=== PATIENT | male | born 1940 | race Caucasian/White ===

== ENCOUNTER 2024-12-06 11:39 | Inpatient (IN) | payer MEDICARE, SELFPAY ==
[2024-12-06] VITALS (16 sets, daily range): BP systolic 124–160; BP diastolic 51–98; PULSE 47–75; RESP 14–23; TEMP 36.3–36.6; O2SAT 95–100; BMI 33.7; BMI 34.2
--- NOTE | 2024-12-06 11:42 | ED.RN ---
consulted dr issa. stroke protocols placed and dr issa to see ot in room.
--- NOTE | 2024-12-06 11:43 | EKG12_ITS ---
Test Reason : Blood Pressure : */* mmHG Vent. Rate : 60 BPM Atrial Rate : 60 BPM P-R Int : 184 ms QRS Dur : 100 ms QT Int : 426 ms P-R-T Axes : 45 0 14 degrees QTcB Int : 426 ms Normal sinus rhythm Baseline artifact Probably normal Confirmed by Julio Palma ([id number]), slot editor MARGARET NAIR ([id number]) on 12/07/2024 6:48:18 AM Referred By: Confirmed By: Julio Palma
--- NOTE | 2024-12-06 12:23 | CT_ITS ---
PROCEDURE: STROKE BRAIN/HEAD WITHOUT CONT 12/06/2024 REASON FOR EXAM: NEURO DEFICIT, ACUTE, STROKE SUSPECTED TECHNIQUE: Head CT without intravenous contrast. Coronal and Sagittal reconstruction series were provided. One or more dose reduction techniques were used (e.g., Automated exposure control, adjustment of the mA and/or kV according to patient size, use of iterative reconstruction technique. RADIATION DOSE SUMMARY: CTDlvol: 44.99 mGy DLP: 829.85 mGycm COMPARISON: None FINDINGS: Brain: Low density in the periventricular white matter suggests mild chronic small vessel ischemic changes. Atherosclerotic calcification of the vertebral arteries and cavernous portions of the internal carotid arteries bilaterally. CSF Spaces: Mild generalized cerebral atrophy Sinuses/Mastoids: Clear at visualized levels Bones: Unremarkable. CT/STROKE Brain/Head without Cont IMPRESSION: CHRONIC CHANGES. NO ACUTE FINDINGS. Red Alert: Chronic changes The critical information above was relayed directly by me by telephone to Ricardo Donohue on 12/06/2024 at 1:11 pm with readback verification. Reading Location: [place] [id number]
--- NOTE | 2024-12-06 12:23 | CT_ITS ---
PROCEDURE: STROKE CTA HEAD AND NECK W/CON 12/06/2024 REASON FOR EXAM: NEURO DEFICIT, ACUTE, STROKE SUSPECTED TECHNIQUE: CTA imaging of the head and neck from the aortic arch to the skull vertex with out contrast and with intravenous contrast. Multiplanar and multisequence images were obtained. CONTRAST: Isovue-300 VOLUME: 100 mL One or more dose reduction techniques were used (e.g., Automated exposure control, adjustment of the mA and/or kV according to patient size, use of iterative reconstruction technique). RADIATION DOSE SUMMARY: CTDlvol: 24 mGy DLP: 732.75 mGycm COMPARISON: None FINDINGS: Aortic Arch: Normal size and branching pattern. Mild atherosclerotic plaque. Brachiocephalic and Subclavians: Mild atherosclerotic plaque. Significant stenosis at the origin of the left subclavian artery. An intraluminal filling defect is seen at the origin of the left subclavian artery adjacent to the origin of the left vertebral artery. RIGHT Carotid: Right CCA: Unremarkable Right ICA: Moderate calcified and soft plaque. Maximum stenosis (NASCET): 60 % Right ECA: Unremarkable LEFT Carotid: Left CCA: Moderate calcified and soft plaque. Left ICA: Moderate calcified and soft plaque. Maximum stenosis (NASCET): 60 % Left ECA: Unremarkable Vertebrals: Codominant. Arise from the subclavians. Both vertebrals form the basilar. RIGHT Vertebral: Unremarkable. LEFT Vertebral: Calcific plaques. Anatomy: [place] anatomy is normal. Aneurysm or avm: No intracranial aneurysms or large vascular malformations are identified. Anterior cerebral arteries: Unremarkable: Middle cerebral arteries: Unremarkable. Basilar artery: Unremarkable. Posterior cerebral arteries: Unremarkable. Other major branches of the posterior circulation: Unremarkable. Major venous structures: Unremarkable. Other findings: Neck: Lungs: Bones: CT/STROKE CTA Head AND Neck W/Con IMPRESSION: Calcific plaques at the origin of both right and left internal carotid artery c ausing approximately 60% stenosis. Calcific plaque at the origin of the left subclavian artery just proximal to th e origin of the left vertebral artery. Nonocclusive intraluminal filling defects seen in the subclavian artery at that site. Red Alert: 60 % stenosis bilat int carotids. Filling defect in Left subclavian. The critical information above was relayed directly by me by telephone to Ricardo Donohue on 12/06/2024 at 1:22 pm with readback verification. Reading Location: [facility]
--- NOTE | 2024-12-06 12:24 | ED.VIS.STROK ---
HPI History of Present Illness Chief Complaint: Neuro S/Sx Informant: patient Onset/Context/Timing Onset: Today and Hours Context: Sudden Onset Timing: Continuous Onset: Decreased vision left upper visual field. Current Severity: Moderate Maximum Severity: Moderate Associated Symptoms Associated Symptoms: Negative for Headache, Nausea, Vomiting or Chest Pain Narrative Narrative: 84-year-old male decreased vision left upper field of his left eye started 8 AM this morning. He saw an train reservation clerk Dr. Christie and was diagnosed with left retinal artery occlusion. Sent to ER for further evaluation. He denies any other complaints. He denies headache. He denies weakness in his arms or legs. He denies any ataxia. He has had a prior stroke 6 years ago Prior similar symptoms: No Recent Illness/Hospitalization: No PFSH PFSH Home Medications ?Medication ?Instructions ?Recorded ?Last Taken ?Type furosemide 20 mg tablet 20 mg PO DAILY 05/04/13 Unknown History atorvastatin 40 mg tablet 40 mg PO QHS ##30 05/06/13 Unknown Rx clopidogrel 75 mg tablet 75 mg PO DAILY ##30 05/06/13 Unknown Rx lisinopril 5 mg tablet 15 mg (3 x 5 mg) PO DAILY ##30 05/17/13 Unknown Rx doxazosin 4 mg tablet 4 mg PO BID 12/06/24 Unknown History levothyroxine 150 mcg tablet 150 mcg PO DAILY disorder of 12/06/24 Unknown History thyroid gland losartan 50 mg tablet 50 mg PO BID 12/06/24 Unknown History metoprolol succinate 25 mg 25 mg PO DAILY 12/06/24 Unknown History tablet,extended release 24 hr pravastatin 40 mg tablet 40 mg PO QHS cholesterol 12/06/24 Unknown History Allergy/AdvReac Type Severity Reaction Status Date / Time Sulfa (Sulfonamide Allergy Rash Verified 12/06/24 11:40 Antibiotics) Social History Smoking Status: Never smoker ROS ROS ED ROS Narrative Left visual change. No recent illness. Constitutional Constitutional ED: Denies chills Eyes Eyes: Reports change in vision left ENT ENT ED: Denies ear pain Cardiovascular Cardiovascular: Denies chest pain Respiratory/Chest Respiratory/Chest: Denies cough Gastrointestinal Gastrointestinal: Denies abdominal pain Genitourinary Genitourinary ED: Denies dysuria Musculoskeletal Musculoskeletal: Denies arthralgias Neurologic Neurologic: Denies headache(s) Psychiatric Psychiatric: Denies anxiety Endocrine Endocrinology: Denies polydipsia Hematologic/Lymphatic Hematologic/Lymphatic: Denies easy bleeding Allergic/Immunologic Allergic/Immunologic ED: Denies mouth swelling or urticaria EXAM Physical Exam Narrative Exam Narrative: Well-appearing 84-year-old male sitting upright in bed. Vital signs stable afebrile. No acute distress. H EENT exam appears Ramming Actilite. Expirations are intact. He is vision change in his left eye left upper field. No facial droop. Normal speech. Neck nontender. Lungs clear. Heart regular rhythm rate about 75 no murmur. Chest wall ribs nontender. Abdomen soft nontender. Moving all 4 extremities. 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 Dorsi plantarflexion intact. No drift. Neurologically he has decreased vision or loss of vision left upper eye field. Otherwise he has normal strength. Normal range of motion. No ataxia. Normal speech. His NIH is 1. Const Vital Signs: 12/06/24 11:40 12/06/24 12:17 12/06/24 12:26 Temperature 97.9 F Temperature Source Oral Pulse Rate 75 Respiratory Rate 18 Blood Pressure 124/98 H Blood Pressure Mean 106 Pulse Ox 98 Oxygen Delivery Method Room Air Room Air Room Air 12/06/24 12:30 12/06/24 13:00 12/06/24 13:30 Temperature Temperature Source Pulse Rate 58 L 55 L 51 L Respiratory Rate 23 H 23 H 18 Blood Pressure 147/56 H 132/57 H 139/58 H Blood Pressure Mean 83 82 83 Pulse Ox 99 98 98 Oxygen Delivery Method Room Air Room Air 12/06/24 14:00 12/06/24 14:30 12/06/24 15:00 Temperature Temperature Source Pulse Rate 50 L 50 L 49 L Respiratory Rate 19 H 22 H 20 H Blood Pressure 145/57 H 142/51 H 148/56 H Blood Pressure Mean 84 77 86 Pulse Ox 98 98 99 Oxygen Delivery Method Positive well developed; Negative for cachectic, contractures or unkempt General Appearance ED: well developed and NAD; Negative for unkempt, cachectic or contractures Nutritional Appearance: Negative for cachectic HEENT Reports moist mucous membranes atraumatic Eyes PERRL and EOMs intact bilaterally Eyes Narrative: Left eye upper field vision loss. General Eye ED: Negative for pale conjunctiva or scleral icterus Neck no lymphadenopathy, supple and no JVD Chest Wall inspection of chest normal and palpation of chest normal Resp normal respiratory effort and clear to auscultation bilaterally Cardio no murmurs Rate: regular rate Rhythm: regular rhythm GI normal to inspection, nondistended, normoactive bowel sounds, soft to palpation, non-tender, non-distended and no masses Auscultation: normoactive bowel sounds Back/Spine no CVA tenderness Extremity normal to inspection General Extremety ED: Negative for deformity, edema or tenderness General Extremity: Negative for deformity or edema Neuro oriented x3 and No CN's II-XII intact bilaterally Neuro Narrative: Left eye vision loss left upper field only. NIH is 1 only. Sensorium / Orientation: alert, oriented to person, oriented to place and oriented to time; Negative for orientation impaired or confused Speech: speech normal Motor Exam: strength 5/5 throughout Psych mental status grossly normal Appearance: Negative for unkempt Attitude: No agitated Mood & Affect: Negative for depressed, anxious or tearful Skin no wounds General Skin Exam: Negative for jaundice Lesions: no lesions Rashes: no rashes MDM MDM MDM Narrative Medical decision making narrative: 84-year-old male left upper field vision loss. Has a known retinal artery occlusion per ophthalmology. Sent here for further stroke workup. Otherwise his exam is benign. I think this is limited to his left eye only. He will go through a stroke workup. Repeat exam patient is doing well. No change in his exam. Given that he had a CTA of his head neck and there is a left subclavian clot I spoke to the hospitalist and vascular surgery. He will be admitted most likely started on anticoagulation. He was anticoagulated for prior stroke 6 years ago. History & Record Review Discussion w/independent historian: Patient Additional record(s) reviewed:: Prior inpatient record, Prior outpatient record, Prior ED visit and Prior labs Lab Data Attestation: I reviewed the patient's lab results. Lab results narrative: CBC shows a white count of 9.9. H&H 10.7 and 32. Platelets 224. Chemistry shows sodium 136. Gap 11. BUN 26 creatinine 1.7. Glucose 93. PT/INR 14 and 1. PTT 30. Troponin 12. Labs: Laboratory Results - last 24 hr 12/06/24 12/06/24 12/06/24 12:15 12:23 12:50 WBC 9.9 RBC 3.66 L Hgb 10.7 L Hct 32.4 L MCV 88.5 MCH 29.2 MCHC 33.0 RDW Std Deviation 45.6 H RDW Coeff of Jennifer 14.1 Plt Count 224 MPV 10.3 Immature Gran % (Auto) 0.300 Neut % (Auto) 79.3 H Lymph % (Auto) 11.5 L [place] % (Auto) 7.0 Eos % (Auto) 1.4 Baso % (Auto) 0.5 Absolute Neuts (auto) 7.9 H Absolute Lymphs (auto) 1.14 Nucleated RBC % 0 PT 14.2 INR 1.1 APTT 30.4 Sodium 136 Potassium 4.2 Chloride 104 Carbon Dioxide 21.2 Anion Gap 11 BUN 26 H Creatinine 1.77 H Estim Creat Clear Calc 36.88 L Est GFR (MDRD) Non-Af 37 L BUN/Creatinine Ratio 14.9 Glucose 93 Calcium 8.7 Troponin T High Sens 12 Radiography Diagnostic Testing: Clinical Impression(s) from Imaging Studies Brain CT 12/06/24 12:23 IMPRESSION: CHRONIC CHANGES. NO ACUTE FINDINGS. Red Alert: Chronic changes The critical information above was relayed directly by me by telephone to Ricardo Sinha on 12/06/2024 at 1:11 pm with readback verification. Reading Location: [facility]--1 Head/Neck CTA 12/06/24 12:23 IMPRESSION: Calcific plaques at the origin of both right and left internal carotid artery causing approximately 60% stenosis. Calcific plaque at the origin of the left subclavian artery just proximal to the origin of the left vertebral artery. Nonocclusive intraluminal filling defects seen in the subclavian artery at that site. Red Alert: 60 % stenosis bilat int carotids. Filling defect in Left subclavian. The critical information above was relayed directly by me by telephone to Ricardo Sinha on 12/06/2024 at 1:22 pm with readback verification. Reading Location: [facility]-1 Rhythm Strip Rhythm Strip: Sinus Rhythm Rate: 60 Ectopy: None EKG Initial EKG: Attestation: I personally reviewed and interpreted this EKG as follows: Interpretation: Sinus Rhythm and No Acute Injury Pattern Comments: Normal sinus rhythm rate of 60 no acute signs of OR or ischemia. Discharge Plan Triage Chief Complaint: Neuro S/Sx ED Provider: Ricardo Sinha Dx/Rx/DC Orders Prescriptions: No Action furosemide 20 MG tablet 20 mg PO DAILY Patient Comments: DIURETIC atorvastatin 40 MG tablet 40 mg PO QHS Qty: 30 0RF Patient Comments: CHOLESTEROL LOWERING clopidogrel 75 MG tablet 75 mg PO DAILY Qty: 30 0RF Patient Comments: BLOOD THINNER lisinopril 5 MG tablet 15 mg PO DAILY Qty: 30 0RF Patient Comments: LOWERS BLOOD PRESSURE losartan 50 mg tablet 50 mg PO BID pravastatin 40 mg tablet 40 mg PO QHS levothyroxine 150 mcg tablet 150 mcg PO DAILY doxazosin 4 mg tablet 4 mg PO BID metoprolol succinate 25 mg tablet extended release 24 hr 25 mg PO DAILY Primary Care Provider: Dimitri Marie Referrals: Dimitri Marie MD [Primary Care Provider] - Print Language: Malay
[2024-12-06 12:32] LABS: Absolute Lymphocyte Count 1.14 X10^3/uL (0.83-4.51); Absolute Neutrophil Count 7.9 X10^3/uL (2.0-7.7); Basophil# 0.05 X10^3/uL; Basophil% 0.5 % (0-1); Eosinophil# 0.14 X10^3/uL; Eosinophils% 1.4 % (0-5); Hematocrit 32.4 % (40-54); Hemoglobin 10.7 g/dL (13.0-16.5); Lymphocyte # 1.14 X10^3/ul (0.83-4.51); Lymphocyte % 11.5 % (19-41); Mean Corpuscular Hgb 29.2 pg (27.0-32.0); Mean Corpuscular Volume 88.5 fL (80-94); Mean Platelet Vol. 10.3 fl (6.2-12.0); Monocyte# 0.69 X10^3/uL; NRBC Flagged by Analyzer 0 % (0-5); Neutrophil # 7.86 X10^3/uL (2.7-7.7); Neutrophil % 79.3 % (47-70); Platelet Count 224 K/mm3 (150-450); RBC Distribution Width CV 14.1 % (11.6-14.6); RBC Distribution Width SD 45.6 fl (35.1-43.9); Red Blood Count 3.66 M/mm3 (4.6-6.2); White Blood Count 9.9 K/mm3 (4.4-11.0)
[2024-12-06 12:54] LABS: Anion Gap 11 (5-15); BUN 26 mg/dL (4-19); BUN/Creat Ratio 14.9 RATIO (10-20); Calcium,Total 8.7 mg/dL (7.6-11.0); Carbon Dioxide 21.2 mmol/L (21.0-32.0); Chloride 104 mmol/L (98-108); Creatinine, Serum 1.77 mg/dL (0.70-1.20); EST Glomerular Filtration Rate 37 (>60); Estimated Creatinine Clearance 36.88 ml/min (50-250); Glucose 93 mg/dL (70-99); Potassium 4.2 mmol/L (3.3-5.1); Sodium Level 136 mmol/L (133-145)
[2024-12-06 13:16] LABS: International Normalized Ratio 1.1; Prothrombin Time (Protime)PT. 14.2 SECONDS (11.7-14.9)
[2024-12-06 13:17] LABS: Partial Thromboplast Time 30.4 Seconds (24.1-36.2)
[2024-12-06 13:53] LABS: Troponin T High Sensitivity 12 ng/L (<=22)
--- NOTE | 2024-12-06 15:02 | PCM.HP.STD ---
HPI - General General Date of Admission: 12/06/24 Date of Service: 12/06/24 Chief Complaint: Vision loss HPI Narrative CARISSA GRUBER, is a 84 M who presented to [facility] ED on 12/06/24 with vision loss. Patient noticed decreased vision in his left upper eye field around 8 AM this morning. He saw evidence technician Dr. Guerrero and was diagnosed with a left retinal artery occlusion. He was then sent to the ER for further evaluation. 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 Was suspected that this was the reason for the retinal artery occlusion. ED physician discussed with vascular surgery who noted no need for surgical intervention and recommended initiating anticoagulation. Hospitalist was then contacted for admission. I saw the patient at bedside in the ED. Patient was sitting back comfortably in bed, conversing normally, in no acute distress. He continues to report the same vision issues this morning but denied any other strokelike symptoms. Lives at home alone and is typically very active at baseline, goes to the [facility] on a regular basis. He denies any other acute concerns this morning. [facility] Home Medications ?Medication ?Instructions ?Recorded ?Last Taken ?Type aspirin 81 mg chewable tablet 1 tab PO DAILY Antiplatelete 12/06/24 12/06/24 History doxazosin 4 mg tablet 4 mg PO BID Blood pressure 12/06/24 12/06/24 History levothyroxine 150 mcg tablet 150 mcg PO DAILY disorder of 12/06/24 12/06/24 History thyroid gland losartan 50 mg tablet 50 mg PO BID Blood pressure 12/06/24 12/06/24 History metoprolol succinate 25 mg 25 mg PO DAILY Hear rate/Blood 12/06/24 12/06/24 History tablet,extended release 24 hr pressure pravastatin 40 mg tablet 40 mg PO QHS cholesterol 12/06/24 12/05/24 History Allergy/AdvReac Type Severity Reaction Status Date / Time Sulfa (Sulfonamide Allergy Rash Verified 12/06/24 22:08 Antibiotics) Social History Smoking Status: Never smoker ROS Constitutional Constitutional: Denies chills, fatigue, fever(s) or weakness Eyes Eyes: Reports change in vision and loss of vision; Denies blurry vision, discharge from eye(s), double vision or eye pain ENT HEENT: Denies sinus pressure or sore throat Cardiovascular Cardiovascular: Denies chest pain Respiratory/Chest Respiratory/Chest: Denies shortness of breath at rest Gastrointestinal Gastrointestinal: Denies abdominal pain Neurologic Neurologic: Denies disequilibrium, dizziness, focal weakness or headache(s) Vital Signs Vital Signs Vital Signs: 12/06/24 11:40 12/06/24 12:17 12/06/24 12:26 Temperature 97.9 F Temperature Source Oral Pulse Rate 75 Respiratory Rate 18 Blood Pressure 124/98 H Blood Pressure Mean 106 Pulse Ox 98 Oxygen Delivery Method Room Air Room Air Room Air 12/06/24 12:30 12/06/24 13:00 12/06/24 13:30 Temperature Temperature Source Pulse Rate 58 L 55 L 51 L Respiratory Rate 23 H 23 H 18 Blood Pressure 147/56 H 132/57 H 139/58 H Blood Pressure Mean 83 82 83 Pulse Ox 99 98 98 Oxygen Delivery Method Room Air Room Air 12/06/24 14:00 12/06/24 14:30 Temperature Temperature Source Pulse Rate 50 L 50 L Respiratory Rate 19 H 22 H Blood Pressure 145/57 H 142/51 H Blood Pressure Mean 84 77 Pulse Ox 98 98 Oxygen Delivery Method Weight Weight: 108.1 kg Body Mass Index (BMI) 34.2 Physical Exam Const alert, oriented x3 and no apparent distress Constitutional Narrative: Elderly male, class I obesity, sitting back comfortably in bed, conversing normally, in no acute distress. General Appearance: cooperative and comfortable HEENT normocephalic, head/scalp atraumatic, hearing grossly normal bilaterally, nasal mucous membranes and turbinates normal and moist oral mucous membranes Eyes PERRL, EOMs intact bilaterally and conjunctivae normal Neck full ROM Chest inspection of chest normal Resp normal respiratory effort, normal air movement, no use of accessory muscles and clear to auscultation bilaterally Cardio regular rate, regular rhythm, no murmurs and peripheral pulses 2+ throughout GI normal to inspection, nondistended, normoactive bowel sounds, soft to palpation, non-tender and non-distended Back/Spine normal ROM Extremity normal to inspection, full ROM and no pedal edema Skin no rashes or lesions noted Neuro moves all extremities and no focal motor deficits Neuro Narrative: Vision loss noted in left upper eye field. Speech: speech normal Motor Exam: strength 5/5 throughout Psych mental status grossly normal Results Lab / Micro Data 12/07/24 06:59 12/06/24 12:15 Labs: Laboratory Results - last 24 hr 12/06/24 12:15: WBC 9.9, RBC 3.66 L, Hgb 10.7 L, Hct 32.4 L, MCV 88.5, MCH 29.2, MCHC 33.0, RDW Std Deviation 45.6 H, RDW Coeff of Jennifer 14.1, Plt Count 224, MPV 10.3, Immature Gran % (Auto) 0.300, Neut % (Auto) 79.3 H, Lymph % (Auto) 11.5 L, [place] % (Auto) 7.0, Eos % (Auto) 1.4, Baso % (Auto) 0.5, Absolute Neuts (auto) 7.9 H, Absolute Lymphs (auto) 1.14, Nucleated RBC % 0, Sodium 136, Potassium 4.2, Chloride 104, Carbon Dioxide 21.2, Anion Gap 11, BUN 26 H, Creatinine 1.77 H, Estim Creat Clear Calc 36.88 L, Est GFR (MDRD) Non-Af 37 L, BUN/Creatinine Ratio 14.9, Glucose 93, Calcium 8.7 12/06/24 12:23: Troponin T High Sens 12 12/06/24 12:50: PT 14.2, INR 1.1, APTT 30.4 Imaging Radiology Impression Brain CT 12/06/24 12:23 IMPRESSION: CHRONIC CHANGES. NO ACUTE FINDINGS. Red Alert: Chronic changes The critical information above was relayed directly by me by telephone to Ricardo Sinha on 12/06/2024 at 1:11 pm with readback verification. Reading Location: [facility]1 Head/Neck CTA 12/06/24 12:23 IMPRESSION: Calcific plaques at the origin of both right and left internal carotid artery causing approximately 60% stenosis. Calcific plaque at the origin of the left subclavian artery just proximal to the origin of the left vertebral artery. Nonocclusive intraluminal filling defects seen in the subclavian artery at that site. Red Alert: 60 % stenosis bilat int carotids. Filling defect in Left subclavian. The critical information above was relayed directly by me by telephone to Bharath Ricardo on 12/06/2024 at 1:22 pm with readback verification. 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 1. Left retinal artery occlusion suspected secondary to left subclavian artery stenosis with thrombosis ? Admit under inpatient status to PCU. Neurology consulted. CTA head/neck showed significant stenosis at the origin of the left subclavian artery with an intraluminal filling defect seen there.Strongly suspect left retinal artery occlusion is secondary to subclavian artery stenosis with thrombosis and plan will be for anticoagulation without surgical intervention. Appreciate neurology recommendations on any further workup needed or need for aspirin and/or Plavix in addition to Eliquis. Lipid panel, A1c and TSH ordered. Continue high intensity statin. Chronic medical conditions: ? Class I obesity: BMI 34 on admit. Encouraged weight loss. Complicates hospital course, care and prognosis. ? Hypertension: Okay to continue home Toprol, losartan and doxazosin; no need for permissive hypertension at this time. ? Hyperlipidemia: Continue high intensity statin. ? Hypothyroidism: Continue home Synthroid. DVT prophylaxis: Not indicated, on Eliquis CODE STATUS: Full code, verified Expected disposition: Home, TBD Total clinical time spent by myself addressing the patient's medical issues, reviewing all the data, and collaborating with patient's care team: 55 minutes. Charges/Coding Visit Charges Inpatient E&M: 96314 Init Hosp L2
--- NOTE | 2024-12-06 15:37 | ECHOD_ITS ---
Reason For Study Reason For Study: TIA/CVA Procedure This was a 2D Doppler, Color Flow transthoracic echocardiogram. Exam performed portable in patient room. Left Ventricle Normal LV size. Mild concentric left ventricular hypertrophy. The LV systolic function is normal. EF is 65 %. Stage 1 diastolic dysfunction. Right Ventricle Normal right ventricle. Atria The left and right atria are normal. Mitral Valve Moderate mitral valve annular calcification. Mild to moderate mitral valve regurgitation. Tricuspid Valve Trivial tricuspid valve insufficiency. RVSP estimated at 35-45 mmHg. Aortic Valve Trisinus/trileaflet aortic valve. Mild diffuse aortic valve thickening. Mild aortic valve stenosis. Mean peak gradient 14 mmHg. Mild to moderate aortic valve regurgitation. Pulmonic Valve The pulmonic valve is not well visualized. Great Vessels Normal sized aortic root. Pericardium/Pleural No pericardial effusion. MMode/2D Measurements & Calculations LVIDd: 5.7 cm IVSd: 1.2 cm LVOT diam: 2.1 cm LVIDs: 3.8 cm LVPWd: 1.1 cm LVOT area: 3.4 cm2 RVDd: 4.2 cm FS: 33.7 % Ao root diam: 3.5 cm LAV(MOD-bp): 66.5 ml LVAd ap4: 36.9 cm2 LAV(MOD-bp) Indexed: 29.6 ml/m2 LVLd ap4: 8.8 cm LAV(MOD-sp2): 68.4 ml EDV(MOD-sp4): 123.2 ml LAV(MOD-sp4): 66.0 ml EDV(sp4-el): 130.4 ml LVAs ap4: 20.6 cm2 LVLs ap4: 7.9 cm ESV(MOD-sp4): 45.0 ml ESV(sp4-el): 45.6 ml EF(MOD-sp4): 63.5 % EF(sp4-el): 65.1 % SV(MOD-sp4): 78.2 ml SV(sp4-el): 84.9 ml Aortic Valve Planimetry: 2.0 cm2 SI(MOD-sp4): 34.8 ml/m2 LA A4 area: 21.1 cm2 LA dimension(2D): 4.4 cm RA A4 area: 14.8 cm2 TAPSE: 2.3 cm Time Measurements MV dec time: 0.30 sec Doppler Measurements & Calculations MV E max mark: 92.3 cm/sec Lat Peak E' Mark: 5.4 cm/sec Med Peak E' Mark: 5.4 cm/sec MV A max mark: 117.4 cm/sec E/E' lat: 17.0 E/E' med: 17.2 MV E/A: 0.79 MV V2 max: 151.8 cm/sec MV P1/2t max mark: 109.1 cm/sec Ao V2 max: 246.4 cm/sec MV max P.2 mmHg MV P1/2t: 100.2 msec Ao max P.3 mmHg MV V2 mean: 67.5 cm/sec Ao V2 mean: 176.0 cm/sec MV mean P.3 mmHg MV dec slope: 318.9 cm/sec2 Ao mean P.0 mmHg MV V2 VTI: 42.6 cm MVA(P1/2t): 2.2 cm2 Ao V2 VTI: 54.1 cm AV (velocity ratio): 0.54 MVA(VTI): 2.3 cm2 DONNIE(I,D): 1.8 cm2 DONNIE(V,D): 1.7 cm2 AI max mark: 444.0 cm/sec LV V1 max: 123.0 cm/sec MR max mark: 485.3 cm/sec AI max P.1 mmHg LV V1 max P.1 mmHg MR max P.2 mmHg AI dec slope: 268.8 cm/sec2 LV V1 mean P.2 mmHg MR mean mark: 376.2 cm/sec AI P1/2t: 483.8 msec LV V1 mean: 81.9 cm/sec MR mean P.0 mmHg LV V1 VTI: 29.1 cm MR VTI: 153.3 cm SV(LVOT): 99.4 ml PA V2 max: 122.7 cm/sec TR max mark: 276.4 cm/sec TR max P.6 mmHg ECHO/Echo Complete Interpretation Summary Mild concentric left ventricular hypertrophy. The LV systolic function is normal. EF is 65 %. Stage 1 diastolic dysfunction. Moderate mitral valve annular calcification. Mild to moderate mitral valve regu rgitation. RVSP estimated at 35-45 mmHg. Mild aortic valve stenosis. Mean peak gradient 14 mmHg. Mild to moderate aortic valve regurgitation. Ordering Physician: Lyndon Dinh Performed By: Mann Mcleod RCS
--- NOTE | 2024-12-06 15:37 | MRI_ITS ---
PROCEDURE: BRAIN WITHOUT CONTRAST 12/06/2024 REASON FOR EXAM: EVAL FOR CVA TECHNIQUE: Noncontrast brain MRI. Multiplanar and multisequence images were obtained. FINDINGS: There is no pathologic diffusion restriction to represent an acute or recent infarction. There is nonspecific mild left-sided mastoid fluid. There is a mild degree of atrophy with compensatory ventricular prominence. There is no intracranial mass. There are no abnormal flow voids. There is no significant intracranial demyelination and there is no hemorrhage. Coronal T2 weighted images demonstrate moderate hippocampal atrophy which is symmetric. MRI/Brain without Contrast IMPRESSION: No acute abnormality Reading [facility]
[2024-12-06 17:14] LABS: Hemoglobin A1c 5.7 % (<=5.6)
--- NOTE | 2024-12-06 19:05 | CASEMGMT ---
Care Management Face to Face with patient for initial transition planning/care coordination assessment in the ED.? 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 Patient alert and oriented. Patient willing to participate in assessment and is able to answer all questions appropriately.? Care providers, pharmacy, and demographics verified. Admitting Diagnosis: Neuro s/sx Other diagnosis history: ?HTN, hypothyroid PCP: ?Frank Specialists: ?Ramesh Preferred Pharmacy:? [facility] Insurance: ?medicare Prescription Benefit: yes Living Will/HPOA: ?Does not have one done, not interested in completing LNOK: ?sister Living Arrangements: patient lives alone in a 1.5 story home.? Independent with ADLS and IADLs Transportation: ?Patient drives DME: ?None HHC: ?None SNF/Rehab: None Community Resources: ?None Behavioral Health History: None Patient goals: Patient wishes to discharge home, denies need for home health care at this time. Patient denies any further needs or concerns at this time. Disposition Plan: admission to acute; RN CM/SW to follow for discharge planning needs that may arise. Ashlee Ndiaye, PHYSICAL SCIENCE AIDE, HOURLY MANAGER
[2024-12-06] MEDS: Enoxaparin 100 MG/ML Syringe SC (22:18)
[2024-12-06] MEDS: Atorvastatin Calcium 40 MG Tablet PO (22:18)
[2024-12-06] MEDS: Doxazosin 4 MG Tablet PO (22:18)
[2024-12-07] VITALS (8 sets, daily range): BP systolic 119–154; BP diastolic 52–64; PULSE 52–74; RESP 16–18; TEMP 36.5–36.7; O2SAT 94–99; BMI 34.2
--- NOTE | 2024-12-07 00:32 | NURSING ---
said ok to D/C [facility] MRI Negative. 12/06 @ [id number]
[2024-12-07] MEDS: Levothyroxine 150 MCG Tablet PO (05:34)
[2024-12-07 07:17] LABS: Hematocrit 32.4 % (40-54); Hemoglobin 10.5 g/dL (13.0-16.5); Mean Corp Hgb Conc 32.4 g/dL (32-36); Mean Corpuscular Hgb 28.5 pg (27.0-32.0); Mean Corpuscular Volume 87.8 fL (80-94); Mean Platelet Vol. 10.3 fl (6.2-12.0); Platelet Count 226 K/mm3 (150-450); RBC Distribution Width CV 14.2 % (11.6-14.6); RBC Distribution Width SD 45.5 fl (35.1-43.9); Red Blood Count 3.69 M/mm3 (4.6-6.2); White Blood Count 7.2 K/mm3 (4.4-11.0)
[2024-12-07 07:43] LABS: Anion Gap 11 (5-15); BUN 21 mg/dL (4-19); BUN/Creat Ratio 14.3 RATIO (10-20); Calcium,Total 8.7 mg/dL (7.6-11.0); Carbon Dioxide 22.4 mmol/L (21.0-32.0); Chloride 106 mmol/L (98-108); Cholesterol 104 mg/dL (<=200); Creatinine, Serum 1.47 mg/dL (0.70-1.20); EST Glomerular Filtration Rate 46 (>60); Estimated Creatinine Clearance 44.41 ml/min (50-250); Glucose 94 mg/dL (70-99); High Density Lipoprotein 38 mg/dL; Low Density Lipoprotein Calc. 54 mg/dL; Potassium 4.1 mmol/L (3.3-5.1); Sodium Level 139 mmol/L (133-145); Triglycerides 58 mg/dL; Very Low Density Lipoprotein 12 mg/dL (5-40); cholesterol:hdl ratio screen 2.74
[2024-12-07] MEDS: Aspirin 81 MG TAB.CHEW PO (08:13)
[2024-12-07] MEDS: APIXABAN 5 MG TABLET PO (08:13)
[2024-12-07] MEDS: Doxazosin 4 MG Tablet PO (08:13)
[2024-12-07] MEDS: Ensure Plus High Protein 120 ML LIQUID PO (08:13)
[2024-12-07] MEDS: Losartan Potassium 50 MG Tablet PO (10:15)
[2024-12-07] MEDS: Metoprolol(XL)Succ 25 MG Tablet PO (10:15)
--- NOTE | 2024-12-07 11:12 | DCINST_ITS ---
Discharge Instructions Diet Discharge Diet: No restrictions DC O2, CPAP, BIPAP needs Home O2 Discharge instructions: No Dressing / Incision Discharge Activity: No Restrictions Follow Up Care Test Results: Test results from this visit will be discussed in further detail at your follow- up appointment, if applicable. Discharge Plan Admission Admit Date/Time: 12/06/24 15:31 Primary Reason for Your Visit: vision issue Attending Provider: Lyndon Dinh Primary Care Provider: Dimitri Marie Consulting Providers: Jerome Don; Lary Muniz; Constance Schmid; Mari Hernández; Tiffany Ma; Kota Hussein; Crystal Farah; Bryn Zambrano; Yash Gerardo; George Perla; Tere Barrientos; Berny Pittman; Cristine Solo; Jeff Dougherty; Sloan Pastrana; Ronn Mcclellan; Donald Hunter; Guevara Mahoney; Kitty Patel; Julia Rahman Discharge Orders/Prescriptions Prescriptions: New atorvastatin 40 mg Tablet 40 mg PO QHS 90 Days Qty: 90 0RF Eliquis 5 mg Tablet 5 mg PO BID 30 Days Qty: 60 2RF Continued losartan 50 mg tablet 50 mg PO BID levothyroxine 150 mcg tablet 150 mcg PO DAILY doxazosin 4 mg tablet 4 mg PO BID metoprolol succinate 25 mg tablet extended release 24 hr 25 mg PO DAILY Discontinued pravastatin 40 mg tablet 40 mg PO QHS aspirin 81 mg tablet,chewable 1 tab PO DAILY Other Ambulatory Orders: 30 Day Event Recorder Preventi (Urgent) Timeframe: 1 Month Facility: [facility] - Location: Cardiovascular Services Ordered By: Dr. Lyndon Dinh Referrals / Follow Up: Justin La MD [Med Staff - Active Staff] - Eric Clark MD [Med Staff - Active Staff] - (For growth on chest) Dimitri Marie MD [Primary Care Provider] - Disposition Disposition (needs filled in before D/C Order can be placed): Home, Self Care
--- NOTE | 2024-12-07 11:12 | PCM.DC.SUM ---
Providers Date of Admission: 12/06/24 Date of Discharge: 12/07/24 Primary Care Physician: Dr. Dimitri Marie MD Consultations 12/06/24 21:26 Consult: Tele-Neurology Routine Consulting Provider: [facility] Reason for Consult: Acute Ischemic Stroke/TIA EMERGENT Consult: No MD Notified: Yes Date Notified: 12/07/24 Time Notified: 00:48 Method of Notification: Answering Service Method of Consult:: Telemedicine Comments:: Dr Ma Nursing Unit Staff Notify [facility] of Tele-Neurology Consult: Yes 12/07/24 01:01 Consult: Onc/Wound/cable armorer Routine Comment: Reason for Consult:: Abnormal Growth Mid Upper Chest Reason For Visit: LEFT RETINAL A. 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: Status: Acute Code(s): H34.232 - Retinal artery branch occlusion, left eye (2) Thrombosis of subclavian artery: Status: Acute Code(s): I74.8 - Embolism and thrombosis of other arteries Medications at Discharge Home Medications doxazosin 4 mg tablet 4 mg PO BID Blood pressure 12/06/24 levothyroxine 150 mcg tablet 150 mcg PO DAILY disorder of thyroid gland 12/06/24 losartan 50 mg tablet 50 mg PO BID Blood pressure 12/06/24 metoprolol succinate 25 mg tablet,extended release 24 hr 25 mg PO DAILY Hear rate/Blood pressure 12/06/24 apixaban 5 mg tablet (Eliquis) 5 mg PO BID 30 days #60 tabs 12/07/24 atorvastatin 40 mg tablet 40 mg PO QHS 90 days #90 tabs 12/07/24 Hospital Course Operations None Procedures EKG, Transthoracic echo and - (MRI brain, CTA head/neck, CT brain) Summary of Care Provided Minutes Spent on Discharge: 35 Hospital Course: Patient is an 84-year-old male who presented to [facility] ED on 12/06/2024 with vision loss. Short hospital course as noted below. Patient discharged home in stable condition on 12/07. 1. Left retinal artery versus venous occlusion suspected secondary to left subclavian artery stenosis with concern for thrombosis ? Neurology evaluated. Diagnosed with left retinal artery occlusion by ophthalmology prior to admission. CTA head/neck on admit showed significant stenosis at the origin of the left subclavian artery with an intraluminal filling defect concerning for thrombosis. MRI brain showed no acute stroke. Per neurology, imaging appeared to point more towards retinal vein occlusion rather than retinal artery occlusion, though this will not post exchange manager. On neurology's read, unclear if there is truly thrombosis in the subclavian artery versus the subclavian artery being tortuous in nature. Echo with normal EF, stage I diastolic dysfunction, no other concerning findings. Lipid panel showed total cholesterol 104, LDL 54, HDL 38. A1c 5.7%. Okay for Eliquis for anticoagulation for 3 months and high intensity statin but patient will then need reimaging at that time to reevaluate the subclavian artery. Will need vascular surgery follow-up at that time as well. 2. Elevated creatinine, improving ? Creatinine 1.77 on admit, improved to 1.47 on day of discharge. No prior labs since 2012 so baseline is unclear. Patient with good urine output during hospitalization. Recommend repeat BMP in 5-7 days to ensure that kidney function either continues to improve or remained stable. 3. Hypothyroidism with elevated TSH and elevated free T4 ? TSH 5.08, free T4 1.60 on admit. Unclear on etiology as we would expect with an elevated TSH, the free T4 would be low and Synthroid dosing could be an adequate. Recommend close outpatient follow-up with PCP for further evaluation. Continue home Synthroid. Chronic medical conditions: ? Class I obesity: BMI 34 on admit. Encouraged weight loss. Complicates hospital course, care and prognosis. ? Hypertension: Continue home Toprol, losartan and doxazosin. ? Hyperlipidemia: Continue high intensity statin. Total clinical time spent by myself addressing the patient's medical issues, reviewing all the data, and collaborating with patient's care team: 35 minutes. Physical Exam Const alert, oriented x3 and no apparent distress Constitutional Narrative: Elderly male, class I obesity, sitting back comfortably in bed, conversing normally, in no acute distress. General Appearance: cooperative and comfortable HEENT normocephalic, head/scalp atraumatic, hearing grossly normal bilaterally, nasal mucous membranes and turbinates normal and moist oral mucous membranes Eyes PERRL, EOMs intact bilaterally and conjunctivae normal Neck full ROM Chest inspection of chest normal Resp normal respiratory effort, normal air movement, no use of accessory muscles and clear to auscultation bilaterally Cardio regular rate, regular rhythm, no murmurs and peripheral pulses 2+ throughout GI normal to inspection, nondistended, normoactive bowel sounds, soft to palpation, non-tender and non-distended Back/Spine normal ROM Extremity normal to inspection, full ROM and no pedal edema Skin no rashes or lesions noted Neuro moves all extremities and no focal motor deficits Neuro Narrative: Vision loss noted in left upper eye field. Speech: speech normal Motor Exam: strength 5/5 throughout Psych mental status grossly normal Weight / BMI Weight Weight: 108.1 kg Body Mass Index (BMI) 34.2 ABG / Lab / Microbiology Data 12/07/24 06:59 12/07/24 06:59 Laboratory: Laboratory Results - last 24 hr 12/06/24 12:15: Hemoglobin A1c 5.7, TSH 5.080 H 12/07/24 06:59: WBC 7.2, RBC 3.69 L, Hgb 10.5 L, Hct 32.4 L, MCV 87.8, MCH 28.5, MCHC 32.4, RDW Std Deviation 45.5 H, RDW Coeff of Jennifer 14.2, Plt Count 226, MPV 10.3, Sodium 139, Potassium 4.1, Chloride 106, Carbon Dioxide 22.4, Anion Gap 11, BUN 21 H, Creatinine 1.47 H, Estim Creat Clear Calc 44.41 L, Est GFR (MDRD) Non-Af 46 L, BUN/Creatinine Ratio 14.3, Glucose 94, Calcium 8.7, Triglycerides 58, Cholesterol 104, LDL Cholesterol, Calc 54, VLDL Cholesterol 12, HDL Cholesterol 38 L, Cholesterol/HDL Ratio 2.74, Free T4 1.60 H Radiography Diagnostic Testing: Radiology Impression Brain MRI 12/06/24 15:37 IMPRESSION: No acute abnormality Reading Location: [facility] Echocardiogram 12/06/24 15:37 Interpretation Summary Mild concentric left ventricular hypertrophy. The LV systolic function is normal. EF is 65 %. Stage 1 diastolic dysfunction. Moderate mitral valve annular calcification. Mild to moderate mitral valve regurgitation. RVSP estimated at 35-45 mmHg. Mild aortic valve stenosis. Mean peak gradient 14 mmHg. Mild to moderate aortic valve regurgitation. Ordering Physician: Lyndon Dinh Performed By: Mann Mcleod RCS D/C Instructions DC O2, CPAP, BIPAP Needs Home O2 Discharge instructions: No Meaningful Use Info Meaningful Use Meaningful Use Diagnoses (Choose all that apply): None applicable Ischemic Stroke Statin Dosing Therapy Reference: STATIN DOSE THERAPY REFERENCE: * Patients > 75 years receive moderate or high dose statin therapy. * Patients 75 years or YOUNGER should receive HIGH intensity statin dose unless contraindicated. You will be required to document reason for non-treatment if statin daily dose does not meet guidelines. HIGH DOSE STATIN THERAPY DAILY Atorvastatin > than or = to 40 mg Rosuvastatin > than or = to 20 mg Amlodipine + Atorvastatin > than or = to 2.5/40 mg Ezetimibe + Simvastatin 10/80 mg Simvastatin 80mg Discharge Plan Admission Admit Date/Time: 12/06/24 15:31 Primary Reason for Your Visit: vision issue Attending Provider: Lyndon Dinh Primary Care Provider: Dimitri Marie Consulting Providers: Jerome Don; Lary Muniz; Constance Schmid; Mari Hernández; Tiffany Ma; Kota Hussein; Crystal Farah; Bryn Zambrano; Yash Gerardo; George Perla; Tere Barrientos; Berny Pittman; Cristine Solo; Jeff Dougherty; Sloan Pastrana; Ronn Mcclellan; Donald Hunter; Guevara Mahoney; Kitty Patel; Julia Rahman Discharge Orders/Prescriptions Prescriptions: New atorvastatin 40 mg Tablet 40 mg PO QHS 90 Days Qty: 90 0RF Eliquis 5 mg Tablet 5 mg PO BID 30 Days Qty: 60 2RF Continued losartan 50 mg tablet 50 mg PO BID levothyroxine 150 mcg tablet 150 mcg PO DAILY doxazosin 4 mg tablet 4 mg PO BID metoprolol succinate 25 mg tablet extended release 24 hr 25 mg PO DAILY Discontinued pravastatin 40 mg tablet 40 mg PO QHS aspirin 81 mg tablet,chewable 1 tab PO DAILY Other Ambulatory Orders: 30 Day Event Recorder Preventi (Urgent) Timeframe: 1 Month Facility: [facility] - Location: Cardiovascular Services Ordered By: Dr. Lyndon Dinh Referrals / Follow Up: Justin La MD [Med Staff - Active Staff] - Eric Clark MD [Med Staff - Active Staff] - (For growth on chest) Dimitri Marie MD [Primary Care Provider] - Disposition Disposition (needs filled in before D/C Order can be placed): Home, Self Care Charges/Coding Visit Charges Inpatient E&M: 46676 Disch Hosp >30min
--- NOTE | 2024-12-07 12:18 | CASEMGMT ---
Addendum entered by Juan Alejandre 12/07/24 15:35: Nelly RODRIUGEZ, made aware pt would like [id number]. Original Note: JENNIFER DALTON NOTE: Per Dr Dinh, pt to dc home on Eliquis. JENNIFER DALTON to room. Pt resting in bed. Introduced self and role. Pt made aware he will dc'ing home on Eliquis & he would like to get it from [facility] retail pharmacy. Pt made aware 30-day free trial offer card will be applied. Pt made aware if refills are not affordable to discuss possible other options w/PCP. He voices understanding. Miguel Angel LEE RN CM
--- NOTE | 2024-12-07 12:48 | WOUNDNOTE ---
wound photo: mid upper chest
--- NOTE | 2024-12-07 13:58 | CASEMGMT ---
SW did not complete a PHQ 9 as patient did not have a Stroke or TIA per patient. Selena ALEXANDER
--- NOTE | 2024-12-07 18:55 | CON.PCM.NE_ITS ---
Assessment and Plan: Stroke Assessment/Plan #L CRAO/BRAO -CTA with possible L subclavian. This would not cause a CRAO/BRAO as this vessel does not supply the ophtalmic artery. The radiologist is reading 60% L ICA stensois but on my read there is <50% stenosis. No significant carotid stenosis seen. -eliquis is sufficient, no need for additional antiplatelet from a stroke stand point. -recommend follow up with vascular and repeat imaging of thrombus, if resolves then would consider switching back from AC to antipaltelt monotherpay -goal LDL<70, HBA1c <7 -fu TTE, 30 day cardia even -BP goal 120/80 -no smoking -follow up ?with optho , PCP, vascular -LDL<70 -HbA1c <7 -MRI brain no stroke -CTA with subclavin athormbu, does not explain vision loss -eliquis is sufficient, no need for additional antiplatelet from a stroke stand point. -recommend follow up with vascular and repeat imaging of thrombus, if resolves then would consider switching back from AC to antipaltelt monotherpay HPI Consult Data Date of Consult: 12/07/24 HPI Narrative HPI Narrative: 84 yo M w PMH HTN, HLD, hypothyroid, prior lacunar stroke ?presents with left horizontal altitudinal painless monocular vision loss of L eye at 8 AM this morning. He saw news analyst Dr. Guerrero and was diagnosed with a left retinal artery occlusion. He was then sent to the ER for further evaluation. 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 No significant carotid stenosis. MRI brain showed no ischemic stroke. Vascular surgery was consulted and recommended initiating anticoagulation. The patient was taking plavix for a prior lacunar stroke. Currently feels wel, visual deficit still present.? PFSH Home Medications ?Medication ?Instructions ?Recorded ?Last Taken ?Type doxazosin 4 mg tablet 4 mg PO BID Blood pressure 0 12/06/24 12/06/24 History levothyroxine 150 mcg tablet 150 mcg PO DAILY disorder of 12/06/24 12/06/24 History thyroid gland losartan 50 mg tablet 50 mg PO BID Blood pressure 12/06/24 12/06/24 History metoprolol succinate 25 mg 25 mg PO DAILY Hear rate/Bl ood 12/06/24 12/06/24 History tablet,extended release 24 hr pressure apixaban 5 mg tablet (Eliquis) 5 mg PO BID 30 days #60 tabs 12/07/24 Unknown Rx atorvastatin 40 mg tablet 40 mg PO QHS 90 days #90 tab s 12/07/24 Unknown Rx Allergy/AdvReac Type Severity Reaction Status Date / Time Sulfa (Sulfonamide Allergy Rash Verified 12/06/24 22:08 Antibiotics) Social History Smoking Status: Never smoker Vital Signs Vital Signs Vital Signs: 12/06/24 21:26 12/06/24 21:30 12/06/24 22:00 Temperature 97.4 F L Temperature Source Oral Pulse Rate 56 L Pulse Strength Normal (2+) Respiratory Rate 18 Respiratory Effort Normal Non-Labored Respiratory Depth Normal Respiratory Pattern Normal Blood Pressure 160/56 H Blood Pressure Mean 90 Blood Pressure Source Monitor Blood Pressure Position Supine Blood Pressure Location Right Arm Pulse Ox 100 Oxygen Delivery Method Room Air Room Air 12/06/24 23:50 12/07/24 03:13 12/07/24 03:30 Temperature 97.8 F Temperature Source Oral Pulse Rate 60 Pulse Strength Respiratory Rate 16 Respiratory Effort Normal Non-Labored Respiratory Depth Normal Respiratory Pattern Normal Blood Pressure 150/63 H Blood Pressure Mean 92 Blood Pressure Source Monitor Blood Pressure Position Supine Blood Pressure Location Right Arm Pulse Ox 95 99 Oxygen Delivery Method Room Air Room Air Room Air 12/07/24 07:11 12/07/24 08:01 12/07/24 08:02 Temperature 97.7 F L 97.7 F L Temperature Source Oral Oral Pulse Rate 52 L 52 L Pulse Strength Respiratory Rate 16 16 Respiratory Effort Respiratory Depth Respiratory Pattern Blood Pressure 154/64 H 154/64 H Blood Pressure Mean 94 94 Blood Pressure Source Monitor Blood Pressure Position Semi-Fowlers Blood Pressure Location Right Arm Pulse Ox 94 98 98 Oxygen Delivery Method Room Air Room Air Room Air 12/07/24 10:00 12/07/24 10:15 12/07/24 13:00 Temperature 97.9 F Temperature Source Oral Pulse Rate 74 56 L Pulse Strength Respiratory Rate 18 Respiratory Effort Normal Non-Labored Respiratory Depth Normal Respiratory Pattern Normal Blood Pressure 119/54 L 139/60 H Blood Pressure Mean 86 Blood Pressure Source Blood Pressure Position Blood Pressure Location Pulse Ox 98 Oxygen Delivery Method Room Air Room Air 12/07/24 14:00 12/07/24 15:51 12/07/24 16:12 Temperature 98.0 F Temperature Source Oral Pulse Rate 55 L Pulse Strength Respiratory Rate 18 Respiratory Effort Normal Non-Labored Respiratory Depth Normal Respiratory Pattern Normal Blood Pressure 132/52 H Blood Pressure Mean 78 Blood Pressure Source Blood Pressure Position Blood Pressure Location Pulse Ox 99 99 Oxygen Delivery Method Room Air Room Air Weight Weight: 108.1 kg Body Mass Index (BMI) 34.2 EEG Results Procedure Details EEG Procedure Details: CARISSA GRUBER is a 84 year old M with a past medical history of , who presents for evaluation of Electroencephalogram on DATE at TIME Physical Exam Narrative MS: awake, alert, oriented x 3, follows commands, able to name, no aphasia, no dysarthria CN: VFF, L monocular superior horizontal altudinal defect described by the patient, EOMI , no facial weakness, nml facial sensation M:? Antigravity in all extremities, no drift S: nml to LT in all extremities C: no dysmetria Lab / Micro Data 12/07/24 06:59 12/07/24 06:59 Labs: Laboratory Results - last 24 hr 12/07/24 06:59: WBC 7.2, RBC 3.69 L, Hgb 10.5 L, Hct 32.4 L, MCV 87.8, MCH 28.5, MCHC 32.4, RDW Std Deviation 45.5 H, RDW Coeff of Jennifer 14.2, Plt Count 226, MPV 10.3, Sodium 139, Potassium 4.1, Chloride 106, Carbon Dioxide 22.4, Anion Gap 11, BUN 21 H, Creatinine 1.47 H, Estim Creat Clear Calc 44.41 L, Est GFR (MDRD) Non-Af 46 L, BUN/Creatinine Ratio 14.3, Glucose 94, Calcium 8.7, Triglycerides 58, Cholesterol 104, LDL Cholesterol, Calc 54, VLDL Cholesterol 12, HDL Cholesterol 38 L, Cholesterol/HDL Ratio 2.74, Free T4 1.60 H Rhythm Strip Rhythm Strip: Sinus Rhythm Rate: 60 Ectopy: None Imaging Radiology Impression Brain MRI 12/06/24 15:37 IMPRESSION: No acute abnormality [facility] Echocardiogram 12/06/24 15:37 Interpretation Summary Mild concentric left ventricular hypertrophy. The LV systolic function is normal. EF is 65 %. Stage 1 diastolic dysfunction. Moderate mitral valve annular calcification. Mild to moderate mitral valve regurgitation. RVSP estimated at 35-45 mmHg. Mild aortic valve stenosis. Mean peak gradient 14 mmHg. Mild to moderate aortic valve regurgitation. Ordering Physician: Lyndon Dinh Performed By: Mann Mcleod RCS S NIHSS Nursing Documentation NIHSS Nursing Documentation: NIHSS: Ischemic Stroke/TIA Start: 12/06/24 21:26 Text: For PCU Patients: NIH and Neuro Check every 4 Status: Complete hours, PRN and with change in RN caregiver. Freq: [id number] Protocol: Activity Type Activity Date Activity User E-sign Co-sign Detail Recorded Client Recorded Date Recorded By Document 12/06/24 21:26 LINCOLN [id number] 12/06/24 21:37 JS 12/06/24 21:26 NIH Stroke Scale [NIHSS] A score of 0 is normal or asymptomatic . Total possible score is 42. Inpatient: RN or Physician to activate a stroke alert for onset of new stroke symptoms or with NIHSS increase >/= 3 points. Following change in neurological status, NIHSS will be performed per physician order or more frequently PRN. -1a. Level of Consciousness 0 - Alert; keenly responsive -1b. LOC Questions 0 - Answers BOTH questions correctly -1c. LOC Commands 0 - Performs BOTH tasks correctly -2. Best Gaze 0 - Normal -3. Visual 1 - Partial hemianopia -4. Facial Palsy 0 - Normal symmetrical movements -5a. Left Arm 0 - No drift; arm holds 90 ( or 45) degrees for full 10 seconds -5b. Right Arm 0 - No drift; arm holds 90 ( or 45) degrees for full 10 seconds -6a. Left Leg 0 - No drift; leg holds 30- degree position for full 5 seconds -6b. Right Leg 0 - No drift; leg holds 30- degree position for full 5 seconds -7. Limb Ataxia 0 - Absent -8. Sensory 0 - Normal; no sensory loss -9. Best Language 0 - No aphasia; normal -10. Dysarthria 0 - Normal -11. Extinction and Inattention 0 - No abnormality -Total 1 Query Text:A score of 0 is normal or asymptomatic. Total possible score is 42 . ED: Notify Physician for NIHSS increase by > / = 3 points. Inpatient: RN or Physician to activate a stroke alert for NIHSS increase of > / = 3 points. Coma Scale [Assess] -Eye Opening Spontaneous -Motor Obeys Commands -Verbal Oriented [Total] -Coma Scale Total 15
== END 2024-12-07 16:34 | disposition home or self-care (01) | DRG 300 ==
LOC: ED 15:30 → PCU 20:21
PROVIDERS: Admitting Provider Hospitalist; Emergency Provider Emergency Medicine; PCP Internal Medicine; Visit Provider Hospitalist
DX: I74.2 Embolism and thrombosis of arteries of the upper extremities (principal); H34.232 Retinal artery branch occlusion, left eye; H34.8122 Central retinal vein occlusion, left eye, stable; E03.9 Hypothyroidism, unspecified; I10 Essential (primary) hypertension; E66.811 Obesity, class 1; E78.5 Hyperlipidemia, unspecified; R79.89 Other specified abnormal findings of blood chemistry; Z68.34 Body mass index [BMI] 34.0-34.9, adult; Z79.01 Long term (current) use of anticoagulants; Z79.02 Long term (current) use of antithrombotics/antiplatelets; Z79.890 Hormone replacement therapy; Z79.899 Other long term (current) drug therapy; Z86.73 Personal history of transient ischemic attack (TIA), and cerebral infarction without residual deficits
CPT/HCPCS: 36415; 70450; 70496; 70498; 70551; 80048; 80061; 83036; 84439; 84443; 84484; 85025; 85027; 85610; 85730; 93005; 93306; 94762; 97162; 97166; 97802; 99284; Q9967; A4216

== ENCOUNTER → 2024-12-15 | Outpatient (CLI) | payer MEDICARE, SELFPAY ==
[2024-12-15 11:18] LABS: Anion Gap 11 (5-15); BUN 27 mg/dL (4-19); BUN/Creat Ratio 16.7 RATIO (10-20); Chloride 105 mmol/L (98-108); Creatinine, Serum 1.62 mg/dL (0.70-1.20); EST Glomerular Filtration Rate 41 (>60); Glucose 96 mg/dL (70-99); Potassium 4.3 mmol/L (3.3-5.1); Sodium Level 138 mmol/L (133-145)
== END | disposition home or self-care (01) ==
PROVIDERS: PCP Internal Medicine; Referring Provider Hospitalist; Visit Provider Hospitalist
DX: R79.89 Other specified abnormal findings of blood chemistry (principal)
CPT/HCPCS: 36415; 80048

== ENCOUNTER 2025-01-12 05:36 | Day surgery (SDC) | payer MEDICARE, SELFPAY ==
--- NOTE | 2025-01-11 13:23 | PAT.ANESEVAL ---
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 Any Problems With Anesthesia Yes: SLOW TO AWAKEN 01/11/25 10:33 Cholinesterase deficiency No 01/11/25 10:33 You/Your Family Experience No 01/11/25 10:33 fever (hyperthermia) with Relationship Recent Exposure to Contagious No 05/06/13 20:40 Disease Does patient have nerve No 01/11/25 10:33 stimulator Patient instructed to have device shut off --Does patient have Pacemaker or ICD? When Was Last Pacemaker Check No 05/06/13 20:40 QUESTION #4 FULL TEXT: You/Your Family Experience fever (hyperthermia) with Anesthesia Last Oral Intake Last Oral intake: Last Oral Intake NPO since Meds taken in AM with sips of water? Meds patient instructed to take am of surgery PONV PONV - munitions handler supervisor: PONV - munitions handler supervisor Female No 01/11/25 10:33 HX of Motion Sickness No 01/11/25 10:33 HX of N/V After Surgery No 01/11/25 10:33 Non-Smoker Yes 01/11/25 10:33 Duration of Surgery greater Yes 01/11/25 10:33 than 60 minutes Number of Risk Factors 2 01/11/25 10:33 PONV Score Moderate Risk 01/11/25 10:33 Height & Weight Height & Weight: Anesthesia: Height & Weight Height 5 ft 10 in 12/07/24 10:03 Respiratory Assessment Respiratory Assessment - munitions handler supervisor: Respiratory Tract Infection Hx - munitions handler supervisor Hx Respiratory Tract Infection No 01/11/25 10:33 STOP Sleep Apnea STOP Sleep Apnea - munitions handler supervisor: STOP Sleep Apnea - munitions handler supervisor Hx Hypertension Yes: FAIRLY CONTROLLED WITH 01/11/25 10:33 MED Hx Sleep Apnea No 01/11/25 10:33 CPAP BIPAP Do you snore loudly (louder No 01/11/25 10:33 than talking or can be heard Do you often feel tired/ No 01/11/25 10:33 fatigued/ sleepy during daytime? Has anyone observed you stop No 01/11/25 10:33 breathing during sleep? STOP Results Negative 01/11/25 10:33 QUESTION #5 FULL TEXT : Do you snore loudly (louder than talking or can be heard through closed doors)? 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 Specify any problems Hx of Preganancy in last 3 N/A 01/11/25 10:33 Months Nurse Filling Out Transfusion DSCHRIBER 01/11/25 10:33 & Questions: Date: 01/11/25 01/11/25 10:33 Time: 10:37 01/11/25 10:33 Patient unable to answer at this time (ie. confused, unrespo /Reproduction History /Reproductive History - munitions handler supervisor: /Reproductive Hx- munitions handler supervisor Hx Now No 01/11/25 10:33 Gestational Age (in weeks): EDC: Hx Hx Para Hx Section SAB No 01/11/25 10:33 PFSH Medical History (Updated 01/11/25 @ 11:06 by Nikky Mcdonald) History of stress test Wears partial dentures Cancer Alcohol use Wears hearing aid Wears glasses Open wound Thyroid disease Arthritis High cholesterol TIA (transient ischemic attack) Former smoker Ambulates with cane History of edema Cardiology follow-up encounter Hypertension History of Holter monitoring History of echocardiogram History of stroke Home Medications ?Medication ?Instructions ?Recorded ?Last Taken ?Type levothyroxine 150 mcg tablet 150 mcg PO DAILY disorder of 12/06/24 12/06/24 History thyroid gland losartan 50 mg tablet 50 mg PO BID Blood pressure 12/06/24 12/06/24 History metoprolol succinate 25 mg 25 mg PO DAILY Hear rate/Blood 12/06/24 12/06/24 History tablet,extended release 24 hr pressure amlodipine 5 mg tablet 5 mg PO QHS 01/11/25 Unknown History apixaban 5 mg tablet (Eliquis) 5 mg PO BID 01/11/25 01/11/25 History atorvastatin 40 mg tablet 40 mg PO QHS 01/11/25 Unknown History Allergy/AdvReac Type Severity Reaction Status Date / Time Sulfa (Sulfonamide Allergy Rash Verified 01/11/25 10:15 Antibiotics) Surgical History (Updated 01/11/25 @ 10:42 by Nikky Mcdonald) Hx of colonoscopy Hx of thyroidectomy Hx of right cataract extraction Hx of left cataract extraction Social History Smoking Status: Former smoker alcohol intake: never substance use type: does not use Audit: Pertinent Findings Pertinent Findings EKG Perinent findings: EKG 12/06/2024. Normal sinus rhythm Stress test pertinent findings: 05/25/2022. SPECT perfusion study normal no scintigraphic evidence of inducible ischemia. No evidence of scarred myocardium. Echo (EF%) pertinent findings: Echo 11/03/2021. EF 67%. Intermediate left ventricular diastolic dysfunction. Echo 12/07/2024. EF 65%. Stage I diastolic dysfunction Additional pertinent findings: Holter monitor 12/16/2024. The predominant rhythm was sinus Recommendation Anesthesia Recommendation Anesthesia recommendation: OPTIMIZED for anesthesia
[2025-01-12] VITALS (8 sets, daily range): BP systolic 133–148; BP diastolic 55–65; PULSE 60–77; RESP 14–18; TEMP 2.2–37.1; O2SAT 91–99; BMI 33.0
--- OUTSIDE RECORDS SUMMARY | 2025-01-12 05:41 | XMS RPT_ITS | CCD ---
Author Organization [facility] Care Team Providers Care Online Marketing Analyst Name Role Phone Frank ANGLIN, Dimitri Young Primary Care Provider Dimitri Marie MD Primary Care Provider Marcos DURON.SYSTEMS PROGRAM MANAGER, Isela M Unavailable Bharath ANGLIN, Dr. Silva Emergency Provider Frank ANGLIN, Dr. Mosley Primary Care Provider Dr. Lyndon Dinh DO Admit Provider [phone] Dr. Lyndon Dinh DO Attending Provider Jerome Don MD Other Provider Unavailable Dr. Lary Muniz MD Other Provider Constance Schmid MD Other Provider Unavailable Dr. Mari Hernández DO Other Provider Dr. Tiffany Ma MD Other Provider Dr. Kota Hussein MD Other Provider Dr. Crystal Farah MD Other Provider Dr. Bryn Zambrano MD Other Provider [phone] Dr. Yash Gerardo MD Other Provider Pan ANGLIN, Dr. Vazquez Other Provider Tere Barrientos MD Other Provider Zain ANGLIN, Dr. Arrieta Other Provider Edil ANGLIN, Dr. Colunga Other Provider Ladonna ANGLIN, Dr. Aguilar Other Provider Zeina ANGLIN, Dr. Sloan Norton Other Provider Eleuterio ANGLIN, Dr. Brody Other Provider Dale ANGLIN, Dr. Bennett Other Provider [phone] Denzel ANGLIN, Dr. Waterman Other Provider Jorge ANGLIN, Dr. Tang Other Provider Unavailable Josiah ANGLIN, Julia Other Provider Unavailable Dr. Lyndon Dinh DO Other Provider Denzel ANGLIN, Dr. Alamo Attending Provider MARIE, SOLANGE Primary Care Unavailable SELF Referring Unavailable MARIE, SOLANGE Attending Unavailable MARIE, SOLANGE Primary Care Unavailable GURWINDER AYALA Referring Unavailable GURWINDER AYALA Attending Unavailable MARIE, SOLANGE Primary Care Unavailable ISELA PATEL Referring Unavailable MARIE, SOLANGE Primary Care Unavailable MARIE, SOLANGE Referring Unavailable Dr. Lyndon Dinh DO Referring Provider Frank ANGLIN, Dr. Mosley Referring Provider [phone] Mari Moeller Attending Provider [phone] Cally Mahoney Attending Unavailable Marie, Dimitri Primary Care Unavailable Mari Hui Attending Unavailable Marie, Dimitri Referring Unavailable Marie, Dimitri Primary Care Unavailable Marie, Dimitri Primary Care Unavailable Lyndon Dinh Attending Unavailable Lyndon Dinh Referring Unavailable Marie, Dimitri Primary Care Unavailable Lyndon Dinh Attending Unavailable Lyndon Dinh Referring Unavailable Jerome Don Consulting Unavailable Lyndon Dinh Admitting Unavailable Marie, Dimitri Primary Care Unavailable Lyndon Dinh Attending Unavailable Adeli, Amir Consulting Unavailable Hinduja, Constance Consulting Unavailable Edgar, Mari Consulting Unavailable Francesca, Tiffany Consulting Unavailable Keenan, Kota Consulting Unavailable Crystal Farah Consulting Unavailable Bryn Zambrano Consulting Unavailable Yash Gerardo Consulting Unavailable George Perla Consulting Unavailable Tere Barrientos Consulting Unavailable Berny Pittman Consulting Unavailable Cristine Solo Consulting Unavailable Jeff Dougherty Consulting Unavailable Zaghlouleh, Mhd Errol Consulting UnavailRonn Velez Consulting Unavailable Hunter, Rami Consulting Unavailable Denzel Guevara Consulting Unavailable Kitty Patel Consulting Unavailable Julia Rahman Consulting Unavailable Eric Clark Attending Unavailable Dimitri Marie Referring Unavailable Dimitri Marie Primary Care Unavailable Jerome Don Consulting Unavailable Dimitri Marie Primary Care Unavailable Lyndon Dinh Admitting Unavailable Lyndon Dinh Attending Unavailable Lary Muniz Consulting Unavailable Hindujuanjo Constance Consulting Unavailable Edgar Mari Consulting Unavailable Francesca Tiffany Consulting Unavailable Keenan, Kota Consulting Unavailable Crystal Farah Consulting Unavailable Bryn Zambrano Consulting Unavailable Yash Gerardo Consulting Unavailable George Perla Consulting Unavailable Tere Barrientos Consulting Unavailable Berny Pittman Consulting Unavailable Cristine Solo Consulting Unavailable Jeff Dougherty Consulting Unavailable Zeina, Sloan Errol Consulting UnavailRonn Velez Consulting Unavailable Hunter, Rami Consulting Unavailable Denzel, Guevara Consulting Unavailable Kitty Patel Consulting Unavailable Julia Rahman Consulting Unavailable Lyndon Dinh Consulting Unavailable Dr. Eric Clark MD Attending Provider Allergies Allergy Classification Reported Allergen(s) Allergy Type Date of Onset Reaction(s) Facility (20 sources) Creatine; Translations: [CREATINE] Drug Allergy [address] [place] [address] Work Phone: (20 sources) Sulfonamides (Antibiotic); Translations: [SULFA (SULFONAMIDE ANTIBIOTICS)] Propensity to adverse reactions [address] [place] [address] Work Phone: (5 sources) Sulfonamides (Antibiotic) Allergy to substance [address] [place] [address] (1 source) Sulfonamides (Antibiotic) Drug allergy (disorder) [address] [place] [address] Repository Medications Current Medications Medication Drug Class(es) Dates Sig (Normalized) Sig (Original) amLODIPine 5 mg oral tablet (16 sources) Dihydropyridine Calcium Channel Loni Start: 08-20-2023 End: 09-11-2024 take 1 tablet by mouth once daily amLODIPine (NORVASC) 5 mg tablet Indications: Essential hypertension, benign Take 1 tablet by mouth once daily. 90 tablet 1 09/11/2024 Active Comment on above: Take 1 tablet by froylan th once daily. ascorbic acid 500 mg oral tablet (20 sources) Vitamin C Start: 03-06-2008 ascorbic acid(VITAMIN C 500 MG TAB) Take one(1) tablet daily. 0 03/06/2008 Active Comment on above: Take one(1) tablet d aily. aspirin 81 mg delayed release oral tablet (20 sources) Platelet Aggregation Inhibitor, Nonsteroidal Anti-inflammatory Drug Start: 01-05-2025 take 1 tablet by mouth once daily Aspirin (Adult Aspirin Regimen) 81 mg tablet,delayed release (DR/EC) Active 81 mg PO DAILY 360 0 January 05, 2025 12:00am Start: 12-06-2024 End: 12-07-2024 Aspirin 81 mg tablet,chewabl e Discontinued 1 {tbl} PO DAILY December 06, 2024 12:00am December 07, 2024 3:14pm Antiplatelete Start: 06-30-2013 take 1 tablet by froylan th once daily at mealtime aspirin, enteric coated 325 mg EC tablet Indications: CVA (cerebral infarction) Take 1 tablet by mouth once daily. with food. 30 tablet 11 06/30/2013 Active Comment on above: Take 1 tablet by froylan th once daily. with food. atorvastatin 80 mg oral tablet (10 sources) HMG-CoA Reductase Inhibitor Start: take 1 tablet by mouth once daily Atorvastatin (Lipitor) 80 mg tablet Active 80 mg PO daily 30 2 January 05, 2025 12:00am Start: 05-06-2013 End: 01-05-2025 take 1 tablet by mouth at bedtime Atorvastatin 40 mg Tablet Discontinued 40 mg PO AT BEDTIME 90 90 0 December 07, 2024 12:00am January 05, 2025 4:08pm chlorthalidone 25 mg oral tablet (12 sources) Thiazide-like Diuretic Start: 02-15-2020 End: 09-11-2022 take 1 tablet by mouth once daily chlorthalidone (HYGROTON) 25 mg tablet Indications: Essential hypertension, benign Take 1 tablet by mouth once daily. 90 tablet 3 10/20/2021 09/11/2022 Discontinued (Clinical Decision) Comment on above: Take 1 tablet by froylan th once daily. cholecalciferol 0.025 mg oral tablet (20 sources) Vitamin D Start: 05-25-2011 Cholecalciferol, Vitamin D3, 1,000 unit ORAL Tab Take by mouth once daily. 0 05/25/2011 Active Comment on above: Take by mouth once d aily. clopidogrel 75 mg oral tablet (6 sources) P2Y12 Platelet Inhibitor Start: 01-05-2025 take 1 tablet by mouth once daily Clopidogrel (Plavix) 75 mg tablet Active 75 mg PO DAILY 30 2 January 05, 2025 12:00am Start: 05-06-2013 End: 12-06-2024 take 1 tablet by mouth once daily Clopidogrel 75 MG tablet Discontinued 75 mg PO DAILY 30 0 May 06, 2013 1:00am December 06, 2024 3:38pm COMPOUNDED PRESCRIPTION (20 sources) Start: 04-02-2005 COMPOUNDED PRESCRIPTION Vit E 400IU daily 0 04/02/2005 Active Comment on above: Vit E 400IU daily doxazosin 4 mg oral tablet (20 sources) alpha-Adrenergi c Loni Start: 12-06-2024 take 1 tablet by mouth twice daily Doxazosin 4 mg tablet Active 4 mg PO TWICE A DAY December 06, 2024 12:00am Blood pressure Start: 04-05-2023 End: 05-01-2024 take 1 tablet by mouth twice daily doxazosin (CARDURA) 4 mg tablet Indications: Essential hypertension, benign , Bladder retention of urine Take 1 tablet by mouth two times a day. 180 tablet 3 05/01/2024 Active Start: 02-17-2023 take 1 tablet by froylan th once daily at bedtime doxazosin (CARDURA) 4 mg tablet Indications: Essential hypertension, benign , Bladder retention of urine Take 1 tablet by mouth daily at bedtime. 90 tablet 1 02/17/2023 Active Start: 12-16-2022 End: 02-17-2023 take 1 tablet by mouth once daily at bedtime doxazosin (CARDURA) 2 mg tablet Indications: Essential hypertension, benign Take 1 tablet by mouth daily at bedtime. 30 tablet 2 12/16/2022 02/17/2023 Discontinued (Dosage adjustment) Start: 11-02-2022 End: 12-16-2022 take 1 tablet by mouth once daily doxazosin (CARDURA) 1 mg tablet Indications: Essential hypertension, benign , Bladder retention of urine Take 1 tablet by mouth once daily. 30 tablet 2 11/02/2022 12/16/2022 Discontinued (Dosage adjustment) Comment on above: Take 1 tablet by froylan th once daily. Take 1 tablet by froylan th daily at bedtime. Take 1 tablet by froylan th two times a day. levothyroxine sodium 0.15 mg oral tablet (20 sources) l-Thyroxine Start: take 1 tablet by mouth once daily Levothyroxine 150 mcg tablet Active 150 ug PO DAILY December 06, 2024 12:00am disorder of thyroid gland Start: 10-21-2020 End: 09-11-2024 take 1 tablet by mouth once daily for thyroid dysfunction levothyroxine (SYNTHROID) 150 mcg tablet Indications: Acquired hypothyroidism Take 1 tablet by mouth once daily. Take on empty stomach. For thyroid 90 tablet 3 09/11/2024 Active Start: 05-06-2013 End: 12-06-2024 Levothyroxine (Synthroid) 20 0 MCG tablet Discontinued 100 ug PO DAILY 30 0 May 06, 2013 2:09pm December 06, 2024 12:20pm Start: 05-04-2013 End: 05-06-2013 Levothyroxine (Synthroid) 20 0 MCG tablet Discontinued 200 ug DAILY May 04, 2013 1:00am May 06, 2013 2:09pm Comment on above: Take 1 tablet by froylan once daily. Take on empty stomach. For thyroid losartan potassium 50 mg oral tablet (20 sources) Angiotensin 2 Receptor Loni Start: 12-06-2024 take 1 tablet by mouth twice daily Losartan 50 mg tablet Active 50 mg PO TWICE A DAY December 06, 2024 12:00am Blood pressure Start: 01-26-2021 End: 10-30-2024 take 1 tablet by mouth twice daily losartan (COZAAR) 50 mg tablet Indications: Essential hypertension, benign Take 1 tablet by mouth two times a day. 180 tablet 3 10/30/2024 Active Comment on above: Take 1 tablet by froylan twice daily. Take 1 tablet by froylan th two times a day. 24 hr metoprolol succinate 25 mg extended release oral tablet (20 sources) beta-Adrenergic Loni Start: 12-06-2024 take 1 tablet by mouth once daily Metoprolol Succinate 25 mg tablet extended release 24 hr Active 25 mg PO DAILY December 06, 2024 12:00am Hear rate/Blood pressure Start: 09-21-2022 End: 10-11-2024 take 1 tablet by mouth once daily metoprolol succinate ER (TOPROL XL) 25 mg 24 hr tablet Indications: VT (ventricular tachycardia) (HCC) , Paroxysmal SVT (supraventricular tachycardia) (HCC) , Essential hypertension, benign Take 1 tablet by mouth once daily. 90 tablet 3 10/11/2024 Active Start: 09-22-2021 End: 09-21-2022 take 1 tablet by mouth twice daily metoprolol tartrate, short acting, (LOPRESSOR) 25 mg tablet Take 1 tablet by mouth twice daily. 180 tablet 3 10/20/2021 09/21/2022 Discontinued Start: 09-02-2020 take 1 tablet by froylan th twice daily metoprolol tartrate, short acting, (LOPRESSOR) 25 mg tablet Take 1 tablet by mouth twice daily. 180 tablet 2 09/02/2020 Active Comment on above: Take 1 tablet by froylan th twice daily. Take 1 tablet by froylan th once daily. multivitamin (ONE DAILY MULTIVITAMIN) tablet (12 sources) Start: 10-06-2023 take 1 tablet by mouth once daily multivitamin (ONE DAILY MULTIVITAMIN) tablet Take 1 tablet by mouth once daily. 10/06/2023 Active Start: 10-06-2023 take 1 tablet by froylan th once daily multivitamin (ONE DAILY MULTIVITAMIN) tablet Take 1 tablet by mouth once daily. 0 10/06/2023 Active Comment on above: Take 1 tablet by froylan th once daily. Completed/Discontinued Medications Medication Drug Class(es) Dates Sig (Normalized) Sig (Original) apixaban 5 mg oral tablet (4 sources) Factor Xa Inhibitor Start: 12-07-2024 End: 01-05-2025 take 1 tablet by mouth twice daily Apixaban (Eliquis) 5 mg Tablet Discontinued 5 mg PO TWICE A DAY 60 30 2 December 07, 2024 12:00am January 05, 2025 4:08pm atenolol 25 mg oral tablet (5 sources) beta-Adrenergic Loni Start: 05-04-2013 End: 05-06-2013 take 1 tablet by mouth once daily Atenolol 25 MG tablet Discontinued 25 mg PO DAILY May 04, 2013 1:00am May 06, 2013 2:07pm fluticasone propionate 0.05 mg/actuat metered dose nasal spray (19 sources) Corticosteroid Start: 10-11-2015 End: 10-06-2023 take 2 spray(s) nasal route once daily fluticasone (FLONASE) 50 mcg/actuation nasal spray Indications: Chronic rhinitis , Chronic cough Use 2 Sprays in each nostril once daily. 1 Bottle 11 10/11/2015 10/06/2023 Discontinued (Discontinued by Patient) Comment on above: Use 2 Sprays in each nostril once daily. furosemide 20 mg oral tablet (5 sources) Loop Diuretic Start: 05-04-2013 End: 12-06-2024 take 1 tablet by mouth once daily Furosemide 20 MG tablet Discontinued 20 mg PO DAILY May 04, 2013 1:00am December 06, 2024 3:38pm lisinopril 5 mg oral tablet (10 sources) Angiotensin Converting Enzyme Inhibitor Start: 05-17-2013 End: 12-06-2024 take 3 tablets by mouth once daily Lisinopril 5 MG tablet Discontinued 15 mg PO DAILY 30 0 May 17, 2013 1:00am December 06, 2024 3:38pm Start: 05-04-2013 End: 05-17-2013 Lisinopril 10 MG tablet Disc ontinued 10 mg DAILY May 04, 2013 1:00am May 17, 2013 11:01am perflutren lipid microspheres 1.3 mL in NaCl (PF) 0.9% 10 mL injection (DEFINITY) (13 sources) Start: 10-20-2021 End: 01-19-2023 perflutren lipid microspheres 1.3 mL in NaCl (PF) 0.9% 10 mL injection (PongrITY) pravastatin sodium 40 mg oral tablet (20 sources) HMG-CoA Reductase Inhibitor Start: 12-06-2024 End: 12-07-2024 take 1 tablet by mouth at bedtime Pravastatin 40 mg tablet Discontinued 40 mg PO AT BEDTIME December 06, 2024 12:00am December 07, 2024 3:15pm cholesterol Start: 06-09-2021 End: 01-13-2024 take 1 tablet by mouth once daily at bedtime for hyperlipidemia pravastatin (PRAVACHOL) 40 mg tablet Indications: Mixed hyperlipidemia Take 1 tablet by mouth daily at bedtime. For cholesterol. 90 tablet 3 01/13/2024 Active Comment on above: Take 1 tablet by froylan th daily at bedtime. For cholesterol. 125 ml sodium chloride 9 mg/ml prefilled syringe (13 sources) Start: 10-20-2021 End: 01-19-2023 sodium chloride 0.9 % (flush) 10 mL (BD POSIFLUSH) Problems Active Problems Problem Classification Problem Date Documented Date Episodic/Chronic Aortic and peripheral arterial embolism or thrombosis (10 sources) Subclavian artery thrombosis; Translations: [Embolism and thrombosis of other arteries] Onset: 12-07-2024 12-06-2024 Chronic Blindness and vision defects (1 source) Unspecified visual loss; Translations: [Unspecified visual loss] Onset: 12-19-2024 Chronic Cardiac dysrhythmias (20 sources) Ventricular tachycardia; Translations: [Ventricular tachycardia] Onset: 12-12-2021 Chronic Chronic kidney disease (20 sources) Chronic kidney disease stage 3; Translations: [CKD (chronic kidney disease) stage 3, GFR 30-59 ml/min] Onset: 12-03-2017 12-03-2017 Chronic Disorders of lipid metabolism (20 sources) Mixed hyperlipidemia; Translations: [Mixed hyperlipidemia] Onset: 04-02-2005 Chronic Essential hypertension (20 sources) Benign essential hypertension; Translations: [Essential (primary) hypertension] Onset: 04-02-2005 Chronic Hypertension with complications and secondary hypertension (20 sources) 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; Translations: [Hypertensive chronic kidney disease with stage 1 through stage 4 chronic kidney disease, or unspecified chronic kidney disease] Onset: 09-09-2022 09-09-2022 Chronic Immunizations and screening for infectious disease (1 source) Needs influenza immunization; Translations: [Encounter for immunization] 04-06-2024 Episodic Nutritional deficiencies (20 sources) Vitamin D deficiency; Translations: [Vitamin D deficiency, unspecified] Onset: 08-15-2009 08-15-2009 Chronic Occlusion or stenosis of precerebral arteries (4 sources) Vertebral artery stenosis; Translations: [Occlusion and stenosis of unspecified vertebral artery] 01-05-2025 Chronic Other circulatory disease (10 sources) History of cerebrovascular accident; Translations: [Personal history of transient ischemic attack (TIA), and cerebral infarction without residual deficits] 12-06-2024 Episodic Other non-epithelial cancer of skin (1 source) History of malignant neoplasm of skin; Translations: [Personal history of other malignant neoplasm of skin] 04-06-2024 Episodic Other nutritional; endocrine; and metabolic disorders (15 sources) Obese class II; Translations: [Obesity, unspecified] Onset: 04-05-2023 08-20-2023 Chronic Other screening for suspected conditions (not mental disorders or infectious disease) (6 sources) Serum creatinine raised; Translations: [Other specified abnormal findings of blood chemistry] Onset: 12-07-2024 12-07-2024 Episodic Other skin disorders (2 sources) Skin lesion; Translations: [Disorder of the skin and subcutaneous tissue, unspecified] Episodic Retinal detachments; defects; vascular occlusion; and retinopathy (11 sources) Occlusion of left branch retinal artery; 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, left eye] Onset: 12-07-2024 12-06-2024 Chronic Screening and history of mental health and substance abuse codes (2 sources) Patient encounter status; Translations: [Encounter for screening for depression] 04-06-2024 Episodic Thyroid disorders (20 sources) Acquired hypothyroidism; Translations: [Hypothyroidism, unspecified] Onset: 04-28-2016 Chronic Comment on above: THYROIDECTOMY FOR CA Unclassified (4 sources) For growth on chest Unclassified (1 source) VT (ventricular tachycardia) (HCC); Translations: [VT (ventricular tachycardia) (HCC)] Onset: 12-12-2021 Unclassified (1 source) Paroxysmal SVT (supraventricular tachycardia) (HCC); Translations: [Paroxysmal SVT (supraventricular tachycardia) (HCC)] Onset: 12-12-2021 Past or Other Problems Problem Classification Problem Date Documented Da te Episodic/Chronic Cancer of thyroid (11 sources) Malignant tumor of thyroid gland; Translations: [Malignant neoplasm of thyroid gland] Resolved: 0 07-18-2019 Chronic Cardiac dysrhythmias (20 sources) Palpitations; Translations: [Palpitations] Onset: 3 Episodic Genitourinary symptoms and ill-defined conditions (20 sources) Retention of urine; Translations: [Retention of urine, unspecified] Onset: 3 Episodic Other and unspecified benign neoplasm (20 sources) History of polyp of colon; Translations: [Personal history of colonic polyps] Onset: 0 02-13-2010 Episodic Other bone disease and musculoskeletal deformities (11 sources) Osteolysis; Translations: [Osteolysis, unspecified site] Onset: 0 Resolved: 6 04-28-2016 Episodic Other diseases of kidney and ureters (18 sources) Acquired complex renal cyst; Translations: [Cyst of kidney, acquired] Onset: 3 Episodic Other diseases of veins and lymphatics (20 sources) Vascular insufficiency; Translations: [Venous insufficiency (chronic) (peripheral)] Onset: 3 03-16-2013 Episodic Other gastrointestinal disorders (11 sources) Constipation; Translations: [Constipation, unspecified] Onset: 0 Resolved: 6 04-28-2016 Episodic Other lower respiratory disease (20 sources) Chronic cough; Translations: [Chronic cough] Onset: 5 01-03-2015 Episodic Other lower respiratory disease (20 sources) Dyspnea on exertion; Translations: [Other forms of dyspnea] Onset: 2 Episodic Other nutritional; endocrine; and metabolic disorders (11 sources) Metabolic syndrome X; Translations: [Dysmetabolic syndrome X] Onset: 5 Resolved: 6 04-28-2016 Chronic Other skin disorders (20 sources) Multiple actinic keratoses; Translations: [Actinic keratosis] Onset: 6 04-28-2016 Episodic Residual codes; unclassified (20 sources) Family history of malignant neoplasm of gastrointestinal tract; Translations: [Family history of malignant neoplasm of digestive organs] Onset: 0 02-13-2010 Episodic Results Test Name Value Interpretation Reference Range Facility MR/Kimo 01-05-2025 MR/BMSСВЕТЛАНА [facility] [address] [place] [address] OFFICE VISIT Date of Service: 01/05/25 MR#: [id number] Acct: [id number] Name: CARISSA GRUBER Rep #: [id number] : 1940 Provider: PORSCHE Womack Age/Sex: 84/M Location: [facility] Status: Signed Intake Vital Signs 12/07/24 10:03 01/05/25 13:39 Height 5 ft 10 in Weight: 230 lb BP 129/54 H Blood Pressure Location Rt brachial Position Sitting Respiration 18 Pulse 54 L Pulse Source Monitor Temp 98.2 F Temp Source Temporal Pulse Oximetry (%) 98 Oxygen Delivery Method room air Intake Visit Reasons: Post holspitalization Chief Complaint: stroke Is patient in pain?: No Allergies Sulfa (Sulfonamide Antibiotics) Allergy (Verified 01/05/25 13:37) Rash Medications ???Medication ???Instructions ???Recorded ???Confirmed ???Type doxazosin 4 mg tablet 4 mg PO BID Blood pressure 5 01/05/25 History levothyroxine 150 mcg tablet 150 mcg PO DAILY disorder of 12/0601/05/25 History thyroid gland losartan 50 mg tablet 50 mg PO BID Blood pressure 01/05/25 History metoprolol succinate 25 mg 25 mg PO DAILY Hear rate/Blood 05/2201/05/25 History tablet,extended release 24 hr pressure aspirin 81 mg tablet,delayed 81 mg PO DAILY #360 tabs 01/05/25 01/05/25 Rx release (Adult Aspirin Regimen) atorvastatin 80 mg tablet (Lipitor) 80 mg PO QDAY #30 tabs 01/05/25 01/05/25 Rx clopidogrel 75 mg tablet (Plavix) 75 mg PO DAILY #30 tabs 01/05/25 01/05/25 Rx Have you fallen in the past year?: Yes PFSH Medical History History of stroke Social History (Updated 01/05/25 @ 13:39 by Radha Rodriguez MA) Smoking Status: Former smoker alcohol intake: never substance use type: does not use HPI HPI HPI: CARISSA GRUBER, is a 84 M who presents to the office today for evaluation of carotid artery and subclavian artery disease as referred following recent hospitalization 12/06-12/07 for stroke workup after R eye CRAO vs CRVO was identified by outpatient reservations specialist. 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 He was initiated on Eliquis due to the reported subclavian artery thrombus. Neurology fashion consultant sales reviewed CTA images and felt there was subclavian artery atherosclerosis/tort uosity but no thrombus and felt the carotid disease was actually <50% stenosis; they did not feel either were the source for his CRAO/BRAO. Patient reports >6 years ago he had a prior CVA which caused bilateral vision changes and imbalance/vertigo; in chart review I see he was admitted in 2012 with MRI showing mid-brain/alden stroke which was felt to be secondary to his vertebral artery atherosclerosis and he reports at that time he was told surgical intervention was not recommended. He was on ASA daily at the time of the CVA so he was placed on Plavix but at some point this seems to have been discontinued. He denies any other episodes of CVA. He reports since discharge from the hospital, his vision loss has not improved or worsened. He otherwise denies any unilateral weakness, numbness/paresthesia s, facial droop, dysarthria, new vision loss or changes, or vertigo. ROS General General: No weight change, appetite, fatigue, colon cancer, breast cancer or weakness HEENT HEENT: Yes eye injury and eye surgery; No difficulty swallowing, swollen glands or hoarseness Endo Endocrine: Yes thyroid disease; No diabetes mellitus, thyroid cancer, Hair loss, heat intolerance or cold intolerance Skin Skin: No rash or changing moles Musc Musculoskeletal: No back problems, arthritis, rheumatoid arthritis, gout or joint pain Cardio Cardiovascular: Yes high blood pressure; No murmur, pacemaker, heart disease, atrial fibrillation, heart attack, heart stent, palpitations, shortness of breath with exertion or chest pain Psych Psychiatric: No depression, anxiety or hearing voices Resp Respiratory: No shortness of breath, No sleep apnea, No cough, No COPD, No asthma, No emphysema and No wheezing Gastro Gastrointestinal: No abdominal pain, No nausea or vomiting, No diarrhea, No constipation, No blood in stool, No acid reflux, No hemorrhoids, No ulcers, No gallbladder problem and No black,tarry stools Randy Hematologic: Yes blood thinners, No blood disorders, No bleeding, No anemia and Yes blood clots Neuro Neurologic: No system reviewed and no additional complaints, except as documented, No as per HPI, No abnormal gait, Yes abnormal hearing, No abnormal movements, No abnormal speech, No behavioral change (more content not included)... Normal [facility] Anion gap in Serum or Plasma Ordered By: Lyndon Dinh on 12-15-2024 Anion gap [Moles/Vol] 11 mmol/L - [facility] BUN/creatinine ratioOrdered By: Lyndon Dinh on 12-15-2024 Urea nitrogen/Creatinine [Mass ratio] 16.7 mg/mg 04-16 [facility] Basic Metabolic Profile (BMP )on 12-15-2024 BUN/CRE 16.7 RATIO Normal 04-16 [facility] Comment on above: Performed By: #### L 100.0100, L500.2500 #### [facility] [address] [place], [address] Calcium [Mass/Vol] 9.0 mg/dL Normal 7.6-11.0 [facility] Comment on above: Performed By: #### L 100.0100, L500.2500 #### [facility] [address] [place], [address] Chloride [Moles/Vol] 105 mmol/L Normal 98-108 [facility] Comment on above: Performed By: #### L 100.0100, L500.2500 #### [facility] [address] [place], [address] CO2 [Moles/Vol] 23.0 mmol/L Normal 21.0-32.0 [facility] Comment on above: Performed By: #### L 100.0100, L500.2500 #### [facility] [address] [place], [address] Creatinine [Mass/Vol] 1.62 mg/dL High 0.70-1.20 [facility] Comment on above: Performed By: #### L 100.0100, L500.2500 #### [facility] [address] [place], [address] GAP 11 Normal 11-09 [facility] Comment on above: Performed By: #### L 100.0100, L500.2500 #### [facility] [address] [place], [address] GFR/1.73 sq M.predicted among non-blacks MDRD (S/P/Bld) [Vol rate/Area] 41 mL/min/{1.73_m2} Low >60 [facility] Comment on above: Result Comment: mL/m in/1.73m2 CKD-EPI Creatinine Equation (2020) Performed By: #### L 100.0100, L500.2500 #### [facility] [address] [place], [address] Glucose [Mass/Vol] 96 mg/dL Normal 70-99 [facility] Comment on above: Performed By: #### L 100.0100, L500.2500 #### [facility] [address] [place], [address] Potassium [Moles/Vol] 4.3 mmol/L Normal 3.3-5.1 [facility] Comment on above: Performed By: #### L 100.0100, L500.2500 #### [facility] [address] [place], [address] Sodium [Moles/Vol] 138 mmol/L Normal 133-145 [facility] Comment on above: Performed By: #### L 100.0100, L500.2500 #### [facility] [address] [place], [address] Urea nitrogen [Mass/Vol] 27 mg/dL High 4-19 [facility] Comment on above: Performed By: #### L 100.0100, L500.2500 #### [facility] [address] [place], [address] Carbon dioxide, total [Moles /volume] in Central venous bloodOrdered By: Lyndon Dinh on 12-15-2024 CO2 [Moles/Vol] 23.0 mmol/L 21.0-32.0 [facility] Chloride assayOrdered By: Ham Dinh on 12-15-2024 Chloride [Moles/Vol] 105 mmol/L 98-108 [facility] Glomerular filtration rate ( GFR) estimation/1.73 sq m using serum, plasma, or whole bOrdered By: Lyndon Dinh on 12-15-2024 GFR/1.73 sq M.predicted among non-blacks MDRD (S/P/Bld) [Vol rate/Area] 41 mL/min/{1.73_m2} Low >60 [facility] Comment on above: mL/min/1.73m2 CKD-EP I Creatinine Equation (2020) Potassium measurement (mass/ volume)Ordered By: Lyndon Dinh on 12-15-2024 Potassium (Unsp spec) [Mass/Vol] 4.3 mmol/L 3.3-5.1 [facility] Serum creatinine measurement (mass/volume)Ordered By: Lyndon Dinh on 12-15-2024 Creatinine [Mass/Vol] 1.62 mg/dL High 0.70-1.20 [facility] Serum glucose measurement (m ass/volume)Ordered By: Lyndon Dinh on 12-15-2024 Glucose [Mass/Vol] 96 mg/dL 70-99 [facility] Serum or plasma calcium tesfaye urement (mass/volume)Ordered By: Lyndon Dinh on 12-15-2024 Calcium [Mass/Vol] 9.0 mg/dL 7.6-11.0 [facility] Serum or plasma urea nitroge n measurement (mass/volume)Ordered By: Lyndon Dinh on 12-15-2024 Urea nitrogen [Mass/Vol] 27 mg/dL High 4-19 [facility] Sodium levelOrdered By: Jose Dinh on 12-15-2024 Sodium [Moles/Vol] 138 mmol/L 133-145 [facility] Anion gap in Serum or Plasma Ordered By: Lyndon Dinh on 12-07-2024 Anion gap [Moles/Vol] 11 mmol/L - [facility] BUN/creatinine ratioOrdered By: Lyndon Dinh on 12-07-2024 Urea nitrogen/Creatinine [Mass ratio] 14.3 mg/mg 04-16 [facility] Basic Metabolic Profile (BMP )on 12-07-2024 BUN/CRE 14.3 RATIO Normal 04-16 [facility] Comment on above: Order Comment: Comme nts: NPO at [place] prior to lipid panel Performed By: #### L 100.0500, L500.4100, L500.2500 #### [facility] [address] [place], [address] Calcium [Mass/Vol] 8.7 mg/dL Normal 7.6-11.0 [facility] Comment on above: Order Comment: Comme nts: NPO at [place] prior to lipid panel Performed By: #### L 100.0500, L500.4100, L500.2500 #### [facility] [address] [place], [address] Chloride [Moles/Vol] 106 mmol/L Normal 98-108 [facility] Comment on above: Order Comment: Comme nts: NPO at [place] prior to lipid panel Performed By: #### L 100.0500, L500.4100, L500.2500 #### [facility] [address] [place], [address] CO2 [Moles/Vol] 22.4 mmol/L Normal 21.0-32.0 [facility] Comment on above: Order Comment: Comme nts: NPO at [place] prior to lipid panel Performed By: #### L 100.0500, L500.4100, L500.2500 #### [facility] [address] [place], [address] Creatinine [Mass/Vol] 1.47 mg/dL High 0.70-1.20 [facility] Comment on above: Order Comment: Comme nts: NPO at [place] prior to lipid panel Performed By: #### L 100.0500, L500.4100, L500.2500 #### [facility] [address] [place], [address] ECRCL 44.41 ml/min Low 50-250 [facility] Comment on above: Order Comment: Comme nts: NPO at [place] prior to lipid panel Performed By: #### L 100.0500, L500.4100, L500.2500 #### [facility] [address] [place], [address] GAP 11 Normal 5-15 [facility] Comment on above: Order Comment: Comme nts: NPO at [place] prior to lipid panel Performed By: #### L 100.0500, L500.4100, L500.2500 #### [facility] [address] [place], [address] GFR/1.73 sq M.predicted among non-blacks MDRD (S/P/Bld) [Vol rate/Area] 46 mL/min/{1.73_m2} Low >60 [facility] Comment on above: Order Comment: Comme nts: NPO at [place] prior to lipid panel Result Comment: mL/m in/1.73m2 CKD-EPI Creatinine Equation (2020) Performed By: #### L 100.0500, L500.4100, L500.2500 #### [facility] [address] [place], [address] Glucose [Mass/Vol] 94 mg/dL Normal 70-99 [facility] Comment on above: Order Comment: Comme nts: NPO at [place] prior to lipid panel Performed By: #### L 100.0500, L500.4100, L500.2500 #### [facility] [address] [place], [address] Potassium [Moles/Vol] 4.1 mmol/L Normal 3.3-5.1 [facility] Comment on above: Order Comment: Comme nts: NPO at [place] prior to lipid panel Performed By: #### L 100.0500, L500.4100, L500.2500 #### [facility] [address] [place], [address] Sodium [Moles/Vol] 139 mmol/L Normal 133-145 [facility] Comment on above: Order Comment: Comme nts: NPO at [place] prior to lipid panel Performed By: #### L 100.0500, L500.4100, L500.2500 #### [facility] [address] [place], [address] Urea nitrogen [Mass/Vol] 21 mg/dL High 4-19 [facility] Comment on above: Order Comment: Comme nts: NPO at [place] prior to lipid panel Performed By: #### L 100.0500, L500.4100, L500.2500 #### [facility] [address] [place], [address] CBC-Complete Blood Cnt No Di ffon 12-07-2024 Erythrocyte distribution width (RBC) [Ratio] 14.2 % Normal 11.6-14.6 [facility] Comment on above: Performed By: #### L 100.0500, L500.4100, L500.2500 #### [facility] [address] [place], [address] Hematocrit (Bld) [Volume fraction] 32.4 % Low 40-54 [facility] Comment on above: Performed By: #### L 100.0500, L500.4100, L500.2500 #### [facility] [address] [place], [address] Hemoglobin (Bld) [Mass/Vol] 10.5 g/dL Low 13.0-16.5 [facility] Comment on above: Performed By: #### L 100.0500, L500.4100, L500.2500 #### [facility] [address] [place], [address] MCH (RBC) [Entitic mass] 28.5 pg Normal 27.0-32.0 [facility] Comment on above: Performed By: #### L 100.0500, L500.4100, L500.2500 #### [facility] [address] [place], [address] MCHC (RBC) [Mass/Vol] 32.4 g/dL Normal 32-36 [facility] Comment on above: Performed By: #### L 100.0500, L500.4100, L500.2500 #### [facility] [address] [place], [address] MCV (RBC) [Entitic vol] 87.8 fL Normal 80-94 [facility] Comment on above: Performed By: #### L 100.0500, L500.4100, L500.2500 #### [facility] [address] [place], [address] Platelet mean volume (Bld) [Entitic vol] 10.3 fL Normal 6.2-12.0 [facility] Comment on above: Performed By: #### L 100.0500, L500.4100, L500.2500 #### [facility] [address] [place], [address] Platelets (Bld) [#/Vol] 226 10*3/uL Normal 150-450 [facility] Comment on above: Performed By: #### L 100.0500, L500.4100, L500.2500 #### [facility] [address] [place], [address] RBC (Bld) [#/Vol] 3.69 10*6/uL Low 4.6-6.2 [facility] Comment on above: Performed By: #### L 100.0500, L500.4100, L500.2500 #### [facility] [address] [place], [address] RDW SD 45.5 fl High 35.1-43.9 [facility] Comment on above: Performed By: #### L 100.0500, L500.4100, L500.2500 #### [facility] [address] [place], [address] WBC (Bld) [#/Vol] 7.2 10*3/uL Normal 4.4-11.0 [facility] Comment on above: Performed By: #### L 100.0500, L500.4100, L500.2500 #### [facility] [address] [place], [address] Calculated very low density lipoprotein (VLDL) cholesterol measurementOrdered By: Lyndon Dinh on 12-07-2024 Calculated very low density lipoprotein (VLDL) cholesterol measurement 12 mg/dL 5-40 [facility] Carbon dioxide, total [Moles /volume] in Central venous bloodOrdered By: Lyndon Dinh on 12-07-2024 CO2 [Moles/Vol] 22.4 mmol/L 21.0-32.0 [facility] Chloride assayOrdered By: Ham Dinh on 12-07-2024 Chloride [Moles/Vol] 106 mmol/L 98-108 [facility] Discharge Instructionon 11-26 Discharge Instruction [facility] Medical Records Department [address] [place] [address] Instructions for Home/Discharge Instructions 12/07/24 1112 MR#: [id number] Acct: [id number] Name: CARISSA GRUBER Rep #: [id number] : 1940 84 From: Lyndon Dinh DO PCP: Dr. Dimitri Marie MD Status:ADM IN Discharge Instructions Diet Discharge Diet: No restrictions DC O2, CPAP, BIPAP needs Home O2 Discharge instructions: No Dressing / Incision Discharge Activity: No Restrictions Follow Up Care Test Results: Test results from this visit will be discussed in further detail at your follow-up appointment, if applicable. Discharge Plan Admission Admit Date/Time: 12/06/24 15:31 Primary Reason for Your Visit: vision issue Attending Provider: Lyndon Dinh Primary Care Provider: Dimitri Marie Consulting Providers: Jerome Don; Lary Muniz; Constance Schmid; Mari Hernández; Tiffany Ma; Kota Hussein; Crystal Farah; Bryn Zambrano; Yash Gerardo; George Perla; Tere Barrientos; Berny Pittman; Cristine Solo; Jeff Dougherty; Sloan Pastrana; Ronn Mcclellan; Donald Hunter; Guevara Mahoney; Kitty Patel; Julia Rahman Discharge Orders/Prescriptions Prescriptions: New atorvastatin 40 mg Tablet 40 mg PO QHS 90 Days Qty: 90 0RF Eliquis 5 mg Tablet 5 mg PO BID 30 Days Qty: 60 2RF Continued losartan 50 mg tablet 50 mg PO BID levothyroxine 150 mcg tablet 150 mcg PO DAILY doxazosin 4 mg tablet 4 mg PO BID metoprolol succinate 25 mg tablet extended release 24 hr 25 mg PO DAILY Discontinued pravastatin 40 mg tablet 40 mg PO QHS aspirin 81 mg tablet,chewable 1 tab PO DAILY Other Ambulatory Orders: 30 Day Event Recorder Preventi (Urgent) Timeframe: 1 Month Facility: [facility] - Location: Cardiovascular Services Ordered By: Dr. Lyndon Dinh Referrals / Follow Up: Justin La MD [Med Staff - Active Staff] - Eric Clark MD [Med Staff - Active Staff] - (For growth on chest) Dimitri Marie MD [Primary Care Provider] - Disposition Disposition (needs filled in before D/C Order can be placed): Home, Self Care 12/07/24 1525 Lyndon Dinh DO CC: Mari Hernández; Cristine Solo; Ronn Mcclellan; Tiffany Ma MD; Constance Schmid MD; Jerome Don MD; Dr. Lary Muniz MD; Dr. Kota Hussein MD; Dr. Crystal Farah MD; Dr. Yash Gerardo MD; Dr. Bryn Zambrano MD; Dr. George Perla MD; Dr. Berny Pittman DO; Dr. Sloan Pastrana MD; Dr. Jeff Dougherty MD; Dr. Donald Hunter MD; Dr. Guevara Mahoney MD; Dr. Dimitri Marie MD; Dr. Kitty Patel MD; Tere Barrientos DO; Julia Rahman MD Signed Normal [facility] Echocardiogram study reportO rdered By: Cally Mahoney on 12-07-2024 Study report [facility] [address] [place] [address] Echo Complete 12/07/24 1120 MR#: [id number] Acct: [id number] Name: CARISSA GRUBER Rep #:[id number] : 1940 84 From: Cally Mahoney MD Attending Dr: Dr. Lyndon Dinh, Status: ADM IN Ordering Dr: Lyndon Dinh DO Da te: 12/06/24 Location: [facility] Sex: M C Admitted: 12/06/24 Reason For Study Reason For Study: TIA/CVA Procedure This was a 2D Doppler, Color Flow transthoracic echocardiogram. Exam performed portable in patient room. Left Ventricle Normal LV size. Mild concentric left ventricular hypertrophy. The LV systolic function is normal. EF is 65 %. Stage 1 diastolic dysfunction. Right Ventricle Normal right ventricle. Atria The left and right atria are normal. Mitral Valve Moderate mitral valve annular calcification. Mild to moderate mitral valve regurgitation. Tricuspid Valve Trivial tricuspid valve insufficiency. RVSP estimated at 35-45 mmHg. Aortic Valve Trisinus/trileaflet aortic valve. Mild diffuse aortic valve thickening. Mild aortic valve stenosis. Mean peak gradient 14 mmHg. Mild to moderate aortic valve regurgitation. Pulmonic Valve The pulmonic valve is not well visualized. Great Vessels Normal sized aortic root. Pericardium/Pleural No pericardial effusion. MMode/2D Measurements & Calculations LVIDd: 5.7 cm IVSd: 1.2 cm LVOT diam: 2.1 cm LVIDs: 3.8 cm LVPWd: 1.1 cm LVOT area: 3.4 cm2 RVDd: 4.2 cm FS: 33.7 % Ao root diam: 3.5 cm LAV(MOD-bp): 66.5 ml LVAd ap4: 36.9 cm2 LAV(MOD-bp) Indexed: 29.6 ml/m2 LVLd ap4: 8.8 cm LAV(MOD-sp2): 68.4 ml EDV(MOD-sp4): 123.2 ml LAV(MOD-sp4): 66.0 ml EDV(sp4-el): 130.4 ml LVAs ap4: 20.6 cm2 LVLs ap4: 7.9 cm ESV(MOD-sp4): 45.0 ml ESV(sp4-el): 45.6 ml EF(MOD-sp4): 63.5 % EF(sp4-el): 65.1 % ___ SV(MOD-sp4): 78.2 ml SV(sp4-el): 84.9 ml Aortic Valve Planimetry: 2.0 cm2 SI(MOD-sp4): 34.8 ml/m2 LA A4 area: 21.1 cm2 LA dimension(2D): 4.4 cm RA A4area: 14.8 cm2 TAPSE: 2.3 cm Time Measurements MV dec time: 0.30 sec Doppler Measurements & Calculations MV E max ty: 92.3 cm/sec Lat Peak E' Ty: 5.4 cm/sec Med Peak E' Ty: 5.4 cm/sec MV A max ty: 117.4 cm/sec E/E' lat: 17.0 E/E' med: 17.2 MV E/A: 0.79 MV V2 max: 151.8 cm/sec MV P1/2t max ty: 109.1 cm/sec Ao V2 max: 246.4 cm/sec MV max P.2 mmHg MV P1/2t: 100.2 msec Ao max P.3 mmHg MV V2 mean: 67.5 cm/sec Ao V2 mean: 176.0 cm/sec MV mean P.3 mmHg MV dec slope: 318.9 cm/sec2 Ao mean P.0 mmHg MV V2 VTI: 42.6 cm MVA(P1/2t): 2.2 cm2 Ao V2 VTI: 54.1 cm AV (velocity ratio): 0.54 MVA(VTI): 2.3 cm2 DONNIE(I,D): 1.8 cm2 DONNIE(V,D): 1.7 cm2 AI max ty: 444.0 cm/sec LV V1 max: 123.0 cm/sec MR max ty: 485.3 cm/sec AI max P.1 mmHg LV V1 max P.1 mmHg MR max P.2 mmHg AI dec slope: 268.8 cm/sec2 LV V1 mean P.2 mmHg MR mean ty: 376.2 cm/sec AI P1/2t: 483.8 msec LV V1 mean: 81.9 cm/sec MR mean P.0 mmHg LV V1 VTI: 29.1 cm MR VTI: 153.3 cm SV(LVOT): 99.4 ml PA V2 max: 122.7 cm/sec TR max ty: 276.4 cm/sec TR max P.6 mmHg ECHO/Echo Complete Interpretation Summary Mild concentric left ventricular hypertrophy. The LV systolic function is normal. EF is 65 %. Stage 1 diastolic dysfunction. Moderate mitral valve annular calcification. Mild to moderate mitral valve regurgitation. RVSP estimated at 35-45 mmHg. Mild aortic valve stenosis. Mean peak gradient 14 mmHg. Mild to moderate aortic valve regurgitation. Ordering Physician: Lyndon Dinh Performed By: Mann Mcleod RCS 12/07/24 1505 Date _ Cally Mahoney MD CC: Dr. Lyndon Dinh DO; Dr. Dimitri Marie MD ~ Date Dictated: 12/07/24 1120 Date Transcribed: 12/07/24 1505 Adult Education Instructor: Signed [facility] Work Phone: Electrocardiogram reportOrde red By: Julio Palma on 12-07-2024 EKG study [facility] Cardiovascular Services [address] [place] [address] 12 Lead EKG 12/06/24 1211 MR#: [id number] Acct: [id number] Name: CARISSA GRUBER Rep #:[id number] : 1940 84 From: Julio ellsworth MD Attending Dr: Dr. Lyndon Dinh DO Status: ADM IN Ordering Dr: Ricardo Sinha MD Date: 05/22 Location: [facility] Sex: M C Admitted: 12/06/24 Test Reason : Blood Pressure : */* mmHG Vent. Rate : 60 BPM Atrial Rate : 60 BPM P-R Int : 184 ms QRS Dur : 100 ms QT Int : 426 ms P-R-T Axes : 45 0 14 degrees QTcB Int : 426 ms Normal sinus rhythm Baseline artifact Probably normal Confirmed by Julio Palma ([id number]), photo editor MARGARET NAIR ([id number]) on 56:48:18 AM Referred By: Confirmed By: Julio Palma 12/07/24 0648 Date _ Julio Palma MD CC: Dr. Lyndon Dinh DO; Dr. Ricardo Sinha MD; Dr. Dimitri Marie MD ~ Signed [facility] Other Erythrocyte distribution wid th ratioOrdered By: Lyndon Dinh on 12-07-2024 Erythrocyte distribution width (RBC) [Ratio] 14.2 % 11.6-14.6 [facility] Erythrocyte distribution wid th standard deviationOrdered By: Lyndon Dinh on 12-07-2024 Erythrocyte distribution width (RBC) [Ratio] 45.5 fl High 35.1-43.9 [facility] Glomerular filtration rate ( GFR) estimation/1.73 sq m using serum, plasma, or whole bOrdered By: Lyndon Dinh on 12-07-2024 GFR/1.73 sq M.predicted among non-blacks MDRD (S/P/Bld) [Vol rate/Area] 46 mL/min/{1.73_m2} Low >60 [facility] Comment on above: mL/min/1.73m2 CKD-EP I Creatinine Equation (2020) Hematocrit Auto (Bld) [Volum e fraction]Ordered By: Lyndon Dinh on 12-07-2024 Hematocrit (Bld) [Volume fraction] 32.4 % Low 40-54 [facility] Hemoglobin measurementOrdere d By: Lyndon Dinh on 12-07-2024 Hemoglobin (Bld) [Mass/Vol] 10.5 g/dL Low 13.0-16.5 [facility] LDL calc ser/plasOrdered By: Lyndon Dinh on 12-07-2024 Cholesterol in LDL [Mass/Vol] 54 mg/dL [facility] Comment on above: Pzodhqhpkh=740-100 m g/dL & Higher Knlp=966 mg/dL or greater Lipid Profileon 12-07-2024 CHOL:HDL 2.74 Normal [facility] Comment on above: Order Comment: Comme nts: NPO at [place] prior to lipid panel Performed By: #### L 100.0100, L500.2500 #### [facility] [address] [place], [place], [id number] ([phone]) Cholesterol [Mass/Vol] 104 mg/dL Normal <=200 [facility] Comment on above: Order Comment: Comme nts: NPO at [place] prior to lipid panel Result Comment: Chol esterol level, Desirable <200 mg/dL Borderline high cholesterol 200-239 mg/dL High cholesterol >=240 mg/dL Recommendations of the NCEP Adult Treatment Panel for the following risk-cutoff thresholds for the [place] population. Performed By: #### L 100.0100, L500.2500 #### [facility] [address] [place], [address] Cholesterol in HDL [Mass/Vol] 38 mg/dL Low [facility] Comment on above: Order Comment: Comme nts: NPO at [place] prior to lipid panel Result Comment: Jackelyn onal Cholesterol Education Program (NCEP) guidelines: <40 mg/dL: Low HDL-cholesterol (major risk factor for CHD) >= 60 mg/dL: High HDL-cholesterol (negative risk factor for CHD) HDL-cholesterol is affected by a number of factors, e.g. smoking, exercise, hormones, sex and age. Performed By: #### L 100.0100, L500.2500 #### [facility] [address] [place], [address] Cholesterol in LDL [Mass/Vol] 54 mg/dL Normal [facility] Comment on above: Order Comment: Comme nts: NPO at ND prior to lipid panel Result Comment: Bord oanchs=892-837 mg/dL Higher Ruzk=849 mg/dL or greater Performed By: #### L 100.0100, L500.2500 #### [facility] [address] [place], [address] Cholesterol in VLDL [Mass/Vol] 12 mg/dL Normal 5-40 [facility] Comment on above: Order Comment: Comme nts: NPO at [place] prior to lipid panel Performed By: #### L 100.0100, L500.2500 #### [facility] [address] [place] [place], [address] Triglyceride [Mass/Vol] 58 mg/dL Normal [facility] Comment on above: Order Comment: Comme nts: NPO at [place] prior to lipid panel Result Comment: The drugs N-Acetylcysteine and Metamizole may falsely depress this assay. Normal range: <150 mg/dL Borderline High: 150-199 mg/dL High: 200-499 mg/dL Very High: >500 mg/dL Performed By: #### L 100.0100, L500.2500 #### [facility] [address] [place], [address] MCV (mean corpuscular volume ) determinationOrdered By: Lyndon Dinh on 12-07-2024 MCV (RBC) [Entitic vol] 87.8 fL 80-94 [facility] MR/CON.PCM.Pilo 12-07-2024 MR/CON.PCM.NE [facility] Medical Records Department [address] [place] [address] Consultation - Neurology 12/07/24 1855 MR#: [id number] Acct: [id number] Name: CARISSA GRUBER Rep #: [id number] : 1940 84 From: Jeff Dougherty MD PCP: Dr. Dimitri Marie MD Status:DIS IN Location: [place] [address] Assessment and Plan: Stroke Assessment/Plan #L CRAO/BRAO -CTA with possible L subclavian. This would not cause a CRAO/BRAO as this vessel does not supply the ophtalmic artery. The radiologist is reading 60% L ICA stensois but on my read there is <50% stenosis. No significant carotid stenosis seen that would require CEA. -Vascular surgery is recommending is eliquis. From a stroke stand point AC is sufficient, no need for additional antiplatelet from a stroke stand point. -Recommend follow up with vascular surgery and repeat imaging of thrombus, if resolves then would consider switching back from AC to antiplatelet monotherapy -Obtain outpatient carotid US to follow up of mild carotid stenosis --goal LDL<70, HBA1c <7 -obtain TTE, 30 day cardiac event monitor -BP goal 120/80 -no smoking -follow up ???with opthalmology , PCP, vascular -MRI brain shows no stroke HPI Consult Data Date of Consult: 12/07/24 HPI Narrative HPI Narrative: 84 yo M w PMH HTN, HLD, hypothyroid, prior lacunar stroke ???presents with left horizontal altitudinal painless monocular vision loss of L eye at 8 AM this morning. He saw reservations specialist Dr. Guerrero and was diagnosed with a left retinal artery occlusion. He was then sent to the ER for further evaluation. 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 No significant carotid stenosis on my personal read of CTA neck. MRI brain showed no ischemic stroke. Vascular surgery was consulted and recommended initiating anticoagulation. The patient was taking plavix for a prior lacunar stroke. Currently feels wl, visual deficit still present.??? PFSH Home Medications ???Medication ???Instructions ???Recorded ???Last Taken ???Type doxazosin 4 mg tablet 4 mg PO BID Blood pressure 5 12/06/24 History levothyroxine 150 mcg tablet 150 mcg PO DAILY disorder of 12/0612/06/24 History thyroid gland losartan 50 mg tablet 50 mg PO BID Blood pressure 12/06/24 History metoprolol succinate 25 mg 25 mg PO DAILY Hear rate/Blood 05/2212/06/24 History tablet,extended release 24 hr pressure apixaban 5 mg tablet (Eliquis) 5 mg PO BID 30 days #60 tabs 12/07 Unknown Rx atorvastatin 40 mg tablet 40 mg PO QHS 90 days #90 tabs 11/26 08/22 Unknown Rx Allergy/AdvReac Type Severity Reaction Status Date / Time Sulfa (Sulfonamide Allergy Rash Verified 12/06/24 22:08 Antibiotics) Social History Smoking Status: Never smoker Vital Signs Vital Signs Vital Signs: 12/06/24 21:26 12/06/24 21:30 12/06/24 22:00 Temperature 97.4 F L Temperature Source Oral Pulse Rate 56 L Pulse Strength Normal (2+) Respiratory Rate 18 Respiratory Effort Normal Non-Labored Respiratory Depth Normal Respiratory Pattern Normal Blood Pressure 160/56 H Blood Pressure Mean 90 Blood Pressure Source Monitor Blood Pressure Position Supine Blood Pressure Location Right Arm Pulse Ox 100 Oxygen Delivery Method Room Air Room Air 12/06/24 23:50 12/07/24 03:13 12/07/24 03:30 Temperature 97.8 F Temperature Source Oral Pulse Rate 60 Pulse Strength Respiratory Rate 16 Respiratory Effort Normal Non-Labored Respiratory Depth Normal Respiratory Pattern Normal Blood Pressure 150/63 H Blood Pressure Mean 92 Blood Pressure Source Monitor Blood Pressure Position Supine Blood Pressure Location Right Arm Pulse Ox 95 99 Oxygen Delivery Method Room Air Room Air Room Air 12/07/24 07:11 12/07/24 08:01 12/07/24 08:02 Temperature 97.7 F L 97.7 F L Temperature Source Oral Oral Pulse Rate 52 L 52 L Pulse Strength Respiratory Rate 16 16 Respiratory Effort Respiratory Depth Respiratory Pattern Blood Pressure 154/64 H 154/64 H Blood Pressure Mean 94 94 Blood Pressure Source Monitor Blood Pressure Position Semi-Fowlers Blood Pressure Location Right Arm Pulse Ox 94 98 98 Oxygen Delivery Method Room Air Room Air Room Air 12/07/24 10:00 12/07/24 10:15 12/07/24 13:00 Temperature 97.9 F Temperature Source Oral Pulse Rate 74 56 L Pulse Strength Respiratory Rate 18 Respiratory Effort Normal Non-Labored Respiratory Depth Normal Respiratory Pattern Normal Blood Pressure 119/54 L 139/60 H Blood Pressure Mean 86 (more content not included)... Normal [facility] Mean corpuscular hemoglobin (MCH) determinationOrdered By: Lyndon Dinh on 12-07-2024 MCH (RBC) [Entitic mass] 28.5 pg 27.0-32.0 [facility] Mean corpuscular hemoglobin concentration (MCHC) determinationOrdered By: Lyndon Dinh on 12-07-2024 MCHC (RBC) [Mass/Vol] 32.4 g/dL 32-36 [facility] Mean platelet volume determi nationOrdered By: Lyndon Dinh on 12-07-2024 Platelet mean volume (Bld) [Entitic vol] 10.3 fL 6.2-12.0 [facility] Platelet countOrdered By: Ham Dinh on 12-07-2024 Platelets (Bld) [#/Vol] 226 10*3/uL 150-450 [facility] Potassium measurement (mass/ volume)Ordered By: Lyndon Dinh on 12-07-2024 Potassium (Unsp spec) [Mass/Vol] 4.1 mmol/L 3.3-5.1 [facility] RBC Auto (Bld) [#/Vol]Ordere d By: Lyndon Dinh on 12-07-2024 RBC (Bld) [#/Vol] 3.69 10*6/uL Low 4.6-6.2 [facility] Screening total cholesterol/ high density lipoprotein (HDL) cholesterol ratioOrdered By: Lyndon Dinh on 12-07-2024 Cholesterol.total/Choles terol in HDL [Mass ratio] 2.74 {ratio} [facility] Serum creatinine measurement (mass/volume)Ordered By: Lyndon Dinh on 12-07-2024 Creatinine [Mass/Vol] 1.47 mg/dL High 0.70-1.20 [facility] Serum glucose measurement (m ass/volume)Ordered By: Lyndon Dinh on 12-07-2024 Glucose [Mass/Vol] 94 mg/dL 70-99 [facility] Serum or plasma calcium tesfaye urement (mass/volume)Ordered By: Lyndon Dinh on 12-07-2024 Calcium [Mass/Vol] 8.7 mg/dL 7.6-11.0 [facility] Serum or plasma cholesterol in HDL measurement (mass/volume)Ordered By: Lyndon Dinh on 12-07-2024 Cholesterol in HDL [Mass/Vol] 38 mg/dL Low >40 [facility] Comment on above: National Cholesterol Education Program (NCEP) guidelines:<40 mg/dL: Low HDL-cholesterol (major risk factor for CHD)>= 60 mg/dL: High HDL-cholesterol (negative risk factor for CHD)HDL-cholesterol is affected by a number of factors, e.g. smoking, exercise, hormones, sex and age. Serum or plasma cholesterol measurement (mass/volume)Ordered By: Lyndon Dinh on 12-07-2024 Cholesterol [Mass/Vol] 104 mg/dL <201 [facility] Comment on above: Cholesterol level, D esirable <200 mg/dLBorderline high cholesterol 200-239 mg/dLHigh cholesterol >=240 mg/dLRecommendations of the NCEP Adult Treatment Panel for the following risk-cutoff thresholds for the [place] population. Serum or plasma urea nitroge n measurement (mass/volume)Ordered By: Lyndon Dinh on 12-07-2024 Urea nitrogen [Mass/Vol] 21 mg/dL High 4-19 [facility] Sodium levelOrdered By: Jose Dinh on 12-07-2024 Sodium [Moles/Vol] 139 mmol/L 133-145 [facility] T4 Free Directon 12-07-2024 T4 FREE DIRECT 1.60 ng/dL High 0.76-1.46 [facility] Comment on above: Performed By: #### L 100.0100, L500.2500 #### [facility] [place], [address] T4 freeOrdered By: Lyndon Dinh on 12-07-2024 Free T4 [Mass/Vol] 1.60 ng/dL High 0.76-1.46 [facility] Triglycerides measurementOrd ered By: Lyndon Dinh on 06-12-2025 Triglyceride [Mass/Vol] 58 mg/dL <199 [facility] Comment on above: The drugs N-Acetylcy steine and Metamizole may falsely depress this assay. Normal range: <150 mg/dLBorderline High: 150-199 mg/dLHigh: 200-499 mg/dLVery High: >500 mg/dL White blood cell (WBC) count Ordered By: Lyndon Dinh on 12-07-2024 WBC (Bld) [#/Vol] 7.2 10*3/uL 4.4-11.0 [facility] 12 Lead EKGon 12-06-2024 12 Lead EKG [facility] Cardi[facility] Services [address] [place] [address] 12 Lead EKG 12/06/24 1211 MR#: [id number] Acct: [id number] Name: CARISSA GRUBER Rep #: [id number] : 1940 84 From: Julio Palma MD Attending Dr: Dr. Lyndon Dinh DO Status : ADM IN Ordering Dr: Ricardo Sinha MD Date: 12/06/24 Location: [facility] Sex: M C Admitted: 12/06/24 Test Reason : Blood Pressure : */* mmHG Vent. Rate : 60 BPM Atrial Rate : 60 BPM P-R Int : 184 ms QRS Dur : 100 ms QT Int : 426 ms P-R-T Axes : 45 0 14 degrees QTcB Int : 426 ms Normal sinus rhythm Baseline artifact Probably normal Confirmed by Julio Palma ([id number]), photo editor MARGARET NAIR ([id number]) on 12/07/2024 6:48:18 AM Referred By: Confirmed By: Julio Palma 12/07/24 0648 Date Julio Palma MD CC: Dr. Lyndon Dinh DO; Dr. Ricardo Sinha MD; Dr. Dimitri Marie MD Signed Normal [facility] Absolute lymphocyte countOrd ered By: Ricardo Sinha on 12-06-2024 Lymphocytes Auto (Unsp spec) [#/Vol] 1.14 10*3/uL 0.83-4.51 [facility] Absolute neutrophil countOrd ered By: Ricardo Sinha on 12-06-2024 Neutrophils (Bld) [#/Vol] 7.9 10*3/uL High 2.0-7.7 [facility] Activated partial thrombopla stin time (aPTT) in platelet poor plasma by coagulation aOrdered By: Ricardo Sinha on 12-06-2024 aPTT Coag (PPP) [Time] 30.4 s 24.1-36.2 [facility] Anion gap in Serum or Plasma Ordered By: Ricardo Sinha on 12-06-2024 Anion gap [Moles/Vol] 11 mmol/L - [facility] Automated lymphocyte count a s percentage of total leukocytesOrdered By: Ricardo Sinha on 12-06-2024 Lymphocytes/100 WBC Auto (Unsp spec) 11.5 % Low - [facility] BUN/creatinine ratioOrdered By: Ricardo Sinha on 12-06-2024 Urea nitrogen/Creatinine [Mass ratio] 14.9 mg/mg 04-16 [facility] Basic Metabolic Profile (BMP )on 12-06-2024 BUN/CRE 14.9 RATIO Normal 04-16 [facility] Comment on above: Performed By: #### L 100.0100, L500.2500 #### [facility] [address] [place], [address] Calcium [Mass/Vol] 8.7 mg/dL Normal 7.6-11.0 [facility] Comment on above: Performed By: #### L 100.0100, L500.2500 #### [facility] [address] [place], [address] Chloride [Moles/Vol] 104 mmol/L Normal 98-108 [facility] Comment on above: Performed By: #### L 100.0100, L500.2500 #### [facility] [address] [place], [address] CO2 [Moles/Vol] 21.2 mmol/L Normal 21.0-32.0 [facility] Comment on above: Performed By: #### L 100.0100, L500.2500 #### [facility] [address] [place], [address] Creatinine [Mass/Vol] 1.77 mg/dL High 0.70-1.20 [facility] Comment on above: Performed By: #### L 100.0100, L500.2500 #### [facility] [address] [place], [address] ECRCL 36.88 ml/min Low 50-250 [facility] Comment on above: Performed By: #### L 100.0100, L500.2500 #### [facility] [address] [place], [address] GAP 11 Normal 5-15 [facility] Comment on above: Performed By: #### L 100.0100, L500.2500 #### [facility] [address] [place], [address] GFR/1.73 sq M.predicted among non-blacks MDRD (S/P/Bld) [Vol rate/Area] 37 mL/min/{1.73_m2} Low >60 [facility] Comment on above: Result Comment: mL/m in/1.73m2 CKD-EPI Creatinine Equation (2020) Performed By: #### L 100.0100, L500.2500 #### [facility] [address] [place], [address] Glucose [Mass/Vol] 93 mg/dL Normal 70-99 [facility] Comment on above: Performed By: #### L 100.0100, L500.2500 #### [facility] [address] [place], [address] Potassium [Moles/Vol] 4.2 mmol/L Normal 3.3-5.1 [facility] Comment on above: Performed By: #### L 100.0100, L500.2500 #### [facility] [address] [place], [address] Sodium [Moles/Vol] 136 mmol/L Normal 133-145 [facility] Comment on above: Performed By: #### L 100.0100, L500.2500 #### [facility] [address] [place], [address] Urea nitrogen [Mass/Vol] 26 mg/dL High 4-19 [facility] Comment on above: Performed By: #### L 100.0100, L500.2500 #### [facility] [address] [place], [address] Basophil percentageOrdered B y: Ricardo Sinha on 12-06-2024 Basophils/100 WBC (Bld) 0.5 % 0-1 [facility] Brain without Contraston Brain without Contrast [facility] Imaging Services [address] [facility] [place] [address] Brain without Contrast MR#: [id number] Acct: [id number] Name: CARISSA GRUBER Rep #: [id number] : 1940 M 84 From: Elvis Person MD PCP: Dr. Dimitri Marie MD Status: ADM IN Study: Brain without Contrast Date of Exam: 12/06/24 Exam# [id number] Ordering Dr: Lyndon Dinh DO PROCEDURE: BRAIN WITHOUT CONTRAST 12/06/2024 REASON FOR EXAM: EVAL FOR CVA TECHNIQUE: Noncontrast brain MRI. Multiplanar and multisequence images were obtained. FINDINGS: There is no pathologic diffusion restriction to represent an acute or recent infarction. There is nonspecific mild left-sided mastoid fluid. There is a mild degree of atrophy with compensatory ventricular prominence. There is no intracranial mass. There are no abnormal flow voids. There is no significant intracranial demyelination and there is no hemorrhage. Coronal T2 weighted images demonstrate moderate hippocampal atrophy which is symmetric. MRI/Brain without Contrast IMPRESSION: No acute abnormality Reading [facility] CC: Dr. Lyndon Dinh DO; Dr. Dimitri Marie MD Adult Education Instructor: Signed Normal [facility] CBC W/Diff, Automatedon 06-06 28-2024 Absolute Lymph 1.14 X10 3/uL Normal 0.83-4.51 [facility] Comment on above: Performed By: #### L 100.0100, L500.2500 #### [facility] [address] [place], [address] Absolute Neut 7.9 X10 3/uL High 2.0-7.7 [facility] Comment on above: Performed By: #### L 100.0100, L500.2500 #### [facility] [address] [place], [address] Basophils/100 WBC (Bld) 0.5 % Normal 0-1 [facility] Comment on above: Performed By: #### L 100.0100, L500.2500 #### [facility] [address] [place], [address] Eosinophils/100 WBC (Bld) 1.4 % Normal 0-5 [facility] Comment on above: Performed By: #### L 100.0100, L500.2500 #### [facility] [address] [place], [address] Erythrocyte distribution width (RBC) [Ratio] 14.1 % Normal 11.6-14.6 [facility] Comment on above: Performed By: #### L 100.0100, L500.2500 #### [facility] [address] [place], [address] Hematocrit (Bld) [Volume fraction] 32.4 % Low 40-54 [facility] Comment on above: Performed By: #### L 100.0100, L500.2500 #### [facility] [address] [place], [address] Hemoglobin (Bld) [Mass/Vol] 10.7 g/dL Low 13.0-16.5 [facility] Comment on above: Performed By: #### L 100.0100, L500.2500 #### [facility] [address] [place], [address] IG% 0.300 Normal 0.0-0.9 [facility] Comment on above: Result Comment: IG% - Immature Granulocytes (promyelocytes, myelocytes and metamyelocytes) > 1% indicates that a LEFT SHIFT is Present. Performed By: #### L 100.0100, L500.2500 #### [facility] [address] [place], [address] Lymphocytes/100 WBC (Bld) 11.5 % Low 19-41 [facility] Comment on above: Performed By: #### L 100.0100, L500.2500 #### [facility] [address] [place], [address] MCH (RBC) [Entitic mass] 29.2 pg Normal 27.0-32.0 [facility] Comment on above: Performed By: #### L 100.0100, L500.2500 #### [facility] [address] [place], [address] MCHC (RBC) [Mass/Vol] 33.0 g/dL Normal 32-36 [facility] Comment on above: Performed By: #### L 100.0100, L500.2500 #### [facility] [address] [place], [address] MCV (RBC) [Entitic vol] 88.5 fL Normal 80-94 [facility] Comment on above: Performed By: #### L 100.0100, L500.2500 #### [facility] [address] [place], [address] Monocytes/100 WBC (Bld) 7.0 % Normal 0-10 [facility] Comment on above: Performed By: #### L 100.0100, L500.2500 #### [facility] [address] [place], [address] Neutrophils/100 WBC (Bld) 79.3 % High 47-70 [facility] Comment on above: Performed By: #### L 100.0100, L500.2500 #### [facility] [address] [place], [address] Nucleated RBC (Bld) [#/Vol] 0 10*3/uL Normal 0-5 [facility] Comment on above: Performed By: #### L 100.0100, L500.2500 #### [facility] [address] [place], [address] Platelet mean volume (Bld) [Entitic vol] 10.3 fL Normal 6.2-12.0 [facility] Comment on above: Performed By: #### L 100.0100, L500.2500 #### [facility] [address] [place], [address] Platelets (Bld) [#/Vol] 224 10*3/uL Normal 150-450 [facility] Comment on above: Performed By: #### L 100.0100, L500.2500 #### [facility] [address] [place], [address] RBC (Bld) [#/Vol] 3.66 10*6/uL Low 4.6-6.2 [facility] Comment on above: Performed By: #### L 100.0100, L500.2500 #### [facility] [address] [place], [address] RDW SD 45.6 fl High 35.1-43.9 [facility] Comment on above: Performed By: #### L 100.0100, L500.2500 #### [facility] [address] [place], [address] WBC (Bld) [#/Vol] 9.9 10*3/uL Normal 4.4-11.0 [facility] Comment on above: Performed By: #### L 100.0100, L500.2500 #### [facility] [address] [place], [address] Absolute Neut Normal 2.0-7.7 [facility] Comment on above: Result Comment: DUPL ICATE CANCEL PER GEORGETTE. Performed By: #### L 501.4021, L300.3900, L300.4310, L100.0100 #### [facility] [address] [place], [address] HCT Normal 40-54 [facility] Comment on above: Result Comment: DUPL ICATE CANCEL PER GEORGETTE. Performed By: #### L 501.4021, L300.3900, L300.4310, L100.0100 #### [facility] [address] [place], [address] HGB Normal 13.0-16.5 [facility] Comment on above: Result Comment: DUPL ICATE CANCEL PER GEORGETTE. Performed By: #### L 501.4021, L300.3900, L300.4310, L100.0100 #### [facility] [address] [place], [address] MCH Normal 27.0-32.0 [facility] Comment on above: Result Comment: DUPL ICATE CANCEL PER GEORGETTE. Performed By: #### L 501.4021, L300.3900, L300.4310, L100.0100 #### [facility] [address] [place], [address] MCHC Normal 32-36 [facility] Comment on above: Result Comment: DUPL ICATE CANCEL PER GEORGETTE. Performed By: #### L 501.4021, L300.3900, L300.4310, L100.0100 #### [facility] [address] [place], [address] MCV Normal 80-94 [facility] Comment on above: Result Comment: DUPL ICATE CANCEL PER GEORGETTE. Performed By: #### L 501.4021, L300.3900, L300.4310, L100.0100 #### [facility] [address] [place], [address] NEUT% Normal 47-70 [facility] Comment on above: Result Comment: DUPL ICATE CANCEL PER GEORGETTE. Performed By: #### L 501.4021, L300.3900, L300.4310, L100.0100 #### [facility] [address] [place], [address] PLT Normal 150-450 [facility] Comment on above: Result Comment: DUPL ICATE CANCEL PER GEORGETTE. Performed By: #### L 501.4021, L300.3900, L300.4310, L100.0100 #### [facility] [address] [place], [address] RBC Normal 4.6-6.2 [facility] Comment on above: Result Comment: DUPL ICATE CANCEL PER GEORGETTE. Performed By: #### L 501.4021, L300.3900, L300.4310, L100.0100 #### [facility] [address] [place], [address] RDW CV Normal 11.6-14.6 [facility] Comment on above: Result Comment: DUPL ICATE CANCEL PER GEORGETTE. Performed By: #### L 501.4021, L300.3900, L300.4310, L100.0100 #### [facility] [address] [place], [address] RDW SD Normal 35.1-43.9 [facility] Comment on above: Result Comment: DUPL ICATE CANCEL PER GEORGETTE. Performed By: #### L 501.4021, L300.3900, L300.4310, L100.0100 #### [facility] [address] [place], [address] WBC Normal 4.4-11.0 [facility] Comment on above: Result Comment: DUPL ICATE CANCEL PER GEORGETTE. Performed By: #### L 501.4021, L300.3900, L300.4310, L100.0100 #### [facility] [address] [place], [address] CNCOon 12-06-[address] [facility] CNPNon 12-06-2024 CNPN Telephone (INTMWS) CARISSA GRUBER ([id number]) 1940 M Date Time Provider Department 12/06/24 DIMITRI MARIE INTLorieWS During your visit today, we recorded the following information about you: Sherri Myers LPN 12/06/2024 9:00 AM Signed Patient came into the office, losing vision in left eye. Dimitri Herbert LPN, MD 12/06/2024 10:06 AM Signed Patient walked in with acute vision change this morning, asking about a CT scan to check his optic nerve. I recommended he go to the ER or see his eye doctor stat. He will go to [facility]. Allergies As of Date: 12/06/2024 Noted Allergy Reaction CREATINE 03/03/2007 Comments: Rash, hives, proven on rechallenge on 2 occasions, occurred after 49, then 21, then 10 days of supplementation SULFA (SULFONAMIDE ANTIBIOTICS) 04/02/2005 Date Reviewed: 04/06/2024 Reviewed by: Sherri Myers LPN - Fully Assessed Reason for Visit: Vision changes [Other] Prescriptions as of 12/06/2024 - losartan (COZAAR) 50 mg tablet Take 1 tablet by mouth two times a day. - metoprolol succinate ER (TOPROL XL) 25 mg 24 hr tablet Take 1 tablet by mouth once daily. - levothyroxine (SYNTHROID) 150 mcg tablet Take 1 tablet by mouth once daily. Take on empty stomach. For thyroid - amLODIPine (NORVASC) 5 mg tablet Take 1 tablet by mouth once daily. - doxazosin (CARDURA) 4 mg tablet Take 1 tablet by mouth two times a day. - pravastatin (PRAVACHOL) 40 mg tablet Take 1 tablet by mouth daily at bedtime. For cholesterol. - multivitamin (ONE DAILY MULTIVITAMIN) tablet Take 1 tablet by mouth once daily. - aspirin, enteric coated 325 mg EC tablet Take 1 tablet by mouth once daily. with food. - Cholecalciferol, Vitamin D3, 1,000 unit ORAL Tab Take by mouth once daily. - ascorbic acid(VITAMIN C 500 MG TAB) Take one(1) tablet daily. 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] 09/13/2009 04/28/2016 Family History of Malignant Neoplasm of Gastroi*02/13/2010 Personal History of Colonic Polyps [Z86.0100] 02/13/2010 Unspecified constipation [K59.00] 02/13/2010 04/28/2016 Venous insufficiency [I87.2] 03/16/2013 Chronic cough [R05.3] 01/03/2015 Acquired hypothyroidism [E03.9] 04/28/2016 Actinic keratoses [L57.0] 04/28/2016 Chronic kidney disease, stage III (moderate) (H*12/03/2017 Paroxysmal SVT (supraventricular tachycardia) (*12/12/2021 VT (ventricular tachycardia) (HCC) [I47.20] 12/12/2021 PAREDES (dyspnea on exertion) [R06.09] 05/18/2022 Hypertensive kidney disease with stage 3 chroni*09/09/2022 Sinus bradycardia [R00.1] 09/21/2022 Acquired complex cyst of kidney, left [N28.1] 09/27/2022 Bladder retention of urine [R33.9] 11/02/2022 Obesity, Class II, BMI 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 Carbon dioxide, total [Moles /volume] in Central venous bloodOrdered By: Ricardo Sinha on 12-06-2024 CO2 [Moles/Vol] 21.2 mmol/L 21.0-32.0 [facility] Chloride assayOrdered By: Deepak Sinha on 12-06-2024 Chloride [Moles/Vol] 104 mmol/L 98-108 [facility] Echo Completeon 12-06-2024 Echo Complete [facility] [address] [place] [address] Echo Complete 12/07/24 1120 MR#: [id number] Acct: [id number] Name: CARISSA GRUBER Rep #: [id number] : 1940 84 From: Cally Mahoney MD Attending Dr: Dr. Lyndon Dinh DO Status : ADM IN Ordering Dr: Lyndon Dinh DO Date: 12/06/24 Location: [facility] Sex: M C Admitted: 12/06/24 Reason For Study Reason For Study: TIA/CVA Procedure This was a 2D Doppler, Color Flow transthoracic echocardiogram. Exam performed portable in patient room. Left Ventricle Normal LV size. Mild concentric left ventricular hypertrophy. The LV systolic function is normal. EF is 65 %. Stage 1 diastolic dysfunction. Right Ventricle Normal right ventricle. Atria The left and right atria are normal. Mitral Valve Moderate mitral valve annular calcification. Mild to moderate mitral valve regurgitation. Tricuspid Valve Trivial tricuspid valve insufficiency. RVSP estimated at 35-45 mmHg. Aortic Valve Trisinus/trileaflet aortic valve. Mild diffuse aortic valve thickening. Mild aortic valve stenosis. Mean peak gradient 14 mmHg. Mild to moderate aortic valve regurgitation. Pulmonic Valve The pulmonic valve is not well visualized. Great Vessels Normal sized aortic root. Pericardium/Pleural No pericardial effusion. MMode/2D Measurements Calculations LVIDd: 5.7 cm IVSd: 1.2 cm LVOT diam: 2.1 cm LVIDs: 3.8 cm LVPWd: 1.1 cm LVOT area: 3.4 cm2 RVDd: 4.2 cm FS: 33.7 % Ao root diam: 3.5 cm LAV(MOD-bp): 66.5 ml LVAd ap4: 36.9 cm2 LAV(MOD-bp) Indexed: 29.6 ml/m2 LVLd ap4: 8.8 cm LAV(MOD-sp2): 68.4 ml EDV(MOD-sp4): 123.2 ml LAV(MOD-sp4): 66.0 ml EDV(sp4-el): 130.4 ml LVAs ap4: 20.6 cm2 LVLs ap4: 7.9 cm ESV(MOD-sp4): 45.0 ml ESV(sp4-el): 45.6 ml EF(MOD-sp4): 63.5 % EF(sp4-el): 65.1 % SV(MOD-sp4): 78.2 ml SV(sp4-el): 84.9 ml Aortic Valve Planimetry: 2.0 cm2 SI(MOD-sp4): 34.8 ml/m2 LA A4 area: 21.1 cm2 LA dimension(2D): 4.4 cm RA A4 area: 14.8 cm2 TAPSE: 2.3 cm Time Measurements MV dec time: 0.30 sec Doppler Measurements Calculations MV E max ty: 92.3 cm/sec Lat Peak E' Ty: 5.4 cm/sec Med Peak E' Ty: 5.4 cm/sec MV A max ty: 117.4 cm/sec E/E' lat: 17.0 E/E' med: 17.2 MV E/A: 0.79 MV V2 max: 151.8 cm/sec MV P1/2t max ty: 109.1 cm/sec Ao V2 max: 246.4 cm/sec MV max P.2 mmHg MV P1/2t: 100.2 msec Ao max P.3 mmHg MV V2 mean: 67.5 cm/sec Ao V2 mean: 176.0 cm/sec MV mean P.3 mmHg MV dec slope: 318.9 cm/sec2 Ao mean P.0 mmHg MV V2 VTI: 42.6 cm MVA(P1/2t): 2.2 cm2 Ao V2 VTI: 54.1 cm AV (velocity ratio): 0.54 MVA(VTI): 2.3 cm2 DONNIE(I,D): 1.8 cm2 DONNIE(V,D): 1.7 cm2 AI max ty: 444.0 cm/sec LV V1 max: 123.0 cm/sec MR max ty: 485.3 cm/sec AI max P.1 mmHg LV V1 max P.1 mmHg MR max P.2 mmHg AI dec slope: 268.8 cm/sec2 LV V1 mean P.2 mmHg MR mean ty: 376.2 cm/sec AI P1/2t: 483.8 msec LV V1 mean: 81.9 cm/sec MR mean P.0 mmHg LV V1 VTI: 29.1 cm MR VTI: 153.3 cm SV(LVOT): 99.4 ml PA V2 max: 122.7 cm/sec TR max ty: 276.4 cm/sec TR max P.6 mmHg ECHO/Echo Complete Interpretation Summary Mild concentric left ventricular hypertrophy. The LV systolic function is normal. EF is 65 %. Stage 1 diastolic dysfunction. Moderate mitral valve annular calcification. Mild to moderate mitral valve regurgitation. RVSP estimated at 35-45 mmHg. Mild aortic valve stenosis. Mean peak gradient 14 mmHg. Mild to moderate aortic valve regurgitation. Ordering Physician: Lyndon Dinh Performed By: Mann Mcleod RCS 12/07/24 1505 Date Cally Mahoney MD CC: Dr. Lyndon Dinh, DO; Dr. Dimitri Marie MD Date Dictated: 12/07/24 1120 Date Transcribed: 12/07/24 1505 Adult Education Instructor: Signed Normal [facility] Emergency Department Summary on 12-06-2024 Emergency Department Summary [facility] Medical Records Department [address] [place] [id number] Emergency Department Summary 12/06/24 MR#: [id number] Acct: [id number] Name: CARISSA GRUBER Rep #: [id number] : 1940 84 From: Ricardo Sinha MD PCP: Dr. Dimitri Marie MD Status:REG ER Location: ED HPI History of Present Illness Chief Complaint: Neuro S/Sx Informant: patient Onset/Context/Timing Onset: Today and Hours Context: Sudden Onset Timing: Continuous Onset: Decreased vision left upper visual field. Current Severity: Moderate Maximum Severity: Moderate Associated Symptoms Associated Symptoms: Negative for Headache, Nausea, Vomiting or Chest Pain Narrative Narrative: 84-year-old male decreased vision left upper field of his left eye started 8 AM this morning. He saw an reservations specialist Dr. Christie and was diagnosed with left retinal artery occlusion. Sent to ER for further evaluation. He denies any other complaints. He denies headache. He denies weakness in his arms or legs. He denies any ataxia. He has had a prior stroke 6 years ago Prior similar symptoms: No Recent Illness/Hospitalizat ion: No PFSH [facility] Home Medications ???Medication ???Instructions ???Recorded ???Last Taken ???Type furosemide 20 mg tablet 20 mg PO DAILY 05/04/13 Unknown Hi story atorvastatin 40 mg tablet 40 mg PO QHS ##30 05/06/13 Unknown Rx clopidogrel 75 mg tablet 75 mg PO DAILY ##30 05/06/13 Unkno wn Rx lisinopril 5 mg tablet 15 mg (3 x 5 mg) PO DAILY ##30 Unknown Rx doxazosin 4 mg tablet 4 mg PO BID 12/06/24 Unknown Histo ry levothyroxine 150 mcg tablet 150 mcg PO DAILY disorder of 12/06 Unknown History thyroid gland losartan 50 mg tablet 50 mg PO BID 12/06/24 Unknown Hist ory metoprolol succinate 25 mg 25 mg PO DAILY 12/06/24 Unknown Hi story tablet,extended release 24 hr pravastatin 40 mg tablet 40 mg PO QHS cholesterol 12/06/24 Unknown History Allergy/AdvReac Type Severity Reaction Status Date / Time Sulfa (Sulfonamide Allergy Rash Verified 12/06/24 11:40 Antibiotics) Social History Smoking Status: Never smoker ROS ROS ED ROS Narrative Left visual change. No recent illness. Constitutional Constitutional ED: Denies chills Eyes Eyes: Reports change in vision left ENT ENT ED: Denies ear pain Cardiovascular Cardiovascular: Denies chest pain Respiratory/Chest Respiratory/Chest: Denies cough Gastrointestinal Gastrointestinal: Denies abdominal pain Genitourinary Genitourinary ED: Denies dysuria Musculoskeletal Musculoskeletal: Denies arthralgias Neurologic Neurologic: Denies headache(s) Psychiatric Psychiatric: Denies anxiety Endocrine Endocrinology: Denies polydipsia Hematologic/Lymphati c Hematologic/Lymphati c: Denies easy bleeding Allergic/Immunologic Allergic/Immunologic ED: Denies mouth swelling or urticaria EXAM Physical Exam Narrative Exam Narrative: Well-appearing 84-year-old male sitting upright in bed. Vital signs stable afebrile. No acute distress. H EENT exam appears Ramming Actilite. Expirations are intact. He is vision change in his left eye left upper field. No facial droop. Normal speech. Neck nontender. Lungs clear. Heart regular rhythm rate about 75 no murmur. Chest wall ribs nontender. Abdomen soft nontender. Moving all 4 extremities. 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 Dorsi plantarflexion intact. No drift. Neurologically he has decreased vision or loss of vision left upper eye field. Otherwise he has normal strength. Normal range of motion. No ataxia. Normal speech. His NIH is 1. Const Vital Signs: 12/06/24 11:40 12/06/24 12:17 12/06/24 12:26 Temperature 97.9 F Temperature Source Oral Pulse Rate 75 Respiratory Rate 18 Blood Pressure 124/98 H Blood Pressure Mean 106 Pulse Ox 98 Oxygen Delivery Method Room Air Room Air Room Air 12/06/24 12:30 12/06/24 13:00 12/06/24 13:30 Temperature Temperature Source Pulse Rate 58 L 55 L 51 L Respiratory Rate 23 H 23 H 18 Blood Pressure 147/56 H 132/57 H 139/58 H Blood Pressure Mean 83 82 83 Pulse Ox 99 98 98 Oxygen Delivery Method Room Air Room Air 12/06/24 14:00 12/06/24 14:30 12/06/24 15:00 Temperature Temperature Source Pulse Rate 50 L 50 L 49 L Respiratory Rate 19 H 22 H 20 H Blood Pressure 145/57 H 142/51 H 148/56 H Blood Pressure Mean 84 77 86 Pulse Ox 98 98 99 Oxygen Delivery Method Positive well developed; Negative for cachectic, contractures or unkempt General Appearance ED: well developed and NAD; Negative for unkempt, cachectic or contractures Nutritional Appearance: Negative for cachectic HEENT Reports moist mucous membranes atraumatic Eyes PERRL and EOMs intact (more content not included)... Normal [facility] Eosinophil percentageOrdered By: Ricardo Sinha on 12-06-2024 Eosinophils/100 WBC (Bld) 1.4 % 0-5 [facility] Erythrocyte distribution wid th ratioOrdered By: Ricardo Sinha on 12-06-2024 Erythrocyte distribution width (RBC) [Ratio] 14.1 % 11.6-14.6 [facility] Erythrocyte distribution wid standard deviationOrdered By: Ricardo Sinha on 12-06-2024 Erythrocyte distribution width (RBC) [Ratio] 45.6 fl High 35.1-43.9 [facility] Glomerular filtration rate ( GFR) estimation/1.73 sq m using serum, plasma, or whole bOrdered By: Ricardo Sinha on 12-06-2024 GFR/1.73 sq M.predicted among non-blacks MDRD (S/P/Bld) [Vol rate/Area] 37 mL/min/{1.73_m2} Low >60 [facility] Comment on above: mL/min/1.73m2 CKD-EP I Creatinine Equation (2020) H AND P Exam - [facility] 12-06-2024 H&P Exam - Hospitalist [facility] Medical Records Department [address] [place] [address] H P Exam - Hospitalist 12/06/24 1502 MR#: [id number] Acct: [id number] Name: CARISSA GRUBER Rep #: [id number] : 1940 84 From: Lyndon Dinh DO PCP: Dr. Dimitri Marie MD Status:ADM IN Location: [facility] [id number] HPI - General General Date of Admission: 12/06/24 Date of Service: 12/06/24 Chief Complaint: Vision loss HPI Narrative CARISSA GRUBER, is a 84 M who presented to [facility] ED on 12/06/24 with vision loss. Patient noticed decreased vision in his left upper eye field around 8 AM this morning. He saw reservations specialist Dr. Guerrero and was diagnosed with a left retinal artery occlusion. He was then sent to the ER for further evaluation. 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 Was suspected that this was the reason for the retinal artery occlusion. ED physician discussed with vascular surgery who noted no need for surgical intervention and recommended initiating anticoagulation. Hospitalist was then contacted for admission. I saw the patient at bedside in the ED. Patient was sitting back comfortably in bed, conversing normally, in no acute distress. He continues to report the same vision issues this morning but denied any other strokelike symptoms. Lives at home alone and is typically very active at baseline, goes to the [facility] on a regular basis. He denies any other acute concerns this morning. [facility] Home Medications ???Medication ???Instructions ???Recorded ???Last Taken ???Type aspirin 81 mg chewable tablet 1 tab PO DAILY Antiplatelete 12/0612/06/24 History doxazosin 4 mg tablet 4 mg PO BID Blood pressure 5 12/06/24 History levothyroxine 150 mcg tablet 150 mcg PO DAILY disorder of 12/0612/06/24 History thyroid gland losartan 50 mg tablet 50 mg PO BID Blood pressure 12/06/24 History metoprolol succinate 25 mg 25 mg PO DAILY Hear rate/Blood 05/2212/06/24 History tablet,extended release 24 hr pressure pravastatin 40 mg tablet 40 mg PO QHS cholesterol 12/06/24 12/05/24 History Allergy/AdvReac Type Severity Reaction Status Date / Time Sulfa (Sulfonamide Allergy Rash Verified 12/06/24 22:08 Antibiotics) Social History Smoking Status: Never smoker ROS Constitutional Constitutional: Denies chills, fatigue, fever(s) or weakness Eyes Eyes: Reports change in vision and loss of vision; Denies blurry vision, discharge from eye(s), double vision or eye pain ENT HEENT: Denies sinus pressure or sore throat Cardiovascular Cardiovascular: Denies chest pain Respiratory/Chest Respiratory/Chest: Denies shortness of breath at rest Gastrointestinal Gastrointestinal: Denies abdominal pain Neurologic Neurologic: Denies disequilibrium, dizziness, focal weakness or headache(s) Vital Signs Vital Signs Vital Signs: 12/06/24 11:40 12/06/24 12:17 12/06/24 12:26 Temperature 97.9 F Temperature Source Oral Pulse Rate 75 Respiratory Rate 18 Blood Pressure 124/98 H Blood Pressure Mean 106 Pulse Ox 98 Oxygen Delivery Method Room Air Room Air Room Air 12/06/24 12:30 12/06/24 13:00 12/06/24 13:30 Temperature Temperature Source Pulse Rate 58 L 55 L 51 L Respiratory Rate 23 H 23 H 18 Blood Pressure 147/56 H 132/57 H 139/58 H Blood Pressure Mean 83 82 83 Pulse Ox 99 98 98 Oxygen Delivery Method Room Air Room Air 12/06/24 14:00 12/06/24 14:30 Temperature Temperature Source Pulse Rate 50 L 50 L Respiratory Rate 19 H 22 H Blood Pressure 145/57 H 142/51 H Blood Pressure Mean 84 77 Pulse Ox 98 98 Oxygen Delivery Method Weight Weight: 108.1 kg Body Mass Index (BMI) 34.2 Physical Exam Const alert, oriented x3 and no apparent distress Constitutional Narrative: Elderly male, class I obesity, sitting back comfortably in bed, conversing normally, in no acute distress. General Appearance: cooperative and comfortable HEENT normocephalic, head/scalp atraumatic, hearing grossly normal bilaterally, nasal mucous membranes and turbinates normal and moist oral mucous membranes Eyes PERRL, EOMs intact bilaterally and conjunctivae normal Neck full ROM Chest inspection of chest normal Resp normal respiratory effort, normal air movement, no use of accessory muscles and clear to auscultation bilaterally Cardio regular rate, regular rhythm, no murmurs and peripheral pulses 2+ throughout GI normal to inspection, nondistended, normoactive bowel sounds, soft to palpation, non-tender and non- distended Back/Spine normal ROM Extre (more content not included)... Normal [facility] Hematocrit Auto (Bld) [Volum e fraction]Ordered By: Ricardo Sinha on 12-06-2024 Hematocrit (Bld) [Volume fraction] 32.4 % Low 40-54 [facility] Hemoglobin A1con 12-06-2024 HbA1c (Bld) [Mass fraction] 5.7 % Normal <=5.6 [facility] Comment on above: Result Comment: Norm al < 5.7 % Prediabetic 5.7 - 6.4 % Diabetic >or= 6.5 % Please note range changes. Performed By: #### L 501.9520, L501.9985 #### [facility] [address] [place], [place], [id number] Hemoglobin A1c percentageOrd ered By: Lyndon Dinh on 12-06-2024 HbA1c (Bld) [Mass fraction] 5.7 % <5.7 [facility] Comment on above: Normal < 5.7 % Predi abetic 5.7 - 6.4 % Diabetic >or= 6.5 % Please note range changes. Hemoglobin measurementOrdere d By: Ricardo Sinha on 12-06-2024 Hemoglobin (Bld) [Mass/Vol] 10.7 g/dL Low 13.0-16.5 [facility] Immature granulocytes/100 WB C Auto (Bld)Ordered By: Ricardo Sinha on 12-06-2024 Immature granulocytes/100 WBC (Bld) 0.300 % 0.0-0.9 [facility] Comment on above: IG% - Immature Granu locytes (promyelocytes, myelocytes and metamyelocytes) > 1% indicates that a LEFT SHIFT is Present. International normalized rat io (INR) calculationOrdered By: Ricardo Sinha on 12-06-2024 INR Coag (Bld) [Relative time] 1.1 {INR} [facility] L501.4021on 12-06-2024 Trop T High Sen 12 ng/L Normal <=22 [facility] Comment on above: Performed By: #### L 501.4021, L300.3900, L300.4310, L100.0100 #### [facility] [address] [facility] [place], [place], [address] MCV (mean corpuscular volume ) determinationOrdered By: Ricardo Sinha on 12-06-2024 MCV (RBC) [Entitic vol] 88.5 fL 80-94 [facility] Magnetic resonance imaging r eportOrdered By: Elvis Person on 12-06-2024 Study report [facility] Imaging Services [address] [place] [address] Brain without Contrast MR#: [id number] Acct: [id number] Name: CARISSA GRUBER Rep #: [id number] : 1940 M 84 From: Ines Person MD PCP: Dr. Dimitri Marie MD Status: A DM IN Study:Brain without Contrast Date of Exam: 12/06/24 Exam# [id number] Ordering Dr: Lyndon Mcnulty DO PROCEDURE: BRAIN WITHOUT CONTRAST 12/06/2024 REASON FOR EXAM: EVAL FOR CVA TECHNIQUE: Noncontrast brain MRI. Multiplanar and multisequence images were obtained. FINDINGS: There is no pathologic diffusion restriction to represent an acute or recent infarction. There is nonspecific mild left-sided mastoid fluid. There is a mild degree of atrophy with compensatory ventricular prominence. There is no intracranial mass. There are no abnormal flow voids. There is no significant intracranial demyelination and there is no hemorrhage. Coronal T2 weighted images demonstrate moderate hippocampal atrophy which is symmetric. MRI/Brain without Contrast IMPRESSION: No acute abnormality Reading [facility] CC: Dr. Lyndon Dinh DO; Dr. Dimitri Marie MD ~ Adult Education Instructor: Signed [facility] Mean corpuscular hemoglobin (MCH) determinationOrdered By: Ricardo Sinha on 12-06-2024 MCH (RBC) [Entitic mass] 29.2 pg 27.0-32.0 [facility] Mean corpuscular hemoglobin concentration (MCHC) determinationOrdered By: Ricardo Sinha on 12-06-2024 MCHC (RBC) [Mass/Vol] 33.0 g/dL 32-36 [facility] Mean platelet volume determi nationOrdered By: Ricardo Sinha on 12-06-2024 Platelet mean volume (Bld) [Entitic vol] 10.3 fL 6.2-12.0 [facility] Monocyte percentageOrdered B y: Ricardo Sinha on 12-06-2024 Monocytes/100 WBC (Bld) 7.0 % 0-10 [facility] Neutrophil percentageOrdered By: Ricardo Sinha on 12-06-2024 Neutrophils/100 WBC (Bld) 79.3 % High 47-70 [facility] Nucleated red blood cell per centageOrdered By: Ricardo Sinha on 12-06-2024 Nucleated RBC/100 WBC (Bld) [Ratio] 0 % 0-5 [facility] Partial Thromboplast Timeon 12-06-2024 aPTT Coag (Bld) [Time] 30.4 s Normal 24.1-36.2 [facility] Comment on above: Performed By: #### L 501.4021, L300.3900, L300.4310, L100.0100 #### [facility] [address] [place], [address] Platelet countOrdered By: Deepak Sinha on 12-06-2024 Platelets (Bld) [#/Vol] 224 10*3/uL 150-450 [facility] Potassium measurement (mass/ volume)Ordered By: Ricardo Sinha on 12-06-2024 Potassium (Unsp spec) [Mass/Vol] 4.2 mmol/L 3.3-5.1 [facility] Prothrombin Time w/INRon INR Coag (PPP) [Relative time] 1.1 {INR} Normal [facility] Comment on above: Performed By: #### L 501.4021, L300.3900, L300.4310, L100.0100 #### [facility] [address] [place], [address] PT Coag (PPP) [Time] 14.2 s Normal 11.7-14.9 [facility] Comment on above: Performed By: #### L 501.4021, L300.3900, L300.4310, L100.0100 #### [facility] [address] [place], [address] Prothrombin timeOrdered By: Ricardo Sinha on 12-06-2024 PT Coag (PPP) [Time] 14.2 s 11.7-14.9 [facility] RBC Auto (Bld) [#/Vol]Ordere d By: Ricardo Sinha on 12-06-2024 RBC (Bld) [#/Vol] 3.66 10*6/uL Low 4.6-6.2 [facility] STROKE Brain/Head without Co nton 12-06-2024 STROKE Brain/Head without Cont [facility] Services [address] [place] [address] STROKE Brain/Head without Cont MR#: [id number] Acct: [id number] Name: CARISSA GRUBER Rep #: [id number] : 1940 M 84 From: Carl mistry MD PCP: Dr. Dimitri Marie MD Status: REG ER Study: STROKE Brain/Head without Cont Date of Exam: 0 12/06/24 Exam# [id number] Ordering Dr: Ricardo Sinha MD PROCEDURE: STROKE BRAIN/HEAD WITHOUT CONT 12/06/2024 REASON FOR EXAM: NEURO DEFICIT, ACUTE, STROKE SUSPECTED TECHNIQUE: Head CT without intravenous contrast. Coronal and Sagittal reconstruction series were provided. One or more dose reduction techniques were used (e.g., Automated exposure control, adjustment of the mA and/or kV according to patient size, use of iterative reconstruction technique. RADIATION DOSE SUMMARY: CTDlvol: 44.99 mGy DLP: 829.85 mGycm COMPARISON: None FINDINGS: Brain: Low density in the periventricular white matter suggests mild chronic small vessel ischemic changes. Atherosclerotic calcification of the vertebral arteries and cavernous portions of the internal carotid arteries bilaterally. CSF Spaces: Mild generalized cerebral atrophy Sinuses/Mastoids: Clear at visualized levels Bones: Unremarkable. CT/STROKE Brain/Head without Cont IMPRESSION: CHRONIC CHANGES. NO ACUTE FINDINGS. Red Alert: Chronic changes The critical information above was relayed directly by me by telephone to Ricardo Sinha on 12/06/2024 at 1:11 pm with readback verification. Reading Location: [place] [address] CC: Dr. Ricardo Sinha MD; Dr. Dimitri Marie MD Adult Education Instructor: Signed Normal [facility] STROKE CTA Head AND Neck W/C onon 12-06-2024 STROKE CTA Head AND Neck W/Con [facility] Imaging Services [address] [place] [id number] STROKE CTA Head AND Neck W/Con MR#: [id number] Acct: [id number] Name: CARISSA GRUBER Rep #: [id number] : 1940 M 84 From: Carl mistry MD PCP: Dr. Dimitri Marie MD Status: REG ER Study: STROKE CTA Head AND Neck W/Con Date of Exam: 0 12/06/24 Exam# [id number] Ordering Dr: Ricardo Sinha MD PROCEDURE: STROKE CTA HEAD AND NECK W/CON 12/06/2024 REASON FOR EXAM: NEURO DEFICIT, ACUTE, STROKE SUSPECTED TECHNIQUE: CTA imaging of the head and neck from the aortic arch to the skull vertex with out contrast and with intravenous contrast. Multiplanar and multisequence images were obtained. CONTRAST: Isovue-300 VOLUME: 100 mL One or more dose reduction techniques were used (e.g., Automated exposure control, adjustment of the mA and/or kV according to patient size, use of iterative reconstruction technique). RADIATION DOSE SUMMARY: CTDlvol: 24 mGy DLP: 732.75 mGycm COMPARISON: None FINDINGS: Aortic Arch: Normal size and branching pattern. Mild atherosclerotic plaque. Brachiocephalic and Subclavians: Mild atherosclerotic plaque. Significant stenosis at the origin of the left subclavian artery. An intraluminal filling defect is seen at the origin of the left subclavian artery adjacent to the origin of the left vertebral artery. RIGHT Carotid: Right CCA: Unremarkable Right ICA: Moderate calcified and soft plaque. Maximum stenosis (NASCET): 60 % Right ECA: Unremarkable LEFT Carotid: Left CCA: Moderate calcified and soft plaque. Left ICA: Moderate calcified and soft plaque. Maximum stenosis (NASCET): 60 % Left ECA: Unremarkable Vertebrals: Codominant. Arise from the subclavians. Both vertebrals form the basilar. RIGHT Vertebral: Unremarkable. LEFT Vertebral: Calcific plaques. Anatomy: [place] of Marie anatomy is normal. Aneurysm or avm: No intracranial aneurysms or large vascular malformations are identified. Anterior cerebral arteries: Unremarkable: Middle cerebral arteries: Unremarkable. Basilar artery: Unremarkable. Posterior cerebral arteries: Unremarkable. Other major branches of the posterior circulation: Unremarkable. Major venous structures: Unremarkable. Other findings: Neck: Lungs: Bones: CT/STROKE CTA Head AND Neck W/Con IMPRESSION: Calcific plaques at the origin of both right and left internal carotid artery causing approximately 60% stenosis. Calcific plaque at the origin of the left subclavian artery just proximal to the origin of the left vertebral artery. Nonocclusive intraluminal filling defects seen in the subclavian artery at that site. Red Alert: 60 % stenosis bilat int carotids. Filling defect in Left subclavian. The critical information above was relayed directly by me by telephone to Ricardo Sinha on 12/06/2024 at 1:22 pm with readback verification. Reading Location: [facility] CC: Dr. Ricardo Sinha MD; Dr. Dimitri Marie MD Adult Education Instructor: Signed Normal [facility] Serum creatinine measurement (mass/volume)Ordered By: Ricardo Sinha on 12-06-2024 Creatinine [Mass/Vol] 1.77 mg/dL High 0.70-1.20 [facility] Serum glucose measurement (m ass/volume)Ordered By: Ricardo Sinha on 12-06-2024 Glucose [Mass/Vol] 93 mg/dL 70-99 [facility] Serum or plasma calcium tesfaye urement (mass/volume)Ordered By: Ricardo Sinha on 12-06-2024 Calcium [Mass/Vol] 8.7 mg/dL 7.6-11.0 [facility] Serum or plasma urea nitroge n measurement (mass/volume)Ordered By: Ricardo Sinha on 12-06-2024 Urea nitrogen [Mass/Vol] 26 mg/dL High 4-19 [facility] Sodium levelOrdered By: Ricardo Sinha on 12-06-2024 Sodium [Moles/Vol] 136 mmol/L 133-145 [facility] TSH DL <= 0.005 mIU/L QnOrde red By: Lyndon Dinh on 12-06-2024 TSH Qn 5.080 uIU/mL High 0.300-4.200 [facility] Thyroid Stim Hormone (TSH)on 12-06-2024 TSH 5.080 uIU/mL High 0.300-4.200 [facility] Comment on above: Performed By: #### L 501.9520, L501.9985 #### [facility] [address] [place] [address], [address] Troponin T.cardiac [Mass/vol ume] in Serum or Plasma by High sensitivity methodOrdered By: Ricardo Sinha on 12-06-2024 Troponin T.cardiac High sensitivity method [Mass/Vol] 12 ng/L <22 [facility] White blood cell (WBC) count Ordered By: Ricardo Sinha on 12-06-2024 WBC (Bld) [#/Vol] 9.9 10*3/uL 4.4-11.0 [facility] CBC panel Auto (Bld)on 10-02 Erythrocyte distribution width (RBC) [Ratio] 14.2 % Normal 11.5-15.0 [facility] Comment on above: Order Comment: Speci men Type: BLOOD SPECIMEN Ordering Facility: [facility] Address: [address] [place] [address] Performed By: #### 5 8410-2 #### [facility] CLIA [id number] [address] [place] [address] [place] Hematocrit (Bld) [Volume fraction] 36.3 % Low 39.0-51.0 [facility] Comment on above: Order Comment: Speci men Type: BLOOD SPECIMEN Ordering Facility: [facility] Address: [address] [place] [address] Performed By: #### 5 8410-2 #### [facility] CLIA [id number] [address] [place] [address] [place] Hemoglobin (Bld) [Mass/Vol] 11.6 g/dL Low 13.0-17.0 [facility] Comment on above: Order Comment: Speci men Type: BLOOD SPECIMEN Ordering Facility: [facility] Address: [address] [place] [address] Performed By: #### 5 8410-2 #### [facility] CLIA [id number] [address] [place] [address] [place] MCH (RBC) [Entitic mass] 28.7 pg Normal 26.0-34.0 [facility] Comment on above: Order Comment: Speci men Type: BLOOD SPECIMEN Ordering Facility: [facility] Address: [address] [place] [address] Performed By: #### 5 8410-2 #### [facility] CLIA [id number] [address] [place] [address] [place] MCHC (RBC) [Mass/Vol] 32.0 g/dL Normal 30.5-36.0 [facility] Comment on above: Order Comment: Speci men Type: BLOOD SPECIMEN Ordering Facility: [facility] Address: [address] [place] [address] Performed By: #### 5 8410-2 #### [facility] CLIA [id number] [address] [place] [address] [place] MCV (RBC) [Entitic vol] 89.9 fL Normal 80.0-100.0 [facility] Comment on above: Order Comment: Speci men Type: BLOOD SPECIMEN Ordering Facility: [facility] Address: [address] [place] [address] Performed By: #### 5 8410-2 #### [facility] CLIA [id number] [address] [place] [address] [place] Nucleated RBC (Bld) [#/Vol] 10*3/uL Normal <0.01 [facility] Comment on above: Order Comment: Speci men Type: BLOOD SPECIMEN Ordering Facility: [facility] Address: [address] [place] [address] Performed By: #### 5 8410-2 #### [facility] CLIA [id number] [address] [place] [address] [place] Platelet mean volume (Bld) [Entitic vol] 10.9 fL Normal 9.0-12.7 [facility] Comment on above: Order Comment: Speci men Type: BLOOD SPECIMEN Ordering Facility: [facility] Address: [address] [place] [address] Performed By: #### 5 8410-2 #### [facility] CLIA [id number] [address] [place] [address] [place] Platelets (Bld) [#/Vol] 235 10*3/uL Normal 150-400 [facility] Comment on above: Order Comment: Speci men Type: BLOOD SPECIMEN Ordering Facility: [facility] Address: [address] [place] [address] Performed By: #### 5 8410-2 #### [facility] CLIA [id number] [address] [place] [address] [place] RBC (Bld) [#/Vol] 4.04 10*6/uL Low 4.20-6.00 [facility] Comment on above: Order Comment: Speci men Type: BLOOD SPECIMEN Ordering Facility: [facility] Address: [address] [place] [address] Performed By: #### 5 8410-2 #### [facility] CLIA [id number] [address] [place] [address] [place] WBC (Bld) [#/Vol] 9.46 10*3/uL Normal 3.70-11.00 [facility] Comment on above: Order Comment: Speci men Type: BLOOD SPECIMEN Ordering Facility: [facility] Address: [address] [place] [address] Performed By: #### 5 8410-2 #### [facility] CLIA [id number] [address] [place] [address] [place] Comprehensive metabolic 2000 panelon 10-02-2024 Albumin [Mass/Vol] 4.2 g/dL Normal 3.9-4.9 [facility] Comment on above: Order Comment: Speci men Type: BLOOD SPECIMEN Ordering Facility: [facility] Address: [address] [place] [address] Performed By: #### 2 4331-1, 3016-3, 87213-7 #### [facility] CLIA [id number] [address] [place] [address] [place] ALP [Catalytic activity/Vol] 85 U/L Normal 38-113 [facility] Comment on above: Order Comment: Speci men Type: BLOOD SPECIMEN Ordering Facility: [facility] Address: [address] [place] [address] Performed By: #### 2 4331-1, 3016-3, 88558-7 #### [facility] CLIA [id number] [address] [id number] [address] [place] ALT [Catalytic activity/Vol] 12 U/L Normal 10-54 [facility] Comment on above: Order Comment: Speci men Type: BLOOD SPECIMEN Ordering Facility: [facility] Address: [address] [place] [address] Performed By: #### 2 4331-1, 3015-3, #### [facility] CLIA [id number] [address] [place] [address] [place] Anion gap [Moles/Vol] 12 mmol/L Normal 8-15 [facility] Comment on above: Order Comment: Speci men Type: BLOOD SPECIMEN Ordering Facility: [facility] Address: [address] [place] [address] Performed By: #### 2 4331-1, 3, #### [facility] CLIA [id number] [address] [place] [address] [place] AST [Catalytic activity/Vol] 18 U/L Normal 14-40 [facility] Comment on above: Order Comment: Speci men Type: BLOOD SPECIMEN Ordering Facility: [facility] Address: [address] [place] [address] Performed By: #### 2 4331-1, 3, #### [facility] CLIA [id number] [address] [place] [address] [place] Bilirubin [Mass/Vol] 0.5 mg/dL Normal 0.2-1.3 [facility] Comment on above: Order Comment: Speci men Type: BLOOD SPECIMEN Ordering Facility: [facility] Address: [address] [place] [address] Performed By: #### 2 4331-1, 3, #### [facility] CLIA [id number] [address] [place], [place] [address] [place] Calcium [Mass/Vol] 9.3 mg/dL Normal 8.5-10.2 [facility] Comment on above: Order Comment: Speci men Type: BLOOD SPECIMEN Ordering Facility: [facility] Address: [address] [place], [place] [address] Performed By: #### 2 4331-1, 3015-3, #### [facility] CLIA [id number] [address] [place], [place] [address] [place] Chloride [Moles/Vol] 102 mmol/L Normal 98-107 [facility] Comment on above: Order Comment: Speci men Type: BLOOD SPECIMEN Ordering Facility: [facility] Address: [address] [place], [place] [address] Performed By: #### 2 4331-1, 3, #### [facility] CLIA [id number] [address] [place] [address] [place] CO2 [Moles/Vol] 24 mmol/L Normal 22-30 [facility] Comment on above: Order Comment: Speci men Type: BLOOD SPECIMEN Ordering Facility: [facility] Address: [address] [place], [place] [address] Performed By: #### 2 4331-1, 3, #### [facility] CLIA [id number] [address] [place], [place] [address] [place] Creatinine [Mass/Vol] 1.56 mg/dL High 0.73-1.22 [facility] Comment on above: Order Comment: Speci men Type: BLOOD SPECIMEN Ordering Facility: [facility] Address: [address] [place], [place] [address] Performed By: #### 2 4331-1, 3, #### [facility] CLIA [id number] [address] [place], [place] [address] [place] Creatinine and Glomerular filtration rate.predicted panel (S/P/Bld) 43 mL/min/1.73m??? Low >=60 [facility] Comment on above: Order Comment: Speci men Type: BLOOD SPECIMEN Ordering Facility: [facility] Address: [address] [place], [place] [address] Result Comment: Lorene mated Glomerular Filtration Rate (eGFR) is calculated using the 2020 CKD-EPI creatinine equation. This equation utilizes serum creatinine, sex, and age as parameters. The creatinine assay has traceable calibration to isotope dilution-mass spectrometry. Refer to KDIGO guidelines for clinical interpretation. In patients with unstable renal function, e.g. those with acute kidney injury, the eGFR may not accurately reflect actual GFR. Performed By: #### 2 4331-1, 6-3, #### [facility] CLIA [id number] [address] [place] [address] [place] Glucose [Mass/Vol] 114 mg/dL High 74-99 [facility] Comment on above: Order Comment: [place] Type: BLOOD SPECIMEN Ordering Facility: [facility] Address: [address] [place] [address] Result Comment: The [place] Diabetes Association (ADA) provides guidance for cutoff values for fasting glucose and random glucose. The ADA defines fasting as no caloric intake for at least 8 hours. Fasting plasma glucose results between 100 to 125 mg/dL indicate increased risk for diabetes (prediabetes). Fasting plasma glucose results greater than or equal to 126 mg/dL meet the criteria for diagnosis of diabetes. In the absence of unequivocal hyperglycemia, results should be confirmed by repeat testing. In a patient with classic symptoms of hyperglycemia or hyperglycemic crisis, random plasma glucose results greater than or equal to 200 mg/dL meet the criteria for diagnosis of diabetes. Reference: Standards of Medical Care in Diabetes 2016, [place] Diabetes Association. Diabetes Care. 2016.39(Suppl 1). Performed By: #### 2 4331-1, 6-3, #### [facility] CLIA [id number] [address] [place] [address] [place] Potassium [Moles/Vol] 4.5 mmol/L Normal 3.7-5.1 [facility] Comment on above: Order Comment: [place] Type: BLOOD SPECIMEN Ordering Facility: [facility] Address: [address] [place] [address] Performed By: #### 2 4331-1, 3015-3, 78365-0 #### [facility] CLIA [id number] [address] [place] [address] [place] Protein [Mass/Vol] 7.1 g/dL Normal 6.3-8.0 [facility] Comment on above: Order Comment: Speci men Type: BLOOD SPECIMEN Ordering Facility: [facility] Address: [address] [place] [address] Performed By: #### 2 4331-1, 3015-3, #### [facility] CLIA [id number] [address] [place] [address] [place] Sodium [Moles/Vol] 138 mmol/L Normal 136-144 [facility] Comment on above: Order Comment: Speci men Type: BLOOD SPECIMEN Ordering Facility: [facility] Address: [address] [place] [address] Performed By: #### 2 4331-1, 3, #### [facility] CLIA [id number] [address] [place] [address] [place] Urea nitrogen [Mass/Vol] 24 mg/dL Normal 9-24 [facility] Comment on above: Order Comment: Speci men Type: BLOOD SPECIMEN Ordering Facility: [facility] Address: [address] [place] [address] Performed By: #### 2 4331-1, 3015-3, 79602-9 #### [facility] CLIA [id number] [address] [place], [place] [address] [place] Lipid 1996 panelon 5 Cholesterol [Mass/Vol] 113 mg/dL Normal <200 [facility] Comment on above: Order Comment: Speci men Type: BLOOD SPECIMEN Ordering Facility: [facility] Address: [address], [place] [address] Result Comment: <200 mg/dL, Desirable 200-239 mg/dL, Borderline high >239 mg/dL, High Performed By: #### 2 4331-1, 3015-3, 37007-7 #### [facility] CLIA [id number] [address] [facility] [address] [address] [place] Cholesterol in HDL [Mass/Vol] 41 mg/dL Normal >39 [facility] Comment on above: Order Comment: Speci men Type: BLOOD SPECIMEN Ordering Facility: [facility] Address: [address] [place] [address] Result Comment: 40-5 9 mg/dL, Acceptable >59 mg/dL, High: Negative risk factor for coronary heart disease <40 mg/dL, Low: Positive risk factor for coronary heart disease Performed By: #### 2 4331-1, 3015-3, 48473-5 #### [facility] CLIA [id number] [address] [place] [id number] [place] Cholesterol in LDL [Mass/Vol] 59 mg/dL Normal <100 [facility] Comment on above: Order Comment: Speci men Type: BLOOD SPECIMEN Ordering Facility: [facility] Address: [address] [place] [address] Result Comment: <100 mg/dL, Optimal 100-129 mg/dL, Near optimal/above optimal 130-159 mg/dL, Borderline high 160-189 mg/dL, High >189 mg/dL, Very high Secondary prevention optimal LDL Cholesterol levels are recommended to be < 70 mg/dL Performed By: #### 2 4331-1, 3015-3, 86291-8 #### [facility] CLIA [id number] [address] [address] [place] Cholesterol in LDL/Cholesterol in HDL [Mass ratio] 1.44 {ratio} Normal <2.54 [facility] Comment on above: Order Comment: Speci men Type: BLOOD SPECIMEN Ordering Facility: [facility] Address: [address] [place], [place] [address] Result Comment: Refe tigistce: 1. National Cholesterol Education Program ATP III Guideline At-A-Glance Quick Desk Reference: National Heart, Lung, and Blood Bock. National Institutes of Health. 2001: NIH Publication No. 01-3305. 2. An International Atherosclerosis Society position paper: global recommendations for the management of dyslipidemia: executive summary, Atherosclerosis. 2014: 232(2):410-413. Performed By: #### 2 4331-1, 3016-3, 76436-8 #### [facility] CLIA [id number] [address] [place] [address] [place] Cholesterol in VLDL [Mass/Vol] 13 mg/dL Normal <30 [facility] Comment on above: Order Comment: [place] Type: BLOOD SPECIMEN Ordering Facility: [facility] Address: [address] [place] [address] Performed By: #### 2 4331-1, 3015-3, 88581-9 #### [facility] CLIA [id number] [address] [place] [address] [place] Cholesterol non HDL [Mass/Vol] 72 mg/dL Normal <130 [facility] Comment on above: Order Comment: [place] Type: BLOOD SPECIMEN Ordering Facility: [facility] Address: [address] [place] [address] Result Comment: <130 mg/dL, Optimal 130-159 mg/dL, Near optimal/above optimal 160-189 mg/dL, Borderline high 190-219 mg/dL, High >219 mg/dL, Very high Secondary prevention optimal non HDL Cholesterol levels are recommended to be <100 mg/dL Performed By: #### 2 4331-1, 3015-3, 35057-6 #### [facility] CLIA [id number] [address] [place] [address] [place] Cholesterol.total/Choles terol in HDL [Mass ratio] 2.76 {ratio} Normal <5.10 [facility] Comment on above: Order Comment: [place] Type: BLOOD SPECIMEN Ordering Facility: [facility] Address: [address] [place] [address] Performed By: #### 2 4331-1, 3016-3, 00293-8 #### [facility] CLIA [id number] [address] [place] [address] [place] FASTING TIME [address] [facility] Comment on above: Order Comment: Speci men Type: BLOOD SPECIMEN Ordering Facility: [facility] Address: [address] [place] [address] Performed By: #### 2 4331-1, 3016-3, 00861-3 #### [facility] CLIA [id number] [address] [place] [address] [place] Triglyceride [Mass/Vol] 64 mg/dL Normal <150 [facility] Comment on above: Order Comment: Speci men Type: BLOOD SPECIMEN Ordering Facility: [facility] Address: [address] [place] [address] Result Comment: <150 mg/dL, Normal 150-199 mg/dL, Borderline high 200-499 mg/dL, High >499 mg/dL, Very high Performed By: #### 2 4331-1, 6-3, 02634-3 #### [facility] CLIA [id number] [address] [place] [address] [place] TSH SerPl-aCncon 10-02-2024 TSH Qn 8.010 m[IU]/L High 0.270-4.200 [facility] Comment on above: Order Comment: Speci men Type: BLOOD SPECIMEN Ordering Facility: [facility] Address: [address] [place] [address] Performed By: #### 2 4331-1, 6-3, 52322-0 #### [facility] CLIA [id number] [address] [place] [address] [place] CNCOon 08-01-[address] [facility] CNOVon 04-06-2024 CNOV Office Visit (INTMWS) CARISSA GRUBER ([id number]) 1940 M Date Time Provider Department 04/06/24 11:20 AM DIMITRI MARIE INTMWS During your visit today, we recorded the following information about you: Temperature Pulse Respiration Blood pressure 97.6 degrees 48/minute 18/minute 122/50 Weight 107.5 kg Dimitri Marie MD 04/06/2024 12:18 PM Signed This note was created using HALKAR. Subjective Carissa Gruber is a 83 year old male. He felt well. He just saw cardiology and no changes were made. He had a bandage on his chest. Sara Nair biopsied skin cancer and recommended more surgery in [place], but he was planning call a local surgeon. He was not aware of the specifics of the cancer or recommended procedure. Review of Systems Constitutional: Negative for fatigue and fever. Respiratory: Negative for cough and shortness of breath. Cardiovascular: Negative for chest pain, palpitations and leg swelling. Skin: Positive for wound. Neurological: Negative for dizziness and headaches. Psychiatric/Behavior al: Negative for dysphoric mood. The patient is not nervous/anxious. ACTIVE PROBLEM LIST Essential Hypertension, Benign Mixed Hyperlipidemia Vitamin D Deficiency Family History of Malignant Neoplasm of Gastrointestinal Tract Personal History of Colonic Polyps Venous Insufficiency Chronic Cough Acquired Hypothyroidism Actinic Keratoses Chronic Kidney Disease, Stage Iii (Moderate) (Hcc) Paroxysmal Svt (Supraventricular Tachycardia) (Hcc) Vt (Ventricular Tachycardia) (Hcc) Paredes (Dyspnea On Exertion) Hypertensive Kidney Disease With Stage 3 Chronic Kidney Disease (Hcc) Sinus Bradycardia Acquired complex cyst of kidney, left Bladder Retention of Urine Obesity, Class II, Bmi 35-39.9 Social History Tobacco Use Smoking status: Former Types: Pipe Smokeless tobacco: Never Substance Use Topics Alcohol use: Yes Comment: rare beer Drug use: No Current Outpatient Medications Medication Sig doxazosin (CARDURA) 4 mg tablet Take 1 tablet by mouth two times a day. amLODIPine (NORVASC) 5 mg tablet Take 1 tablet by mouth once daily. pravastatin (PRAVACHOL) 40 mg tablet Take 1 tablet by mouth daily at bedtime. For cholesterol. levothyroxine (SYNTHROID) 150 mcg tablet Take 1 tablet by mouth once daily. Take on empty stomach. For thyroid losartan (COZAAR) 50 mg tablet Take 1 tablet by mouth two times a day. metoprolol succinate ER (TOPROL XL) 25 mg 24 hr tablet Take 1 tablet by mouth once daily. aspirin, enteric coated 325 mg EC tablet Take 1 tablet by mouth once daily. with food. Cholecalciferol, Vitamin D3, 1,000 unit ORAL Tab Take by mouth once daily. ascorbic acid(VITAMIN C 500 MG TAB) Take one(1) tablet daily. COMPOUNDED PRESCRIPTION Vit E 400IU daily multivitamin (ONE DAILY MULTIVITAMIN) tablet Take 1 tablet by mouth once daily. (Patient not taking: Reported on 04/06/2024) No current facility-administere d medications for this visit. Objective BP 122/50 (BP Site: Left Arm, BP Position: Sitting, BP Cuff Size: Large Adult) Pulse (!) 48 Temp 36.4 ?C (97.6 ?F) Resp 18 Wt 107.5 kg (236 lb 15.9 oz) BMI 34.01 kg/m? Physical Exam Constitutional: General: He is not in acute distress. HENT: Head: Normocephalic. Eyes: Conjunctiva/sclera: Conjunctivae normal. Cardiovascular: Rate and Rhythm: Regular rhythm. Bradycardia present. Heart sounds: No murmur heard. No gallop. Pulmonary: Breath sounds: Normal breath sounds. Chest: Comments: Bandage of the upper sternum. Musculoskeletal: Right lower leg: No edema. Left lower leg: No edema. Neurological: Mental Status: He is alert. Test results pertinent to today's visit were reviewed and discussed with the patient. Assessment and Plan 1. Personal history of skin cancer - ICD9: V10.83, ICD10: Z85.828 (primary diagnosis) - Details TBD. Request records. He was encouraged to work with [facility] [facility] on referrals. If he sees a local surgeon, he will call for referral if needed. 2. Need for influenza vaccination - ICD9: V04.81, ICD10: Z23 - INFLUENZA VACCINE, PRSV FREE, AGE 65+ YR, HIGH DOSE, TRIVALENT (FLUZONE HIGH-DOSE) 3. Essential hypertension, benign - ICD9: 401.1, ICD10: I10 - Controlled - Continue current medications - COMPLETE BLOOD COUNT 4. Mixed hyperlipidemia - ICD9: 272.2, ICD10: E78.2 - Controlled - Continue current medications - COMPREHENSIVE METABOLIC PANEL - LIPID PANEL BASIC 5. Acquired hypothyroidism - ICD9: 244.9, ICD10: E03.9 - continue current dose of Synthroid. - THYROID STIMULATING HORMONE 6. Sinus bradycardia - ICD9: 427.89, ICD10: R00.1 - Stable. 7. Screening for depression - ICD9: V79.0, ICD10: Z13.31 - DEPRESSION SCREENING 8. Encounter for screening examination for other mental health and behavioral disorders - ICD9: V79.8, ICD (more content not included)... Normal [facility] CNOVon 04-03-2024 CNOV Office Visit (CAWSTR) BRANDONCARISSA BOTELLO ([id number]) 1940 M Date Time Provider Department 04/03/24 9:40 AM GURWINDER AYALA During your visit today, we recorded the following information about you: Pulse Blood pressure Weight 57/minute 115/56 108 kg Gurwinder Ayala MD 04/03/2024 9:19 AM [facility] SECTION OF REGIONAL CARDIOLOGY Cardiology ([place] ) [address] [facility] [id number] OUTPATIENT VISIT DATE 04/03/2024 PRIMARY CARE PHYSICIAN: Dimitri Marie [address] [place] [address] [place] [address] REFERRING PHYSICIAN: Dimitri Marie [address] [facility] [address] HISTORY OF PRESENT ILLNESS: Mr. Gruber is a 83 year old gentleman with a history of hypertension, dyslipidemia, chronic kidney disease, prior smoker who presents for follow-up. Patient is complaining of dizziness that seems to only occur when he is lying in bed and turns from kynl-[id number]-vsmz. He denies a feeling of room spinning. He seems to do well from a functional standpoint. He has been going to the gym to exercise. He has had no decline in his functional capacity. He denies symptoms concerning for congestive heart failure including PND, orthopnea, or lower extremity edema. PAST MEDICAL HISTORY Diagnosis Date Acquired hypothyroidism 04/28/2016 CKD (chronic kidney disease) stage 3, GFR 30-59 ml/min ([facility]) 12/03/2017 Complication of anesthesia Diverticulosis of colon Diverticulosis of colon (without mention of hemorrhage) Essential hypertension, benign 04/02/2005 Family history of malignant neoplasm of gastrointestinal tract Hyperlipidemia Malignant neoplasm of thyroid gland (HCC) Osteolytic lesion 09/13/2009 Personal history of colonic polyps Snoring Stroke (HCC) Venous insufficiency 03/16/2013 Vitamin D deficiency PAST SURGICAL HISTORY Procedure Laterality Date COLONOSCOPY FLX DX W/COLLJ SPEC WHEN PFRMD 04/07/10 COLONOSCOPY FLX DX W/COLLJ SPEC WHEN PFRMD 03/25/15 Colonoscopy PAST SURGICAL HISTORY OF L finger THYROIDECTOMY TOTAL/COMPLETE 08/04/04 total TONSILLECTOMY PRIMARY/SECONDARY Tonsillectomy SOCIAL HISTORY Social History Tobacco Use Smoking status: Former Types: Pipe Smokeless tobacco: Never Substance Use Topics Alcohol use: Yes Comment: rare beer Drug use: No FAMILY HISTORY Problem Relation Age of Onset Heart Mother Thyroid Mother Colon Cancer Father ALLERGIES: ALLERGIES Allergen Reactions Creatine Rash, hives, proven on rechallenge on 2 occasions, occurred after 49, then 19, then 10 days of supplementation Sulfa (Sulfonamide * MEDICATIONS: amLODIPine (NORVASC) 5 mg tablet Take 1 tablet by mouth once daily. pravastatin (PRAVACHOL) 40 mg tablet Take 1 tablet by mouth daily at bedtime. For cholesterol. levothyroxine (SYNTHROID) 150 mcg tablet Take 1 tablet by mouth once daily. Take on empty stomach. For thyroid losartan (COZAAR) 50 mg tablet Take 1 tablet by mouth two times a day. multivitamin (ONE DAILY MULTIVITAMIN) tablet Take 1 tablet by mouth once daily. metoprolol succinate ER (TOPROL XL) 25 mg 24 hr tablet Take 1 tablet by mouth once daily. aspirin, enteric coated 325 mg EC tablet Take 1 tablet by mouth once daily. with food. Cholecalciferol, Vitamin D3, 1,000 unit ORAL Tab Take by mouth once daily. ascorbic acid(VITAMIN C 500 MG TAB) Take one(1) tablet daily. COMPOUNDED PRESCRIPTION Vit E 400IU daily doxazosin (CARDURA) 4 mg tablet Take 1 tablet by mouth two times a day. REVIEW OF SYSTEMS: Review of Systems Constitutional: Negative for chills, fever, malaise/fatigue and weight loss. HENT: Negative for hearing loss and sore throat. Eyes: Negative for blurred vision and double vision. Respiratory: Negative for shortness of breath. Cardiovascular: Positive for palpitations. Negative for chest pain, orthopnea, claudication, leg swelling and PND. Gastrointestinal: Negative. Genitourinary: Negative for dysuria, frequency, hematuria and urgency. Musculoskeletal: Negative. Skin: Negative. Neurological: Negative for dizziness, seizures, loss of consciousness, weakness and headaches. Endo/Heme/Allergies: Negative for environmental allergies. Does not bruise/bleed easily. Psychiatric/Behavior al: Negative for depression. PHYSICAL EXAMINATION: BP 115/56 Pulse 57 Wt 238 lb (108.0kg) SpO2 95% General: Very pleasant gentleman sitting appears comfortable no apparent distress. He is alert and oriented x3 HEENT: Carotid upstrokes are brisk bilateral without bruits no JVD appreciated. There is no periorbital xanthelasma or corneal arcus senilis noted. Pulmonary: Lungs are clear no rales, wheezes, rhonchi Cardiovascular: Normal S1, S2 with regular rate and rhythm. Positive S4 without murmurs, or rubs. Extremities: War (more content not included)... Normal [facility] TSH SerPl-aCncon 03-30-2024 TSH Qn 1.760 m[IU]/L Normal 0.270-4.200 [facility] Comment on above: Order Comment: Speci men Type: BLOOD SPECIMEN Ordering Facility: [facility] Address: [address] [place] [address] Performed By: #### 3 [id number] #### [facility] CLIA [id number] [address] [place] [address] [place] [address] [place] KIDNEY/BLADDERon 03-28-20 23 Radiology Result ACTIONABLE Abnormal [facility] CARDIAC PERF STRESS/EXERC ISEon 05-25-2022 [facility] Vital Signs Date Time Vital Sign Value Performing Clinician Blessing cooper 01-05-2025 13:39-0400 Body temperature 98.2 [degF] Dr. Ricardo Sinha MD Work Phone: 4(078)924-099954 [place] [address] 01-05-2025 13:39-0400 Body weight 104.[address] Ricardo Sinha MD Work Phone: 0(500)857-469097 [place] [address] 01-05-2025 13:39-0400 Diastolic blood pressure 54 mm[Hg] Dr. Ricardo Sinha MD Work Phone: 5(541)740-434997 [place] [address] 01-05-2025 13:39-0400 Heart rate 54 /min Dr. Ricardo Sinha MD Work Phone: 9(913)354-194997 [place] [address] 01-05-2025 13:39-0400 Respiratory rate 18 /min Dr. Ricardo Sinha MD Work Phone: 9(165)704-948154 [place] [address] 01-05-2025 13:39-0400 SaO2% (BldA) [Mass fraction] 98 % Dr. Ricardo Sinha MD Work Phone: 0(074)764-794020 [address] 01-05-2025 13:39-0400 Systolic blood pressure 129 mm[Hg] Dr. Ricardo Sinha MD Work Phone: 4(890)729-356754 [place] [address] 12-07-2024 16:12-0400 SaO2% (BldA) [Mass fraction] 99 % Dr. Ricardo Sinha MD Work Phone: 9(831)671-699754 [place] [address] 12-07-2024 15:52-0400 Body mass index (BMI) [Ratio] 34.2 kg/m2 Dr. Ricardo Sinha MD Work Phone: 5(243)559-768854 [place] [address] 12-07-2024 15:51-0400 Body temperature 98 [degF] Dr. Ricardo Sinha MD Work Phone: 7(181)625-126554 [place] [address] 12-07-2024 15:51-0400 Diastolic blood pressure 52 mm[Hg] Dr. Ricardo Sinha MD Work Phone: 1(129)548-410954 [place] [address] 06-12-2025 15:51-0400 Heart rate 55 /min Dr. Ricardo Sinha MD Work Phone: 8(263)347-528097 [place] [address] 12-07-2024 15:51-0400 Respiratory rate 18 /min Dr. Ricardo iSnha MD Work Phone: 0(556)756-574497 [place] [address] 12-07-2024 15:51-0400 Systolic blood pressure 132 mm[Hg] Dr. Ricardo Sinha MD Work Phone: 7(355)566-206797 [place] [address] 12-07-2024 10:03-0400 Body height 177.[address] Ricardo Sinha MD Work Phone: 5(626)657-315697 [place] [address] 12-07-2024 10:03-0400 Body weight 108.[address] Ricardo Sinha MD Work Phone: 1(804)668-191997 [place] [address] 12-06-2024 18:30-0400 Diastolic blood pressure 65 mm[Hg] Dr. Ricardo Sinha MD Work Phone: 8(211)502-722697 [place] [address] 12-06-2024 18:30-0400 Heart rate 58 /min Dr. Ricardo Sinha MD Work Phone: 0(709)349-497597 [place] [address] 12-06-2024 18:30-0400 Respiratory rate 21 /min Dr. Ricardo Sinha MD Work Phone: 6(435)683-986197 [place] [address] 12-06-2024 18:30-0400 SaO2% (BldA) [Mass fraction] 99 % Dr. Ricardo Sinha MD Work Phone: 9(564)579-862697 [place] [address] 12-06-2024 18:30-0400 Systolic blood pressure 158 mm[Hg] Dr. Ricardo Sinha MD Work Phone: 6(038)642-933097 [place] [address] 12-06-2024 12:23-0400 Body height 177.[address] Ricardo Sinha MD Work Phone: 6(574)163-567497 [place] [address] 12-06-2024 12:23-0400 Body mass index (BMI) [Ratio] 34.2 kg/m2 Dr. Ricardo Sinha MD Work Phone: 8(795)360-359797 [place] [address] 12-06-2024 12:23-0400 Body weight 108.[address] Ricardo Sinha MD Work Phone: 8(497)137-311397 [place] [address] 12-06-2024 11:40-0400 Body temperature 97.9 [degF] Dr. Ricardo Sinha MD Work Phone: [facility] 04-06-2024 11:18-0400 Body mass index (BMI) [Ratio] 34.01 kg/m2 Dimitri Marie MD Work Phone: [facility] 04-06-2024 11:18-0400 Body temperature 97.59 [degF] Dimitri Marie MD Work Phone: [facility] 04-06-2024 11:18-0400 Body weight 107.5 kg Dimitri Marie MD Work Phone: [facility] 04-06-2024 11:18-0400 Diastolic blood pressure 50 mm[Hg] Dimitri Mraie MD Work Phone: [facility] 04-06-2024 11:18-0400 Heart rate 48 /min Dimitri Marie MD Work Phone: [facility] 04-06-2024 11:18-0400 Respiratory rate 18 /min Dimitri Marie MD Work Phone: [facility] 04-06-2024 11:18-0400 Systolic blood pressure 122 mm[Hg] Dimitri Marie MD Work Phone: [facility] 04-03-2024 09:05-0400 Body mass index (BMI) [Ratio] 34.15 kg/m2 Gurwinder Ayala MD Work Phone: [facility] 04-03-2024 09:05-0400 Body weight 107.96 kg Gurwinder Ayala MD Work Phone: [facility] 04-03-2024 09:05-0400 Diastolic blood pressure 56 mm[Hg] Gurwinder Ayala MD Work Phone: [facility] 04-03-2024 09:05-0400 Heart rate 57 /min Gurwinder Ayala MD Work Phone: [facility] 04-03-2024 09:05-0400 SaO2% (BldA) [Mass fraction] 95 % Gurwinder Ayala MD Work Phone: [facility] 04-03-2024 09:05-0400 Systolic blood pressure 115 mm[Hg] Gurwinder Ayala MD Work Phone: [facility] 10-06-2023 09:24-0400 Body height 177.8 cm Isela Marcos [employer]ELER.SYSTEMS PROGRAM MANAGER Work Phone: [facility] 10-06-2023 09:24-0400 Body weight 112.49 kg Isela Marcos [employer]ELER[employer]SYSTEMS PROGRAM MANAGER Work Phone: [facility] 10-06-2023 09:24-0400 Diastolic blood pressure 76 mm[Hg] Isela Marcos [employer]ELER.SYSTEMS PROGRAM MANAGER Work Phone: [facility] 10-06-2023 09:24-0400 Heart rate 46 /min Isela Marcos [employer]ELER.SYSTEMS PROGRAM MANAGER Work Phone: [facility] 10-06-2023 09:24-0400 Respiratory rate 18 /min sIela FarrellMarcos [employer]ELER.SYSTEMS PROGRAM MANAGER Work Phone: [facility] 10-06-2023 09:24-0400 SaO2% (BldA) [Mass fraction] 98 % Isela Marcos [employer]ELER.SYSTEMS PROGRAM MANAGER Work Phone: [facility] 10-06-2023 09:24-0400 Systolic blood pressure 124 mm[Hg] Isela Marcos [employer]ELER.SYSTEMS PROGRAM MANAGER Work Phone: [facility] 08-20-2023 08:57-0500 Diastolic blood pressure 71 mm[Hg] Dimitri Marie MD Work Phone: [facility] 08-20-2023 08:57-0500 Systolic blood pressure 156 mm[Hg] Dimitri Marie MD Work Phone: [facility] 08-20-2023 08:46-0500 Body temperature 97.59 [degF] Dimitri Marie MD Work Phone: [facility] 08-20-2023 08:46-0500 Body weight 116.12 kg Dimitri Marie MD Work Phone: [facility] 08-20-2023 08:46-0500 Heart rate 56 /min Dimitri Marie MD Work Phone: [facility] 08-20-2023 08:46-0500 Respiratory rate 18 /min Dimitri Marie MD Work Phone: [facility] 08-20-2023 08:46-0500 SaO2% (BldA) [Mass fraction] 96 % Dimitri Marie MD Work Phone: [facility] 02-17-2023 08:12-0400 Diastolic blood pressure 71 mm[Hg] Dimitri Marie MD Work Phone: [facility] 02-17-2023 08:12-0400 Heart rate 51 /min Dimitri Marie MD Work Phone: [facility] 02-17-2023 08:12-0400 Systolic blood pressure 151 mm[Hg] Dimitri Marie MD Work Phone: [facility] 02-17-2023 08:02-0400 Body weight 112.49 kg Dimitri Marie MD Work Phone: [facility] 02-17-2023 08:02-0400 Respiratory rate 18 /min Dimitri Marie MD Work Phone: [facility] 12-16-2022 08:18-0400 Diastolic blood pressure 68 mm[Hg] Dimitri Marie MD Work Phone: [facility] 12-16-2022 08:18-0400 Heart rate 48 /min Dimitri Marie MD Work Phone: [facility] 12-16-2022 08:18-0400 Systolic blood pressure 152 mm[Hg] Dimitri Marie MD Work Phone: [facility] 12-16-2022 08:10-0400 Body weight 110.68 kg Dimitri Marie MD Work Phone: [facility] 12-16-2022 08:10-0400 Respiratory rate 20 /min Dimitri Marie MD Work Phone: [facility] 11-02-2022 14:22-0400 Diastolic blood pressure 70 mm[Hg] Dimitri Marie MD Work Phone: [facility] 11-02-2022 14:22-0400 Heart rate 51 /min Dimitri Marie MD Work Phone: [facility] 11-02-2022 14:22-0400 Systolic blood pressure 179 mm[Hg] Dimitri Marie MD Work Phone: [facility] 11-02-2022 14:14-0400 Body weight 108.86 kg Dimitri Marie MD Work Phone: [facility] 11-02-2022 14:14-0400 Respiratory rate 20 /min Dimitri Marie MD Work Phone: [facility] 09-21-2022 08:16-0400 Body weight 105.23 kg Gurwinder Ayala MD Work Phone: [facility] 09-21-2022 08:16-0400 Diastolic blood pressure 60 mm[Hg] Gurwinder Ayala MD Work Phone: [facility] 09-21-2022 08:16-0400 Heart rate 44 /min Gurwinder Ayala MD Work Phone: [facility] 09-21-2022 08:16-0400 SaO2% (BldA) [Mass fraction] 99 % Gurwinder Ayala MD Work Phone: [facility] 09-21-2022 08:16-0400 Systolic blood pressure 110 mm[Hg] Gurwinder Ayala MD Work Phone: [facility] 05-18-2022 08:18-0500 Body height 177.8 cm Gurwinder Ayala MD Work Phone: [facility] 05-18-2022 08:18-0500 Body weight 106.59 kg Gurwinder Ayala MD Work Phone: [facility] 05-18-2022 08:18-0500 Diastolic blood pressure 58 mm[Hg] Gurwinder Ayala MD Work Phone: [facility] 05-18-2022 08:18-0500 Heart rate 64 /min Gurwinder Ayala MD Work Phone: [facility] 05-18-2022 08:18-0500 SaO2% (BldA) [Mass fraction] 98 % Gurwinder Ayala MD Work Phone: [facility] 05-18-2022 08:18-0500 Systolic blood pressure 128 mm[Hg] Gurwinder Ayala MD Work Phone: [facility] 04-21-2022 08:21-0400 Body height 175.3 cm Isela Older [employer]ELER.SYSTEMS PROGRAM MANAGER Work Phone: [facility] 04-21-2022 08:21-0400 Body weight 107.05 kg Isela Older [employer]ELER.SYSTEMS PROGRAM MANAGER Work Phone: [facility] 04-21-2022 08:21-0400 Diastolic blood pressure 67 mm[Hg] Isela Older [employer]ELER.SYSTEMS PROGRAM MANAGER Work Phone: [facility] 04-21-2022 08:21-0400 Heart rate 60 /min Isela Older CREELER.SYSTEMS PROGRAM MANAGER Work Phone: [facility] 04-21-2022 08:21-0400 Respiratory rate 18 /min Isela Older CREELER.SYSTEMS PROGRAM MANAGER Work Phone: [facility] 04-21-2022 08:21-0400 Systolic blood pressure 118 mm[Hg] Isela Older CREELER.SYSTEMS PROGRAM MANAGER Work Phone: [facility] 12-12-2021 10:20-0400 Diastolic blood pressure 54 mm[Hg] Dimitri Marie MD Work Phone: [facility] 12-12-2021 10:20-0400 Systolic blood pressure 128 mm[Hg] Dimitri Marie MD Work Phone: [facility] 12-12-2021 10:15-0400 Body height 175.3 cm Dimitri Marie MD Work Phone: [facility] 12-12-2021 10:15-0400 Body temperature 97.9 [degF] Dimitri Marie MD Work Phone: [facility] 12-12-2021 10:15-0400 Body weight 106.59 kg Dimitri Marie MD Work Phone: [facility] 12-12-2021 10:15-0400 Heart rate 57 /min Dimitri Marie MD Work Phone: [facility] 12-12-2021 10:15-0400 Respiratory rate 14 /min Dimitri Marie MD Work Phone: [facility] 12-12-2021 10:15-0400 SaO2% (BldA) [Mass fraction] 99 % Dimitri Marie MD Work Phone: [facility] 10-20-2021 08:50-0400 Diastolic blood pressure 64 mm[Hg] Isela Older CREELER.SYSTEMS PROGRAM MANAGER Work Phone: [facility] 10-20-2021 08:50-0400 Systolic blood pressure 132 mm[Hg] Isela Older CREELER.SYSTEMS PROGRAM MANAGER Work Phone: [facility] 10-20-2021 08:16-0400 Body weight 106.59 kg Isela Older CREELER.SYSTEMS PROGRAM MANAGER Work Phone: [facility] 10-20-2021 08:16-0400 Heart rate 51 /min Isela Older [employer]ELER.SYSTEMS PROGRAM MANAGER Work Phone: [facility] 10-20-2021 08:16-0400 Respiratory rate 18 /min Isela Older CREELER.SYSTEMS PROGRAM MANAGER Work Phone: [facility] 10-20-2021 08:16-0400 SaO2% (BldA) [Mass fraction] 96 % Isela Older CREELER.SYSTEMS PROGRAM MANAGER Work Phone: [facility] Encounters Encounter Date Encounter Type Care Provider Facility Start: 01-11-2025 End: 01-11-2025 anabell Clark Facility:[facility] Start: 01-11-2025 End: 01-11-[address] Eric Clark MD -[facility] Work Phone: Start: 01-05-2025 End: 01-05-2025 Patient encounter procedure Mari MORRELL -[facility] Work Phone: Start: 01-05-2025 End: 01-05-[address] Ricardo Sinha MD Work Phone: -[facility] Start: 12-16-2024 ambulatory Dimitri Marie Facili ty:[facility] Start: 12-16-[address] Handy Reid DO -Cardiovascular Services Work Phone: Start: 12-15-2024 End: 12-15-[address] Ricardo Sinha MD Work Phone: [facility] Work Phone: Start: 12-15-2024 End: 12-15-[address] Lyndon Dinh DO -Laboratory Work Phone: Start: 12-15-2024 End: 12-15-2024 ambulatory Dimitri Marie Facility:[facility] Start: 12-07-2024 ambulatory Cally Ewingan Facility:[facility] Start: 12-07-2024 Non-patient / Non-visit Dr. Cally alarcon MD -[facility] Start: 12-06-2024 ambulatory Jerome Don Facility:[facility] Start: 12-06-2024 End: 12-07-2024 Evaluation and management of inpatient Dr. Lyndon Dinh DO -Progressive Care Unit Work Phone: Start: 12-06-2024 End: 12-06-2024 Telephone encounter Dimitri Marie MD Work Phone: [facility] Comment on above: Vision changes Start: 10-30-2024 End: 10-30-2024 Refill Deepali Cortez [address] Comment on above: Refill Request Start: 10-11-2024 End: 10-11-2024 Refill Gurwinder Ayala MD Work Phone: Cardiology Comment on above: Refill Request Start: 10-03-2024 End: 10-03-2024 Follow-up encounter Dimitri Marie MD Work Phone: [facility] Start: 10-02-2024 End: 10-02-2024 ambulatory DIMITRI MARIE Facility:[facility] Start: 09-11-2024 End: 09-11-2024 Refill Deepali Dana [facility] [place] Comment on above: Refill Request Start: 05-01-2024 End: 05-01-2024 Refill Gurwinder Ayala MD Work Phone: [facility] [place] Comment on above: Refill Request Start: 04-06-2024 End: 04-06-2024 ambulatory DIMITRI MARIE Facility:[facility] Start: 04-06-2024 End: 04-06-2024 Office outpatient visit 25 minutes Dimitri Marie MD Work Phone: [facility] [place] Comment on above: Personal history of skin cancer (Primary Dx); Need for influenza vaccination; Essential hypertension, benign; Mixed hyperlipidemia; Acquired hypothyroidism; Sinus bradycardia; Screening for depression; Encounter for screening examination for other mental health and behavioral disorders Start: 04-03-2024 End: 04-03-2024 Patient encounter procedure Gurwinder Ayala MD Work Phone: Cardiology Comment on above: VT (ventricular tach ycardia) (HCC) (Primary Dx); Paroxysmal SVT (supraventricular tachycardia) (HCC); Essential hypertension, benign; Mixed hyperlipidemia; Sinus bradycardia; Bladder retention of urine Start: 04-03-2024 End: 04-03-2024 ambulatory DIMITRI MARIE Facility:[facility] Start: 03-30-2024 End: 03-30-2024 ambulatory DIMITRI MARIE Facility:[facility] Start: 03-16-2024 End: 03-16-2024 Refill Dimitri Marie MD Work Phone: [address] [place] [address] Comment on above: Refill Request Start: 01-13-2024 Refill Dimitri andino MD Work Phone: [facility] [place] Comment on above: Refill Request Start: 11-30-2023 Telephone encounter Isela montalvo APRN.CNP Work Phone: [facility] [place] Comment on above: Results Start: 10-06-2023 End: 10-06-2023 Patient encounter procedure Isela Patel APRN.CNP Work Phone: [facility] Comment on above: Medicare annual well ness visit, subsequent (Primary Dx); Acquired hypothyroidism; Skin lesion of chest wall; Essential hypertension, benign; Mixed hyperlipidemia Start: 09-29-2023 Refill Gurwinder roberts MD Work Phone: Cardiology Comment on above: Refill Request Start: 08-20-2023 End: 08-20-2023 Patient encounter procedure Dimitri Marie MD Work Phone: [facility] Comment on above: Obesity, Class II, 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); Acquired hypothyroidism; Venous insufficiency; Essential hypertension, benign; Vitamin D deficiency; Mixed hyperlipidemia Start: 02-17-2023 End: 02-17-2023 Patient encounter procedure Dimitri Marie MD Work Phone: [facility] Comment on above: Essential hypertensi on, benign (Primary Dx); Bladder retention of urine; Stage 3b chronic kidney disease (HCC) Start: 12-16-2022 End: 12-16-2022 Patient encounter procedure Dimitri Marie MD Work Phone: [facility] Comment on above: Essential hypertensi on, benign (Primary Dx); Venous insufficiency; Hypertensive kidney disease with stage 3b chronic kidney disease (HCC) Start: 11-02-2022 End: 11-02-2022 Patient encounter procedure Dimitri Marie MD Work Phone: [facility] [place] Comment on above: Stage 3b chronic kid bradley disease (HCC) (Primary Dx); Mixed hyperlipidemia; Essential hypertension, benign; Bladder retention of urine; Acquired complex cyst of kidney, left Start: 09-21-2022 End: 09-21-2022 Patient encounter procedure Gurwinder Ayala MD Work Phone: Cardiology Comment on above: VT (ventricular tach ycardia) (HCC) (Primary Dx); Paroxysmal SVT (supraventricular tachycardia) (HCC); Essential hypertension, benign; Mixed hyperlipidemia; Sinus bradycardia Start: 09-17-2022 End: 09-17-2022 Subsequent hospital visit by physician [facility] Work Phone: Radiology Comment on above: Stage 3b chronic kid bradley disease (HCC) [N18.32] Start: 09-11-2022 End: 09-11-2022 Patient encounter procedure Dimitri Marie MD Work Phone: [facility] Comment on above: Stage 3b chronic kid bradley disease (HCC) (Primary Dx); Acquired hypothyroidism; Essential hypertension, benign; Venous insufficiency; Paroxysmal SVT (supraventricular tachycardia) (HCC) Start: 05-25-2022 End: 05-25-2022 Subsequent hospital visit by physician [facility] Work Phone: Nuclear Medicine Comment on above: VT (ventricular tach ycardia) (HCC) [I47.20] Start: 05-22-2022 Telephone encounter Nurse Card Admin [facility] Work Phone: Cardiology Comment on above: Appointment (Stress test instructions) Start: 05-18-2022 End: 05-18-2022 Patient encounter procedure Gurwinder Ayala MD Work Phone: Cardiology Comment on above: VT (ventricular tach ycardia) (Primary Dx); Paroxysmal SVT (supraventricular tachycardia) (HCC); Essential hypertension, benign; Mixed hyperlipidemia; PAREDES (dyspnea on exertion) Start: 04-21-2022 End: 04-21-2022 Patient encounter procedure Isela West APRN.CNP Work Phone: [facility] [place] Comment on above: Medicare annual [facility], subsequent (Primary Dx); Mixed hyperlipidemia; Essential hypertension, benign; Acquired hypothyroidism Start: 03-20-2022 Refill Dimitri andino MD Work Phone: [facility] [place] Comment on above: Refill Request Start: 02-03-2022 Refill Dimitri andino MD Work Phone: [facility] [place] Comment on above: Refill Request Start: 12-12-2021 End: 12-12-2021 Office outpatient visit 25 minutes Dimitri Marie MD Work Phone: [facility] Comment on above: VT (ventricular tach ycardia) (HCC) (Primary Dx); Paroxysmal SVT (supraventricular tachycardia) (HCC); Stage 3b chronic kidney disease (HCC); Essential hypertension, benign; Mixed hyperlipidemia; Acquired hypothyroidism Start: 12-08-2021 Telephone encounter Dimitri marte MD Work Phone: [facility] Comment on above: Results Start: 10-20-2021 End: 10-20-2021 Patient encounter procedure Isela Older [employer]ELER.SYSTEMS PROGRAM MANAGER Work Phone: [facility] Comment on above: Palpitations (Primar y Dx); Skin lesion of chest wall; Stage 3b chronic kidney disease (HCC); Acquired hypothyroidism; Essential hypertension, benign; Mixed hyperlipidemia; Chronic cough; Venous insufficiency Start: 09-01-2021 Refill Dimitri andino MD Work Phone: [facility] Comment on above: Refill Request Procedures Date Procedure Procedure Detail Performing Clinician Start: 12-07-[address] Ricardo Sinha MD Work Phone: Start: 12-06-2024 MRI of brain without contrast Dr. Ricardo Sinha MD Work Phone: Start: 12-06-2024 CT angiography of he ad and neck Dr. Ricardo Sinha MD Work Phone: Start: 12-06-2024 CT of head without contrast Dr. Ricardo Sinha MD Work Phone: Start: 12-06-[address] Ricardo Sinha MD Work Phone: Start: 04-06-2024 Adult depression scr eening assessment Dimitri Marie MD Work Phone: Start: 09-17-2022 Us retroperitoneal r eal time w/image complete Dimitri Marie MD Work Phone: Start: 05-25-2022 Myocardial spect mul tiple studies Gurwinder Ayala MD Work Phone: Plan of Treatment Date Care Activity Detail Author Start: 10-03-2027 Diabetes Screening Diabetes Screenin g [facility] Start: 09-29-2026 Diabetes Screening Diabetes Screenin g [facility] Start: 12-10-2025 DIABETES SCREEN DIABETES SCREEN [facility] Start: 12-10-2025 Diabetes Screening Diabetes Screenin g [facility] Start: 10-27-2025 DIABETES SCREEN DIABETES SCREEN [facility] Start: 09-07-2025 DIABETES SCREEN DIABETES SCREEN [facility] Start: 04-06-2025 Anxiety Screening Anxiety Screening [facility] Start: 04-06-2025 Covid-19 Vaccine ( season) Covid-19 Vaccine () [facility] Comment on above: Postponed from 02/26 (Declined at this time) Start: 04-06-2025 Depression Screening Depression Scre ening [facility] Start: 04-06-2025 End: 04-06-2025 Patient encounter procedure [facility] Comment on above: 6 month follow-up *1st attempt to resc hed - phone disconnected, letter mailed - 12/06 Start: 01-08-2025 End: 01-08-2025 Patient encounter procedure 01/08/2025 9:00 AM EDT Office Visit Cardiology [address] [place] [id number] Gurwinder Ayala MD [address] [address] 9 month check Cardiology Comment on above: 9 month check Start: 12-07-2024 Patient discharge [facility] Start: 12-07-2024 Wound care [facility] Start: 12-07-2024 Consultation for treatment [facility] Start: 12-06-2024 Following clinical pathway protocol [facility] Start: 12-06-2024 Aspiration precautions [facility] Start: 12-06-2024 Assessment of risk o f venous thromboembolism [facility] Start: 12-06-2024 Cardiac monitoring [facility] Start: 12-06-2024 Catheterization of vein [facility] Start: 12-06-2024 Consultation [facility] Start: 12-06-2024 Continuous pulse oximetry [facility] Start: 12-06-2024 Elevation of head of bed [facility] Start: 12-06-2024 Exercises [facility] Start: 12-06-2024 Insertion of cathete r into peripheral vein [facility] Start: 12-06-2024 Notification of physician [facility] Start: 12-06-2024 Oxygen therapy [facility] Start: 12-06-2024 Patient referral to dietitian [facility] Start: 12-06-2024 Providing care accor ding to standard [facility] Start: 12-06-2024 Referral to occupati onal therapist [facility] Start: 12-06-2024 Referral to service [facility] Start: 12-06-2024 Speech therapy assessment [facility] Start: 12-06-2024 Telemedicine consult ation with patient [facility] Start: 12-06-2024 Tobacco use cessatio n education [facility] Start: 12-06-2024 End: 12-06-2024 [facility] Start: 12-06-2024 Vital signs measurements [facility] Start: 12-06-2024 Verification routine [facility] Start: 12-06-2024 Admission procedure [facility] Start: 12-06-2024 Hospital admission, emergency, from emergency room, medical nature [facility] Start: 12-06-2024 Oxygen therapy [facility] Start: 12-06-2024 [facility] Start: 12-06-2024 Patient referral to dietitian [facility] Start: 10-13-2024 DIABETES SCREEN DIABETES SCREEN [facility] Start: 10-06-2024 End: 10-06-2024 Patient encounter procedure 10/06/2024 1:00 PM EDT Office Visit [facility] [address] [place] [address] Isela Patel, CREELER.SYSTEMS PROGRAM MANAGER [address] [place] [address] Annual Wellness w/6 month follow-up [facility] Comment on above: Annual Wellness w/6 month follow-up Start: 10-05-2024 End: 01-04-2025 CBC panel - Blood by Automated count COMPLETE BLOOD COUNT Lab Routine Essential hypertension, benign Expected: 10/05/2024, Expires: 01/04/2025 [facility] Work Phone: Comment on above: Expected: 10/05/2024 , Expires: 01/04/2025 Start: 10-05-2024 End: 01-04-2025 Comprehensive metabolic 2000 panel - Serum or Plasma COMPREHENSIVE METABOLIC PANEL Lab Routine Mixed hyperlipidemia Expected: 10/05/2024, Expires: 01/04/2025 [facility] Comment on above: Expected: 10/05/2024 , Expires: 01/04/2025 Start: 10-05-2024 Covid-19 Vaccine () Covid-19 Vaccine () [facility] Comment on above: Postponed from 02/26 (Declined at this time) Start: 10-05-2024 End: 01-04-2025 Lipid 1996 panel - Serum or Plasma LIPID PANEL BASIC Lab Routine Mixed hyperlipidemia Expected: 10/05/2024, Expires: 01/04/2025 [facility] Comment on above: Expected: 10/05/2024 , Expires: 01/04/2025 Start: 10-05-2024 Medicare Annual Well ness Visit Medicare Annual Wellness Visit [facility] Start: 10-05-2024 Pneumococcal Vaccine : 50+ (2 of 2 - PCV) Pneumococcal Vaccine: 50+ (2 of 2 - PCV) [facility] Comment on above: Postponed from 06/28 (Declined at this time) Start: 10-05-2024 Pneumococcal Vaccine : 65+ (2 of 2 - PCV) Pneumococcal Vaccine: 65+ (2 of 2 - PCV) [facility] Comment on above: Postponed from 06/28 (Declined at this time) Start: 10-05-2024 RSV Vaccine (1 - 1-d ose 60+ series) RSV Vaccine (1 - 1-dose 60+ series) [facility] Comment on above: Postponed from 09/06 (Declined at this time) Start: 10-05-2024 RSV Vaccine (1 - 1-d ose 75+ series) RSV Vaccine (1 - 1-dose 75+ series) [facility] Comment on above: Postponed from 09/06 (Declined at this time) Start: 10-05-2024 Shingrix Vaccine (1 of 2) Tanner grix Vaccine (1 of 2) [facility] Comment on above: Postponed from 09/06 (Declined at this time) Start: 10-05-2024 End: 01-04-2025 Thyrotropin [Units/volume] in Serum or Plasma THYROID STIMULATING HORMONE Lab Routine Acquired hypothyroidism Expected: 10/05/2024, Expires: 01/04/2025 [facility] Comment on above: Expected: 10/05/2024 , Expires: 01/04/2025 Start: 10-05-2024 Urine microalbumin profile DTaP,Tdap,Td Vaccine (1 - Tdap) [facility] Comment on above: Postponed from 09/06 (Declined at this time) Start: 06-28-2024 Advance Directive Discussion Advance Directive Discussion [facility] Start: 04-06-2024 End: 04-06-2024 Patient encounter procedure 04/06/2024 11:20 AM EDT Office Visit [facility] [address] [place] [address] Dimitri Marie MD [address] [place] [address] 6 Month follow up [facility] Comment on above: 6 Month follow up Start: 04-03-2024 End: 04-03-2024 Patient encounter procedure 04/03/2024 9:40 AM EDT Office Visit Cardiology [address] [id number] Gurwinder Ayala MD [address] [facility] [address] [place] [address] 6 month follow up R\S from cancelled appt (doctor) in November [facility]iology Comment on above: 6 month follow up R\ S from cancelled appt (doctor) in November Start: 02-27-2024 Covid-19 Vaccine ( season) Covid-19 Vaccine () [facility] Start: 02-27-2024 Covid-19 Vaccine ( season) Covid-19 Vaccine ( season) [facility] Start: 02-27-2024 Influenza vaccination [facility] Start: 11-17-2023 End: 02-16-2024 Thyrotropin [Units/volume] in Serum or Plasma THYROID STIMULATING HORMONE Lab Routine Acquired hypothyroidism Expected: 11/17/2023 (Approximate), Expires: 02/16/2024 [facility] Work Phone: Comment on above: Expected: 11/17/2023 (Approximate), Expires: 02/16/2024 Start: 11-17-2023 End: 02-16-2024 Thyroxine (T4) free [Mass/volume] in Serum or Plasma T4 FREE/FREE THYROXINE Lab Routine Acquired hypothyroidism Expected: 11/17/2023 (Approximate), Expires: 02/16/2024 [facility] Work Phone: Comment on above: Expected: 11/17/2023 (Approximate), Expires: 02/16/2024 Start: 11-03-2023 COVID-19 VACCINE (#1) COVID-19 VACCI NE (#1) [facility] Comment on above: Postponed from 03/09 (Declined at this time) Start: 10-01-2023 End: 12-31-2023 25-hydroxyvitamin D3 [Mass/volume] in Serum or Plasma VITAMIN D 25 HYDROXY Lab Routine Vitamin D deficiency Expected: 10/01/2023, Expires: 12/31/2023 [facility] Work Phone: Comment on above: Expected: 10/01/2023 , Expires: 12/31/2023 Start: 10-01-2023 End: 12-31-2023 CBC panel - Blood by Automated count CBC Lab Routine Essential hypertension, benign Expected: 10/01/2023, Expires: 12/31/2023 [facility] Work Phone: Comment on above: Expected: 10/01/2023 , Expires: 12/31/2023 Start: 10-01-2023 End: 12-31-2023 Comprehensive metabolic 2000 panel - Serum or Plasma COMP METABOLIC PANEL Lab Routine Mixed hyperlipidemia Expected: 10/01/2023, Expires: 12/31/2023 [facility] Work Phone: Comment on above: Expected: 10/01/2023 , Expires: 12/31/2023 Start: 10-01-2023 End: 12-31-2023 Lipid 1996 panel - Serum or Plasma LIPID PANEL BASIC Lab Routine Mixed hyperlipidemia Expected: 10/01/2023, Expires: 12/31/2023 [facility] Work Phone: Comment on above: Expected: 10/01/2023 , Expires: 12/31/2023 Start: 10-01-2023 End: 12-31-2023 Thyrotropin [Units/volume] in Serum or Plasma TSH BLD Lab Routine Acquired hypothyroidism Expected: 10/01/2023, Expires: 12/31/2023 [facility] Work Phone: Comment on above: Expected: 10/01/2023 , Expires: 12/31/2023 Start: 09-04-2023 DIABETES SCREEN DIABETES SCREEN [facility] Start: 06-28-2023 Advance Directive Discussion Advance Directive Discussion [facility] Start: 06-28-2023 Behavioral Health Screening Behavioral Health Screening [facility] Start: 06-28-2023 Depression Assessment Depression Ass essment [facility] Start: 05-20-2023 End: 07-20-2023 Basic metabolic 2000 panel - Serum or Plasma BASIC METABOLIC PNL Lab Routine Stage 3b chronic kidney disease (HCC) Expected: 05/20/2023, Expires: 07/20/2023 [facility] Work Phone: Comment on above: Expected: 05/20/2023 , Expires: 07/20/2023 Start: 05-20-2023 End: 07-20-2023 CBC panel - Blood by Automated count CBC Lab Routine Stage 3b chronic kidney disease (HCC) Expected: 05/20/2023, Expires: 07/20/2023 [facility] Work Phone: Comment on above: Expected: 05/20/2023 , Expires: 07/20/2023 Start: 04-21-2023 Pneumococcal Vaccine : 65+ (2 - PCV) Pneumococcal Vaccine: 65+ (2 - PCV) [facility] Comment on above: Postponed from 06/28 (Declined at this time) Start: 04-21-2023 PNEUMOCOCCAL: 65+ (2 - PCV) PNEUMOCOCCAL: 65+ (2 - PCV) [facility] Comment on above: Postponed from 06/28 (Declined at this time) Start: 02-26-2023 Covid-19 Vaccine ( season) Covid-19 Vaccine ( season) [facility] Start: 02-26-2023 Influenza vaccination [facility] Start: 12-25-2022 Influenza vaccination INFLUENZA (#1) [facility] Comment on above: Postponed from 02/26 (Declined at this time) Start: 12-14-2022 End: 02-13-2023 Basic metabolic 2000 panel - Serum or Plasma BASIC METABOLIC PNL Lab Routine Stage 3b chronic kidney disease (HCC) Expected: 12/14/2022, Expires: 02/13/2023 [facility] Work Phone: Comment on above: Expected: 12/14/2022 , Expires: 02/13/2023 Start: 10-23-2022 End: 12-23-2022 Basic metabolic 2000 panel - Serum or Plasma BASIC METABOLIC PNL Lab Routine Stage 3b chronic kidney disease (HCC) Expected: 10/23/2022, Expires: 12/23/2022 [facility] Work Phone: Comment on above: Expected: 10/23/2022 , Expires: 12/23/2022 Start: 10-23-2022 End: 12-23-2022 CBC panel - Blood by Automated count CBC Lab Routine Stage 3b chronic kidney disease (HCC) Expected: 10/23/2022, Expires: 12/23/2022 [facility] Work Phone: Comment on above: Expected: 10/23/2022 , Expires: 12/23/2022 Start: 10-23-2022 End: 12-23-2022 PROTEIN ELECTROPHORESIS SERUM W/INTERP PROTEIN ELECTROPHORESIS SERUM W/INTERP Lab Routine Stage 3b chronic kidney disease (HCC) Expected: 10/23/2022, Expires: 12/23/2022 [facility] Work Phone: Comment on above: Expected: 10/23/2022 , Expires: 12/23/2022 Start: 10-23-2022 End: 12-23-2022 Thyrotropin [Units/volume] in Serum or Plasma TSH BLD Lab Routine Acquired hypothyroidism Expected: 10/23/2022, Expires: 12/23/2022 [facility] Work Phone: Comment on above: Expected: 10/23/2022 , Expires: 12/23/2022 Start: 10-20-2022 COVID-19 VACCINE (#1) COVID-19 VACCI NE (#1) [facility] Comment on above: Postponed from 09/06 (Declined at this time) Postponed from 03/09 (Declined at this time) Start: 10-20-2022 COVID-19 VACCINE (1) COVID-19 VACCIN E (1) [facility] Comment on above: Postponed from 09/06 (Declined at this time) Start: 10-20-2022 SHINGRIX VACCINE (1 of 2) TANNER GRIX VACCINE (1 of 2) [facility] Comment on above: Postponed from 09/06 (Declined at this time) Start: 10-20-2022 Urine microalbumin profile DTAP,TDAP,TD (1 - Tdap) [facility] Comment on above: Postponed from 09/06 (Declined at this time) Start: 09-11-2022 End: 11-11-2022 Urinalysis complete panel - Urine [facility] Work Phone: Comment on above: Expected: 09/11/2022 , Expires: 11/11/2022 Start: 08-26-2022 End: 10-26-2022 CBC panel - Blood by Automated count CBC Lab Routine Essential hypertension, benign Expected: 08/26/2022 (Approximate), Expires: 10/26/2022 [facility] Work Phone: Comment on above: Expected: 08/26/2022 (Approximate), Expires: 10/26/2022 Start: 08-26-2022 End: 10-26-2022 Comprehensive metabolic 2000 panel - Serum or Plasma COMP METABOLIC PANEL Lab Routine Mixed hyperlipidemia Essential hypertension, benign Expected: 08/26/2022 (Approximate), Expires: 10/26/2022 [facility] Work Phone: Comment on above: Expected: 08/26/2022 (Approximate), Expires: 10/26/2022 Start: 08-26-2022 End: 10-26-2022 Lipid 1996 panel - Serum or Plasma LIPID PANEL BASIC Lab Routine Mixed hyperlipidemia Expected: 08/26/2022 (Approximate), Expires: 10/26/2022 [facility] Work Phone: Comment on above: Expected: 08/26/2022 (Approximate), Expires: 10/26/2022 Start: 08-26-2022 End: 10-26-2022 Thyrotropin [Units/volume] in Serum or Plasma TSH BLD Lab Routine Acquired hypothyroidism Expected: 08/26/2022 (Approximate), Expires: 10/26/2022 [facility] Work Phone: Comment on above: Expected: 08/26/2022 (Approximate), Expires: 10/26/2022 Start: 06-28-2022 ADVANCE DIRECTIVE DISCUSSION ADVANCE DIRECTIVE DISCUSSION [facility] Start: 06-28-2022 DEPRESSION ASSESSMENT DEPRESSION ASS ESSMENT [facility] Start: 02-26-2022 Influenza vaccination [facility] Start: 11-03-2021 End: 01-03-2022 Basic metabolic 2000 panel - Serum or Plasma BASIC METABOLIC PNL Lab Routine Stage 3b chronic kidney disease (HCC) Expected: 11/03/2021 (Approximate), Expires: 01/03/2022 [facility] Work Phone: Comment on above: Expected: 11/03/2021 (Approximate), Expires: 01/03/2022 Start: 09-02-2021 SHINGRIX VACCINE (1 of 2) TANNER GRIX VACCINE (1 of 2) [facility] Comment on above: Postponed from 09/06 (Declined at this time) Start: 09-02-2021 Urine microalbumin profile DTAP,TDAP,TD (1 - Tdap) [facility] Comment on above: Postponed from 09/06 (Declined at this time) Start: 09-01-2021 End: 11-01-2021 CBC panel - Blood by Automated count CBC Lab Routine Essential hypertension, benign Expected: 09/01/2021, Expires: 11/01/2021 [facility] Work Phone: Comment on above: Expected: 09/01/2021 , Expires: 11/01/2021 Start: 09-01-2021 End: 11-01-2021 Comprehensive metabolic 2000 panel - Serum or Plasma COMP METABOLIC PANEL Lab Routine Mixed hyperlipidemia Expected: 09/01/2021, Expires: 11/01/2021 [facility] Work Phone: Comment on above: Expected: 09/01/2021 , Expires: 11/01/2021 Start: 09-01-2021 End: 11-01-2021 LIPID PANEL BASIC LIPID PANEL BASIC Lab Routine Mixed hyperlipidemia Expected: 09/01/2021, Expires: 11/01/2021 [facility] Work Phone: Comment on above: Expected: 09/01/2021 , Expires: 11/01/2021 Start: 09-01-2021 End: 11-01-2021 Thyrotropin [Units/volume] in Serum or Plasma TSH BLD Lab Routine Acquired hypothyroidism Expected: 09/01/2021, Expires: 11/01/2021 [facility] Work Phone: Comment on above: Expected: 09/01/2021 , Expires: 11/01/2021 Start: 06-28-2021 ADVANCE DIRECTIVE DISCUSSION ADVANCE DIRECTIVE DISCUSSION [facility] Start: 02-26-2021 Influenza vaccination INFLUENZA (#1) [facility] Start: 2013 RSV Vaccine (1 - 1-d ose 75+ series) RSV Vaccine (1 - 1-dose 75+ series) [facility] Start: 06-28-2005 Pneumococcal Vaccine : 50+ (2 of 2 - PCV) Pneumococcal Vaccine: 50+ (2 of 2 - PCV) [facility] Start: 06-28-2005 Pneumococcal Vaccine : 65+ (2 of 2 - PCV) Pneumococcal Vaccine: 65+ (2 of 2 - PCV) [facility] Start: 06-28-2005 PNEUMOCOCCAL: 65+ (2 - PCV) PNEUMOCOCCAL: 65+ (2 - PCV) [facility] Start: 1998 RSV Vaccine (1 - 1-d ose 60+ series) RSV Vaccine (1 - 1-dose 60+ series) [facility] Start: 1988 SHINGRIX VACCINE (1 of 2) TANNER GRIX VACCINE (1 of 2) [facility] Start: 1957 Urine microalbumin profile [facility] Start: 1956 Anxiety Screening Anxiety Screening [facility] Start: 1956 Depression Screening Depression Scre ening [facility] Start: 09-07-1943 COVID-19 VACCINE (1) COVID-19 VACCIN E (1) [facility] Basic metabolic 2008 panel with ionized calcium - Serum or Plasma [facility] Cardiac event recording [facility] End: 10-20-2022 ECG COMPLETE ECG COMPLETE ECG Routine Palpitations 1 Occurrences starting 10/20/2021 until 10/20/2022 [facility] Work Phone: Comment on above: 1 Occurrences starti ng 10/20/2021 until 10/20/2022 End: 10-20-2022 Echocardiography ECHO Cardiology Routine Palpitations 1 Occurrences starting 10/20/2021 until 10/20/2022 [facility] Work Phone: Comment on above: 1 Occurrences starti ng 10/20/2021 until 10/20/2022 End: 06-17-2023 NM CARDIAC PERF STRESS/EXERCISE NM CARDIAC PERF STRESS/EXERCISE Radiology Routine VT (ventricular tachycardia) Essential hypertension, benign Mixed hyperlipidemia PAREDES (dyspnea on exertion) 1 Occurrences starting 05/18/2022 until 06/17/2023 [facility] Work Phone: Comment on above: 1 Occurrences starti ng 05/18/2022 until 06/17/2023 OUTSIDE VENDOR CARDI AC OUTPATIENT EXTENDED RHYTHM RECORDING (WITHOUT TELEMETRY) OUTSIDE VENDOR CARDIAC OUTPATIENT EXTENDED RHYTHM RECORDING (WITHOUT TELEMETRY) Holter Routine Palpitations Ordered: 10/20/2021 [facility] Work Phone: Comment on above: Ordered: 10/20/2021 Patient referral [facility] Work Phone: US Carotid arteries [facility] End: 10-11-2023 US KIDNEY/BLADDER US KIDNEY/BLADDER Radiology Routine Stage 3b chronic kidney disease (HCC) 1 Occurrences starting 09/11/2022 until 10/11/2023 [facility] Work Phone: Comment on above: 1 Occurrences starti ng 09/11/2022 until 10/11/2023 [place] Immunizations Immunization Date Immunization Notes Care Provider [facility] 04-06-2024 influenza, high dose seasonal, preservative-free Dimitri Marie MD Work Phone: [facility] 06-03-2018 influenza virus vacc ine, unspecified formulation Us 2 Work Phone: [facility] 04-27-2008 influenza virus vacc ine, whole virus Dimitri Marie MD Work Phone: [facility] Work Phone: 04-27-2008 influenza, injectabl e, quadrivalent, preservative free Dr. Ricardo Sinha MD Work Phone: [facility] 04-26-2007 influenza virus vacc ine, whole virus Dimitri Marie MD Work Phone: [facility] Work Phone: 04-26-2007 influenza, injectabl e, quadrivalent, preservative free Dr. Ricardo Sinha MD Work Phone: [facility] 06-28-2004 pneumococcal polysaccharide vaccine, 23 valent Dimitri Marie MD Work Phone: [facility] Payers Date Payer Category Payer Self-pay 2003 Medicare MEDICARE MEDICAR E A AND B [id number] 2003-Present [phone] [place] [address] Medicare [id number] 2003 Medicare [id number] 2003 Medicare [id number] Unknown [id number] Unknown [id number] Unknown [id number] Unknown [id number] Unknown [id number] Unknown [id number] Unknown [id number] Social History Date Type Detail Facility Start: 04-28-2016 End: 01-05-2025 Tobacco smoking status NHIS Ex-smoker [facility] End: 06-28-2010 History of tobacco use Current smoker [facility] End: 06-28-2010 History of tobacco use Pipe Smoker [facility] Start: 09-02-2020 End: 04-06-2024 Alcohol intake Current drinker of alcohol (finding) [facility] Start: 04-28-2016 History SDOH Alcohol Comment rare beer [facility] Start: 1940 Sex Assigned At Not on file [facility] Start: 10-10-2021 End: 05-18-2022 Exposure to SARS-CoV-2 (event) Not sure [facility] Work Phone: Start: 04-28-2016 End: 02-17-2023 Tobacco use and exposure Smokeless tobacco non-user [facility] Work Phone: Start: 11-02-2022 End: 02-17-2023 History of Social function [facility] Work Phone: Start: 11-02-2022 End: 02-17-2023 Tobacco use panel [facility] Work Phone: Adult Depression Screening Assessment 0 [facility] Work Phone: How often to you hav e a drink containing alcohol? Never [facility] Start: 12-06-2024 End: 12-07-2024 Tobacco smoking status NHIS Never smoked tobacco (finding) [facility] Start: 08-07-2013 Alcohol Alcohol [facility] Start: 08-07-2013 Lives Lives [facility] Start: 08-07-2013 Tobacco Use Tobacco Use [facility] Start: 1940 Sex Assigned At Male W [facility] Goals Date Patient Goal Desired Activity /State Functional Status Date Assessment Result Facility 12-07-2024 Functional status Ambulates [facility] Work Phone: 02-01-2015 Are you deaf, or do you have serious difficulty hearing Yes 02/01/2015 2:40 PM EDT Iqra Tabares LPN Yes [facility] 02-01-2015 Are you blind, or do you have serious difficulty seeing, even when wearing glasses No 02/01/2015 2:40 PM EDT Iqra Tabares LPN No [facility] 02-01-2015 Do you have serious difficulty walking or climbing stairs No 02/01/2015 2:40 PM EDT Iqra Tabares LPN No [facility] 02-01-2015 Do you have difficul ty dressing or bathing No 02/01/2015 2:40 PM EDT Iqra Tabares LPN No [facility] 02-01-2015 Because of a physica l, mental, or emotional condition, do you have difficulty doing errands alone such as visiting a physician's office or shopping No 02/01/2015 2:40 PM EDT Iqra Tabares LPN No [facility] Mental Status Date Assessment Result Facility 12-07-2024 Cognitive function Voice/Name [facility] Work Phone: 12-06-2024 Cognitive function Voice/Name [facility] Work Phone: 02-01-2015 Because of a physica l, mental, or emotional condition, do you have serious difficulty concentrating, remembering, or making decisions No 02/01/2015 2:40 PM EDT Iqra Tabares LPN No [facility] Clinical Notes 02-13-2010 to 12-07-2024 Note Date & Type Note Facility 12-07-2024 Discharge summary [facility] 12-07-2024 Discharge summary [facility] 12-07-2024 Discharge summary Note Date/Time December 07, 2024 3:25pm [facility] Medical Records Department [address] [place] [address] Instructions for Home/Discharge Instructions 12/07/24 1112 MR#: [id number] Acct: [id number] Name: CARISSA GRUBER Rep #:[id number] : 1940 84 From: Lyndon green DO PCP: Dr. Dimitri Marie MD Status:A DM IN Discharge Instructions Diet Discharge Diet: No restrictions DC O2, CPAP, BIPAP needs Home O2 Discharge instructions: No Dressing / Incision Discharge Activity: No Restrictions Follow Up Care Test Results: Test results from this visit will be discussed in further detail at your follow-up appointment, if applicable. Discharge Plan Admission Admit Date/Time: 12/06/24 15:31 Primary Reason for Your Visit: vision issue Attending Provider: Lyndon Dinh Primary Care Provider: Dimitri Marie Consulting Providers: Jerome Don; Lray Muniz; Constance Schmid; Mari Hernández; Tiffany Ma; Kota Hussein; Crystal Farah; Bryn Zambrano; Yash Gerardo; George Perla; Tere Barrientos; Berny Pittman; Cristine Solo; Jeff Dougherty; Sloan Pastrana; Ronn Mcclellan; Donald Hunter; Guevara Mahoney; Kitty Patel; Julia Rahman Discharge Orders/Prescriptions Prescriptions: New atorvastatin 40 mg Tablet 40 mg PO QHS 90 Days Qty: 90 0RF Eliquis 5 mg Tablet 5 mg PO BID 30 Days Qty: 60 2RF Continued losartan 50 mg tablet 50 mg PO BID levothyroxine 150 mcg tablet 150 mcg PO DAILY doxazosin 4 mg tablet 4 mg PO BID metoprolol succinate 25 mg tablet extended release 24 hr 25 mg PO DAILY Discontinued pravastatin 40 mg tablet 40 mg PO QHS aspirin 81 mg tablet,chewable 1 tab PO DAILY Other Ambulatory Orders: 30 Day Event Recorder Preventi (Urgent) Timeframe: 1 Month Facility: [facility] - Location: Cardiovascular Services Ordered By: Dr. Lyndon Dinh Referrals / Follow Up: Justin La MD [Med Staff - Active Staff] - Eric Clark MD [Med Staff - Active Staff] - (For growth on chest) Dimitri Marie MD [Primary Care Provider] - Disposition Disposition (needs filled in before D/C Order can be placed): Home, Self Care 12/07/24 1525<Electronically signed by Lyndon Dinh DO>Lyndon Dinh DO CC: Mari Hernández; Cristine Solo; Ronn Mcclellan; Tiffany Ma MD; Constance Schmid MD; Jerome Don MD; Dr. Lary Muniz MD; Dr. Kota Hussein MD; Dr. Frida MD; Dr. Yash Gerardo MD; Dr. Bryn Zambrano MD; Dr. George Perla MD; Dr. Berny Pittman DO; Dr. Sloan Pastrana MD; Dr. Jeff Dougherty MD; Dr. Donald Hunter MD; Dr. Guevara Mahoney MD; Dr. Dimitri Marie MD; Dr. Kitty Patel MD; Tere Barrientos DO; Julia Rahman MD ~ Signed [facility] Work Phone: 1(207) 470-300706-12-2025 Discharge summary Author Lyndon Dinh [facility] Note Date/Time December 07, 2024 3:32 pm [facility] Medical Records Department [facility] [address] [address] Discharge Summary 12/07/24 1112 MR#: [id number] Acct: [id number] Name: CARISSA GRUBER Rep #:[id number] : 1940 84 From: Lyndon green DO PCP: Dr. Dimitri Marie MD Status:A DM IN Location: [place] [address] Providers Date of Admission: 12/06/24 Date of Discharge: 12/07/24 Primary Care Physician: Dr. Dimitri Marie MD Consultations 12/06/24 21:26 Consult: Tele-Neurology Routine Consulting Provider: [facility] Reason for Consult: Acute Ischemic Stroke/TIA EMERGENT Consult: No MD Notified: Yes Date Notified: 12/07/24 Time Notified: 00:48 Method of Notification: Answering Service Method of Consult:: Telemedicine Comments:: Dr Ma Nursing Unit Staff Notify [facility] of Tele-Neurology Consult: Yes 12/07/24 01:01 Consult: Onc/Wound/dock operations supervisor Routine Comment: Reason for Consult:: Abnormal Growth Mid Upper Chest Reason For Visit: LEFT RETINAL A. 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: Status: Acute Code(s): H34.232 - Retinal artery branch occlusion, left eye (2) Thrombosis of subclavian artery: Status: Acute Code(s): I74.8 - Embolism and thrombosis of other arteries Medications at Discharge Home Medications doxazosin 4 mg tablet 4 mg PO BID Blood pressure 12/06/24 levothyroxine 150 mcg tablet 150 mcg PO DAILY disorder of thyroid gland 12/06/24 losartan 50 mg tablet 50 mg PO BID Blood pressure 12/06/24 metoprolol succinate 25 mg tablet,extended release 24 hr 25 mg PO DAILY Hear rate/Blood pressure 12/06/24 apixaban 5 mg tablet (Eliquis) 5 mg PO BID 30 days #60 tabs 12/07/24 atorvastatin 40 mg tablet 40 mg PO QHS 90 days #90 tabs 12/07/24 Hospital Course Operations None Procedures EKG, Transthoracic echo and - (MRI brain, CTA head/neck, CT brain) Summary of Care Provided Minutes Spent on Discharge: 35 Hospital Course: Patient is an 84-year-old male who presented to [facility] ED on12/06/2024 with vision loss. Short hospital course as noted below. Patient discharged home in stable condition on 12/07. 1. Left retinal artery versus venous occlusion suspected secondary to left subclavian artery stenosis with concern for thrombosis ? Neurology evaluated. Diagnosed with left retinal artery occlusion by ophthalmology prior to admission. CTA head/neck on admit showed significant stenosis at the origin of the left subclavian artery with an intraluminal filling defect concerning for thrombosis. MRI brain showed no acute stroke. Per neurology, imaging appeared to point more towards retinal vein occlusion rather than retinal artery occlusion, though this will not waste/materials exchange specialist. On neurology's read, unclear if there is truly thrombosis in the subclavian artery versus the subclavian artery being tortuous in nature. Echo with normal EF, stage I diastolic dysfunction, no other concerning findings. Lipid panel showed total cholesterol 104, LDL 54, HDL 38. A1c 5.7%. Okay for Eliquis for anticoagulation for 3 months and high intensity statin but patient will then need reimaging at that time to reevaluate the subclavian artery. Will need vascular surgery follow-up at that time as well. 2. Elevated creatinine, improving ? Creatinine 1.77 on admit, improved to 1.47 on day of discharge. No prior labssince 2012 so baseline is unclear. Patient with good urine output during hospitalization. Recommend repeat BMP in 5-7 days to ensure that kidney function either continues to improve or remained stable. 3. Hypothyroidism with elevated TSH and elevated free T4 ? TSH 5.08, free T4 1.60 on admit. Unclear on etiology as we would expect with an elevated TSH, the free T4 would be low and Synthroid dosing could be an adequate. Recommend close outpatient follow-up with PCP for further evaluation. Continue home Synthroid. Chronic medical conditions: ? Class I obesity: BMI 34 on admit. Encouraged weight loss. Complicates hospital course, care and prognosis. ? Hypertension: Continue home Toprol, losartan and doxazosin. ? Hyperlipidemia: Continue high intensity statin. Total clinical time spent by myself addressing the patient's medical issues, reviewing all the data, and collaborating with patient's care team: 35 minutes. Physical Exam Const alert, oriented x3 and no apparent distress Constitutional Narrative: Elderly male, class I obesity, sitting back comfortably in bed, conversing normally, in no acute distress. General Appearance: cooperative and comfortable HEENT normocephalic, head/scalp atraumatic, hearing grossly normal bilaterally, nasal mucous membranes and turbinates normal and moist oral mucous membranes Eyes PERRL, EOMs intact bilaterally and conjunctivae normal Neck full ROM Chest inspection of chest normal Resp normal respiratory effort, normal air movement, no use of accessory muscles and clear to auscultation bilaterally Cardio regular rate, regular rhythm, no murmurs and peripheral pulses 2+ throughout GI normal to inspection, nondistended, normoactive bowel sounds, soft to palpation,non-tender and non-distended Back/Spine normal ROM Extremity normal to inspection, full ROM and no pedal edema Skin no rashes or lesions noted Neuro moves all extremities and no focal motor deficits Neuro Narrative: Vision loss noted in left upper eye field. Speech: speech normal Motor Exam: strength 5/5 throughout Psych mental status grossly normal Weight / BMI Weight Weight: 108.1 kg Body Mass Index (BMI) 34.2 ABG / Lab / Microbiology Data 12/07/24 06:59 12/07/24 06:59 Laboratory: Laboratory Results - last 24 hr 12/06/24 12:15: Hemoglobin A1c 5.7, TSH 5.080 H 12/07/24 06:59: WBC 7.2, RBC 3.69 L, Hgb 10.5 L, Hct 32.4 L, MCV 87.8, MCH 28.5,MCHC 32.4, RDW Std Deviation 45.5 H, RDW Coeff of Jennifer 14.2, Plt Count 226, MPV 10.3, Sodium 139, Potassium 4.1, Chloride 106, Carbon Dioxide 22.4, Anion Gap 11, BUN 21 H, Creatinine 1.47 H, Estim Creat Clear Calc 44.41 L, Est GFR (MDRD) Non-Af 46 L, BUN/Creatinine Ratio 14.3, Glucose 94, Calcium 8.7, Triglycerides 58, Cholesterol 104, LDL Cholesterol, Calc 54, VLDL Cholesterol 12, HDL Cholesterol 38 L, Cholesterol/HDL Ratio 2.74, Free T4 1.60 H Radiography Diagnostic Testing: Radiology Impression Brain MRI 12/06/24 15:37 IMPRESSION: No acute abnormality Reading Location: [facility] Echocardiogram 12/06/24 15:37 Interpretation Summary Mild concentric left ventricular hypertrophy. The LV systolic function is normal. EF is 65 %. Stage 1 diastolic dysfunction. Moderate mitral valve annular calcification. Mild to moderate mitral valve regurgitation. RVSP estimated at 35-45 mmHg. Mild aortic valve stenosis. Mean peak gradient 14 mmHg. Mild to moderate aortic valve regurgitation. Ordering Physician: Lyndon Dinh Performed By: [facility] D/C Instructions DC O2, CPAP, BIPAP Needs Home O2 Discharge instructions: No Meaningful Use Info Meaningful Use Meaningful Use Diagnoses (Choose all that apply): None applicable Ischemic Stroke Statin Dosing Therapy Reference: STATIN DOSE THERAPY REFERENCE: * Patients > 75 years receive moderate or high dose statin therapy. * Patients 75 years or YOUNGER should receive HIGH intensity statin dose unless contraindicated. You will be required to document reason for non-treatment if statin daily dose does not meet guidelines. HIGH DOSE STATIN THERAPY DAILY Atorvastatin > than or = to 40 mg Rosuvastatin > than or = to 20 mg Amlodipine + Atorvastatin > than or = to 2.5/40 mg Ezetimibe + Simvastatin 10/80 mg Simvastatin 80mg Discharge Plan Admission Admit Date/Time: 12/06/24 15:31 Primary Reason for Your Visit: vision issue Attending Provider: Lyndon Dinh Primary Care Provider: Dimitri Marie Consulting Providers: Jerome Don; Lary Muniz; Constance Schmid; Mari Hernández; Tiffany Ma; Kota Hussein; Crystal Farah; Bryn Zambrano; Yash Gerardo; George Perla; Tere Barrientos; Berny Pittman; Cristine Solo; Jeff Dougherty; Sloan Pastrana Errol; Ronn Mcclellan; Donald Hunter; Guevara Mahoney; Kitty Patel; Julia Rahman Discharge Orders/Prescriptions Prescriptions: New atorvastatin 40 mg Tablet 40 mg PO QHS 90 Days Qty: 90 0RF Eliquis 5 mg Tablet 5 mg PO BID 30 Days Qty: 60 2RF Continued losartan 50 mg tablet 50 mg PO BID levothyroxine 150 mcg tablet 150 mcg PO DAILY doxazosin 4 mg tablet 4 mg PO BID metoprolol succinate 25 mg tablet extended release 24 hr 25 mg PO DAILY Discontinued pravastatin 40 mg tablet 40 mg PO QHS aspirin 81 mg tablet,chewable 1 tab PO DAILY Other Ambulatory Orders: 30 Day Event Recorder Preventi (Urgent) Timeframe: 1 Month Facility: [facility] - Location: Cardiovascular Services Ordered By: Dr. Lyndon Dinh Referrals / Follow Up: Justin La MD [Med Staff - Active Staff] - Eric Clark MD [Med Staff - Active Staff] - (For growth on chest) Dimitri Marie MD [Primary Care Provider] - Disposition Disposition (needs filled in before D/C Order can be placed): Home, Self Care Charges/Coding Visit Charges Inpatient E&M: 93337 Disch Hosp >30min 12/07/24 1532 <Electronically signed by Lyndon Dinh DO> Cosigner Signature (if applicable): CC: Dr. Lyndon Dinh DO; Dr. Dimitri Marie MD~ Signed [facility] Work Phone: 1(227) 460-396006-12-2025 [facility] Medical Records Department [address] [place] [id number] Discharge Summary 12/07/24 1112 MR#: [id number] Acct: [id number] Name: CARISSA GRUBER Rep #: [id number] : 1940 84 From: Lyndon Dinh DO PCP: Dr. Dimitri Marie MD Status:ADM IN Location: [place] [address] Providers Date of Admission: 12/06/24 Date of Discharge: 12/07/24 Primary Care Physician: Dr. Dimitri Marie MD Consultations 12/06/24 21:26 Consult: Tele-Neurology Routine Consulting Provider: [facility] Reason for Consult: Acute Ischemic Stroke/TIA EMERGENT Consult: No MD Notified: Yes Date Notified: 12/07/24 Time Notified: 00:48 Method of Notification: Answering Service Method of Consult:: Telemedicine Comments:: Dr Ma Nursing Unit Staff Notify [facility] of Tele-Neurology Consult: Yes 12/07/24 01:01 Consult: Onc/Wound/dock operations supervisor Routine Comment: Reason for Consult:: Abnormal Growth Mid Upper Chest Reason For Visit: LEFT RETINAL A. 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: Status: Acute Code(s): H34.232 - Retinal artery branch occlusion, left eye (2) Thrombosis of subclavian artery: Status: Acute Code(s): I74.8 - Embolism and thrombosis of other arteries Medications at Discharge Home Medications doxazosin 4 mg tablet 4 mg PO BID Blood pressure 12/06/24 levothyroxine 150 mcg tablet 150 mcg PO DAILY disorder of thyroid gland 12/06/24 losartan 50 mg tablet 50 mg PO BID Blood pressure 12/06/24 metoprolol succinate 25 mg tablet,extended release 24 hr 25 mg PO DAILY Hear rate/Blood pressure 12/06/24 apixaban 5 mg tablet (Eliquis) 5 mg PO BID 30 days #60 tabs 12/07/24 atorvastatin 40 mg tablet 40 mg PO QHS 90 days #90 tabs 12/07/24 Hospital Course Operations None Procedures EKG, Transthoracic echo and - (MRI brain, CTA head/neck, CT brain) Summary of Care Provided Minutes Spent on Discharge: 35 Hospital Course: Patient is an 84-year-old male who presented to [facility] ED on 12/06/2024 with vision loss. Short hospital course as noted below. Patient discharged home in stable condition on 12/07. 1. Left retinal artery versus venous occlusion suspected secondary to left subclavian artery stenosis with concern for thrombosis ??? Neurology evaluated. Diagnosed with left retinal artery occlusion by ophthalmology prior to admission. CTA head/neck on admit showed significant stenosis at the origin of the left subclavian artery with an intraluminal filling defect concerning for thrombosis. MRI brain showed no acute stroke. Per neurology, imaging appeared to point more towards retinal vein occlusion rather than retinal artery occlusion, though this will not waste/materials exchange specialist. On neurology's read, unclear if there is truly thrombosis in the subclavian artery versus the subclavian artery being tortuous in nature. Echo with normal EF, stage I diastolic dysfunction, no other concerning findings. Lipid panel showed total cholesterol 104, LDL 54, HDL 38. A1c 5.7%. Okay for Eliquis for anticoagulation for 3 months and high intensity statin but patient will then need reimaging at that time to reevaluate the subclavian artery. Will need vascular surgery follow-up at that time as well. 2. Elevated creatinine, improving ??? Creatinine 1.77 on admit, improved to 1.47 on day of discharge. No prior labs since 2012 so baseline is unclear. Patient with good urine output during hospitalization. Recommend repeat BMP in 5-7 days to ensure that kidney function either continues to improve or remained stable. 3. Hypothyroidism with elevated TSH and elevated free T4 ??? TSH 5.08, free T4 1.60 on admit. Unclear on etiology as we would expect with an elevated TSH, the free T4 would be low and Synthroid dosing could be an adequate. Recommend close outpatient follow- up with PCP for further evaluation. Continue home Synthroid. Chronic medical conditions: ??? Class I obesity: BMI 34 on admit. Encouraged weight loss. Complicates hospital course, care and prognosis. ??? Hypertension: Continue home Toprol, losartan and doxazosin. ??? Hyperlipidemia: Continue high intensity statin. Total clinical time spent by myself addressing the patient's medical issues, reviewing all the data, and collaborating with patient's care team: 35 minutes. Physical Exam Const alert, oriented x3 and no apparent distress Constitutional Narrative: Elderly male, class I obesity, sitting back comfortably in bed, conversing normally, in no acute distress. General Appearance: cooperative and comfortable HEENT normocephalic, head/scalp atraumatic, hearing grossly normal bilaterally, nasal mucous membranes and turbinates normal and moist oral mucous membranes Eyes PERRL, EOMs intact bilaterally and conjunctivae normal Neck full ROM (more content not included)...[facility]06-12-2025 History and physical note Author Lyndon Dinh [facility] Note Date/Time December 07, 2024 7:29 am [facility] Medical Records Department [address] [place] [address] H&P Exam - Hospitalist 12/06/24 1502 MR#: [id number] Acct: [id number] Name: CARISSA GRUBER Rep #:[id number] : 1940 84 From: Lyndon green DO PCP: Dr. Dimitri Marie MD Status:A DM IN Location: [facility] [id number] HPI - General General Date of Admission: 12/06/24 Date of Service: 12/06/24 Chief Complaint: Vision loss HPI Narrative CARISSA GRUBER, is a 84 M who presented to [facility] ED on 12/06/24 with vision loss. Patient noticed decreased vision in his left upper eye field around 8 AM this morning. He saw reservations specialist Dr. Guerrero and was diagnosed with a left retinal artery occlusion. He was then sent to the ER for further evaluation. 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 Was suspected that this was the reason for the retinal artery occlusion. ED physician discussed with vascular surgery who noted no need for surgical intervention and recommended initiating anticoagulation. Hospitalist was then contacted for admission. I saw the patient at bedside in the ED. Patient was sitting back comfortably in bed, conversing normally, in no acute distress. He continues to report the same vision issues this morning but deniedany other strokelike symptoms. Lives at home alone and is typically very activeat baseline, goes to the [facility] on a regular basis. He denies any other acute concerns this morning. [facility] Home Medications ?Medication ?Instructions ?Recorded ?Last Taken ?Type aspirin 81 mg chewable tablet 1 tab PO DAILY Antiplate lete 12/06/24 12/06/24 History doxazosin 4 mg tablet 4 mg PO BID Blood pressure 0 12/06/24 12/06/24 History levothyroxine 150 mcg tablet 150 mcg PO DAILY disorder of 12/06/24 12/06/24 History thyroid gland losartan 50 mg tablet 50 mg PO BID Blood pressure 12/06/24 12/06/24 History metoprolol succinate 25 mg 25 mg PO DAILY Hear rate/Bl ood 12/06/24 12/06/24 History tablet,extended release 24 hr pressure pravastatin 40 mg tablet 40 mg PO QHS cholesterol 05/2212/05/24 History Allergy/AdvReac Type Severity Reaction Status Date / Time Sulfa (Sulfonamide Allergy Rash Verified 12/06/24 22:08 Antibiotics) Social History Smoking Status: Never smoker ROS Constitutional Constitutional: Denies chills, fatigue, fever(s) or weakness Eyes Eyes: Reports change in vision and loss of vision; Denies blurry vision, discharge from eye(s), double vision or eye pain ENT HEENT: Denies sinus pressure or sore throat Cardiovascular Cardiovascular: Denies chest pain Respiratory/Chest Respiratory/Chest: Denies shortness of breath at rest Gastrointestinal Gastrointestinal: Denies abdominal pain Neurologic Neurologic: Denies disequilibrium, dizziness, focal weakness or headache(s) Vital Signs Vital Signs Vital Signs: 12/06/24 11:40 12/06/24 12:17 12/06/24 12:26 Temperature 97.9 F Temperature Source Oral Pulse Rate 75 Respiratory Rate 18 Blood Pressure 124/98 H Blood Pressure Mean 106 Pulse Ox 98 Oxygen Delivery Method Room Air Room Air Room Air 12/06/24 12:30 12/06/24 13:00 12/06/24 13:30 Temperature Temperature Source Pulse Rate 58 L 55 L 51 L Respiratory Rate 23 H 23 H 18 Blood Pressure 147/56 H 132/57 H 139/58 H Blood Pressure Mean 83 82 83 Pulse Ox 99 98 98 Oxygen Delivery Method Room Air Room Air 12/06/24 14:00 12/06/24 14:30 Temperature Temperature Source Pulse Rate 50 L 50 L Respiratory Rate 19 H 22 H Blood Pressure 145/57 H 142/51 H Blood Pressure Mean 84 77 Pulse Ox 98 98 Oxygen Delivery Method Weight Weight: 108.1 kg Body Mass Index (BMI) 34.2 Physical Exam Const alert, oriented x3 and no apparent distress Constitutional Narrative: Elderly male, class I obesity, sitting back comfortably in bed, conversing normally, in no acute distress. General Appearance: cooperative and comfortable HEENT normocephalic, head/scalp atraumatic, hearing grossly normal bilaterally, nasal mucous membranes and turbinates normal and moist oral mucous membranes Eyes PERRL, EOMs intact bilaterally and conjunctivae normal Neck full ROM Chest inspection of chest normal Resp normal respiratory effort, normal air movement, no use of accessory muscles and clear to auscultation bilaterally Cardio regular rate, regular rhythm, no murmurs and peripheral pulses 2+ throughout GI normal to inspection, nondistended, normoactive bowel sounds, soft to palpation,non-tender and non-distended Back/Spine normal ROM Extremity normal to inspection, full ROM and no pedal edema Skin no rashes or lesions noted Neuro moves all extremities and no focal motor deficits Neuro Narrative: Vision loss noted in left upper eye field. Speech: speech normal Motor Exam: strength 5/5 throughout Psych mental status grossly normal Results Lab / Micro Data 12/07/24 06:59 12/06/24 12:15 Labs: Laboratory Results - last 24 hr 12/06/24 12:15: WBC 9.9, RBC 3.66 L, Hgb 10.7 L, Hct 32.4 L, MCV 88.5, MCH 29.2,MCHC 33.0, RDW Std Deviation 45.6 H, RDW Coeff of Jennifer 14.1, Plt Count 224, MPV 10.3, Immature Gran % (Auto) 0.300, Neut % (Auto) 79.3 H, Lymph % (Auto) 11.5 L,Hendricks % (Auto) 7.0, Eos % (Auto) 1.4, Baso % (Auto) 0.5, Absolute Neuts (auto) 7.9 H, Absolute Lymphs (auto) 1.14, Nucleated RBC % 0, Sodium 136, Potassium 4.2, Chloride 104, Carbon Dioxide 21.2, Anion Gap 11, BUN 26 H, Creatinine 1.77 H, Estim Creat Clear Calc 36.88 L, Est GFR (MDRD) Non-Af 37 L, BUN/Creatinine Ratio 14.9, Glucose 93, Calcium 8.7 12/06/24 12:23: Troponin T High Sens 12 12/06/24 12:50: PT 14.2, INR 1.1, APTT 30.4 Imaging Radiology Impression Brain CT 12/06/24 12:23 IMPRESSION: CHRONIC CHANGES. NO ACUTE FINDINGS. Red Alert: Chronic changes The critical information above was relayed directly by me by telephone to Ricardo Sinha on 12/06/2024 at 1:11 pm with readback verification. Reading Location: [facility]-1 Head/Neck CTA 12/06/24 12:23 IMPRESSION: Calcific plaques at the origin of both right and left internal carotid artery causing approximately 60% stenosis. Calcific plaque at the origin of the left subclavian artery just proximal to theorigin of the left vertebral artery. Nonocclusive intraluminal filling defects seen in the subclavian artery at that site. Red Alert: 60 % stenosis bilat int carotids. Filling defect in Left subclavian. The critical information above was relayed directly by me by telephone to Ricardo Sinha on 12/06/2024 at 1:22 pm with readback verification. 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 1. Left retinal artery occlusion suspected secondary to left subclavian artery stenosis with thrombosis ? Admit under inpatient status to PCU. Neurology consulted. CTA head/neck showed significant stenosis at the origin of the left subclavian artery with an intraluminal filling defect seen there.Strongly suspect left retinal artery occlusion is secondary to subclavian artery stenosis with thrombosis and plan will be for anticoagulation without surgical intervention. Appreciate neurologyrecommendations on any further workup needed or need for aspirin and/or Plavix in addition to Eliquis. Lipid panel, A1c and TSH ordered. Continue high intensity statin. Chronic medical conditions: ? Class I obesity: BMI 34 on admit. Encouraged weight loss. Complicates hospital course, care and prognosis. ? Hypertension: Okay to continue home Toprol, losartan and doxazosin; no need for permissive hypertension at this time. ? Hyperlipidemia: Continue high intensity statin. ? Hypothyroidism: Continue home Synthroid. DVT prophylaxis: Not indicated, on Eliquis CODE STATUS: Full code, verified Expected disposition: Home, TBD Total clinical time spent by myself addressing the patient's medical issues, reviewing all the data, and collaborating with patient's care team: 55 minutes. Charges/Coding Visit Charges Inpatient E&M: 89709 Init Hosp L2 12/07/24 0729 <Electronically signed by Lyndon Dinh DO> Cosigner Signature (if applicable): CC: Dr. Lyndon Dinh DO; Dr. Dimitri Marie MD~ Signed [facility] Work Phone: 1(480) 914-135306-12-2025 History and physical note [facility] Medical Records Department [address] [place] [address] H&P Exam - Hospitalist 12/06/24 1502 MR#: [id number] Acct: [id number] Name: CARISSA GRUBER Rep #:[id number] : 1940 84 From: Lyndon green DO PCP: Dr. Dimitri Marie MD Status:A DM IN Location: [place] [id number] 1 HPI - General General Date of Admission: 12/06/24 Date of Service: 12/06/24 Chief Complaint: Vision loss HPI Narrative CARISSA GRUBER, is a 84 M who presented to [facility] ED on 12/06/24 with vision loss. Patient noticed decreased vision in his left upper eye field around 8 AM this morning. He saw reservations specialist Dr. Guerrero and was diagnosed with a left retinal artery occlusion. He was then sent to the ER for further evaluation. 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 Was suspected thatthis was the reason for the retinal artery occlusion. ED physician discussed with vascular surgery who noted no need for surgical intervention and recommended initiating anticoagulation. Hospitalist bart as then contacted for admission. I saw the patient at bedside in the ED. Patient was sitting back comfortably in bed, conversing normally, in no acute distress. He continues to report the same visionissues this morning but deniedany other strokelike symptoms. Lives at home alone and is typically very activeat baseline, goes to the [facility] on a [facility] basis. He denies any other acute concerns thismorning. [facility] Home Medications ?Medication ?Instructions ?Recorded ?Last Taken ?Type aspirin 81 mg chewable tablet 1 tab PO DAILY Antiplate lete 12/06/24 12/06/24 History doxazosin 4 mg tablet 4 mg PO BID Blood pressure 0 12/06/24 12/06/24 History levothyroxine 150 mcg tablet 150 mcg PO DAILY disorder of 12/06/24 12/06/24 History thyroid gland losartan 50 mg tablet 50 mg PO BID Blood pressure 12/06/24 12/06/24 History metoprolol succinate 25 mg 25 mg PO DAILY Hear rate/Bl ood 12/06/24 12/06/24 History tablet,extended release 24 hr pressure pravastatin 40 mg tablet 40 mg PO QHS cholesterol 05/2212/05/24 History Allergy/AdvReac Type Severity Reaction Status Date / Time Sulfa (Sulfonamide Allergy Rash Verified 12/06/24 22:08 Antibiotics) Social History Smoking Status: Never smoker ROS Constitutional Constitutional: Denies chills, fatigue, fever(s) or weakness Eyes Eyes: Reports change in vision and loss of vision; Denies blurry vision, discharge from eye(s), double vision or eye pain ENT HEENT: Denies sinus pressure or sore throat Cardiovascular Cardiovascular: Denies chest pain Respiratory/Chest Respiratory/Chest: Denies shortness of breath at rest Gastrointestinal Gastrointestinal: Denies abdominal pain Neurologic Neurologic: Denies disequilibrium, dizziness, focal weakness or headache(s) Vital Signs Vital Signs Vital Signs: 12/06/24 11:40 12/06/24 12:17 12/06/24 12:26 Temperature 97.9 F Temperature Source Oral Pulse Rate 75 Respiratory Rate 18 Blood Pressure 124/98 H Blood Pressure Mean 106 Pulse Ox 98 Oxygen Delivery Method Room Air Room Air Room Air 12/06/24 12:30 12/06/24 13:00 12/06/24 13:30 Temperature Temperature Source Pulse Rate 58 L 55 L 51 L Respiratory Rate 23 H 23 H 18 Blood Pressure 147/56 H 132/57 H 139/58 H Blood Pressure Mean 83 82 83 Pulse Ox 99 98 98 Oxygen Delivery Method Room Air Room Air 12/06/24 14:00 12/06/24 14:30 Temperature Temperature Source Pulse Rate 50 L 50 L Respiratory Rate 19 H 22 H Blood Pressure 145/57 H 142/51 H Blood Pressure Mean 84 77 Pulse Ox 98 98 Oxygen Delivery Method Weight Weight: 108.1 kg Body Mass Index (BMI) 34.2 Physical Exam Const alert, oriented x3 and no apparent distress Constitutional Narrative: Elderly male, class I obesity, sitting back comfortably in bed, conversing normally, in no acute distress. General Appearance: cooperative and comfortable HEENT normocephalic, head/scalp atraumatic, hearing grossly normal bilaterally, nasal mucous membranes and turbinates normal and moist oral mucous membranes Eyes PERRL, EOMs intact bilaterally and conjunctivae normal Neck full ROM Chest inspection of chest normal Resp normal respiratory effort, normal air movement, no use of accessory muscles and clear to auscultation bilaterally Cardio regular rate, regular rhythm, no murmurs and peripheral pulses 2+ throughout GI normal to inspection, nondistended, normoactive bowel sounds, soft to palpation,non-tender and non-distended Back/Spine normal ROM Extremity normal to inspection, full ROM and no pedal edema Skin no rashes or lesions noted Neuro moves all extremities and no focal motor deficits Neuro Narrative: Vision loss noted in left upper eye field. Speech: speech normal Motor Exam: strength 5/5 throughout Psych mental status grossly normal Results Lab / Micro Data 12/07/24 06:59 12/06/24 12:15 Labs: Laboratory Results - last 24 hr 12/06/24 12:15: WBC 9.9, RBC 3.66 L, Hgb 10.7 L, Hct 32.4 L, MCV 88.5, MCH 29.2,MCHC 33.0, RDW Std Deviation 45.6 H, RDW Coeff of Jennifer 14.1, Plt Count 224, MPV 10.3, Immature Gran % (Auto) 0.300, Neut% (Auto) 79.3 H, Lymph % (Auto) 11.5 L,Hendricks % (Auto) 7.0, Eos % (Auto) 1.4, Baso % (Auto) 0.5, Absolute Neuts (auto) 7.9 H, Absolute Lymphs (auto) 1.14, Nucleated RBC % 0, Sodium 136, Potassium 4.2, Chloride 104, Carbon Dioxide 21.2, Anion Gap 11, BUN 26 H, Creatinine 1.77 H, Estim Creat Clear Calc36.88 L, Est GFR (MDRD) Non-Af 37 L, BUN/Creatinine Ratio 14.9, Glucose 93, Calcium 8.7 12/06/24 12:23: Troponin T High Sens 12 12/06/24 12:50: PT 14.2, INR 1.1, APTT 30.4 Imaging Radiology Impression Brain CT 12/06/24 12:23 IMPRESSION: CHRONIC CHANGES. NO ACUTE FINDINGS. Red Alert: Chronic changes The critical information above was relayed directly by me by telephone to Ricardo Sinha on 12/06/2024t 1:11 pm with readback verification. Reading Location: [facility] Head/Neck CTA 12/06/24 12:23 IMPRESSION: Calcific plaques at the origin of both right and left internal carotid artery causing [id number]% stenosis. Calcific plaque at the origin of the left subclavian artery just proximal to theorigin of the left vertebral artery. Nonocclusive intraluminal filling defects seen in the subclavian artery at that site. Red Alert: 60 % stenosis bilat int carotids. Filling defect in Left subclavian. The critical information above was relayed directly by me by telephone to Ricardo Sinha on 12/06/2024t 1:22 pm with readback verification. Reading Location: 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 1. Left retinal artery occlusion suspected secondary to left subclavian artery stenosis with thrombosis ? Admit under inpatient status to PCU. Neurology consulted. CTA head/neck showed significant stenosis at the origin of the left subclavian artery with an intraluminal filling defect seen there.Strongly suspect left retinal artery occlusion is secondary to subclavian artery stenosis with thrombosis and plan will be for anticoagulation without surgical intervention. Appreciate neurologyrecommendations on any further workup needed or need for aspirin and/or Plavix in addition to Eliquis. Lipid panel, A1c and TSH ordered. Continue high intensity statin. Chronic medical conditions: ? Class I obesity: BMI 34 on admit. Encouraged weight loss. Complicates hospital course, care and prognosis. ? Hypertension: Okay to continue home Toprol, losartan and doxazosin; no need for permissive hypertension at this time. ? Hyperlipidemia: Continue high intensity statin. ? Hypothyroidism: Continue home Synthroid. DVT prophylaxis: Not indicated, on Eliquis CODE STATUS: Full code, verified Expected disposition: Home, TBD Total clinical time spent by myself addressing the patient's medical issues, reviewing all the data, and collaborating with patient's care team: 55 minutes. Charges/Coding Visit Charges Inpatient E&M: 47944 Init Hosp L2 12/07/24 0729 Cosigner Signature (if applicable): CC: Dr. Lyndon Dinh DO; Dr. Dimitri Marie MD~ Signed [facility]06-11-2025 Discharge summary Author Ricardo Sinha [facility] Note Date/Time December 06, 2024 4:21 pm [facility] Medical Records Department [address] [place] [address] Emergency Department Summary 12/06/24 MR#: [id number] Acct: [id number] Name: CARISSA GRUBER Rep #:[id number] : 1940 84 From: Ricardo Sinha MD PCP: Dr. Dimitri Marie MD Status:R EG ER Location: ED HPI History of Present Illness Chief Complaint: Neuro S/Sx Informant: patient Onset/Context/Timing Onset: Today and Hours Context: Sudden Onset Timing: Continuous Onset: Decreased vision left upper visual field. Current Severity: Moderate Maximum Severity: Moderate Associated Symptoms Associated Symptoms: Negative for Headache, Nausea, Vomiting or Chest Pain Narrative Narrative: 84-year-old male decreased vision left upper field of his left eye started 8 AM this morning. He saw an reservations specialist Dr. Christie and was diagnosed with left retinal artery occlusion. Sent to ER for further evaluation. He denies any other complaints. He denies headache. He denies weakness in his arms or legs. He denies any ataxia. He has had a prior stroke 6 years ago Prior similar symptoms: No Recent Illness/Hospitalization: No PFSH PFSH Home Medications ?Medication ?Instructions ?Recorded ?Last Taken ?Type furosemide 20 mg tablet 20 mg PO DAILY 05/04/13 Unkn own History atorvastatin 40 mg tablet 40 mg PO QHS ##30 05/06/13 U nknown Rx clopidogrel 75 mg tablet 75 mg PO DAILY ##30 05/06/13 Unknown Rx lisinopril 5 mg tablet 15 mg (3 x 5 mg) PO DAILY ## 30 05/17/13 Unknown Rx doxazosin 4 mg tablet 4 mg PO BID 12/06/24 Unknown History levothyroxine 150 mcg tablet 150 mcg PO DAILY disorder of 12/06/24 Unknown History thyroid gland losartan 50 mg tablet 50 mg PO BID 12/06/24 Unknow n History metoprolol succinate 25 mg 25 mg PO DAILY 12/06/24 Unk nown History tablet,extended release 24 hr pravastatin 40 mg tablet 40 mg PO QHS cholesterol 05/22 Unknown History Allergy/AdvReac Type Severity Reaction Status Date / Time Sulfa (Sulfonamide Allergy Rash Verified 12/06/24 11:40 Antibiotics) Social History Smoking Status: Never smoker ROS ROS ED ROS Narrative Left visual change. No recent illness. Constitutional Constitutional ED: Denies chills Eyes Eyes: Reports change in vision left ENT ENT ED: Denies ear pain Cardiovascular Cardiovascular: Denies chest pain Respiratory/Chest Respiratory/Chest: Denies cough Gastrointestinal Gastrointestinal: Denies abdominal pain Genitourinary Genitourinary ED: Denies dysuria Musculoskeletal Musculoskeletal: Denies arthralgias Neurologic Neurologic: Denies headache(s) Psychiatric Psychiatric: Denies anxiety Endocrine Endocrinology: Denies polydipsia Hematologic/Lymphatic Hematologic/Lymphatic: Denies easy bleeding Allergic/Immunologic Allergic/Immunologic ED: Denies mouth swelling or urticaria EXAM Physical Exam Narrative Exam Narrative: Well-appearing 84-year-old male sitting upright in bed. Vital signs stable afebrile. No acute distress. H EENT exam appears Ramming Actilite. Expirations are intact. He is vision change in his left eye left upper field. No facial droop. Normal speech. Neck nontender. Lungs clear. Heart regular rhythm rate about 75 no murmur. Chest wall ribs nontender. Abdomen soft nontender. Moving all 4 extremities. 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 Dorsi plantarflexion intact. No drift. Neurologically he has decreased vision or loss of vision left upper eye field. Otherwise he has normal strength. Normal range of motion. No ataxia. Normal speech. His NIH is 1. Const Vital Signs: 12/06/24 11:40 12/06/24 12:17 12/06/24 12:26 Temperature 97.9 F Temperature Source Oral Pulse Rate 75 Respiratory Rate 18 Blood Pressure 124/98 H Blood Pressure Mean 106 Pulse Ox 98 Oxygen Delivery Method Room Air Room Air Room Air 12/06/24 12:30 12/06/24 13:00 12/06/24 13:30 Temperature Temperature Source Pulse Rate 58 L 55 L 51 L Respiratory Rate 23 H 23 H 18 Blood Pressure 147/56 H 132/57 H 139/58 H Blood Pressure Mean 83 82 83 Pulse Ox 99 98 98 Oxygen Delivery Method Room Air Room Air 12/06/24 14:00 12/06/24 14:30 12/06/24 15:00 Temperature Temperature Source Pulse Rate 50 L 50 L 49 L Respiratory Rate 19 H 22 H 20 H Blood Pressure 145/57 H 142/51 H 148/56 H Blood Pressure Mean 84 77 86 Pulse Ox 98 98 99 Oxygen Delivery Method Positive well developed; Negative for cachectic, contractures or unkempt General Appearance ED: well developed and NAD; Negative for unkempt, cachectic or contractures Nutritional Appearance: Negative for cachectic HEENT Reports moist mucous membranes atraumatic Eyes PERRL and EOMs intact bilaterally Eyes Narrative: Left eye upper field vision loss. General Eye ED: Negative for pale conjunctiva or scleral icterus Neck no lymphadenopathy, supple and no JVD Chest Wall inspection of chest normal and palpation of chest normal Resp normal respiratory effort and clear to auscultation bilaterally Cardio no murmurs Rate: regular rate Rhythm: regular rhythm GI normal to inspection, nondistended, normoactive bowel sounds, soft to palpation,non-tender, non-distended and no masses Auscultation: normoactive bowel sounds Back/Spine no CVA tenderness Extremity normal to inspection General Extremety ED: Negative for deformity, edema or tenderness General Extremity: Negative for deformity or edema Neuro oriented x3 and No CN's II-XII intact bilaterally Neuro Narrative: Left eye vision loss left upper field only. NIH is 1 only. Sensorium / Orientation: alert, oriented to person, oriented to place and oriented to time; Negative for orientation impaired or confused Speech: speech normal Motor Exam: strength 5/5 throughout Psych mental status grossly normal Appearance: Negative for unkempt Attitude: No agitated Mood & Affect: Negative for depressed, anxious or tearful Skin no wounds General Skin Exam: Negative for jaundice Lesions: no lesions Rashes: no rashes MDM MDM MDM Narrative Medical decision making narrative: 84-year-old male left upper field vision loss. Has a known retinal artery occlusion per ophthalmology. Sent here for further stroke workup. Otherwise his exam is benign. I think this is limited to his left eye only. He will go through a stroke workup. Repeat exam patient is doing well. No change in his exam. Given that he had a CTA of his head neck and there is a left subclavian clot I spoke to the hospitalist and vascular surgery. He will be admitted most likely started on anticoagulation. He was anticoagulated for prior stroke 6 years ago. History & Record Review Discussion w/independent historian: Patient Additional record(s) reviewed:: Prior inpatient record, Prior outpatient record,Prior ED visit and Prior labs Lab Data Attestation: I reviewed the patient's lab results. Lab results narrative: CBC shows a white count of 9.9. H&H 10.7 and 32. Platelets 224. Chemistry shows sodium 136. Gap 11. BUN 26 creatinine 1.7. Glucose 93. PT/INR 14 and 1. PTT 30. Troponin 12. Labs: Laboratory Results - last 24 hr 12/06/24 12/06/24 12/06/24 12:15 12:23 12:50 WBC 9.9 RBC 3.66 L Hgb 10.7 L Hct 32.4 L MCV 88.5 MCH 29.2 MCHC 33.0 RDW Std Deviation 45.6 H RDW Coeff of Jennifer 14.1 Plt Count 224 MPV 10.3 Immature Gran % (Auto) 0.300 Neut % (Auto) 79.3 H Lymph % (Auto) 11.5 L Hendricks % (Auto) 7.0 Eos % (Auto) 1.4 Baso % (Auto) 0.5 Absolute Neuts (auto) 7.9 H Absolute Lymphs (auto) 1.14 Nucleated RBC % 0 PT 14.2 INR 1.1 APTT 30.4 Sodium 136 Potassium 4.2 Chloride 104 Carbon Dioxide 21.2 Anion Gap 11 BUN 26 H Creatinine 1.77 H Estim Creat Clear Calc 36.88 L Est GFR (MDRD) Non-Af 37 L BUN/Creatinine Ratio 14.9 Glucose 93 Calcium 8.7 Troponin T High Sens 12 Radiography Diagnostic Testing: Clinical Impression(s) from Imaging Studies Brain CT 12/06/24 12:23 IMPRESSION: CHRONIC CHANGES. NO ACUTE FINDINGS. Red Alert: Chronic changes The critical information above was relayed directly by me by telephone to Ricardo Sihna on 12/06/2024 at 1:11 pm with readback verification. Reading Location: [facility] Head/Neck CTA 12/06/24 12:23 IMPRESSION: Calcific plaques at the origin of both right and left internal carotid artery causing approximately 60% stenosis. Calcific plaque at the origin of the left subclavian artery just proximal to theorigin of the left vertebral artery. Nonocclusive intraluminal filling defects seen in the subclavian artery at that site. Red Alert: 60 % stenosis bilat int carotids. Filling defect in Left subclavian. The critical information above was relayed directly by me by telephone to Ricardo Sinha on 12/06/2024 at 1:22 pm with readback verification. Reading Location: [place] [address] Rhythm Strip Rhythm Strip: Sinus Rhythm Rate: 60 Ectopy: None EKG Initial EKG: Attestation: I personally reviewed and interpreted this EKG as follows: Interpretation: Sinus Rhythm and No Acute Injury Pattern Comments: Normal sinus rhythm rate of 60 no acute signs of [place] or ischemia. Discharge Plan Triage Chief Complaint: Neuro S/Sx ED Provider: Ricardo Sinha Dx/Rx/DC Orders Prescriptions: No Action furosemide 20 MG tablet 20 mg PO DAILY Patient Comments: DIURETIC atorvastatin 40 MG tablet 40 mg PO QHS Qty: 30 0RF Patient Comments: CHOLESTEROL LOWERING clopidogrel 75 MG tablet 75 mg PO DAILY Qty: 30 0RF Patient Comments: BLOOD THINNER lisinopril 5 MG tablet 15 mg PO DAILY Qty: 30 0RF Patient Comments: LOWERS BLOOD PRESSURE losartan 50 mg tablet 50 mg PO BID pravastatin 40 mg tablet 40 mg PO QHS levothyroxine 150 mcg tablet 150 mcg PO DAILY doxazosin 4 mg tablet 4 mg PO BID metoprolol succinate 25 mg tablet extended release 24 hr 25 mg PO DAILY Primary Care Provider: Dimitri Marie Referrals: Dimitri Marie MD [Primary Care Provider] - Print Language: Qatari What to do if you have Problems For any increased pain, shortness of breath, bleeding, nausea or vomiting, chestpain, or any unexpected problems, contact your Primary Care Provider. Call [facility] ([phone]) or report to the closest Emergency Room. Call 911 if necessary. 12/06/24 1621 <Electronically signed by Ricardo Sinha MD> Cosigner Signature (if applicable): CC: Dr. 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 acute December 06, 2024 3:31pm Thrombosis of subclavian artery acut e December 06, 2024 3:31pm History of stroke inactive December 062024 3:31pm [facility] Work Phone: 1(320) 522-253906-11-2025 Evaluation note* Diagnosis Onset Date Resolution Status Admit Date Retinal artery branch occlusion of left eye acute December 06, 2024 3:31pm Thrombosis of subclavian artery ruled-out December 06, 2024 3:31pm History of stroke inactive December 062024 3:31pm Carotid stenosis, non-symptomatic acute January 05, 2025 1:06pm Vertebral artery stenosis acute January 05, 2025 1:06pm [facility] Work Phone: [phone]) 718-979306-11-2025 Discharge summary [facility] Medical Records Department [address] [place] [id number] Emergency Department Summary 12/06/24 MR#: [id number] Acct: [id number] Name: CARISSA GRUBER Rep #:[id number] : 1940 84 From: Ricardo Sinha MD PCP: Dr. Dimitri Marie MD Status:R ER Location: ED HPI History of Present Illness Chief Complaint: Neuro S/Sx Informant: patient Onset/Context/Timing Onset: Today and Hours Context: Sudden Onset Timing: Continuous Onset: Decreased vision left upper visual field. Current Severity: Moderate Maximum Severity: Moderate Associated Symptoms Associated Symptoms: Negative for Headache, Nausea, Vomiting or Chest Pain Narrative Narrative: 84-year-old male decreased vision left upper field of his left eye started 8 AM this morning. He saw an reservations specialist Dr. Christie and was diagnosed with left retinal artery occlusion. Sent to ER forfurther evaluation. He denies any other complaints. He denies headache. He denies weakness in his arms or legs. He denies any ataxia. He has had a prior stroke 6 years ago Prior similar symptoms: No Recent Illness/Hospitalization: No PFSH [facility] Home Medications ?Medication ?Instructions ?Recorded ?Last Taken ?Type furosemide 20 mg tablet 20 mg PO DAILY 05/04/13 Unkn own History atorvastatin 40 mg tablet 40 mg PO QHS ##30 05/06/13 U nknown Rx clopidogrel 75 mg tablet 75 mg PO DAILY ##30 05/06/13 Unknown Rx lisinopril 5 mg tablet 15 mg (3 x 5 mg) PO DAILY ## 30 05/17/13 Unknown Rx doxazosin 4 mg tablet 4 mg PO BID 12/06/24 Unknown History levothyroxine 150 mcg tablet 150 mcg PO DAILY disorder of 12/06/24 Unknown History thyroid gland losartan 50 mg tablet 50 mg PO BID 12/06/24 Unknow n History metoprolol succinate 25 mg 25 mg PO DAILY 12/06/24 Unk nown History tablet,extended release 24 hr pravastatin 40 mg tablet 40 mg PO QHS cholesterol 05/22 Unknown History Allergy/AdvReac Type Severity Reaction Status Date / Time Sulfa (Sulfonamide Allergy Rash Verified 12/06/24 11:40 Antibiotics) Social History Smoking Status: Never smoker ROS ROS ED ROS Narrative Left visual change. No recent illness. Constitutional Constitutional ED: Denies chills Eyes Eyes: Reports change in vision left ENT ENT ED: Denies ear pain Cardiovascular Cardiovascular: Denies chest pain Respiratory/Chest Respiratory/Chest: Denies cough Gastrointestinal Gastrointestinal: Denies abdominal pain Genitourinary Genitourinary ED: Denies dysuria Musculoskeletal Musculoskeletal: Denies arthralgias Neurologic Neurologic: Denies headache(s) Psychiatric Psychiatric: Denies anxiety Endocrine Endocrinology: Denies polydipsia Hematologic/Lymphatic Hematologic/Lymphatic: Denies easy bleeding Allergic/Immunologic Allergic/Immunologic ED: Denies mouth swelling or urticaria EXAM Physical Exam Narrative Exam Narrative: Well-appearing 84-year-old male sitting upright in bed. Vital signs stable afebrile. No acute distress. H EENT exam appears Ramming Actilite. Expirations are intact. He is vision change in his left eye left upper field. No facial droop. Normal speech. Neck nontender. Lungs clear. Heart regular rhythm rate about 75 no murmur. Chest wall ribs nontender. Abdomen soft nontender. Moving all 4 extremities. 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 Dorsi plantarflexion intact. No drift. Neurologically he has decreased vision or loss of vision left upper eye field. Otherwise he has normal strength. Normal range of motion. No ataxia. Normal speech. His NIH is 1. Const Vital Signs: 12/06/24 11:40 12/06/24 12:17 12/06/24 12:26 Temperature 97.9 F Temperature Source Oral Pulse Rate 75 Respiratory Rate 18 Blood Pressure 124/98 H Blood Pressure Mean 106 Pulse Ox 98 Oxygen Delivery Method Room Air Room Air Room Air 12/06/24 12:30 12/06/24 13:00 12/06/24 13:30 Temperature Temperature Source Pulse Rate 58 L 55 L 51 L Respiratory Rate 23 H 23 H 18 Blood Pressure 147/56 H 132/57 H 139/58 H Blood Pressure Mean 83 82 83 Pulse Ox 99 98 98 Oxygen Delivery Method Room Air Room Air 12/06/24 14:00 12/06/24 14:30 12/06/24 15:00 Temperature Temperature Source Pulse Rate 50 L 50 L 49 L Respiratory Rate 19 H 22 H 20 H Blood Pressure 145/57 H 142/51 H 148/56 H Blood Pressure Mean 84 77 86 Pulse Ox 98 98 99 Oxygen Delivery Method Positive well developed; Negative for cachectic, contractures or unkempt General Appearance ED: well developed and NAD; Negative for unkempt, cachectic or contractures Nutritional Appearance: Negative for cachectic HEENT Reports moist mucous membranes atraumatic Eyes PERRL and EOMs intact bilaterally Eyes Narrative: Left eye upper field vision loss. General Eye ED: Negative for pale conjunctiva or scleral icterus Neck no lymphadenopathy, supple and no JVD Chest Wall inspection of chest normal and palpation of chest normal Resp normal respiratory effort and clear to auscultation bilaterally Cardio no murmurs Rate: regular rate Rhythm: regular rhythm GI normal to inspection, nondistended, normoactive bowel sounds, soft to palpation,non-tender, non-distended and no masses Auscultation: normoactive bowel sounds Back/Spine no CVA tenderness Extremity normal to inspection General Extremety ED: Negative for deformity, edema or tenderness General Extremity: Negative for deformity or edema Neuro oriented x3 and No CN's II-XII intact bilaterally Neuro Narrative: Left eye vision loss left upper field only. NIH is 1 only. Sensorium / Orientation: alert, oriented to person, oriented to place and oriented to time; Negative for orientation impaired or confused Speech: speech normal Motor Exam: strength 5/5 throughout Psych mental status grossly normal Appearance: Negative for unkempt Attitude: No agitated Mood & Affect: Negative for depressed, anxious or tearful Skin no wounds General Skin Exam: Negative for jaundice Lesions: no lesions Rashes: no rashes MDM MDM MDM Narrative Medical decision making narrative: 84-year-old male left upper field vision loss. Has a known retinal artery occlusion per ophthalmology. Sent here for further stroke workup. Otherwise his exam is benign. I think this is limited to his left eye only. He will go through a stroke workup. Repeat exam patient is doing well. No change in his exam. Given that he had a CTA of his head neck and there is a left subclavian clot I spoke to the hospitalist and vascular surgery. He will be admitted most likely started on anticoagulation. He was anticoagulated for prior stroke 6 years ago. History & Record Review Discussion w/independent historian: Patient Additional record(s) reviewed:: Prior inpatient record, Prior outpatient record,Prior ED visit and Prior labs Lab Data Attestation: I reviewed the patient's lab results. Lab results narrative: CBC shows a white count of 9.9. H&H 10.7 and 32. Platelets 224. Chemistry shows sodium 136. Gap 11. BUN 26 creatinine 1.7. Glucose 93. PT/INR 14 and 1. PTT 30. Troponin 12. Labs: Laboratory Results - last 24 hr 12/06/24 12/06/24 12/06/24 12:15 12:23 12:50 WBC 9.9 RBC 3.66 L Hgb 10.7 L Hct 32.4 L MCV 88.5 MCH 29.2 MCHC 33.0 RDW Std Deviation 45.6 H RDW Coeff of Jennifer 14.1 Plt Count 224 MPV 10.3 Immature Gran % (Auto) 0.300 Neut % (Auto) 79.3 H Lymph % (Auto) 11.5 L Hendricks % (Auto) 7.0 Eos % (Auto) 1.4 Baso % (Auto) 0.5 Absolute Neuts (auto) 7.9 H Absolute Lymphs (auto) 1.14 Nucleated RBC % 0 PT 14.2 INR 1.1 APTT 30.4 Sodium 136 Potassium 4.2 Chloride 104 Carbon Dioxide 21.2 Anion Gap 11 BUN 26 H Creatinine 1.77 H Estim Creat Clear Calc 36.88 L Est GFR (MDRD) Non-Af 37 L BUN/Creatinine Ratio 14.9 Glucose 93 Calcium 8.7 Troponin T High Sens 12 Radiography Diagnostic Testing: Clinical Impression(s) from Imaging Studies Brain CT 12/06/24 12:23 IMPRESSION: CHRONIC CHANGES. NO ACUTE FINDINGS. Red Alert: Chronic changes The critical information above was relayed directly by me by telephone to Ricardo Sinha on 12/06/2024 1:11 pm with readback verification. Reading Location: [facility]--1 Head/Neck CTA 12/06/24 12:23 IMPRESSION: Calcific plaques at the origin of both right and left internal carotid artery causing vwcbgbfryifzu49% stenosis. Calcific plaque at the origin of the left subclavian artery just proximal to theorigin of the left vertebral artery. Nonocclusive intraluminal filling defects seen in the subclavian artery at that site. Red Alert: 60 % stenosis bilat int carotids. Filling defect in Left subclavian. The critical information above was relayed directly by me by telephone to Ricardo Sinha on 12/06/2024 1:22 pm with readback verification. Reading Location: [facility]-1 Rhythm Strip Rhythm Strip: Sinus Rhythm Rate: 60 Ectopy: None EKG Initial EKG: Attestation: I personally reviewed and interpreted this EKG as follows: Interpretation: Sinus Rhythm and No Acute Injury Pattern Comments: Normal sinus rhythm rate of 60 no acute signs of [place] or ischemia. Discharge Plan Triage Chief Complaint: Neuro S/Sx ED Provider: Ricardo Sinha Dx/Rx/DC Orders Prescriptions: No Action furosemide 20 MG tablet 20 mg PO DAILY Patient Comments: DIURETIC atorvastatin 40 MG tablet 40 mg PO QHS Qty: 30 0RF Patient Comments: CHOLESTEROL LOWERING clopidogrel 75 MG tablet 75 mg PO DAILY Qty: 30 0RF Patient Comments: BLOOD THINNER lisinopril 5 MG tablet 15 mg PO DAILY Qty: 30 0RF Patient Comments: LOWERS BLOOD PRESSURE losartan 50 mg tablet 50 mg PO BID pravastatin 40 mg tablet 40 mg PO QHS levothyroxine 150 mcg tablet 150 mcg PO DAILY doxazosin 4 mg tablet 4 mg PO BID metoprolol succinate 25 mg tablet extended release 24 hr 25 mg PO DAILY Primary Care Provider: Dimitri Marie Referrals: Dimitri Marie MD [Primary Care Provider] - Print Language: Qatari What to do if you have Problems For any increased pain, shortness of breath, bleeding, nausea or vomiting, chestpain, or any unexpected problems, contact your Primary Care Provider. Call [facility] ([phone]) or report tothe closest Emergency Room. Call 911 if necessary. 12/06/24 1621 Cosigner Signature (if applicable): CC: Dr. Dimitri Marie MD ~ Signed [facility]06-11-2025 Radiology Diagnostic study note [facility] Imaging Services [address] [place] [address] STROKE CTA Head AND Neck W/Con MR#: [id number] Acct: [id number] Name: CARISSA GRUBER Rep #: [id number] : 1940 M 84 From: Shalom Fnug MD PCP: Dr. Dimitri Marie MD Status: R ER Study:STROKE CTA Head AND Neck W/Con Date of Exam: 12/06/24 Exam# [id number] Ordering Dr: Yolanda Sinha MD PROCEDURE: STROKE CTA HEAD AND NECK W/CON 12/06/2024 REASON FOR EXAM: NEURO DEFICIT, ACUTE, STROKE SUSPECTED TECHNIQUE: CTA imaging of the head and neck from the aortic arch to the skull vertex with out contrast and with intravenous contrast. Multiplanar and multisequence images were obtained. CONTRAST: Isovue-300 VOLUME: 100 mL One or more dose reduction techniques were used (e.g., Automated exposure control, adjustment of the mA and/or kV according to patient size, use of iterative reconstruction technique). RADIATION DOSE SUMMARY: CTDlvol: 24 mGy DLP: 732.75 mGycm COMPARISON: None FINDINGS: Aortic Arch: Normal size and branching pattern. Mild atherosclerotic plaque. Brachiocephalic and Subclavians: Mild atherosclerotic plaque. Significant stenosis at the origin ofthe left subclavian artery. An intraluminal filling defect is seen at the origin of the left subclavian artery adjacent to the origin of the left vertebral artery. RIGHT Carotid: Right CCA: Unremarkable Right ICA: Moderate calcified and soft plaque. Maximum stenosis (NASCET): 60 % Right ECA: Unremarkable LEFT Carotid: Left CCA: Moderate calcified and soft plaque. Left ICA: Moderate calcified and soft plaque. Maximum stenosis (NASCET): 60 % Left ECA: Unremarkable Vertebrals: Codominant. Arise from the subclavians. Both vertebrals form the basilar. RIGHT Vertebral: Unremarkable. LEFT Vertebral: Calcific plaques. Anatomy: [place] of Marie anatomy is normal. Aneurysm or avm: No intracranial aneurysms or large vascular malformations are identified. Anterior cerebral arteries: Unremarkable: Middle cerebral arteries: Unremarkable. Basilar artery: Unremarkable. Posterior cerebral arteries: Unremarkable. Other major branches of the posterior circulation: Unremarkable. Major venous structures: Unremarkable. Other findings: Neck: Lungs: Bones: CT/STROKE CTA Head AND Neck W/Con IMPRESSION: Calcific plaques at the origin of both right and left internal carotid artery causing aoukwzjpvgwbo38% stenosis. Calcific plaque at the origin of the left subclavian artery just proximal to theorigin of the left vertebral artery. Nonocclusive intraluminal filling defects seen in the subclavian artery at that site. Red Alert: 60 % stenosis bilat int carotids. Filling defect in Left subclavian. The critical information above was relayed directly by me by telephone to Ricardo Sinha on 12/06/2024t 1:22 pm with readback verification. Reading Location: [facility]-IR-1 CC: Dr. Ricardo Sinha MD; Dr. Dimitri Marie MD ~ Adult Education Instructor: Signed [facility]06-11-2025 Radiology Diagnostic study note [facility] Imaging Services [address] [place], [place] [id number] STROKE Brain/Head without Cont MR#: [id number] Acct: [id number] Name: CARISSA GRUBER Rep #: [id number] : 1940 M 84 From: Shalom Fung MD PCP: Dr. Dimitri Marie MD Status: R EG ER Study:STROKE Brain/Head without Cont Date of Exam: 12/06/24 Exam# [id number] Ordering Dr: Yolanda Sinha MD PROCEDURE: STROKE BRAIN/HEAD WITHOUT CONT 12/06/2024 REASON FOR EXAM: NEURO DEFICIT, ACUTE, STROKE SUSPECTED TECHNIQUE: Head CT without intravenous contrast. Coronal and Sagittal reconstruction serieswere provided. One or more dose reduction techniques were used (e.g., Automated exposure control, adjustment of the mA and/or kV according to patient size, use of iterative reconstruction technique. RADIATION DOSE SUMMARY: CTDlvol: 44.99 mGy DLP: 829.85 mGycm COMPARISON: None FINDINGS: Brain: Low density in the periventricular white matter suggests mild chronic small vessel ischemic changes. Atherosclerotic calcification of the vertebral arteries and cavernous portions of the internal carotid arteries bilaterally. CSF Spaces: Mild generalized cerebral atrophy Sinuses/Mastoids: Clear at visualized levels Bones: Unremarkable. CT/STROKE Brain/Head without Cont IMPRESSION: CHRONIC CHANGES. NO ACUTE FINDINGS. Red Alert: Chronic changes The critical information above was relayed directly by me by telephone to Ricardo Sihna on 12/06/2024t 1:11 pm with readback verification. Reading Location: [place] [address] CC: Dr. Ricardo Sinha MD; Dr. Dimitri Marie MD ~ Adult Education Instructor: Signed [facility]06-11-2025 Telephone encounter Note* Telephone Encounter - Dimitri Marie MD - 12/06/2024 10:04 AM EDT Patient walked in with acute vision change this morning, asking about a CT scan to check his optic nerve. I recommended he go to the ER or see his eye doctor stat. He will go to [facility]. [facility]06-11-2025 Miscellaneous Notes* Telephone Encounter - Dimitri Marie MD - 12/06/2024 10:04 AM EDT Patient walked in with acute vision change this morning, asking about a CT scan to check his optic nerve. I recommended he go to the ER or see his eye doctor stat. He will go to [facility]. * Telephone Encounter - Sherri Myers LPN - 12/06/2024 8:59 AM EDT Patient came into the office, losing vision in left eye. Sherri Myers LPN [facility] Telephone encounter Note * Telephone Encounter - Sherri Myers LPN - 12/06/2024 8:59 AM EDT Patient came into the office, losing vision in left eye. Sherri Myers LPN [facility]05-05-2025 Telephone encounter Note* Telephone Encounter - Deepali Cortez PSS - 10/30/2024 8:20 AM EDT Prescription Refill Information The patient has been identified by name and date of : Yes Caregiver verified no other encounters exist for this prescription request: Yes Caregiver confirmed with patient/requestor that no other refills are due, in the near future, with this provider at this time: Yes The last office visit in the department: 04/06/2024 Does the patient have a future office visit with this provider/department: Yes Requested Prescriptions Pending Prescriptions Disp Refills losartan (COZAAR) 50 mg tablet 180 tablet 3 Sig: Take 1 tablet by mouth two times a day. SUKUMAR Martinez October 30, 2024 8:20 AM [facility]05-05-2025 Miscellaneous Notes* Telephone Encounter - Deepali Cortez PSS - 10/30/2024 8:20 AM EDT Prescription Refill Information The patient has been identified by name and date of : Yes Caregiver verified no other encounters exist for this prescription request: Yes Caregiver confirmed with patient/requestor that no other refills are due, in the near future, with this provider at this time: Yes The last office visit in the department: 04/06/2024 Does the patient have a future office visit with this provider/department: Yes Requested Prescriptions Pending Prescriptions Disp Refills losartan (COZAAR) 50 mg tablet 180 tablet 3 Sig: Take 1 tablet by mouth two times a day. SUKUMAR Martinez October 30, 2024 8:20 AM documented [facility] Telephone encounter Note * Telephone Encounter - Berenice Muller RN - 10/11/2024 9:22 AM EDT Patient requesting refills as follows: Requested Prescriptions Pending Prescriptions Disp Refills metoprolol succinate ER (TOPROL XL) 25 mg 24 hr tablet 90 tablet 3 Sig: Take 1 tablet by mouth once daily. Please review and advise. Berenice Muller RN [facility]04-16-2025 Miscellaneous Notes* Telephone Encounter - Berenice Muller RN - 10/11/2024 9:22 AM EDT Patient requesting refills as follows: Requested Prescriptions Pending Prescriptions Disp Refills metoprolol succinate ER (TOPROL XL) 25 mg 24 hr tablet 90 tablet 3 Sig: Take 1 tablet by mouth once daily. Please review and advise. Berenice Muller RN documented in [facility] Telephone encounter Note * Telephone Encounter - Deepali Cortez PSS - 09/11/2024 9:51 AM EDT Prescription Refill Information The patient has been identified by name and date of : Yes Caregiver verified no other encounters exist for this prescription request: Yes Caregiver confirmed with patient/requestor that no other refills are due, in the near future, with this provider at this time: Yes The last office visit in the department: 04/06/2024 Does the patient have a future office visit with this provider/department: Yes Requested Prescriptions Pending Prescriptions Disp Refills levothyroxine (SYNTHROID) 150 mcg tablet 90 tablet 3 Sig: Take 1 tablet by mouth once daily. Take on empty stomach. For thyroid amLODIPine (NORVASC) 5 mg tablet 90 tablet 1 Sig: Take 1 tablet by mouth once daily. SUKUMAR Martinez September 11, 2024 9:51 AM [facility]03-17-2025 Miscellaneous Notes* Telephone Encounter - Deepali Cortez PSS - 09/11/2024 9:51 AM EDT Prescription Refill Information The patient has been identified by name and date of : Yes Caregiver verified no other encounters exist for this prescription request: Yes Caregiver confirmed with patient/requestor that no other refills are due, in the near future, with this provider at this time: Yes The last office visit in the department: 04/06/2024 Does the patient have a future office visit with this provider/department: Yes Requested Prescriptions Pending Prescriptions Disp Refills levothyroxine (SYNTHROID) 150 mcg tablet 90 tablet 3 Sig: Take 1 tablet by mouth once daily. Take on empty stomach. For thyroid amLODIPine (NORVASC) 5 mg tablet 90 tablet 1 Sig: Take 1 tablet by mouth once daily. SUKUMAR Martinez September 11, 2024 9:51 AM documented in [facility] Telephone encounter Note * Telephone Encounter - Evita Aldridge - 05/01/2024 9:02 AM EST Prescription Refill Information The patient has been identified by name and date of : Yes Caregiver verified no other encounters exist for this prescription request: Yes Caregiver confirmed with patient/requestor that no other refills are due, in the near future, with this provider at this time: Yes The last office visit in the department: 04/06/2024 Does the patient have a future office visit with this provider/department: No Requested Prescriptions Pending Prescriptions Disp Refills doxazosin (CARDURA) 4 mg tablet 180 tablet 3 Sig: Take 1 tablet by mouth two times a day. Evita Aldridge May 01, 2024 9:03 AM [facility]11-04-2024 Miscellaneous Notes* Telephone Encounter - Evita Aldridge - 05/01/2024 9:02 AM EST Prescription Refill Information The patient has been identified by name and date of : Yes Caregiver verified no other encounters exist for this prescription request: Yes Caregiver confirmed with patient/requestor that no other refills are due, in the near future, with this provider at this time: Yes The last office visit in the department: 04/06/2024 Does the patient have a future office visit with this provider/department: No Requested Prescriptions Pending Prescriptions Disp Refills doxazosin (CARDURA) 4 mg tablet 180 tablet 3 Sig: Take 1 tablet by mouth two times a day. Evita Aldridge May 01, 2024 9:03 AM documented in this encounter[facility]10-[facility]-2024 NoteHNO ID: [id number] Author: DIMITRI MARIE MD Service: ? Author Type: Physician Type: Progress Notes Filed: 04/06/2024 12:18 Note Text: This note was created using HALKAR. Subjective Carissa Gruber is a 83 year old male. He felt well. He just saw cardiology and no changes were made. He had a bandage on his chest. Sara Nair biopsied skin cancer and recommended more surgery in [place], but he was planning call a local surgeon. He was not aware of the specifics of the cancer or recommended procedure. Review of Systems Constitutional: Negative for fatigue and fever. Respiratory: Negative for cough and shortness of breath. Cardiovascular: Negative for chest pain, palpitations and leg swelling. Skin: Positive for wound. Neurological: Negative for dizziness and headaches. Psychiatric/Behavioral: Negative for dysphoric mood. The patient is not nervous/anxious. ACTIVE PROBLEM LIST Essential Hypertension, Benign Mixed Hyperlipidemia Vitamin D Deficiency Family History of Malignant Neoplasm of Gastrointestinal Tract Personal History of Colonic Polyps Venous Insufficiency Chronic Cough Acquired Hypothyroidism Actinic Keratoses Chronic Kidney Disease, Stage Iii (Moderate) (Hcc) Paroxysmal Svt (Supraventricular Tachycardia) (Hcc) Vt (Ventricular Tachycardia) (Hcc) Paredes (Dyspnea On Exertion) Hypertensive Kidney Disease With Stage 3 Chronic Kidney Disease (Hcc) Sinus Bradycardia Acquired complex cyst of kidney, left Bladder Retention of Urine Obesity, Class II, Bmi 35-39.9 Social History Tobacco Use Smoking status: Former Types: Pipe Smokeless tobacco: Never Substance Use Topics Alcohol use: Yes Comment: rare beer Drug use: No Current Outpatient Medications Medication Sig doxazosin (CARDURA) 4 mg tablet Take 1 tablet by mouth two times a day. amLODIPine (NORVASC) 5 mg tablet Take 1 tablet by mouth once daily. pravastatin (PRAVACHOL) 40 mg tablet Take 1 tablet by mouth daily at bedtime. For cholesterol. levothyroxine (SYNTHROID) 150 mcg tablet Take 1 tablet by mouth once daily. Take on empty stomach. For thyroid losartan (COZAAR) 50 mg tablet Take 1 tablet by mouth two times a day. metoprolol succinate ER (TOPROL XL) 25 mg 24 hr tablet Take 1 tablet by mouth once daily. aspirin, enteric coated 325 mg EC tablet Take 1 tablet by mouth once daily. with food. Cholecalciferol, Vitamin D3, 1,000 unit ORAL Tab Take by mouth once daily. ascorbic acid(VITAMIN C 500 MG TAB) Take one(1) tablet daily. COMPOUNDED PRESCRIPTION Vit E 400IU daily multivitamin (ONE DAILY MULTIVITAMIN) tablet Take 1 tablet by mouth once daily. (Patient not taking: Reported on 04/06/2024) No current facility-administered medications for this visit. Objective BP 122/50 (BP Site: Left Arm, BP Position: Sitting, BP Cuff Size: Large Adult) Pulse (!) 48 Temp 36.4 ?C (97.6 ?F) Resp 18 Wt 107.5 kg (236 lb 15.9 oz) BMI 34.01 kg/m? Physical Exam Constitutional: General: He is not in acute distress. HENT: Head: Normocephalic. Eyes: Conjunctiva/sclera: Conjunctivae normal. Cardiovascular: Rate and Rhythm: Regular rhythm. Bradycardia present. Heart sounds: No murmur heard. No gallop. Pulmonary: Breath sounds: Normal breath sounds. Chest: Comments: Bandage of the upper sternum. Musculoskeletal: Right lower leg: No edema. Left lower leg: No edema. Neurological: Mental Status: He is alert. Test results pertinent to today's visit were reviewed and discussed with the patient. Assessment and Plan 1. Personal history of skin cancer - ICD9: V10.83, ICD10: Z85.828 (primary diagnosis) - Details TBD. Request records. He was encouraged to work with Sara Nair on referrals. If he sees a local surgeon, he will call for referral if needed. 2. Need for influenza vaccination - ICD9: V04.81, ICD10: Z23 - INFLUENZA VACCINE, PRSV FREE, AGE 65+ YR, HIGH DOSE, TRIVALENT (FLUZONE HIGH-DOSE) 3. Essential hypertension, benign - ICD9: 401.1, ICD10: I10 - Controlled - Continue current medications - COMPLETE BLOOD COUNT 4. Mixed hyperlipidemia - ICD9: 272.2, ICD10: E78.2 - Controlled - Continue current medications - COMPREHENSIVE METABOLIC PANEL - LIPID PANEL BASIC 5. Acquired hypothyroidism - ICD9: 244.9, ICD10: E03.9 - continue current dose of Synthroid. - THYROID STIMULATING HORMONE 6. Sinus bradycardia - ICD9: 427.89, ICD10: R00.1 - Stable. 7. Screening for depression - ICD9: V79.0, ICD10: Z13.31 - DEPRESSION SCREENING 8. Encounter for screening examination for other mental health and behavioral disorders - ICD9: V79.8, ICD10: Z13.39 - ANXIETY SCREENING Dimitri Marie [facility]10-10-2024 History of Present illness Narrative* Dimitri Marie MD - 04/06/2024 11:42 AM EDT This note was created using NoteWriter. Subjective Carissa Gruber is a 83 year old male. He felt well. He just saw cardiology and no changes were made. He had a bandage on his chest. Sara Nair biopsied skin cancer and recommended more surgery in [place], but he was planning call a local surgeon. He was not aware of the specifics of the cancer orrecommended procedure. Review of Systems Constitutional: Negative for fatigue and fever. Respiratory: Negative for cough and shortness of breath. Cardiovascular: Negative for chest pain, palpitations and leg swelling. Skin: Positive for wound. Neurological: Negative for dizziness and headaches. Psychiatric/Behavioral: Negative for dysphoric mood. The patient is not nervous/anxious. ACTIVE PROBLEM LIST Essential Hypertension, Benign Mixed Hyperlipidemia Vitamin D Deficiency Family History of Malignant Neoplasm of Gastrointestinal Tract Personal History of Colonic Polyps Venous Insufficiency Chronic Cough Acquired Hypothyroidism Actinic Keratoses Chronic Kidney Disease, Stage Iii (Moderate) (Hcc) Paroxysmal Svt (Supraventricular Tachycardia) (Hcc) Vt (Ventricular Tachycardia) (Hcc) Paredes (Dyspnea On Exertion) Hypertensive Kidney Disease With Stage 3 Chronic Kidney Disease (Hcc) Sinus Bradycardia Acquired complex cyst of kidney, left Bladder Retention of Urine Obesity, Class II, Bmi 35-39.9 Social History Tobacco Use Smoking status: Former Types: Pipe Smokeless tobacco: Never Substance Use Topics Alcohol use: Yes Comment: rare beer Drug use: No Current Outpatient Medications Medication Sig doxazosin (CARDURA) 4 mg tablet Take 1 tablet by mouth two times a day. amLODIPine (NORVASC) 5 mg tablet Take 1 tablet by mouth once daily. pravastatin (PRAVACHOL) 40 mg tablet Take 1 tablet by mouth daily at bedtime. For cholesterol. levothyroxine (SYNTHROID) 150 mcg tablet Take 1 tablet by mouth once daily. Take on empty stomach. For thyroid losartan (COZAAR) 50 mg tablet Take 1 tablet by mouth two times a day. metoprolol succinate ER (TOPROL XL) 25 mg 24 hr tablet Take 1 tablet by mouth once daily. aspirin, enteric coated 325 mg EC tablet Take 1 tablet by mouth once daily. with food. Cholecalciferol, Vitamin D3, 1,000 unit ORAL Tab Take by mouth once daily. ascorbic acid(VITAMIN C 500 MG TAB) Take one(1) tablet daily. COMPOUNDED PRESCRIPTION Vit E 400IU daily multivitamin (ONE DAILY MULTIVITAMIN) tablet Take 1 tablet by mouth once daily. (Patient not taking: Reported on 04/06/2024) No current facility-administered medications for this visit. Objective BP 122/50 (BP Site: Left Arm, BP Position: Sitting, BP Cuff Size: Large Adult) Pulse (!) 48 Temp 36.4 C (97.6 F) Resp 18 Wt 107.5 kg (236 lb 15.9 oz) BMI 34.01 kg/m Physical Exam Constitutional: General: He is not in acute distress. HENT: Head: Normocephalic. Eyes: Conjunctiva/sclera: Conjunctivae normal. Cardiovascular: Rate and Rhythm: Regular rhythm. Bradycardia present. Heart sounds: No murmur heard. No gallop. Pulmonary: Breath sounds: Normal breath sounds. Chest: Comments: Bandage of the upper sternum. Musculoskeletal: Right lower leg: No edema. Left lower leg: No edema. Neurological: Mental Status: He is alert. Test results pertinent to today's visit were reviewed and discussed with the patient. Assessment and Plan 1. Personal history of skin cancer - ICD9: V10.83, ICD10: Z85.828 (primary diagnosis) - Details TBD. Request records. He was encouraged to work with [employer] [facility] on referrals. If he sees a local surgeon, he will call for referral if needed. 2. Need for influenza vaccination - ICD9: V04.81, ICD10: Z23 - INFLUENZA VACCINE, PRSV FREE, AGE 65+ YR, HIGH DOSE, TRIVALENT (FLUZONE HIGH-DOSE) 3. Essential hypertension, benign - ICD9: 401.1, ICD10: I10 - Controlled - Continue current medications - COMPLETE BLOOD COUNT 4. Mixed hyperlipidemia - ICD9: 272.2, ICD10: E78.2 - Controlled - Continue current medications - COMPREHENSIVE METABOLIC PANEL - LIPID PANEL BASIC 5. Acquired hypothyroidism - ICD9: 244.9, ICD10: E03.9 - continue current dose of Synthroid. - THYROID STIMULATING HORMONE 6. Sinus bradycardia - ICD9: 427.89, ICD10: R00.1 - Stable. 7. Screening for depression - ICD9: V79.0, ICD10: Z13.31 - DEPRESSION SCREENING 8. Encounter for screening examination for other mental health and behavioral disorders - ICD9: V79.8, ICD10: Z13.39 - ANXIETY SCREENING Dimitri Marie MD [facility] History of Present illness Narrative* Gurwinder Ayala MD - 04/03/2024 9:40 AM EDT Images from the original note were not included. [facility] SE[facility]IONAL CARDIOLOGY Cardiology ([facility]) [address] [facility] [id number] OUTPATIENT VISIT DATE 04/03/2024 PRIMARY CARE PHYSICIAN: Dimitri Marie [address] [place] [address] REFERRING PHYSICIAN: Dimitri Marie [address] [facility] [id number] HISTORY OF PRESENT ILLNESS: Mr. Gruber is a 83 year old gentleman with a history of hypertension, dyslipidemia, chronic kidneydisease, prior smoker who presents for follow-up. Patient is complaining of dizziness that seems toonly occur when he is lying in bed and turns from [id number]. He denies a feeling of room spinning. He seems to do well from a functional standpoint. He has been going to the gym to exercise. He has had no decline in his functional capacity. He denies symptoms concerning for congestive heart failure including PND, orthopnea, or lower extremity edema. PAST MEDICAL HISTORY Diagnosis Date Acquired hypothyroidism 04/28/2016 CKD (chronic kidney disease) stage 3, GFR 30-59 ml/min ([facility]) 12/03/2017 Complication of anesthesia Diverticulosis of colon Diverticulosis of colon (without mention of hemorrhage) Essential hypertension, benign 04/02/2005 Family history of malignant neoplasm of gastrointestinal tract Hyperlipidemia Malignant neoplasm of thyroid gland (HCC) Osteolytic lesion 09/13/2009 Personal history of colonic polyps Snoring Stroke (HCC) Venous insufficiency 03/16/2013 Vitamin D deficiency PAST SURGICAL HISTORY Procedure Laterality Date COLONOSCOPY FLX DX W/COLLJ SPEC WHEN PFRMD 04/07/10 COLONOSCOPY FLX DX W/COLLJ SPEC WHEN PFRMD 03/25/15 Colonoscopy PAST SURGICAL HISTORY OF L finger THYROIDECTOMY TOTAL/COMPLETE 08/04/04 total TONSILLECTOMY PRIMARY/SECONDARY <AGE 10 Tonsillectomy SOCIAL HISTORY Social History Tobacco Use Smoking status: Former Types: Pipe Smokeless tobacco: Never Substance Use Topics Alcohol use: Yes Comment: rare beer Drug use: No FAMILY HISTORY Problem Relation Age of Onset Heart Mother Thyroid Mother Colon Cancer Father ALLERGIES: ALLERGIES Allergen Reactions Creatine Rash, hives, proven on rechallenge on 2 occasions, occurred after 49, then 19, then 10 days of supplementation Sulfa (Sulfonamide * MEDICATIONS: amLODIPine (NORVASC) 5 mg tablet Take 1 tablet by mouth once daily. pravastatin (PRAVACHOL) 40 mg tablet Take 1 tablet by mouth daily at bedtime. For cholesterol. levothyroxine (SYNTHROID) 150 mcg tablet Take 1 tablet by mouth once daily. Take on empty stomach. For thyroid losartan (COZAAR) 50 mg tablet Take 1 tablet by mouth two times a day. multivitamin (ONE DAILY MULTIVITAMIN) tablet Take 1 tablet by mouth once daily. metoprolol succinate ER (TOPROL XL) 25 mg 24 hr tablet Take 1 tablet by mouth once daily. aspirin, enteric coated 325 mg EC tablet Take 1 tablet by mouth once daily. with food. Cholecalciferol, Vitamin D3, 1,000 unit ORAL Tab Take by mouth once daily. ascorbic acid(VITAMIN C 500 MG TAB) Take one(1) tablet daily. COMPOUNDED PRESCRIPTION Vit E 400IU daily doxazosin (CARDURA) 4 mg tablet Take 1 tablet by mouth two times a day. REVIEW OF SYSTEMS: Review of Systems Constitutional: Negative for chills, fever, malaise/fatigue and weight loss. HENT: Negative for hearing loss and sore throat. Eyes: Negative for blurred vision and double vision. Respiratory: Negative for shortness of breath. Cardiovascular: Positive for palpitations. Negative for chest pain, orthopnea, claudication, leg swelling and PND. Gastrointestinal: Negative. Genitourinary: Negative for dysuria, frequency, hematuria and urgency. Musculoskeletal: Negative. Skin: Negative. Neurological: Negative for dizziness, seizures, loss of consciousness, weakness and headaches. Endo/Heme/Allergies: Negative for environmental allergies. Does not bruise/bleed easily. Psychiatric/Behavioral: Negative for depression. PHYSICAL EXAMINATION: BP 115/56 Pulse 57 Wt 238 lb (108.0kg) SpO2 95% General: Very pleasant gentleman sitting appears comfortable no apparent distress. He is alert and oriented x3 HEENT: Carotid upstrokes are brisk bilateral without bruits no JVD appreciated. There is no periorbital xanthelasma or corneal arcus senilis noted. Pulmonary: Lungs are clear no rales, wheezes, rhonchi Cardiovascular: Normal S1, S2 with regular rate and rhythm. Positive S4 without murmurs, or rubs. Extremities: Warm, well-perfused, radial pulses are 2+ and symmetric. Significant skin changes of the lower extremity right greater than left consistent with chronic venous stasis. Dorsalis pedis andposterior tibial pulses are 1-2+ and symmetric bilaterally. CARDIOVASCULAR MEDICINE TESTING: Treadmill Myoview Stress 05/25/2022: 1. SPECT Perfusion Study: Normal. 2. There is no scintigraphic evidence for inducible ischemia. 3. No evidence of scarred myocardium. 4. Left ventricle is normal in size. The left ventricle systolic function is hyperdynamic. 5. Right ventricle is normal in size. The right ventricle systolic function is normal. 6. This is a low risk scan. Gated Stress FBP Gated Rest FBP LVEF % 77 73 Echocardiogram 11/03/2021: - The left ventricle is normal in size. Left ventricular systolic function is normal. EF = 67 5% (2D biplane) Indeterminate left ventricular diastolic dysfunction. - The right ventricle is normal in size. Right ventricular systolic function is normal. - AV sclerosis. - Exam was compared with the prior CC echocardiographic exam performed on 09/03/2009, no significant change. Zio Monitor 10/20/2021: Patient had a min HR of 36 bpm, max HR of 167 bpm, and avg HR of 50 bpm. Predominant underlying rhythm was Sinus Rhythm. First Degree AV Block was present. 2 Ventricular Tachycardia runs occurred, the run with the fastest interval lasting 13 beats with a max rate of 167 bpm (avg 144 bpm); the run with the fastest interval was also the longest. 12 Supraventricular Tachycardia runs occurred, the run with the fastest interval lasting 8 beats with a max rate of 150 bpm, the longest lasting 11 beats with an avg rate of 101 bpm. Some episodes of Supraventricular Tachycardia may be possible Atrial Tachycardia with variable block. Isolated SVEs were rare (<1.0%), SVE Couplets were rare (<1.0%), and SVE Triplets were rare (<1.0%). Isolated VEs were rare (<1.0%), VE Couplets were rare (<1.0%), and no VE Triplets were present. Ventricular Bigeminy and Trigeminy were present. I have personally reviewed the Electrocardiogram, Laboratory Testing, and Echocardiogram. IMPRESSION: Mr. Gruber is a 83 year old gentleman with risk factors for coronary disease which include age, hypertension, dyslipidemia, prior significant smoking history, and family history of coronary artery disease (although not premature age of onset) who presents for follow-up for SVT/VT noted on Holter monitor. PLAN AND RECOMMENDATIONS: 1. VT (ventricular tachycardia) (HCC) - ICD9: 427.1, ICD10: I47.20 (primary diagnosis) Patient doing well without symptoms concerning for angina. Continue current medical therapy and risk factor modification 2. Paroxysmal SVT (supraventricular tachycardia) (HCC) - ICD9: 427.0, ICD10: I47.10 3. Essential hypertension, benign - ICD9: 401.1, ICD10: I10 Adequate controlled on current regimen - DOXAZOSIN 4 MG TABLET 4. Mixed hyperlipidemia - ICD9: 272.2, ICD10: E78.2 Maintained on pravastatin 40 mg daily. Fasting blood work from September 2023 was reviewed LDL cholesterol 65 mg/dL 5. Sinus bradycardia - ICD9: 427.89, ICD10: R00.1 6. Bladder retention of urine - ICD9: 788.20, ICD10: R33.9 - DOXAZOSIN 4 MG TABLET Gurwinder Ayala MD documented in this encounter[facility] NoteHNO ID: [id number] Author: GURWINDER AYALA MD Service: ? Author Type: Physician Type: Progress Notes Filed: 04/03/2024 09:19 Note Text: [facility] SE[facility]IONAL CARDIOLOGY Cardiology ([facility]) [address] [id number] OUTPATIENT VISIT DATE 04/03/2024 PRIMARY CARE PHYSICIAN: Dimitri Marie [address] [place] [id number] REFERRING PHYSICIAN: Dimitri Marie [address] [place] [id number] HISTORY OF PRESENT ILLNESS: Mr. Gruber is a 83 year old gentleman with a history of hypertension, dyslipidemia, chronic kidney disease, prior smoker who presents for follow-up. Patient is complaining of dizziness that seems to only occur when he is lying in bed and turns from [id number]. He denies a feeling of room spinning. He seems to do well from a functional standpoint. He has been going to the gym to exercise. He has had no decline in his functional capacity. He denies symptoms concerning for congestive heart failure including PND, orthopnea, or lower extremity edema. PAST MEDICAL HISTORY Diagnosis Date Acquired hypothyroidism 04/28/2016 CKD (chronic kidney disease) stage 3, GFR 30-59 ml/min ([facility]) 12/03/2017 Complication of anesthesia Diverticulosis of colon Diverticulosis of colon (without mention of hemorrhage) Essential hypertension, benign 04/02/2005 Family history of malignant neoplasm of gastrointestinal tract Hyperlipidemia Malignant neoplasm of thyroid gland (HCC) Osteolytic lesion 09/13/2009 Personal history of colonic polyps Snoring Stroke (HCC) Venous insufficiency 03/16/2013 Vitamin D deficiency PAST SURGICAL HISTORY Procedure Laterality Date COLONOSCOPY FLX DX W/COLLJ SPEC WHEN PFRMD 04/07/10 COLONOSCOPY FLX DX W/COLLJ SPEC WHEN PFRMD 03/25/15 Colonoscopy PAST SURGICAL HISTORY OF L finger THYROIDECTOMY TOTAL/COMPLETE 08/04/04 total TONSILLECTOMY PRIMARY/SECONDARY Tonsillectomy SOCIAL HISTORY Social History Tobacco Use Smoking status: Former Types: Pipe Smokeless tobacco: Never Substance Use Topics Alcohol use: Yes Comment: rare beer Drug use: No FAMILY HISTORY Problem Relation Age of Onset Heart Mother Thyroid Mother Colon Cancer Father ALLERGIES: ALLERGIES Allergen Reactions Creatine Rash, hives, proven on rechallenge on 2 occasions, occurred after 47, then 19, then 10 days of supplementation Sulfa (Sulfonamide * MEDICATIONS: amLODIPine (NORVASC) 5 mg tablet Take 1 tablet by mouth once daily. pravastatin (PRAVACHOL) 40 mg tablet Take 1 tablet by mouth daily at bedtime. For cholesterol. levothyroxine (SYNTHROID) 150 mcg tablet Take 1 tablet by mouth once daily. Take on empty stomach. For thyroid losartan (COZAAR) 50 mg tablet Take 1 tablet by mouth two times a day. multivitamin (ONE DAILY MULTIVITAMIN) tablet Take 1 tablet by mouth once daily. metoprolol succinate ER (TOPROL XL) 25 mg 24 hr tablet Take 1 tablet by mouth once daily. aspirin, enteric coated 325 mg EC tablet Take 1 tablet by mouth once daily. with food. Cholecalciferol, Vitamin D3, 1,000 unit ORAL Tab Take by mouth once daily. ascorbic acid(VITAMIN C 500 MG TAB) Take one(1) tablet daily. COMPOUNDED PRESCRIPTION Vit E 400IU daily doxazosin (CARDURA) 4 mg tablet Take 1 tablet by mouth two times a day. REVIEW OF SYSTEMS: Review of Systems Constitutional: Negative for chills, fever, malaise/fatigue and weight loss. HENT: Negative for hearing loss and sore throat. Eyes: Negative for blurred vision and double vision. Respiratory: Negative for shortness of breath. Cardiovascular: Positive for palpitations. Negative for chest pain, orthopnea, claudication, leg swelling and PND. Gastrointestinal: Negative. Genitourinary: Negative for dysuria, frequency, hematuria and urgency. Musculoskeletal: Negative. Skin: Negative. Neurological: Negative for dizziness, seizures, loss of consciousness, weakness and headaches. Endo/Heme/Allergies: Negative for environmental allergies. Does not bruise/bleed easily. Psychiatric/Behavioral: Negative for depression. PHYSICAL EXAMINATION: BP 115/56 Pulse 57 Wt 238 lb (108.0kg) SpO2 95% General: Very pleasant gentleman sitting appears comfortable no apparent distress. He is alert and oriented x3 HEENT: Carotid upstrokes are brisk bilateral without bruits no JVD appreciated. There is no periorbital xanthelasma or corneal arcus senilis noted. Pulmonary: Lungs are clear no rales, wheezes, rhonchi Cardiovascular: Normal S1, S2 with regular rate and rhythm. Positive S4 without murmurs, or rubs. Extremities: Warm, well-perfused, radial pulses are 2+ and symmetric. Significant skin changes of the lower extremity right greater than left consistent with chronic venous stasis. Dorsalis pedis and posterior tibial pulses are 1-2+ and symmetric bilaterally. CARDIOVAS (more content not included)...[facility]07-18-2024 Telephone encounter Note* Telephone Encounter - Evita Aldridge - 01/13/2024 10:27 AM EDT Prescription Refill Information The patient has been identified by name and date of : Yes Caregiver verified no other encounters exist for this prescription request: Yes Caregiver confirmed with patient/requestor that no other refills are due, in the near future, with this provider at this time: Yes The last office visit in the department: [id number] Does the patient have a future office visit with this provider/department: Yes Requested Prescriptions Pending Prescriptions Disp Refills pravastatin (PRAVACHOL) 40 mg tablet 90 tablet 3 Sig: Take 1 tablet by mouth daily at bedtime. For cholesterol. Evita Aldridge January 13, 2024 10:28 AM [facility]07-[facility] Miscellaneous Notes* Telephone Encounter - Evita Aldridge - 01/13/2024 10:27 AM EDT Prescription Refill Information The patient has been identified by name and date of : Yes Caregiver verified no other encounters exist for this prescription request: Yes Caregiver confirmed with patient/requestor that no other refills are due, in the near future, with this provider at this time: Yes The last office visit in the department: [id number] Does the patient have a future office visit with this provider/department: Yes Requested Prescriptions Pending Prescriptions Disp Refills pravastatin (PRAVACHOL) 40 mg tablet 90 tablet 3 Sig: Take 1 tablet by mouth daily at bedtime. For cholesterol. Evita Aldridge January 13, 2024 10:28 AM documented in this encounter[facility]06-[facility] Telephone encounter Note * Telephone Encounter - Frank Holley MA - 11/30/2023 1:12 PM EDT Only contact number listed is no longer in service. Unable to reach letter mailed to pt. Please update contact information if pt returns call. [facility] Miscellaneous Notes* Telephone Encounter - Frank Holley MA - 11/30/2023 1:12 PM EDT Only contact number listed is no longer in service. Unable to reach letter mailed to pt. Please update contact information if pt returns call. * Telephone Encounter - Frank Holley MA - 11/30/2023 12:26 PM EDT ----- Message from Isela Patel APRN.CNP sent at 11/29/2023 3:15 PM EDT ----- Please let the patient know TSH is closer to normal however still indicating he is not getting enough thyroid medication, recommend increasing the dose. He should take an extra 1/2 tablet one day a week. Repeat thyroid labs in 3 months Isela Patel APRN.SYSTEMS PROGRAM MANAGER documented in this encounterSelect [facility]06-[facility]-2024 Telephone encounter Note * Telephone Encounter - Frank Holley MA - 11/30/2023 12:26 PM EDT ----- Message from Isela Patel APRN.CNP sent at 11/29/2023 3:15 PM EDT ----- Please let the patient know TSH is closer to normal however still indicating he is not getting enough thyroid medication, recommend increasing the dose. He should take an extra 1/2 tablet one day a week. Repeat thyroid labs in 3 months Isela Patel APRN.SYSTEMS PROGRAM MANAGER [facility]04-10-[facility] Instructions* Patient Instructions* Isela Patel APRN.CNP - 10/06/2023 10:12 AM EDT [facility] [phone] Screening schedule The following prevention plan is recommended: DTaP,Tdap,Td Vaccine(1 - Tdap) Never done Shingrix Vaccine(1 of 2) Never done RSV Vaccine(1 - 1-dose 60+ series) Never done Pneumococcal Vaccine: 65+(2 of 2 - PCV) due on 06/28/2005 WHAT YOU CAN DO TO PREVENT FALLS Many falls can be prevented. By making some changes, you can lower your chances of falling. Four things YOU can do to prevent falls for you* and your caregiver 1. Begin a regular exercise program Exercise is one of the most important ways to lower your chances of falling. It makes you stronger and helps you feel better. Exercises that improve balance and coordination (like Kevon Chi) are the most helpful. Lack of exercise leads to weakness and increases your chances of falling. Ask your doctor or health care provider about the best type of exercise program for you. 2. Have your health care provider review your medicines Have your doctor or pharmacist review all the medicines you take, even [id number] medicines. As you get older, the way medicines work in your body can change. Some medicines, or combinations of medicines, can make you sleepy or dizzy andcan cause you to fall. 3. Have your vision checked Have your eyes checked by an eye doctor at least once a year. You may be wearing the wrong glasses or have a condition like glaucoma or cataracts that limits your vision. Poor vision can increase your chances of falling. 4. Make your home safer About half of all falls happen at home. To make your home safer: Remove things you can trip over (like papers, books, clothes, and shoes) from stairs and places where you walk. Remove small throw rugs or use double-sided tape to keep the rugs from slipping. Keep items you use often in cabinets you can reach easily without using a step stool. Have grab bars put in next to your toilet and in the tub or shower. Use non-slip mats in the bathtub and on shower floors. Improve the lighting in your home. As you get older, you need brighter lights to see well. Hang light-weight curtains or shades to reduce glare. Have handrails and lights put in on all staircases. Wear shoes both inside and outside the house. Avoid going barefoot or wearing slippers. For more information, contact: Centers for Disease Control and Prevention www.cdc.gov/injury * This information may not apply if you have certain medical conditions. documented in this encounterSelect [facility] History of Present illness Narrative* Isela Patel, CREELER.SYSTEMS PROGRAM MANAGER - 10/06/2023 10:10 AM EDT Images from the original note were not included. Carissa Gruber is a 83 year old male here for a Medicare wellness visit. Medicare Health Risk Assessment General Health Excellent Exercise: Minutes/Day 60 min Exercise: Days/Week 6 days Alcohol: Daily Use Never Alcohol: Drinks/Day Patient does not drink Alcohol: 6 or more drinks Never Feel off balance No Concerns: Teeth/Dentures No Concerns: Sexual function No Troubled by feelings None of the above Frequency: Eating healthy diet Several days ADLs requiring help None of the above Safety precautions in home/vehicle Yes Smoke, vape, chews tobacco No Difficulty hearing Yes, I wear a hearing aid Difficulty seeing No Current Providers Specialists: I have reviewed specialist-related care of the patient in the medical record. Current care team: Patient Care Team: Dimitri Marie MD as PCP - General (Internal Medicine) Outside specialists seen: Corn Grower- Ophthalmology- at the [facility] Dentist- [facility] Medical/Family history review Reviewed and updated problem list, medical/surgical/family/social history, medications, and allergies. Opioid use review Opioid Medications (last 90 days) No data to display Depression screening Depression Screening PHQ-2 Score 10/06/2023 0 Depression screening tool completed and reviewed. Based on score and interview, patient is not at risk for depression. Screening tool discussed with patient, and I recommended no further interventionat this time. Cognitive screening Mini Cog Score: 5 Cognitive screening reviewed and no further action needed (score 3-5) Functional Observation Was the patient's Timed Up & Go test unsteady or ? 12 seconds? No Advance Care Planning Patient did not wish or was not able to name a surrogate decision maker or provide an advance care plan Measurements BP 124/76 Pulse 46 Resp 18 Ht 5' 10 (1.78m) Wt 248 lb (112.5kg) SpO2 98% BMI 35.58 kg/(m^2). Vision Screening: Follows with optometry/ophthalmology Assessment/Plan Medicare annual wellness visit, subsequent (Z00.00) - Counseled on healthy diet and regular exercise - Fall avoidance information provided - Personalized prevention plan provided Additional Concerns The following concerns were also discussed with the patient: presents for a 6 week follow up on his labs, TSH and is requesting refills on medications. He is concerned about a rash, itching skin and growth on his chest. - He had labwork done 09/30/23. His TSH increased to 44.4 from 21.6 from 11 months ago. He has been taking his medications daily, although not on an empty stomach. He takes the levothyroxine and eats within 15 minutes. He did not realize food should be avoided for 30 to 60 minutes after. He denies fatigue, palpations, chest pain, exercise intolerance, weight gain, constipation, change with his hairor irritability. He does have bradycardia and dry skin. - He has had a growth on his chest for over 15 years. Two years ago when it was dime sized he was advised to see dermatology. He did not follow up. Currently he is using band aids to cover it and applying anti itch cream. The growth has more than tripled in size and the patient states I think its cancer. - He has had itchy skin with intermittent raised red blotches. Currently this has resolved, but he has pruritis at his arms that appear dry and flaky. He has not used any creams or lotions for his dry skin. REVIEW OF SYSTEMS GENERAL: No weight loss, malaise or fevers NECK: Negative for lumps, goiter, pain and significant neck swelling RESPIRATORY: Negative for cough, hemoptysis, wheezing, COPD, dyspnea or shortness of breath CARDIOVASCULAR: Negative for chest pain, leg swelling, CHF or palpitations SKIN: Positive for lesions: at chest, rash: generalized and blotchy, and itching: HEMATOLOGY/LYMPHOLOGY: Negative for prolonged bleeding, bruising easily or swollen nodes ENDOCRINE: Negative for cold or heat intolerance, polyuria, polydipsia and goiter BP 124/76 Pulse (!) 46 Resp 18 Ht 177.8 cm (5' 10) Wt 112.5 kg (248 lb) SpO2 98% BMI 35.58 kg/m Physical Exam Constitutional: Appearance: Normal appearance. Cardiovascular: Rate and Rhythm: Regular rhythm. Bradycardia present. Pulses: Normal pulses. Heart sounds: Normal heart sounds. Pulmonary: Effort: Pulmonary effort is normal. Breath sounds: Normal breath sounds. Abdominal: General: Abdomen is flat. Palpations: Abdomen is soft. Musculoskeletal: General: Normal range of motion. Right lower le+ Edema present. Left lower le+ Edema present. Comments: Bilateral lower leg edema that is chronic and not changed. Chronic venous stasis with no change in appearance. Skin is shiny, red colored, free of open sores or drainage. He uses compression socks and is baseline. Lymphadenopathy: Cervical: No cervical adenopathy. Skin: General: Skin is dry. Capillary Refill: Capillary refill takes less than 2 seconds. Coloration: Skin is not jaundiced or pale. Findings: Lesion present. Comments: Asymmetrical pruritic raised growth measuring 3cm x 4cm at chest. Open sores present on the lesion with scant bleeding noted. Surrounding skin intact with minimal erythema at parameter. No odor or drainage. Neurological: Mental Status: He is alert. Psychiatric: Mood and Affect: Mood normal. Behavior: Behavior normal. Behavior is cooperative. ASSESSMENT/PLAN: 1. Medicare annual wellness visit, subsequent - ICD9: V70.0, ICD10: Z00.00 (primary diagnosis) - Counseled on continuing his healthy diet and regular exercise - Discussed continued benefit of weight loss. BMI 35.58 kg/(m^2). He is down 10lbs. - Patient was counseled [id number] by myself (the billing provider) for immunizations and vaccinecomponents. Patient does not consent for immunization and understands risks and benefits. 2. Acquired hypothyroidism - ICD9: 244.9, ICD10: E03.9 TSH has increased to 44.4 from 21.6 over the past 11 months. He is not symptomatic. He has been taking the medication and eating within 15 minutes. - Instructed patient on importance of taking on an empty stomach either first thing in the morning or at bedtime one hour prior to eating or drinking anything except water. - check TSH and free T4 in 6 weeks - continue current dose of Synthroid 0.150 mg for now - LEVOTHYROXINE 150 MCG TABLET - THYROID STIMULATING HORMONE - T4 FREE/FREE THYROXINE 3. Skin lesion of chest wall - ICD9: 709.9, ICD10: L98.9 Has had a dime sized growth at his chest for over 15 years. Was advised to see dermatology 2 years ago and did not follow up. It has become significantly larger with itching, irregular boarders and open sores. No signs of infection. - CONSULT TO DERMATOLOGY 4. Essential hypertension, benign - ICD9: 401.1, ICD10: I10 - Controlled - Continue current medications - Encouraged sodium restriction, DASH or Mediterranean diet - Recommend regular aerobic exercise - Discussed need for and benefit of weight loss. BMI 35.58 kg/(m^2) - LOSARTAN 50 MG TABLET 5. Mixed hyperlipidemia - ICD9: 272.2, ICD10: E78.2 - Controlled - Continue current medications - Counseled on healthy diet and regular exercise - PRAVASTATIN 40 MG TABLET Isela Patel APRN.SYSTEMS PROGRAM MANAGER documented in this encounterSelect [facility]04-03-2024 Miscellaneous Notes* Telephone Encounter - Radha Dillon MA - 09/29/2023 11:55 AM EDT Patient has been identified by name and date of : Yes Requested Prescriptions Pending Prescriptions Disp Refills metoprolol succinate ER (TOPROL XL) 25 mg 24 hr tablet 90 tablet 3 Sig: Take 1 tablet by mouth once daily. RX INSTRUCTIONS: Patient aware RX will be sent to pharmacy. No need to notify patient. Confirmed [facility] in [place]. Radha Dillon MA documented in this encounterSelect [facility]02-23-2024 Instructions* Patient Instructions* Dimitri Marie MD - 08/20/2023 9:32 AM EST FASTING BLOOD WORK IN 6 WEEKS BEFORE APPOINTMENT. documented in this encounterSelect [facility]02-23-2024 History of Present illness Narrative* Dimitri Marie MD - 08/20/2023 9:15 AM EST This note was created using Web[employer] Solutionsriter. Subjective Carissa Gruber is a 82 year old male. He was doing reasonably well. His hypertension was not controlled. Dr. Ayala increased doxazosin to 4 mg BID and he was taking all his medications as listed.He felt his legs were getting weaker, so 6 weeks ago, he rejoined the [employer] and started with treadmill and cycling exercises. He had ramped up to 30 minutes each 4 days per week. He was not losing weight. Review of Systems Constitutional: Negative for fatigue and unexpected weight change. Respiratory: Negative for cough and shortness of breath. Cardiovascular: Positive for leg swelling. Negative for chest pain and palpitations. Gastrointestinal: Negative for abdominal pain, constipation and diarrhea. Genitourinary: Negative for difficulty urinating. Neurological: Negative for light-headedness and headaches. ACTIVE PROBLEM LIST Essential Hypertension, Benign Mixed Hyperlipidemia Vitamin D Deficiency Family History of Malignant Neoplasm of Gastrointestinal Tract Personal History of Colonic Polyps Venous Insufficiency Chronic Cough Acquired Hypothyroidism Actinic Keratoses Chronic Kidney Disease, Stage Iii (Moderate) (Hcc) Paroxysmal Svt (Supraventricular Tachycardia) (Hcc) Vt (Ventricular Tachycardia) (Hcc) Paredes (Dyspnea On Exertion) Hypertensive Kidney Disease With Stage 3 Chronic Kidney Disease (Hcc) Sinus Bradycardia Acquired complex cyst of kidney, left Bladder Retention of Urine Obesity, Class II, Bmi 35-39.9 Social History Tobacco Use Smoking status: Former Types: Pipe Smokeless tobacco: Never Substance Use Topics Alcohol use: Yes Comment: rare beer Drug use: No Current Outpatient Medications Medication Sig doxazosin (CARDURA) 4 mg tablet Take 1 tablet by mouth two times a day. pravastatin (PRAVACHOL) 40 mg tablet Take 1 tablet by mouth daily at bedtime. For cholesterol. losartan (COZAAR) 50 mg tablet Take 1 tablet by mouth twice daily. metoprolol succinate ER (TOPROL XL) 25 mg 24 hr tablet Take 1 tablet by mouth once daily. levothyroxine (SYNTHROID) 150 mcg tablet Take 1 tablet by mouth once daily. Take on empty stomach. For thyroid fluticasone (FLONASE) 50 mcg/actuation nasal spray Use 2 Sprays in each nostril once daily. aspirin, enteric coated 325 mg EC tablet Take 1 tablet by mouth once daily. with food. Cholecalciferol, Vitamin D3, 1,000 unit ORAL Tab Take by mouth once daily. ascorbic acid(VITAMIN C 500 MG TAB) Take one(1) tablet daily. COMPOUNDED PRESCRIPTION Vit E 400IU daily No current facility-administered medications for this visit. Objective BP 156/71 (BP Site: Left Arm, BP Position: Sitting, BP Cuff Size: Regular Adult) Pulse (!) 56 Temp 36.4 C (97.6 F) (Temporal) Resp 18 Wt 116.1 kg (256 lb) SpO2 96% BMI 36.73 kg/m Physical Exam Constitutional: Appearance: He is obese. He is not ill-appearing. HENT: Head: Normocephalic. Cardiovascular: Rate and Rhythm: Regular rhythm. Bradycardia present. Heart sounds: No murmur heard. No gallop. Pulmonary: Effort: No respiratory distress. Breath sounds: No wheezing or rales. Musculoskeletal: Right lower le+ Pitting Edema present. Left lower le+ Pitting Edema present. Neurological: Mental Status: He is alert. Gait: Gait normal. Assessment and Plan 1. Obesity, Class II, BMI 35-39.9 - ICD9: 278.00, ICD10: E66.9 (primary diagnosis) Diet. 2. Acquired hypothyroidism - ICD9: 244.9, ICD10: E03.9 - Instructed patient on importance of taking on an empty stomach either first thing in the morning or at bedtime. - continue current dose of Synthroid - TSH BLD 3. Venous insufficiency - ICD9: 459.81, ICD10: I87.2 Stable. 4. Essential hypertension, benign - ICD9: 401.1, ICD10: I10 - Worsening control - Continue current medications - Start amlodipine - Encouraged sodium restriction, DASH or Mediterranean diet - Recommend regular aerobic exercise - Discussed need for and benefit of weight loss. BMI 36.73 kg/(m^2) - CBC - AMLODIPINE 5 MG TABLET 5. Vitamin D deficiency - ICD9: 268.9, ICD10: E55.9 Recheck - VITAMIN D 25 HYDROXY 6. Mixed hyperlipidemia - ICD9: 272.2, ICD10: E78.2 - Control undetermined, due for labs - Continue current medications - COMP METABOLIC PANEL - LIPID PANEL BASIC Dimitri Marie MD documented in this encounterSelect [facility]08-23-2023 History of Present illness Narrative* Dimitri Marie MD - 02/17/2023 8:17 AM EDT This note was created using [employer]. Subjective Carissa Gruber is a 82 year old male. He was doing well. He was wondering if the medications caused him to start getting sleepy and taking a nap in the afternoon. Nocturnal sleep was well. A factorwas that he was no longer working and was reading more. Review of Systems Constitutional: Negative for fatigue and unexpected weight change. Respiratory: Negative for chest tightness and shortness of breath. Cardiovascular: Negative for chest pain, palpitations and leg swelling. Genitourinary: Negative for difficulty urinating. Neurological: Negative for dizziness, light-headedness and headaches. ACTIVE PROBLEM LIST Essential Hypertension, Benign Mixed Hyperlipidemia Vitamin D Deficiency Family History of Malignant Neoplasm of Gastrointestinal Tract Personal History of Colonic Polyps Venous Insufficiency Chronic Cough Acquired Hypothyroidism Actinic Keratoses Chronic Kidney Disease, Stage Iii (Moderate) (Hcc) Paroxysmal Svt (Supraventricular Tachycardia) (Hcc) Vt (Ventricular Tachycardia) (Hcc) Paredes (Dyspnea On Exertion) Hypertensive Kidney Disease With Stage 3 Chronic Kidney Disease (Hcc) Sinus Bradycardia Acquired complex cyst of kidney, left Bladder Retention of Urine Current Outpatient Medications Medication Sig doxazosin (CARDURA) 2 mg tablet Take 1 tablet by mouth daily at bedtime. pravastatin (PRAVACHOL) 40 mg tablet Take 1 tablet by mouth daily at bedtime. For cholesterol. losartan (COZAAR) 50 mg tablet Take 1 tablet by mouth twice daily. metoprolol succinate ER (TOPROL XL) 25 mg 24 hr tablet Take 1 tablet by mouth once daily. levothyroxine (SYNTHROID) 150 mcg tablet Take 1 tablet by mouth once daily. Take on empty stomach. For thyroid fluticasone (FLONASE) 50 mcg/actuation nasal spray Use 2 Sprays in each nostril once daily. aspirin, enteric coated 325 mg EC tablet Take 1 tablet by mouth once daily. with food. Cholecalciferol, Vitamin D3, 1,000 unit ORAL Tab Take by mouth once daily. ascorbic acid(VITAMIN C 500 MG TAB) Take one(1) tablet daily. COMPOUNDED PRESCRIPTION Vit E 400IU daily No current facility-administered medications for this visit. Objective BP 151/71 (BP Site: Left Arm, BP Position: Sitting, BP Cuff Size: Large Adult) Pulse (!) 51 Resp 18 Wt 112.5 kg (248 lb) BMI 35.58 kg/m Physical Exam Constitutional: General: He is not in acute distress. Appearance: He is not ill-appearing. Cardiovascular: Rate and Rhythm: Regular rhythm. Bradycardia present. Heart sounds: No murmur heard. No gallop. Pulmonary: Breath sounds: Normal breath sounds. Musculoskeletal: Right lower leg: No edema. Left lower leg: No edema. Neurological: Mental Status: He is alert. Assessment and Plan 1. Essential hypertension, benign - ICD9: 401.1, ICD10: I10 (primary diagnosis) - Improving control - Continue current medications - Increase doxazosin. - Recommend home blood pressure monitoring, to bring results to next visit - Encouraged sodium restriction, DASH or Mediterranean diet - Recommend regular aerobic exercise - DOXAZOSIN 4 MG TABLET 2. 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 Discussed medication dosage, usage, goals of therapy, and side effects. - DOXAZOSIN 4 MG TABLET 3. Stage 3b chronic kidney disease (HCC) - ICD9: 585.3, ICD10: N18.32 - eGFR: Stable - Counseled on avoiding NSAIDs, adequate hydration - CBC - BASIC METABOLIC PNL Dimitri Marie MD documented in this encounterSelect [facility]-21-[facility] History of Present illness Narrative* Dimitri Marie MD - 12/16/2022 8:25 AM EDT This note was created using [employer]. Subjective Carissa Gruber is a 82 year old male. He was taking doxazosin in the morning and this made him sleepy. He started taking his blood pressure medications in 2 batches and this was better tolerated. Review of Systems Constitutional: Negative for fatigue. Respiratory: Negative for shortness of breath. Cardiovascular: Negative for chest pain, palpitations and leg swelling. Neurological: Negative for dizziness, syncope and light-headedness. ACTIVE PROBLEM LIST Essential Hypertension, Benign Mixed Hyperlipidemia Vitamin D Deficiency Family History of Malignant Neoplasm of Gastrointestinal Tract Personal History of Colonic Polyps Venous Insufficiency Chronic Cough Acquired Hypothyroidism Actinic Keratoses Chronic Kidney Disease, Stage Iii (Moderate) (Hcc) Paroxysmal Svt (Supraventricular Tachycardia) (Hcc) Vt (Ventricular Tachycardia) (Hcc) Paredes (Dyspnea On Exertion) Hypertensive Kidney Disease With Stage 3 Chronic Kidney Disease (Hcc) Sinus Bradycardia Acquired complex cyst of kidney, left Bladder Retention of Urine Current Outpatient Medications Medication Sig pravastatin (PRAVACHOL) 40 mg tablet Take 1 tablet by mouth daily at bedtime. For cholesterol. losartan (COZAAR) 50 mg tablet Take 1 tablet by mouth twice daily. doxazosin (CARDURA) 1 mg tablet Take 1 tablet by mouth once daily. metoprolol succinate ER (TOPROL XL) 25 mg 24 hr tablet Take 1 tablet by mouth once daily. levothyroxine (SYNTHROID) 150 mcg tablet Take 1 tablet by mouth once daily. Take on empty stomach. For thyroid fluticasone (FLONASE) 50 mcg/actuation nasal spray Use 2 Sprays in each nostril once daily. aspirin, enteric coated 325 mg EC tablet Take 1 tablet by mouth once daily. with food. Cholecalciferol, Vitamin D3, 1,000 unit ORAL Tab Take by mouth once daily. ascorbic acid(VITAMIN C 500 MG TAB) Take one(1) tablet daily. COMPOUNDED PRESCRIPTION Vit E 400IU daily Current Facility-Administered Medications Medication Dose Route Frequency perflutren lipid microspheres 1.3 mL in NaCl (PF) 0.9% 10 mL injection (DEFINITY) INTRAVENOUS DIRECTED PRN sodium chloride 0.9 % (flush) 10 mL (BD POSIFLUSH) 10 mL INTRAVENOUS DIRECTED PRN Objective BP 152/68 (BP Site: Left Arm, BP Position: Sitting, BP Cuff Size: Large Adult) Pulse (!) 48 Resp 20 Wt 110.7 kg (244 lb) BMI 35.01 kg/m Physical Exam Constitutional: General: He is not in acute distress. Cardiovascular: Rate and Rhythm: Regular rhythm. Bradycardia present. Heart sounds: No murmur heard. No gallop. Pulmonary: Breath sounds: Normal breath sounds. Musculoskeletal: Right lower leg: No edema. Left lower leg: No edema. Neurological: Mental Status: He is alert. Component Latest Ref Rng & Units 12/10/2022 Glucose 74 - 99 mg/dL 76 BUN 9 - 24 mg/dL 24 Creatinine 0.73 - 1.22 mg/dL 1.63 (H) Sodium 136 - 144 mmol/L 139 Potassium 3.7 - 5.1 mmol/L 4.2 Chloride 97 - 105 mmol/L 103 CO2 22 - 30 mmol/L 22 Anion Gap 9 - 18 mmol/L 14 Calcium 8.5 - 10.2 mg/dL 9.3 eGFR >=60 mL/min/1.73m 41 (L) Assessment and Plan 1. Essential hypertension, benign - ICD9: 401.1, ICD10: I10 (primary diagnosis) - Improving control - Continue current medications - Encouraged sodium restriction, DASH or Mediterranean diet - DOXAZOSIN 2 MG TABLET. Dose increased. Start taking at bedtime. 2. Venous insufficiency - ICD9: 459.81, ICD10: I87.2 Controlled. 3. Hypertensive kidney disease with stage 3b chronic kidney disease (HCC) - ICD9: 403.90, 585.3, ICD10: I12.9, N18.32 - eGFR: Stable - Counseled on avoiding NSAIDs, adequate hydration Dimitri Marie MD documented in this encounterSelect [facility]23 History of Present illness Narrative* Dimitri Marie MD - 11/02/2022 2:28 PM EDT This note was created using [employer]opharmac[employer]. Subjective Carissa Gruber is a 82 year old male. His hypertension was elevated for unclear reasons. He felt this was from weight gain due to increased sedentary lifestyle. He moved out of his building and wasless active. He was taking his medications. I had stopped his chlorthalidone due to worsening CKD. Review of Systems Constitutional: Negative for appetite change, fatigue and unexpected weight change. Respiratory: Negative for cough, chest tightness and shortness of breath. Cardiovascular: Positive for leg swelling. Negative for chest pain and palpitations. Genitourinary: Positive for decreased urine volume. Negative for difficulty urinating, dysuria, hematuria and urgency. ACTIVE PROBLEM LIST Essential Hypertension, Benign Mixed Hyperlipidemia Vitamin D Deficiency Family History of Malignant Neoplasm of Gastrointestinal Tract Personal History of Colonic Polyps Venous Insufficiency Chronic Cough Acquired Hypothyroidism Actinic Keratoses Chronic Kidney Disease, Stage Iii (Moderate) (Hcc) Paroxysmal Svt (Supraventricular Tachycardia) (Hcc) Vt (Ventricular Tachycardia) (Hcc) Paredes (Dyspnea On Exertion) Hypertensive Kidney Disease With Stage 3 Chronic Kidney Disease (Hcc) Sinus Bradycardia Acquired complex cyst of kidney, left Social History Tobacco Use Smoking status: Former Types: Pipe Quit date: 06/28/2010 Years since quittin.3 Smokeless tobacco: Never Substance Use Topics Alcohol use: Yes Comment: rare beer Drug use: No Current Outpatient Medications Medication Sig metoprolol succinate ER (TOPROL XL) 25 mg 24 hr tablet Take 1 tablet by mouth once daily. levothyroxine (SYNTHROID) 150 mcg tablet Take 1 tablet by mouth once daily. Take on empty stomach. For thyroid pravastatin (PRAVACHOL) 40 mg tablet Take 1 tablet by mouth daily at bedtime. For cholesterol. losartan (COZAAR) 50 mg tablet Take 1 tablet by mouth twice daily. fluticasone (FLONASE) 50 mcg/actuation nasal spray Use 2 Sprays in each nostril once daily. aspirin, enteric coated 325 mg EC tablet Take 1 tablet by mouth once daily. with food. Cholecalciferol, Vitamin D3, 1,000 unit ORAL Tab Take by mouth once daily. ascorbic acid(VITAMIN C 500 MG TAB) Take one(1) tablet daily. COMPOUNDED PRESCRIPTION Vit E 400IU daily Current Facility-Administered Medications Medication Dose Route Frequency perflutren lipid microspheres 1.3 mL in NaCl (PF) 0.9% 10 mL injection (DEFINITY) INTRAVENOUS DIRECTED PRN sodium chloride 0.9 % (flush) 10 mL (BD POSIFLUSH) 10 mL INTRAVENOUS DIRECTED PRN Objective BP 179/70 (BP Site: Left Arm, BP Position: Sitting, BP Cuff Size: Large Adult) Pulse (!) 51 Resp 20 Wt 108.9 kg (240 lb) BMI 34.44 kg/m Physical Exam Constitutional: General: He is not in acute distress. Appearance: He is not ill-appearing. Cardiovascular: Rate and Rhythm: Bradycardia present. Heart sounds: No murmur heard. No gallop. Pulmonary: Breath sounds: Normal breath sounds. Musculoskeletal: Right lower le+ Pitting Edema present. Left lower le+ Pitting Edema present. Neurological: Mental Status: He is alert. Depression Screening 06/03/2017 07/15/2018 04/21/2022 11/02/2022 PHQ-2 Score 0 0 0 0 Depression screening tool completed and reviewed. Based on score and interview, patient is not at risk for depression. Screening tool discussed with patient, and I recommended no further interventionat this time. Component Latest Ref Rng & Units 10/27/2022 WBC 3.70 - 11.00 k/uL 7.51 RBC 4.20 - 6.00 m/uL 4.27 Hemoglobin 13.0 - 17.0 g/dL 12.7 (L) Hematocrit 39.0 - 51.0 % 39.4 MCV 80.0 - 100.0 fL 92.3 MCH 26.0 - 34.0 pg 29.7 MCHC 30.5 - 36.0 g/dL 32.2 RDW-CV 11.5 - 15.0 % 14.4 Platelet Count 150 - 400 k/uL 243 MPV 9.0 - 12.7 fL 11.2 Absolute nRBC <0.01 k/uL <0.01 Glucose 74 - 99 mg/dL 77 BUN 9 - 24 mg/dL 20 Creatinine 0.73 - 1.22 mg/dL 1.71 (H) Sodium 136 - 144 mmol/L 141 Potassium 3.7 - 5.1 mmol/L 4.1 Chloride 97 - 105 mmol/L 103 CO2 22 - 30 mmol/L 26 Anion Gap 9 - 18 mmol/L 12 Calcium 8.5 - 10.2 mg/dL 9.1 eGFR >=60 mL/min/1.73m 39 (L) Albumin 3.43 - 5.41 g/dL 4.21 Alpha 1 Globulin 0.18 - 0.43 g/dL 0.29 Alpha 2 Globulin 0.42 - 0.98 g/dL 0.61 Beta Globulin 0.61 - 1.17 g/dL 0.84 Gamma Globulin 0.53 - 1.51 g/dL 0.95 Interpretation (Prot Electro) No definitive M protein is identified on protein electrophoresis. No definitive M protein is identified on protein electrophoresis. M-Protein Location M-Protein Concentration <=0.00 g/dL 0.00 SPE Staff Review Reviewed by Lyndon Barber M.D. TSH 0.270 - 4.200 mIU/L 21.600 (H) Protein, Total 6.3 - 8.0 g/dL 6.9 Test results pertinent to today's visit were reviewed and discussed with the patient. Assessment and Plan 1. Stage 3b chronic kidney disease (HCC) - ICD9: 585.3, ICD10: N18.32 (primary diagnosis) - eGFR: Stable - Counseled on avoiding regular use of NSAIDs, adequate hydration, potential risk of IV dye - BASIC METABOLIC PNL 2. Mixed hyperlipidemia - ICD9: 272.2, ICD10: E78.2 - good control - Continue current medication. - PRAVASTATIN 40 MG TABLET 3. Essential hypertension, benign - ICD9: 401.1, ICD10: I10 - poor control - Continue current medication(s) - Goal of BP <130/80 - LOSARTAN 50 MG TABLET - DOXAZOSIN 1 MG TABLET 4. Bladder retention of urine - ICD9: 788.20, ICD10: R33.9 Discussed medication dosage, usage, goals of therapy, and side effects. - DOXAZOSIN 1 MG TABLET 5. 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 Repeat US in 6 months. Dimitri Marie MD documented in this encounterSelect [facility]27-[facility] Instructions* Patient Instructions* Gurwinder Ayala MD - 09/21/2022 8:27 AM EDT We are changing your Metoprolol Tartrate to a long acting Metoprolol Succinate 25 mg once per day documented in this encounterSelect Medical [facility]03-27-2023 History of Present illness Narrative* Gurwinder Ayala MD - 09/21/2022 8:20 AM EDT Images from the original note were not included. [facility] SECTION OF REGIONAL CARDIOLOGY Cardiology ([facility]) [address] [facility] [id number] OUTPATIENT VISIT DATE 09/21/2022 PRIMARY CARE PHYSICIAN: Dimitri Marie [address] [place] [address] REFERRING PHYSICIAN: Dimitri Marie [address] [facility] [id number] HISTORY OF PRESENT ILLNESS: Mr. Gruber is a 82 year old gentleman with a history of hypertension, dyslipidemia, chronic kidneydisease, prior smoker who presents for follow-up after testing. He reports that he has been feelingwell. He denies symptoms of chest pain or pressure. He has not had palpitations, shortness of breath, or heart racing. He has chronic swelling in his legs but denies symptoms consistent with PND orthopnea. He denies lightheadedness, dizziness, syncope, or near syncope. PAST MEDICAL HISTORY Diagnosis Date Acquired hypothyroidism 04/28/2016 CKD (chronic kidney disease) stage 3, GFR 30-59 ml/min (HCC) 12/03/2017 Complication of anesthesia Diverticulosis of colon Diverticulosis of colon (without mention of hemorrhage) Essential hypertension, benign 04/02/2005 Family history of malignant neoplasm of gastrointestinal tract Hyperlipidemia Malignant neoplasm of thyroid gland (HCC) Osteolytic lesion 09/13/2009 Personal history of colonic polyps Snoring Stroke (HCC) Venous insufficiency 03/16/2013 Vitamin D deficiency PAST SURGICAL HISTORY Procedure Laterality Date COLONOSCOPY FLX DX W/COLLJ SPEC WHEN PFRMD 04/07/10 COLONOSCOPY FLX DX W/COLLJ SPEC WHEN PFRMD 03/25/15 Colonoscopy PAST SURGICAL HISTORY OF L finger THYROIDECTOMY TOTAL/COMPLETE 08/04/04 total TONSILLECTOMY PRIMARY/SECONDARY <AGE 10 Tonsillectomy SOCIAL HISTORY Social History Tobacco Use Smoking status: Former Types: Pipe Quit date: 06/28/2010 Years since quittin.2 Smokeless tobacco: Never Substance Use Topics Alcohol use: Yes Comment: rare beer Drug use: No FAMILY HISTORY Problem Relation Age of Onset Heart Mother Thyroid Mother Colon Cancer Father ALLERGIES: ALLERGIES Allergen Reactions Creatine Rash, hives, proven on rechallenge on 2 occasions, occurred after 47, then 19, then 10 days of supplementation Sulfa (Sulfonamide * MEDICATIONS: levothyroxine (SYNTHROID) 150 mcg tablet^Take 1 tablet by mouth once daily. Take on empty stomach. For thyroid^Disp: 90 tablet^Rfl: 3 pravastatin (PRAVACHOL) 40 mg tablet^Take 1 tablet by mouth daily at bedtime. For cholesterol.^Disp: 90 tablet^Rfl: 2 losartan (COZAAR) 50 mg tablet^Take 1 tablet by mouth twice daily.^Disp: 180 tablet^Rfl: 3 metoprolol tartrate, short acting, (LOPRESSOR) 25 mg tablet^Take 1 tablet by mouth twice daily.^Disp: 180 tablet^Rfl: 3 fluticasone (FLONASE) 50 mcg/actuation nasal spray^Use 2 Sprays in each nostril once daily.^Disp: 1Bottle^Rfl: 11 aspirin, enteric coated 325 mg EC tablet^Take 1 tablet by mouth once daily. with food.^Disp: 30 tablet^Rfl: 11 Cholecalciferol, Vitamin D3, 1,000 unit ORAL Tab^Take by mouth once daily.^Disp: ^Rfl: 0 ascorbic acid(VITAMIN C 500 MG TAB)^Take one(1) tablet daily.^Disp: ^Rfl: 0 COMPOUNDED PRESCRIPTION^Vit E 400IU daily^Disp: ^Rfl: 0 REVIEW OF SYSTEMS: Review of Systems Constitutional: Negative for chills, fever, malaise/fatigue and weight loss. HENT: Negative for hearing loss and sore throat. Eyes: Negative for blurred vision and double vision. Respiratory: Positive for shortness of breath. Cardiovascular: Positive for palpitations and leg swelling. Negative for chest pain, orthopnea, claudication and PND. Gastrointestinal: Negative. Genitourinary: Negative for dysuria, frequency, hematuria and urgency. Musculoskeletal: Negative. Skin: Negative. Neurological: Negative for dizziness, seizures, loss of consciousness, weakness and headaches. Endo/Heme/Allergies: Negative for environmental allergies. Does not bruise/bleed easily. Psychiatric/Behavioral: Negative for depression. PHYSICAL EXAMINATION: BP 110/60 Pulse 44 Wt 232 lb (105.2kg) SpO2 99% General: Very pleasant gentleman sitting appears comfortable no apparent distress. He is alert and oriented x3 HEENT: Carotid upstrokes are brisk bilateral without bruits no JVD appreciated. There is no periorbital xanthelasma or corneal arcus senilis noted. Pulmonary: Lungs are clear no rales, wheezes, rhonchi Cardiovascular: Normal S1, S2 with regular rate and rhythm. Positive S4 without murmurs, or rubs. Extremities: Warm, well-perfused, radial pulses are 2+ and symmetric. Significant skin changes of the lower extremity right greater than left consistent with chronic venous stasis. Dorsalis pedis andposterior tibial pulses are 1-2+ and symmetric bilaterally. CARDIOVASCULAR MEDICINE TESTING: Treadmill Myoview Stress 05/25/2022: 1. SPECT Perfusion Study: Normal. 2. There is no scintigraphic evidence for inducible ischemia. 3. No evidence of scarred myocardium. 4. Left ventricle is normal in size. The left ventricle systolic function is hyperdynamic. 5. Right ventricle is normal in size. The right ventricle systolic function is normal. 6. This is a low risk scan. Gated Stress FBP Gated Rest FBP LVEF % 77 73 Echocardiogram 11/03/2021: - The left ventricle is normal in size. Left ventricular systolic function is normal. EF = 67 5% (2D biplane) Indeterminate left ventricular diastolic dysfunction. - The right ventricle is normal in size. Right ventricular systolic function is normal. - AV sclerosis. - Exam was compared with the prior CC echocardiographic exam performed on 09/03/2009, no significant change. Zio Monitor 10/20/2021: Patient had a min HR of 36 bpm, max HR of 167 bpm, and avg HR of 50 bpm. Predominant underlying rhythm was Sinus Rhythm. First Degree AV Block was present. 2 Ventricular Tachycardia runs occurred, the run with the fastest interval lasting 13 beats with a max rate of 167 bpm (avg 144 bpm); the run with the fastest interval was also the longest. 12 Supraventricular Tachycardia runs occurred, the run with the fastest interval lasting 8 beats with a max rate of 150 bpm, the longest lasting 11 beats with an avg rate of 101 bpm. Some episodes of Supraventricular Tachycardia may be possible Atrial Tachycardia with variable block. Isolated SVEs were rare (<1.0%), SVE Couplets were rare (<1.0%), and SVE Triplets were rare (<1.0%). Isolated VEs were rare (<1.0%), VE Couplets were rare (<1.0%), and no VE Triplets were present. Ventricular Bigeminy and Trigeminy were present. I have personally reviewed the Electrocardiogram, Laboratory Testing, and Echocardiogram. IMPRESSION: Mr. Gruber is a 82 year old gentleman with risk factors for coronary disease which include age, hypertension, dyslipidemia, prior significant smoking history, and family history of coronary artery disease (although not premature age of onset) who presents for follow-up for SVT/VT noted on Holter monitor. PLAN AND RECOMMENDATIONS: 1. VT (ventricular tachycardia) (HCC) - ICD9: 427.1, ICD10: I47.20 (primary diagnosis) Patient with asymptomatic sinus bradycardia. I have stopped metoprolol tartrate in favor of Toprol 25 mg once daily. Patient has symptoms of lightheadedness or dizziness have asked him to contact theoffice for further evaluation - METOPROLOL SUCCINATE ER 25 MG TABLET,EXTENDED RELEASE 24 HR 2. Paroxysmal SVT (supraventricular tachycardia) (HCC) - ICD9: 427.0, ICD10: I47.1 - METOPROLOL SUCCINATE ER 25 MG TABLET,EXTENDED RELEASE 24 HR 3. Essential hypertension, benign - ICD9: 401.1, ICD10: I10 Well-controlled on current regimen. - METOPROLOL SUCCINATE ER 25 MG TABLET,EXTENDED RELEASE 24 HR 4. Mixed hyperlipidemia - ICD9: 272.2, ICD10: E78.2 Maintained on pravastatin 40 mg daily. Blood work from August 2022 was reviewed. LDL cholesterol 67 mg/dL 5. Sinus bradycardia - ICD9: 427.89, ICD10: R00.1 Gurwinder Ayala MD documented in this encounterSelect [facility]03-23-2023 History of Present illness Narrative* Linda Brice RDMS - 09/17/2022 7:45 AM EDT Radiology Service Progress Note PATIENT NAME: Carissa Gruber DATE OF SERVICE: September 17, 2022 TIME: 8:18 AM PATIENT IDENTITY VERIFICATION COMPLETED USING TWO (2) IDENTIFIERS: Name and Date of confirmedby patient verbally. FALL SCREENING: Has the patient had 2 falls in the last year or 1 fall with injury or currently using an Ambulatory Assistive Device (Walker, Cane, Wheelchair, Crutches, etc.)? No PATIENT GENDER DATA: Male PATIENT RELEVANT IMPLANT DATA REVIEWED: Not Applicable RADIOLOGY DEPARTMENT: Ultrasound PERIPHERAL IV DATA: Not applicable SIGNED BY: Linda Brice RDMS September 17, 2022 8:18 AM documented in this encounterSelect [facility]03-23-2023 Miscellaneous Notes* Result Encounter Note - Dimitri Marie MD - 09/17/2022 7:45 AM EDT Review abnormal findings and need for follow up at 11/02/2022 appointment. documented in this encounterSelect Medical [facility]03-17-2023 Instructions* Patient Instructions* Dimitri Marie MD - 09/11/2022 9:05 AM EDT STOP CHLORTHALIDONE. SEE CARDIOLOGY SEPTEMBER 21. REPEAT NON FASTING LABS IN 6 WEEKS. documented in this encounterSelect Medical [facility]03-17-2023 History of Present illness Narrative* Dimitri Marie MD - 09/11/2022 8:50 AM EDT This note was created using HALKAR. Subjective Carissa Gruber is a 82 year old male. He felt well. We reviewed his labs and briefly discussed negative stress test. He is scheduled to see cardiology. Review of Systems Constitutional: Negative. Respiratory: Negative for cough and shortness of breath. Cardiovascular: Positive for leg swelling. Negative for chest pain and palpitations. Genitourinary: Negative for difficulty urinating and dysuria. Neurological: Negative for dizziness and headaches. ACTIVE PROBLEM LIST Essential Hypertension, Benign Mixed Hyperlipidemia Vitamin D Deficiency Family History of Malignant Neoplasm of Gastrointestinal Tract Personal History of Colonic Polyps Venous Insufficiency Chronic Cough Acquired Hypothyroidism Actinic Keratoses Chronic Kidney Disease, Stage Iii (Moderate) (Hcc) Paroxysmal Svt (Supraventricular Tachycardia) (Hcc) Vt (Ventricular Tachycardia) (Hcc) Paredes (Dyspnea On Exertion) Hypertensive Kidney Disease With Stage 3 Chronic Kidney Disease (Hcc) Social History Tobacco Use Smoking status: Former Types: Pipe Quit date: 06/28/2010 Years since quittin.2 Smokeless tobacco: Never Substance Use Topics Alcohol use: Yes Comment: rare beer Drug use: No Current Outpatient Medications Medication Sig pravastatin (PRAVACHOL) 40 mg tablet Take 1 tablet by mouth daily at bedtime. For cholesterol. losartan (COZAAR) 50 mg tablet Take 1 tablet by mouth twice daily. levothyroxine (SYNTHROID) 150 mcg tablet Take 1 tablet by mouth once daily. Take on empty stomach. For thyroid metoprolol tartrate, short acting, (LOPRESSOR) 25 mg tablet Take 1 tablet by mouth twice daily. chlorthalidone (HYGROTON) 25 mg tablet Take 1 tablet by mouth once daily. fluticasone (FLONASE) 50 mcg/actuation nasal spray Use 2 Sprays in each nostril once daily. aspirin, enteric coated 325 mg EC tablet Take 1 tablet by mouth once daily. with food. Cholecalciferol, Vitamin D3, 1,000 unit ORAL Tab Take by mouth once daily. ascorbic acid(VITAMIN C 500 MG TAB) Take one(1) tablet daily. COMPOUNDED PRESCRIPTION Vit E 400IU daily Current Facility-Administered Medications Medication Dose Route Frequency perflutren lipid microspheres 1.3 mL in NaCl (PF) 0.9% 10 mL injection (DEFINITY) INTRAVENOUS DIRECTED PRN sodium chloride 0.9 % (flush) 10 mL (BD POSIFLUSH) 10 mL INTRAVENOUS DIRECTED PRN Objective BP (P) 118/62 (BP Site: Left Arm, BP Position: Sitting, BP Cuff Size: Large Adult) Pulse (P) 78 Wt (P) 104.3 kg (230 lb) BMI (P) 33.00 kg/m Physical Exam Constitutional: General: He is not in acute distress. Cardiovascular: Rate and Rhythm: Normal rate and regular rhythm. Heart sounds: No murmur heard. No gallop. Pulmonary: Breath sounds: Normal breath sounds. No wheezing or rales. Musculoskeletal: Right lower le+ Pitting Edema present. Left lower le+ Pitting Edema present. Skin: Findings: Erythema present. Comments: Stasis erythema, flaking of both legs. Neurological: Mental Status: He is alert. Gait: Gait normal. Component Latest Ref Rng & Units 09/07/2022 Protein, Total 6.3 - 8.0 g/dL 7.2 Albumin 3.9 - 4.9 g/dL 4.2 Calcium 8.5 - 10.2 mg/dL 9.3 Bilirubin, Total 0.2 - 1.3 mg/dL 0.5 Alkaline Phosphatase 38 - 113 U/L 77 AST 14 - 40 U/L 23 ALT 10 - 54 U/L 15 Glucose 74 - 99 mg/dL 89 BUN 9 - 24 mg/dL 22 Creatinine 0.73 - 1.22 mg/dL 1.83 (H) Sodium 136 - 144 mmol/L 140 Potassium 3.7 - 5.1 mmol/L 4.2 Chloride 97 - 105 mmol/L 103 CO2 22 - 30 mmol/L 27 Anion Gap 9 - 18 mmol/L 10 eGFR >=60 mL/min/1.73m 36 (L) WBC 3.70 - 11.00 k/uL 7.34 RBC 4.20 - 6.00 m/uL 4.33 Hemoglobin 13.0 - 17.0 g/dL 12.7 (L) Hematocrit 39.0 - 51.0 % 40.0 MCV 80.0 - 100.0 fL 92.4 MCH 26.0 - 34.0 pg 29.3 MCHC 30.5 - 36.0 g/dL 31.8 RDW-CV 11.5 - 15.0 % 14.2 Platelet Count 150 - 400 k/uL 249 MPV 9.0 - 12.7 fL 11.2 Absolute nRBC <0.01 k/uL <0.01 Cholesterol, Total <200 mg/dL 123 Triglyceride <150 mg/dL 85 HDL Cholesterol >39 mg/dL 39 (L) Non HDL Cholesterol <130 mg/dL 84 Fasting Time hrs 13 VLDL Cholesterol <30 mg/dL 17 TC:HDL Ratio <5.10 3.15 LDL Cholesterol <100 mg/dL 67 LDL:HDL Ratio <2.54 1.72 TSH 0.270 - 4.200 mIU/L 6.560 (H) Assessment and Plan 1. Stage 3b chronic kidney disease (HCC) - ICD9: 585.3, ICD10: N18.32 (primary diagnosis) - eGFR: Worsening. Discontinue CHLORTHALIDONE and recheck in 6 weeks. - BASIC METABOLIC PNL - URINALYSIS, WITH MICROSCOPIC - CBC - PROTEIN ELECTROPHORESIS SERUM W/INTERP - US KIDNEY/BLADDER 2. Acquired hypothyroidism - ICD9: 244.9, ICD10: E03.9 - continue current dose of Synthroid for now - LEVOTHYROXINE 150 MCG TABLET - TSH BLD 3. Essential hypertension, benign - ICD9: 401.1, ICD10: I10 - good control - See above. 4. Venous insufficiency - ICD9: 459.81, ICD10: I87.2 Stable. 5. Paroxysmal SVT (supraventricular tachycardia) (HCC) - ICD9: 427.0, ICD10: I47.1 Stable. Dimitri Marie MD documented in this encounterSelect Medical [facility]11-25-2022 Miscellaneous Notes* Telephone Encounter - Jennifer Hanson RN - 05/22/2022 10:09 AM EST Call to pt and reviewed stress test instructions. Pt verbalized understanding. documented in this encounterSelect Medical [facility]11-21-2022 Instructions* Patient Instructions* Gurwinder Ayala MD - 05/18/2022 8:35 AM EST We are scheduling you for a stress test Do Not take the metoprolol tartrate the day before or the morning of the procedure No caffeine the day before or the morning of the stress test documented in this encounterSelect Medical [facility]11-21-2022 History of Present illness Narrative* Gurwinder Ayala MD - 05/18/2022 8:20 AM EST Images from the original note were not included. [facility]ASC[facility]STITUTE SECTION OF REGIONAL CARDIOLOGY [facility] [address] [id number] OUTPATIENT VISIT DATE 05/18/2022 PRIMARY CARE PHYSICIAN: Dimitri Marie [address] [place] [address] REFERRING PHYSICIAN: Dimitri Marie [address] [place] [id number] CHIEF COMPLAINT: Palpitations, dyspnea on exertion HISTORY OF PRESENT ILLNESS: Mr. Gruber is a 81 year old gentleman with a history of hypertension, dyslipidemia, chronic kidneydisease, prior smoker who presents for evaluation of abnormal Holter monitor results. Results of myevaluation will be communicated to Dr. Marie via shared medical record. He reports a longstanding history of high blood pressure which has been difficult to manage. He has shortness of breath after climbing more than a flight of stairs. No symptoms have been persistent for the last few years. He does not have overt chest pain or pressure. He denies symptoms consistent with PND orthopnea. He started having palpitations a few months ago. It typically occurs in the early breastfeeding care specialist hours when he wakes to get up to go to the bathroom. He will notice his heart racing and skipped heartbeats. He does not report similar symptoms throughout the day. 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 He typically works between 40 and 50 hours a week. He has not noticed any significantdecline in his functional capacity. He has not had symptoms of lightheadedness, dizziness, syncope,or near syncope. PAST MEDICAL HISTORY Diagnosis Date Acquired hypothyroidism 04/28/2016 CKD (chronic kidney disease) stage 3, GFR 30-59 ml/min ([facility]) 12/03/2017 Complication of anesthesia Diverticulosis of colon Diverticulosis of colon (without mention of hemorrhage) Essential hypertension, benign 04/02/2005 Family history of malignant neoplasm of gastrointestinal tract Hyperlipidemia Malignant neoplasm of thyroid gland (HCC) Osteolytic lesion 09/13/2009 Personal history of colonic polyps Snoring Stroke (HCC) Venous insufficiency 03/16/2013 Vitamin D deficiency PAST SURGICAL HISTORY Procedure Laterality Date COLONOSCOPY FLX DX W/COLLJ SPEC WHEN PFRMD 04/07/10 COLONOSCOPY FLX DX W/COLLJ SPEC WHEN PFRMD 03/25/15 Colonoscopy PAST SURGICAL HISTORY OF L finger THYROIDECTOMY TOTAL/COMPLETE 08/04/04 total TONSILLECTOMY PRIMARY/SECONDARY <AGE 10 Tonsillectomy SOCIAL HISTORY Social History Tobacco Use Smoking status: Former Types: Pipe Quit date: 06/28/2010 Years since quittin.8 Smokeless tobacco: Never Substance Use Topics Alcohol use: Yes Comment: rare beer Drug use: No FAMILY HISTORY Problem Relation Age of Onset Heart Mother Thyroid Mother Colon Cancer Father ALLERGIES: ALLERGIES Allergen Reactions Creatine Rash, hives, proven on rechallenge on 2 occasions, occurred after 47, then 19, then 10 days of supplementation Sulfa (Sulfonamide * MEDICATIONS: pravastatin (PRAVACHOL) 40 mg tablet^Take 1 tablet by mouth daily at bedtime. For cholesterol.^Disp: 90 tablet^Rfl: 2 losartan (COZAAR) 50 mg tablet^Take 1 tablet by mouth twice daily.^Disp: 180 tablet^Rfl: 3 levothyroxine (SYNTHROID) 150 mcg tablet^Take 1 tablet by mouth once daily. Take on empty stomach. For thyroid^Disp: 90 tablet^Rfl: 3 metoprolol tartrate, short acting, (LOPRESSOR) 25 mg tablet^Take 1 tablet by mouth twice daily.^Disp: 180 tablet^Rfl: 3 chlorthalidone (HYGROTON) 25 mg tablet^Take 1 tablet by mouth once daily.^Disp: 90 tablet^Rfl: 3 fluticasone (FLONASE) 50 mcg/actuation nasal spray^Use 2 Sprays in each nostril once daily.^Disp: 1Bottle^Rfl: 11 aspirin, enteric coated 325 mg EC tablet^Take 1 tablet by mouth once daily. with food.^Disp: 30 tablet^Rfl: 11 Cholecalciferol, Vitamin D3, 1,000 unit ORAL Tab^Take by mouth once daily.^Disp: ^Rfl: 0 ascorbic acid(VITAMIN C 500 MG TAB)^Take one(1) tablet daily.^Disp: ^Rfl: 0 COMPOUNDED PRESCRIPTION^Vit E 400IU daily^Disp: ^Rfl: 0 REVIEW OF SYSTEMS: Review of Systems Constitutional: Negative for chills, fever, malaise/fatigue and weight loss. HENT: Negative for hearing loss and sore throat. Eyes: Negative for blurred vision and double vision. Respiratory: Positive for shortness of breath. Cardiovascular: Positive for palpitations and leg swelling. Negative for chest pain, orthopnea, claudication and PND. Gastrointestinal: Negative. Genitourinary: Negative for dysuria, frequency, hematuria and urgency. Musculoskeletal: Negative. Skin: Negative. Neurological: Negative for dizziness, seizures, loss of consciousness, weakness and headaches. Endo/Heme/Allergies: Negative for environmental allergies. Does not bruise/bleed easily. Psychiatric/Behavioral: Negative for depression. PHYSICAL EXAMINATION: BP 128/58 Pulse 64 Ht 5' 10 (1.78m) Wt 235 lb (106.6kg) SpO2 98% BMI 33.72 kg/(m^2). General: Very pleasant gentleman sitting appears comfortable no apparent distress. He is alert and oriented x3 HEENT: Carotid upstrokes are brisk bilateral without bruits no JVD appreciated. There is no periorbital xanthelasma or corneal arcus senilis noted. Pulmonary: Lungs are clear no rales, wheezes, rhonchi Cardiovascular: Normal S1, S2 with regular rate and rhythm. Positive S4 without murmurs, or rubs. Extremities: Warm, well-perfused, radial pulses are 2+ and symmetric. Significant skin changes of the lower extremity right greater than left consistent with chronic venous stasis. Dorsalis pedis andposterior tibial pulses are 1-2+ and symmetric bilaterally. CARDIOVASCULAR MEDICINE TESTING: Echocardiogram 11/03/2021: - The left ventricle is normal in size. Left ventricular systolic function is normal. EF = 67 5% (2D biplane) Indeterminate left ventricular diastolic dysfunction. - The right ventricle is normal in size. Right ventricular systolic function is normal. - AV sclerosis. - Exam was compared with the prior CC echocardiographic exam performed on 09/03/2009, no significant change. Zio Monitor 10/20/2021: Patient had a min HR of 36 bpm, max HR of 167 bpm, and avg HR of 50 bpm. Predominant underlying rhythm was Sinus Rhythm. First Degree AV Block was present. 2 Ventricular Tachycardia runs occurred, the run with the fastest interval lasting 13 beats with a max rate of 167 bpm (avg 144 bpm); the run with the fastest interval was also the longest. 12 Supraventricular Tachycardia runs occurred, the run with the fastest interval lasting 8 beats with a max rate of 150 bpm, the longest lasting 11 beats with an avg rate of 101 bpm. Some episodes of Supraventricular Tachycardia may be possible Atrial Tachycardia with variable block. Isolated SVEs were rare (<1.0%), SVE Couplets were rare (<1.0%), and SVE Triplets were rare (<1.0%). Isolated VEs were rare (<1.0%), VE Couplets were rare (<1.0%), and no VE Triplets were present. Ventricular Bigeminy and Trigeminy were present. I have personally reviewed the Electrocardiogram, Laboratory Testing, and Echocardiogram. IMPRESSION: Mr. Gruber is a 81 year old gentleman with risk factors for coronary disease which include age, hypertension, dyslipidemia, prior significant smoking history, and family history of coronary artery disease (although not premature age of onset) who presents for evaluation of abnormal Holter monitor d emonstrating nonsustained ventricular tachycardia and SVT. PLAN AND RECOMMENDATIONS: 1. VT (ventricular tachycardia) - ICD9: 427.1, ICD10: I47.20 (primary diagnosis) I reviewed his Holter monitor. Based on his risk factors, he should undergo restratification. He does not have overt chest pressure but does describe dyspnea on exertion. Patient will hold beta-loni therapy in preparation for stress test. - NM CARDIAC PERF STRESS/EXERCISE 2. Paroxysmal SVT (supraventricular tachycardia) (HCC) - ICD9: 427.0, ICD10: I47.1 Patient is at risk for developing atrial fibrillation flutter. At present he has minimal palpitation symptoms. May consider adjustment of his beta-loni to long-acting Toprol for more sustained coverage and titration of medication as tolerated. 3. Essential hypertension, benign - ICD9: 401.1, ICD10: I10 Well-controlled on current regimen - NM CARDIAC PERF STRESS/EXERCISE 4. Mixed hyperlipidemia - ICD9: 272.2, ICD10: E78.2 Maintained on pravastatin 40 mg daily. Blood work from September 2021 was reviewed. LDL cholesterol 65 mg/dL - NM CARDIAC PERF STRESS/EXERCISE 5. PAREDES (dyspnea on exertion) - ICD9: 786.09, ICD10: R06.09 - NM CARDIAC PERF STRESS/EXERCISE Gurwinder Ayala MD documented in this encounterSelect [facility]-25-[facility]22 History of Present illness Narrative* Isela Older, CREELER.SYSTEMS PROGRAM MANAGER - 04/21/2022 8:51 AM EDT Medicare Yearly Visit Medical B eligibilty date 08/27/2003 Date of last exam 10/17/18 PAST MEDICAL HISTORY Diagnosis Date Acquired hypothyroidism 04/28/2016 CKD (chronic kidney disease) stage 3, GFR 30-59 ml/min (HCC) 12/03/2017 Complication of anesthesia Diverticulosis of colon Diverticulosis of colon (without mention of hemorrhage) Essential hypertension, benign 04/02/2005 Family history of malignant neoplasm of gastrointestinal tract Hyperlipidemia Malignant neoplasm of thyroid gland (HCC) Osteolytic lesion 09/13/2009 Personal history of colonic polyps Snoring Stroke (HCC) Venous insufficiency 03/16/2013 Vitamin D deficiency PAST SURGICAL HISTORY Procedure Laterality Date COLONOSCOPY FLX DX W/COLLJ SPEC WHEN PFRMD 04/07/10 COLONOSCOPY FLX DX W/COLLJ SPEC WHEN PFRMD 03/25/15 Colonoscopy PAST SURGICAL HISTORY OF L finger THYROIDECTOMY TOTAL/COMPLETE 08/04/04 total TONSILLECTOMY PRIMARY/SECONDARY <AGE 10 Tonsillectomy ALLERGIES: Creatine and Sulfa (Sulfonamide Antibiotics) Medications reviewed: Yes FAMILY HISTORY Problem Relation Age of Onset Heart Mother Thyroid Mother Colon Cancer Father SOCIAL HISTORY: Social History Tobacco Use Smoking status: Former Types: Pipe Quit date: 06/28/2010 Years since quittin.8 Smokeless tobacco: Never Substance Use Topics Alcohol use: Yes Comment: rare beer Drug use: No Carissa denies regular aerobic exercise. He watches his diet for sodium, low fat and low cholesterolmost of the time. List of current specialists seen: Corn Grower- Dr. Ayala [facility] Planning discussed including patients advanced directive wishes: Yes. He does not have one made Evidence of Cognitive Impairment: No What tool was used to assess the patients cognitive status? MiniCog 5/5. PHQ-2 / Depression screen He in the past two weeks denies having felt down, depressed, hopeless, or with little interest or pleasure in doing things. Functional Ability/Safety Screen 1. Was the patient's timed Up and Go test unsteady or longer than 30 seconds? No 2. Does the patient need help with the phone, transportation, shopping,preparing meals, housework, laundry, medications or managing money? No 3. Does your home have rugs in the hallway, lack of grab bars in the bathroom, lack of handrails onthe stairs or have poor lighting? No except no grab bars Hearing Evaluation: wears hearing aids PHYSICAL EXAM BP 118/67 Pulse 60 Resp 18 Ht 175.3 cm (5' 9) Wt 107 kg (236 lb) BMI 34.85 kg/m Alert and oriented X 3: YES Body mass index is 34.85 kg/m . ASSESSMENT/PLAN: 1. Medicare annual wellness visit, subsequent - ICD9: V70.0, ICD10: Z00.00 (primary diagnosis) The following prevention plan was discussed during the office visit and provided to the patient: - fall risk reduction - Counseled on healthy diet and regular exercise - Discussed need for and benefit of weight loss. BMI 34.85 kg/(m^2) - Depression screening tool completed and reviewed with patient. Based on score and interview, patient is not at risk for depression and recommended no further intervention at this time. - Patient was counseled [id number] by myself (the billing provider) for the following immunizations and vaccine components, including side effects: COVID- 19, Influenza, Pneumococcal , and Shingrix.Patient declined all vaccines - Follow up for annual exam in one year - follow-up for medicare annual exam in one year 2. Mixed hyperlipidemia - ICD9: 272.2, ICD10: E78.2 - LIPID PANEL BASIC - COMP METABOLIC PANEL 3. Essential hypertension, benign - ICD9: 401.1, ICD10: I10 - COMP METABOLIC PANEL - CBC 4. Acquired hypothyroidism - ICD9: 244.9, ICD10: E03.9 - TSH BLD Isela West APRN.CNP documented in this encounterSelect Medical [facility]09-23-2022 Miscellaneous Notes* Telephone Encounter - Lorie Helms RN - 03/20/2022 9:48 AM EDT Patient has been identified by name and date of : Yes Patient phones for refill(s): Requested Prescriptions Pending Prescriptions Disp Refills pravastatin (PRAVACHOL) 40 mg tablet 90 tablet 2 Sig: Take 1 tablet by mouth daily at bedtime. For cholesterol. Date of last office visit with pcp: 12-12-21. Next appt: 04-21-22 Last 2 Encounter Wt Readings: Date: Wt: 12/12/2021 106.6 kg (235 lb) 10/20/2021 106.6 kg (235 lb) Previous labs/tests for medication: Cholesterol: HDL Cholesterol (mg/dL) Date Value 10/13/2021 39 09/03/2020 37 LDL Cholesterol (mg/dL) Date Value 10/13/2021 65 09/03/2020 69 ALT (U/L) Date Value 10/13/2021 15 09/03/2020 17 Non HDL Cholesterol (mg/dL) Date Value 10/13/2021 85 09/03/2020 102 Please advise. Thank you. Lorie Helms RN documented in this encounterSelect Medical [facility]08-09-2022 Miscellaneous Notes* Telephone Encounter - Frank Holley Ma - 02/03/2022 9:18 AM EDT RUSTY: 12/12/2021 Last refill: 01/26/2021 QTY: 180 Refills: 3 * Telephone Encounter - Teresita Belen - 02/03/2022 8:56 AM EDT Patient has been identified by name and date of : Yes Pending Prescriptions Disp Refills LOSARTAN 50 MG TABLET 180 tablet 3 Sig: Take 1 tablet by mouth twice daily. MARCE: No RX INSTRUCTIONS: Patient aware RX will be sent to pharmacy. No need to notify patient. Teresita Anuragnaomi documented in this encounterSelect Medical [facility]06-17-2022 Instructions* Patient Instructions* Dimitri Marie MD - 12/12/2021 10:46 AM EDT Non fasting blood chemistry today. documented in this encounterSelect Medical [facility]06-17-2022 History of Present illness Narrative* Dimitri Marie MD - 12/12/2021 10:35 AM EDT This note was created using HALKAR. Subjective Patient presents with: Established Patient: review zio and echo Carissa Gruber is a 81 year old male who was seen in September with nocturnal palpitations associatedwith dyspnea. He got up at night to urinate as usual, but started noticing cardiac symptoms intermittently. He felt well overall, and symptoms of cardiac awareness resolved. His EKG showed sinus bradycardia. Echo was essentially unremarkable, and unchanged compared to echofreddy in 2009. Preliminary Zio showed runs of VT and SVT, but patient did not grzegorz these as symptomatic. Review of Systems Constitutional: Negative for fever and unexpected weight change. HENT: Negative. Respiratory: Negative for chest tightness, shortness of breath and wheezing. Cardiovascular: Negative for chest pain, palpitations and leg swelling. Gastrointestinal: Negative. Genitourinary: Negative. Neurological: Negative for dizziness and headaches. ACTIVE PROBLEM LIST Essential Hypertension, Benign Mixed Hyperlipidemia Vitamin D Deficiency Family History of Malignant Neoplasm of Gastrointestinal Tract Personal History of Colonic Polyps Venous Insufficiency Chronic Cough Acquired Hypothyroidism Actinic Keratoses Ckd (Chronic Kidney Disease) Stage 3, Gfr 30-59 Ml/Min ([facility]) Current Outpatient Medications Medication Sig levothyroxine (SYNTHROID) 150 mcg tablet Take 1 tablet by mouth once daily. Take on empty stomach. For thyroid metoprolol tartrate, short acting, (LOPRESSOR) 25 mg tablet Take 1 tablet by mouth twice daily. chlorthalidone (HYGROTON) 25 mg tablet Take 1 tablet by mouth once daily. pravastatin (PRAVACHOL) 40 mg tablet Take 1 tablet by mouth daily at bedtime. For cholesterol. losartan (COZAAR) 50 mg tablet Take 1 tablet by mouth twice daily. fluticasone (FLONASE) 50 mcg/actuation nasal spray Use 2 Sprays in each nostril once daily. aspirin, enteric coated 325 mg EC tablet Take 1 tablet by mouth once daily. with food. Cholecalciferol, Vitamin D3, 1,000 unit ORAL Tab Take by mouth once daily. ascorbic acid(VITAMIN C 500 MG TAB) Take one(1) tablet daily. COMPOUNDED PRESCRIPTION Vit E 400IU daily Current Facility-Administered Medications Medication Dose Route Frequency perflutren lipid microspheres 1.3 mL in NaCl (PF) 0.9% 10 mL injection (DEFINITY) INTRAVENOUS DIRECTED PRN sodium chloride 0.9 % (flush) 10 mL (BD POSIFLUSH) 10 mL INTRAVENOUS DIRECTED PRN Objective BP 128/54 (BP Site: Right Arm, BP Position: Sitting) Pulse (!) 57 Temp 36.6 C (97.9 F) Resp 14 Ht 175.3 cm (5' 9) Wt 106.6 kg (235 lb) SpO2 99% BMI 34.70 kg/m Physical Exam Constitutional: Appearance: He is not ill-appearing or diaphoretic. HENT: Head: Normocephalic. Cardiovascular: Rate and Rhythm: Regular rhythm. Bradycardia present. Heart sounds: No murmur heard. No gallop. Pulmonary: Effort: Pulmonary effort is normal. Breath sounds: Normal breath sounds. Abdominal: Palpations: Abdomen is soft. Tenderness: There is no abdominal tenderness. Musculoskeletal: Right lower le+ Pitting Edema present. Left lower le+ Pitting Edema present. Lymphadenopathy: Cervical: No cervical adenopathy. Neurological: Mental Status: He is alert. Component Latest Ref Rng & Units 10/13/2021 Protein, Total 6.3 - 8.0 g/dL 7.3 Albumin 3.9 - 4.9 g/dL 4.3 Calcium 8.5 - 10.2 mg/dL 9.4 Bilirubin, Total 0.2 - 1.3 mg/dL 0.3 Alkaline Phosphatase 38 - 113 U/L 88 AST 14 - 40 U/L 21 ALT 10 - 54 U/L 15 Glucose 74 - 99 mg/dL 91 BUN 9 - 24 mg/dL 23 Creatinine 0.73 - 1.22 mg/dL 1.79 (H) Sodium 136 - 144 mmol/L 142 Potassium 3.7 - 5.1 mmol/L 4.3 Chloride 97 - 105 mmol/L 104 CO2 22 - 30 mmol/L 26 Anion Gap 9 - 18 mmol/L 12 eGFR >=60 mL/min/1.73m 37 (L) WBC 3.70 - 11.00 k/uL 7.11 RBC 4.20 - 6.00 m/uL 4.53 Hemoglobin 13.0 - 17.0 g/dL 13.3 Hematocrit 39.0 - 51.0 % 40.3 MCV 80.0 - 100.0 fL 89.0 MCH 26.0 - 34.0 pg 29.4 MCHC 30.5 - 36.0 g/dL 33.0 RDW-CV 11.5 - 15.0 % 13.2 Platelet Count 150 - 400 k/uL 226 MPV 9.0 - 12.7 fL 10.9 Absolute nRBC <0.01 k/uL <0.01 Cholesterol, Total <200 mg/dL 124 Triglyceride <150 mg/dL 98 HDL Cholesterol >39 mg/dL 39 (L) Non HDL Cholesterol <130 mg/dL 85 Fasting Time hrs 12 VLDL Cholesterol <30 mg/dL 20 TC:HDL Ratio <5.10 3.18 LDL Cholesterol <100 mg/dL 65 LDL:HDL Ratio <2.54 1.67 TSH 0.270 - 4.200 mIU/L 0.427 Assessment and Plan ASSESSMENT/PLAN: 1. VT (ventricular tachycardia) (HCC) - ICD9: 427.1, ICD10: I47.2 (primary diagnosis) - CONSULT TO CARDIOLOGY 2. Paroxysmal SVT (supraventricular tachycardia) (HCC) - ICD9: 427.0, ICD10: I47.1 - CONSULT TO CARDIOLOGY 3. Stage 3b chronic kidney disease (HCC) - ICD9: 585.3, ICD10: N18.32 Monitor. 4. Essential hypertension, benign - ICD9: 401.1, ICD10: I10 - good control - Continue current medication(s) - Reviewed risks of HTN and principles of treatment - Goal of BP <130/80 5. Mixed hyperlipidemia - ICD9: 272.2, ICD10: E78.2 - good control - Continue current medication. 6. Acquired hypothyroidism - ICD9: 244.9, ICD10: E03.9 - Instructed patient on importance of taking on an empty stomach either first thing in the morning or at bedtime. - continue current dose of Synthroid Dimitri Marie MD documented in this encounterSelect Medical [facility]06-13-2022 Miscellaneous Notes* Telephone Encounter - Corrie Ortega LPN - 12/08/2021 2:06 PM EDT Called pt and appt arranged. * Telephone Encounter - Corrie Ortega LPN - 12/08/2021 1:56 PM EDT ----- Message from Isela West APRN.CNP sent at 12/08/2021 12:09 PM EDT ----- Please call patient to schedule appointment to review ZIO and echocardiogram results documented in this encounterSelect Medical [facility]04-25-2022 Nurse Note* Frank Holley Ma - 10/20/2021 9:42 AM EDT EVENT MONITOR DISPOSABLE PATCH INSTRUCTIONS Patient Name: Carissa Gruber [facility] Number: [id number] Skin prepped and cleansed with alcohol Patch secured to prepped area Monitor Activated Serial #: [id number] Patient Instructed: 1.) Prescribed order timeframe 2.) Bathing guidelines 3.) Usage of event button and diary documentation 4.) Return of monitor at the end of prescribed order 5.) Call with problems [phone] or [phone] ext. [phone] Patient expresses a good understanding of instructions Frank Holley Ma documented in this encounterSelect Medical [facility]04-25-2022 Instructions* Patient Instructions* Isela West APRN.CNP - 10/20/2021 8:37 AM EDT Recombinant shingles vaccine (Shingrix) is recommended; 2 doses 2-6 months apart. Please read information, check with your insurance, and schedule vaccination at your local pharmacy. A prescription is not required. If you are certain you have coverage to receive this vaccine in the office, we can schedule this for you. documented in this encounterSelect Medical [facility]04-25-2022 History of Present illness Narrative* Isela West APRN.CNP - 10/20/2021 8:31 AM EDT Images from the original note were not included. CC: Patient presents with: Medication Follow-up HPI Carissa Gruber is a 81 year old male who presents today for above. Palpitations Patient reports a few days a week he will wake up around 3 am with palpitations, my heart beat will be so fast I can't count it. Usually resolves after a few minutes and then he can go back to sleep. Nnly seems to occur around that time of the day. No exertional symptoms. Associated symptoms: SOB, breathing really fast. Denies chest pain, dizziness, lightheadedness, feeling faint, syncope. No cardiac history. Denies excessive caffeine intake. Drinks a lot of water. Skin lesion Patient reports raised area in the center of his chest. Has been present for more than 15 years however recently it has become larger, itchy and bleeding. MIXED HYPERLIPIDEMIA Taking statin as prescribed. Denies side effects. Exercise: denies regular aerobic exercise. Diet: Watches diet for salt (salty snacks, added salt, processed frozen/canned foods), sugary/sweetsnacks, unhealthy fats: most of the time BENIGN HYPERTENSION Medication changes:No Taking all medications as prescribed: Yes Side effects: No Home BP's: No Denies: headache, chest pain, dyspnea and peripheral edema. Last 3 Encounter BP Readings: Date: BP: 10/20/2021 132/64 09/02/2020 130/64 07/18/2019 138/68 Chronic cough Patient relates cough to allergies. I stop coughing when I blow my nose. No new or worsening symptoms. Denies hemoptysis. CKD (chronic kidney disease) stage 3, GFR 30-59 ml/min ([facility]) Worsening on recent labs. Patient reports adequate water intake. Denies decreased urine output or dark/cloudy urine. Acquired hypothyroidism Hypothyroidism. Taking levothyroxine daily on an empty stomach. TSH Date Value 10/13/2021 0.427 mIU/L 09/03/2020 0.729 uU/mL 07/14/2019 0.574 uU/mL REVIEW OF SYSTEMS General: no fevers, no chills, no night sweats, no change in appetite, no change in energy and no significant changes in weight Respiratory: no wheezing PAST MEDICAL HISTORY Diagnosis Date Acquired hypothyroidism 04/28/2016 CKD (chronic kidney disease) stage 3, GFR 30-59 ml/min (HCC) 12/03/2017 Complication of anesthesia Diverticulosis of colon Diverticulosis of colon (without mention of hemorrhage) Essential hypertension, benign 04/02/2005 Family history of malignant neoplasm of gastrointestinal tract Hyperlipidemia Malignant neoplasm of thyroid gland (HCC) Osteolytic lesion 09/13/2009 Personal history of colonic polyps Snoring Stroke (HCC) Venous insufficiency 03/16/2013 Vitamin D deficiency PAST SURGICAL HISTORY Procedure Laterality Date COLONOSCOPY FLX DX W/COLLJ SPEC WHEN PFRMD 04/07/10 COLONOSCOPY FLX DX W/COLLJ SPEC WHEN PFRMD 03/25/15 Colonoscopy PAST SURGICAL HISTORY OF L finger THYROIDECTOMY TOTAL/COMPLETE 08/04/04 total TONSILLECTOMY PRIMARY/SECONDARY <AGE 10 Tonsillectomy ALLERGIES Creatine and Sulfa (Sulfonamide Antibiotics) MEDICATIONS metoprolol tartrate, short acting, (LOPRESSOR) 25 mg tablet Take 1 tablet by mouth twice daily. chlorthalidone (HYGROTON) 25 mg tablet Take 1 tablet by mouth once daily. pravastatin (PRAVACHOL) 40 mg tablet Take 1 tablet by mouth daily at bedtime. For cholesterol. losartan (COZAAR) 50 mg tablet Take 1 tablet by mouth twice daily. levothyroxine (SYNTHROID) 150 mcg tablet Take 1 tablet by mouth once daily. Take on empty stomach. For thyroid fluticasone (FLONASE) 50 mcg/actuation nasal spray Use 2 Sprays in each nostril once daily. aspirin, enteric coated 325 mg EC tablet Take 1 tablet by mouth once daily. with food. Cholecalciferol, Vitamin D3, 1,000 unit ORAL Tab Take by mouth once daily. ascorbic acid(VITAMIN C 500 MG TAB) Take one(1) tablet daily. COMPOUNDED PRESCRIPTION Vit E 400IU daily FAMILY HISTORY Problem Relation Age of Onset Heart Mother Thyroid Mother Colon Cancer Father Social History Tobacco Use Smoking status: Former Smoker Years: 50.00 Types: Pipe Quit date: 06/28/2010 Years since quittin.3 Smokeless tobacco: Never Used Substance Use Topics Alcohol use: Yes Comment: rare beer Drug use: No PHYSICAL EXAM BP 132/64 Pulse (!) 51 Resp 18 Wt 106.6 kg (235 lb) SpO2 96% BMI 34.70 kg/m General Appearance: well appearing, in no acute distress, alert Lungs: Lungs clear to auscultation. No wheezing, rhonchi, rales. Heart: bradycardic, regular rhythm without murmur, gallop, or rubs. No ectopy Ext: trace edema in LE bilaterally, good distal pulses Health maintenance reviewed with patient: COVID-19 VACCINE(1) Never done DTAP,TDAP,TD(1 - Tdap) Never done SHINGRIX VACCINE(1 of 2) Never done ADVANCE DIRECTIVE DISCUSSION Never done INFLUENZA(Season Ended) due on 02/26/2022 DIABETES SCREEN due on 10/13/2024 PNEUMOVAX AGE 65 AND OVER WITH 5YR LOOKBACK Completed MENINGOCOCCAL CONJUGATE Aged Out DATA REVIEWED: Most recent labs ASSESSMENT/PLAN: 1. Palpitations - ICD9: 785.1, ICD10: R00.2 (primary diagnosis) Evaluate further with: - ECG COMPLETE today bradycardia with V rate 46, normal sinus rhythm, no acute findings, no previous EKG for comparison - ECHO - PERFLUTREN LIPID MICROSPHERES 1.1 MG/ML INJECTION IN NS 10 ML - SODIUM CHLORIDE 0.9 % (FLUSH) INJECTION SYRINGE - OUTSIDE VENDOR CARDIAC OUTPATIENT EXTENDED RHYTHM RECORDING (WITHOUT TELEMETRY) 2. Skin lesion of chest wall - ICD9: 709.9, ICD10: L98.9 Family history of skin cancer. No personal history - CONSULT TO DERMATOLOGY 3. Stage 3b chronic kidney disease (HCC) - ICD9: 585.3, ICD10: N18.32 Worsening, recheck in two weeks. Stressed importance of adequate hydration, limiting salt intake and BP control - BASIC METABOLIC PNL 4. Acquired hypothyroidism - ICD9: 244.9, ICD10: E03.9 - continue current dose of Synthroid - LEVOTHYROXINE 150 MCG TABLET 5. Essential hypertension, benign - ICD9: 401.1, ICD10: I10 - fair control - Continue current medication(s) - Recommended regular aerobic exercise. - Recommend home blood pressure monitoring, to bring results in on next visit - Goal of BP <130/80 - CHLORTHALIDONE 25 MG TABLET 6. Mixed hyperlipidemia - ICD9: 272.2, ICD10: E78.2 - good control - Continue current medication. 7. Chronic cough - ICD9: 786.2, ICD10: R05.3 Stable 8. Venous insufficiency - ICD9: 459.81, ICD10: I87.2 Stable Prescription instructions reviewed with patient as applicable. Potential red flag symptoms discussed with the patient. Reviewed appropriate action plan to take if red flag symptoms occur. Patient agreeable to treatment plan. Isela West APRN.CNP documented in this encounterSelect Medical [facility]03-07-2022 Miscellaneous Notes* Telephone Encounter - Frank Holley Ma - 09/01/2021 12:05 PM EST Pt notified. Follow up scheduled. * Telephone Encounter - Isela West APRN.CNP - 09/01/2021 10:16 AM EST Fasting labs ordered Isela West APRN.CNP * Telephone Encounter - Corrie Ortega LPN - 09/01/2021 9:01 AM EST Last appt 09/15/20. Will have schedulers call pt to arrange yearly appt. Any labs due? * Telephone Encounter - Jennifer Rodriguez - 09/01/2021 8:26 AM EST Patient has been identified by name and date of : Yes Last office visit in this department: Visit date not found RX INSTRUCTIONS: Patient aware RX will be sent to pharmacy. No need to notify patient. Patient phones requesting refills as follows: Pending Prescriptions Disp Refills CHLORTHALIDONE 25 MG TABLET 90 tablet 3 Sig: Take 1 tablet by mouth once daily. MARCE: No Please review and advise. Jennifer Rodriguez documented in this encounterSelect Medical [facility]08-19-2010 History of Past illness Narrative* Problem Noted Date Resolved Date Unspecified constipation 02/13/2010 016 Osteolytic lesion 09/13/2009 04/28/2016 Dysmetabolic syndrome X 04/02/2005 04/28/20 16 Malignant neoplasm of thyroid gland 07/18/2019 Overview: Suppressed TSH goal 0.1-0.3. documented as of this encounter (statuses as of 09/01/2021) [facility] History of Past illness Narrative* Problem Noted Date Resolved Date Unspecified constipation 02/13/2010 016 Osteolytic lesion 09/13/2009 04/28/2016 Dysmetabolic syndrome X 04/02/2005 04/28/20 16 Malignant neoplasm of thyroid gland 07/18/2019 Overview: Suppressed TSH goal 0.1-0.3. documented as of this encounter (statuses as of 10/20/2021) [place] [id number] History of Past illness Narrative* Problem Noted Date Resolved Date Unspecified constipation 02/13/2010 016 Osteolytic lesion 09/13/2009 04/28/2016 Dysmetabolic syndrome X 04/02/2005 04/28/20 16 Malignant neoplasm of thyroid gland 07/18/2019 Overview: Suppressed TSH goal 0.1-0.3. documented as of this encounter (statuses as of 12/08/2021) [facility] History of Past illness Narrative* Problem Noted Date Resolved Date Unspecified constipation 02/13/2010 016 Osteolytic lesion 09/13/2009 04/28/2016 Dysmetabolic syndrome X 04/02/2005 04/28/20 16 Malignant neoplasm of thyroid gland 07/18/2019 Overview: Suppressed TSH goal 0.1-0.3. documented as of this encounter (statuses as of 12/12/2021) [facility] History of Past illness Narrative* Problem Noted Date Resolved Date Unspecified constipation 02/13/2010 016 Osteolytic lesion 09/13/2009 04/28/2016 Dysmetabolic syndrome X 04/02/2005 04/28/20 16 Malignant neoplasm of thyroid gland 07/18/2019 Overview: Suppressed TSH goal 0.1-0.3. documented as of this encounter (statuses as of 02/03/2022) [facility] History of Past illness Narrative* Problem Noted Date Resolved Date Unspecified constipation 02/13/2010 016 Osteolytic lesion 09/13/2009 04/28/2016 Dysmetabolic syndrome X 04/02/2005 04/28/20 16 Malignant neoplasm of thyroid gland 07/18/2019 Overview: Suppressed TSH goal 0.1-0.3. documented as of this encounter (statuses as of 03/20/2022) [facility] History of Past illness Narrative* Problem Noted Date Resolved Date Unspecified constipation 02/13/2010 016 Osteolytic lesion 09/13/2009 04/28/2016 Dysmetabolic syndrome X 04/02/2005 04/28/20 16 Malignant neoplasm of thyroid gland 07/18/2019 Overview: Suppressed TSH goal 0.1-0.3. documented as of this encounter (statuses as of 04/21/2022) [facility] History of Past illness Narrative* Problem Noted Date Resolved Date Unspecified constipation 02/13/2010 016 Osteolytic lesion 09/13/2009 04/28/2016 Dysmetabolic syndrome X 04/02/2005 04/28/20 16 Malignant neoplasm of thyroid gland 07/18/2019 Overview: Suppressed TSH goal 0.1-0.3. documented as of this encounter (statuses as of 05/18/2022) [facility] History of Past illness Narrative* Problem Noted Date Resolved Date Unspecified constipation 02/13/2010 016 Osteolytic lesion 09/13/2009 04/28/2016 Dysmetabolic syndrome X 04/02/2005 04/28/20 16 Malignant neoplasm of thyroid gland 07/18/2019 Overview: Suppressed TSH goal 0.1-0.3. documented as of this encounter (statuses as of 05/22/2022) [facility] History of Past illness Narrative* Problem Noted Date Resolved Date Unspecified constipation 02/13/2010 016 Osteolytic lesion 09/13/2009 04/28/2016 Dysmetabolic syndrome X 04/02/2005 04/28/20 16 Malignant neoplasm of thyroid gland 07/18/2019 Overview: Suppressed TSH goal 0.1-0.3. documented as of this encounter (statuses as of 09/11/2022) [place] [address]-19-2010 History of Past illness Narrative* Problem Noted Date Resolved Date Unspecified constipation 02/13/2010 016 Osteolytic lesion 09/13/2009 04/28/2016 Dysmetabolic syndrome X 04/02/2005 04/28/20 16 Malignant neoplasm of thyroid gland 07/18/2019 Overview: Suppressed TSH goal 0.1-0.3. documented as of this encounter (statuses as of 09/21/2022) [facility] History of Past illness Narrative* Problem Noted Date Resolved Date Unspecified constipation 02/13/2010 016 Osteolytic lesion 09/13/2009 04/28/2016 Dysmetabolic syndrome X 04/02/2005 04/28/20 16 Malignant neoplasm of thyroid gland 07/18/2019 Overview: Suppressed TSH goal 0.1-0.3. documented as of this encounter (statuses as of 11/03/2022) [address]19-2010 History of Past illness Narrative* Problem Noted Date Resolved Date Unspecified constipation 02/13/2010 016 Osteolytic lesion 09/13/2009 04/28/2016 Dysmetabolic syndrome X 04/02/2005 04/28/20 16 Malignant neoplasm of thyroid gland 07/18/2019 Overview: Suppressed TSH goal 0.1-0.3. documented as of this encounter (statuses as of 12/16/2022) [address]19-2010 History of Past illness Narrative* Problem Noted Date Diagnosed Date Resolved Date Unspecified constipation 02/13/201006/2015 Osteolytic lesion 09/13/2009 04/28/2016 Dysmetabolic syndrome X 04/02/200506/2015 Malignant neoplasm of thyroid gland 07/18/2019 Overview: Suppressed TSH goal 0.1-0.3. documented as of this encounter (statuses as of 02/17/2023) [facility] History of Past illness Narrative* Problem Noted Date Diagnosed Date Resolved Date Unspecified constipation 02/13/201006/2015 Osteolytic lesion 09/13/2009 04/28/2016 Dysmetabolic syndrome X 04/02/200506/2015 Malignant neoplasm of thyroid gland 07/18/2019 Overview: Suppressed TSH goal 0.1-0.3. documented as of this encounter (statuses as of 05/02/2023) [place] [address]-19-2010 History of Past illness Narrative* Problem Noted Date Diagnosed Date Resolved Date Unspecified constipation 02/13/201006/2015 Osteolytic lesion 09/13/2009 04/28/2016 Dysmetabolic syndrome X 04/02/200506/2015 Malignant neoplasm of thyroid gland 07/18/2019 Overview: Suppressed TSH goal 0.1-0.3. documented as of this encounter (statuses as of 05/02/2023) [facility] History of Past illness Narrative* Problem Noted Date Diagnosed Date Resolved Date Unspecified constipation 02/13/201006/2015 Osteolytic lesion 09/13/2009 04/28/2016 Dysmetabolic syndrome X 04/02/200506/2015 Malignant neoplasm of thyroid gland 07/18/2019 Overview: Suppressed TSH goal 0.1-0.3. documented as of this encounter (statuses as of 08/20/2023) [facility] History of Past illness Narrative* Problem Noted Date Diagnosed Date Resolved Date Unspecified constipation 02/13/201006/2015 Osteolytic lesion 09/13/2009 04/28/2016 Dysmetabolic syndrome X 04/02/200506/2015 Malignant neoplasm of thyroid gland 07/18/2019 Overview: Suppressed TSH goal 0.1-0.3. documented as of this encounter (statuses as of 09/30/2023) [place] [address]-19-2010 History of Past illness Narrative* Problem Noted Date Diagnosed Date Resolved Date Unspecified constipation 02/13/201006/2015 Osteolytic lesion 09/13/2009 04/28/2016 Dysmetabolic syndrome X 04/02/200506/2015 Malignant neoplasm of thyroid gland 07/18/2019 Overview: Suppressed TSH goal 0.1-0.3. documented as of this encounter (statuses as of 10/07/2023) [facility] Diagnosis Mixed hyperlipidemia- Primary Essential hypertension, benign Acquired hypothyroidism Unspecified hypothyroidism [facility] this encounter [facility] Diagnosis Palpitations- Primary Skin lesion of chest wall Unspecified disorder of skin and subcutaneous tissue Stage 3b chronic kidney disease (HCC) Acquired hypothyroidism Unspecified hypothyroidism Essential hypertension, benign Mixed hyperlipidemia Chronic cough Cough Venous insufficiency Unspecified venous (peripheral) insufficiency [facility] Diagnosis VT (ventricular tachycardia) (HCC)- Primary Paroxysmal ventricular tachycardia Paroxysmal SVT (supraventricular tachycardia) (HCC) Paroxysmal supraventricular tachycardia Stage 3b chronic kidney disease (HCC) Essential hypertension, benign Mixed hyperlipidemia Acquired hypothyroidism Unspecified hypothyroidism [facility] Diagnosis Essential hypertension, benign [facility] Diagnosis Mixed hyperlipidemia [facility] Diagnosis Medicare annual wellness visit, subsequent- Primary Routine general medical examination at a [facility] care facility Mixed hyperlipidemia Essential hypertension, benign Acquired hypothyroidism Unspecified hypothyroidism [facility] Diagnosis VT (ventricular tachycardia)- Primary Paroxysmal ventricular tachycardia Paroxysmal SVT (supraventricular tachycardia) (HCC) Paroxysmal supraventricular tachycardia Essential hypertension, benign Mixed hyperlipidemia PAREDES (dyspnea on exertion) Other dyspnea and respiratory abnormality [facility] Diagnosis Stage 3b chronic kidney disease (HCC)- Primary Acquired hypothyroidism Unspecified hypothyroidism Essential hypertension, benign Venous insufficiency Unspecified venous (peripheral) insufficiency Paroxysmal SVT (supraventricular tachycardia) (HCC) Paroxysmal supraventricular tachycardia [facility] Diagnosis VT (ventricular tachycardia) (HCC)- Primary Paroxysmal ventricular tachycardia Paroxysmal SVT (supraventricular tachycardia) (HCC) Paroxysmal supraventricular tachycardia Essential hypertension, benign Mixed hyperlipidemia Sinus bradycardia Other specified cardiac dysrhythmias [facility] Diagnosis Stage 3b chronic kidney disease (HCC)- Primary Mixed hyperlipidemia Essential hypertension, benign Bladder retention of urine Retention of urine, unspecified Acquired complex cyst of kidney, left [facility] Diagnosis Essential hypertension, benign- Primary Venous insufficiency Unspecified venous (peripheral) insufficiency Hypertensive kidney disease with stage 3b chronic kidney disease (HCC) [facility] Diagnosis Essential hypertension, benign- Primary Bladder retention of urine Retention of urine, unspecified Stage 3b chronic kidney disease (HCC) [facility] Diagnosis VT (ventricular tachycardia) (HCC) Paroxysmal ventricular tachycardia Essential hypertension, benign Mixed hyperlipidemia PAREDES (dyspnea on exertion) Other dyspnea and respiratory abnormality [facility] Diagnosis Stage 3b chronic kidney disease (HCC) [facility]* Diagnosis Obesity, Class II, BMI 35-39.9- Primary Obesity, unspecified Acquired hypothyroidism Unspecified hypothyroidism Venous insufficiency Unspecified venous (peripheral) insufficiency Essential hypertension, benign Vitamin D deficiency Unspecified vitamin D deficiency Mixed hyperlipidemia [facility] Diagnosis VT (ventricular tachycardia) (HCC) Paroxysmal ventricular tachycardia Paroxysmal SVT (supraventricular tachycardia) (HCC) Paroxysmal supraventricular tachycardia Essential hypertension, benign [facility] Diagnosis Medicare annual wellness visit, subsequent- Primary Routine general medical examination at a health care facility Acquired hypothyroidism Unspecified hypothyroidism Skin lesion of chest wall Unspecified disorder of skin and subcutaneous tissue Essential hypertension, benign Mixed hyperlipidemia [facility] Diagnosis Mixed hyperlipidemia [facility] Diagnosis Palpitations- Primary Skin lesion of chest wall Unspecified disorder of skin and subcutaneous tissue Stage 3b chronic kidney disease (HCC) Acquired hypothyroidism Unspecified hypothyroidism Essential hypertension, benign Mixed hyperlipidemia Chronic cough Cough Venous insufficiency Unspecified venous (peripheral) insufficiency Essential hypertension, benign [facility] Diagnosis Palpitations- Primary Skin lesion of chest wall Unspecified disorder of skin and subcutaneous tissue Stage 3b chronic kidney disease (HCC) Acquired hypothyroidism Unspecified hypothyroidism Essential hypertension, benign Mixed hyperlipidemia Chronic cough Cough Venous insufficiency Unspecified venous (peripheral) insufficiency VT (ventricular tachycardia) (HCC)- Primary Paroxysmal ventricular tachycardia Paroxysmal SVT (supraventricular tachycardia) (HCC) Paroxysmal supraventricular tachycardia Essential hypertension, benign Mixed hyperlipidemia Sinus bradycardia Other specified cardiac dysrhythmias Bladder retention of urine Retention of urine, unspecified [facility] Diagnosis Palpitations- Primary Skin lesion of chest wall Unspecified disorder of skin and subcutaneous tissue Stage 3b chronic kidney disease (HCC) Acquired hypothyroidism Unspecified hypothyroidism Essential hypertension, benign Mixed hyperlipidemia Chronic cough Cough Venous insufficiency Unspecified venous (peripheral) insufficiency Personal history of skin cancer- Primary Personal history of other malignant neoplasm of skin Need for influenza vaccination Need for prophylactic vaccination and inoculation against influenza Essential hypertension, benign Mixed hyperlipidemia Acquired hypothyroidism Unspecified hypothyroidism Sinus bradycardia Other specified cardiac dysrhythmias Screening for depression Encounter for screening examination for other mental health and behavioral disorders [facility] Diagnosis Palpitations- Primary Skin lesion of chest wall Unspecified disorder of skin and subcutaneous tissue Stage 3b chronic kidney disease (HCC) Acquired hypothyroidism Unspecified hypothyroidism Essential hypertension, benign Mixed hyperlipidemia Chronic cough Cough Venous insufficiency Unspecified venous (peripheral) insufficiency Essential hypertension, benign Bladder retention of urine Retention of urine, unspecified [facility] Diagnosis Palpitations- Primary Skin lesion of chest wall Unspecified disorder of skin and subcutaneous tissue Stage 3b chronic kidney disease (HCC) Acquired hypothyroidism Unspecified hypothyroidism Essential hypertension, benign Mixed hyperlipidemia Chronic cough Cough Venous insufficiency Unspecified venous (peripheral) insufficiency Acquired hypothyroidism Unspecified hypothyroidism Essential hypertension, benign documented [facility] this encounter [facility] Diagnosis Palpitations- Primary Skin lesion of chest wall Unspecified disorder of skin and subcutaneous tissue Stage 3b chronic kidney disease (HCC) Acquired hypothyroidism Unspecified hypothyroidism Essential hypertension, benign Mixed hyperlipidemia Chronic cough Cough Venous insufficiency Unspecified venous (peripheral) insufficiency VT (ventricular tachycardia) (HCC) Paroxysmal ventricular tachycardia Paroxysmal SVT (supraventricular tachycardia) (HCC) Paroxysmal supraventricular tachycardia Essential hypertension, benign documented in this encounter [facility] Diagnosis Palpitations- Primary Skin lesion of chest wall Unspecified disorder of skin and subcutaneous tissue Stage 3b chronic kidney disease (HCC) Acquired hypothyroidism Unspecified hypothyroidism Essential hypertension, benign Mixed hyperlipidemia Chronic cough Cough Venous insufficiency Unspecified venous (peripheral) insufficiency Essential hypertension, benign [facility] (narrative)* Outpatient Procedure (Routine) - Authorized Specialty Diagnoses / Procedures Referred By Rene seymour [facility] To [facility] Diagnoses Palpitations Procedures ECHO ECHO TTHRC R-T 2D W/WOM-MODE COMPL SPEC&COLR D Isela West APRN.SYSTEMS PROGRAM MANAGER [address] [place] [address] [facility] [address] [place] [id number] Referral ID Status Reason Start Date Expiration Date Visits Requested Visits Authorized [id number] Authorized Auto-Generat ed Referral 10/20/2021 10/20/2022 1 1 * Transition of Care (Routine) - Ref Not Required Specialty Diagnoses / Procedures Referred By Rene seymour Referred To Contact Dermatology Diagnoses Skin lesion of chest wall Procedures CONSULT TO DERMATOLOGY Isela West APRN.CNP [address] [place] [address] Referral ID Status Reason Start Date Expiration Date Visits Requested Visits Authorized [id number] Ref Not Required PCP Requested Referral 10/20/2021 10/20/2022 1 1 * Outpatient Procedure (Routine) - Authorized Specialty Diagnoses / Procedures Referred By Contac t Referred To [facility] Diagnoses Palpitations Procedures ECG COMPLETE ECG ROUTINE ECG W/LEAST 12 LDS W/I&R Isela West APRN.CNP [address] [place] [address] [facility] [address] [place] [address] Referral ID Status Reason Start Date Expiration Date Visits Requested Visits Authorized [id number] Authorized Auto-Generat ed Referral 10/20/2021 10/20/2022 1 1 [facility] for referral (narrative)* Diagnostic Procedure Only (Routine) - Authorized Specialty Diagnoses / Procedures Referred By Contact Referred To Contact [facility] Diagnoses VT (ventricular tachycardia) Essential hypertension, benign Mixed hyperlipidemia PAREDES (dyspnea on exertion) Procedures NM CARDIAC PERF STRESS/EXERCISE MYOCARDIAL SPECT MULTIPLE STUDIES Gurwinder Ayala MD [address] [place] [id number] [facility] [address] [place] [address] Referral ID Status Reason Start Date Expiration Date Visits Requested Visits Authorized [id number] Authorized Auto-Generat ed Referral 2 06/17/2023 1 1 [facility] for referral (narrative)* Diagnostic Procedure Only (Routine) - Authorized Specialty Diagnoses / Procedures Referred By Contac t Referred To Contact [facility] Diagnoses Stage 3b chronic kidney disease (HCC) Procedures US KIDNEY/BLADDER US RETROPERITONEAL REAL TIME W/IMAGE COMPLETE Dimitri Marie MD [address] [place] [address] [facility] Referral ID Status Reason Start Date Expiration Date Visits Requested Visits Authorized [id number] Authorized Auto-Generat ed Referral 09/11/2022 10/11/2023 1 1 [facility] for referral (narrative)* Diagnostic Procedure Only (Routine) - Closed Specialty Diagnoses / Procedures Referred By Contact Referred To Contact [facility] Diagnoses VT (ventricular tachycardia) (HCC) Essential hypertension, benign Mixed hyperlipidemia PAREDES (dyspnea on exertion) Procedures NM CARDIAC PERF STRESS/EXERCISE MYOCARDIAL SPECT MULTIPLE STUDIES Gurwinder Ayala MD [address] [place] [address] [facility] [address] [place] [address] Referral ID Status Reason Start Date Expiration Date V isits Requested Visits Authorized [id number] Closed Auto-Generate d Referral 05/18/2022 06/17/2023 1 1 [facility] for referral (narrative)* Diagnostic Procedure Only (Routine) - Closed Specialty Diagnoses / Procedures Referred By Contac t Referred To Contact [facility] IMAG[facility] Diagnoses Stage 3b chronic kidney disease (HCC) Procedures US KIDNEY/BLADDER US RETROPERITONEAL REAL TIME W/IMAGE COMPLETE Dimitri Marie MD [address] [place] [address] [facility] [place] [address] Referral ID Status Reason Start Date Expiration Date V isits Requested Visits Authorized [id number] Closed Auto-Generate d Referral 09/11/2022 10/11/2023 1 1 [facility] for referral (narrative)No reason for referral information availableWLake County [facility] Work Phone: Reason for visit Narrative* Diagnostic Procedure Only (Routine) - Closed Specialty Diagnoses / Procedures Referred By Contact Referred To Contact [facility] Diagnoses VT (ventricular tachycardia) (HCC) Essential hypertension, benign Mixed hyperlipidemia PAREDES (dyspnea on exertion) Procedures NM CARDIAC PERF STRESS/EXERCISE MYOCARDIAL SPECT MULTIPLE STUDIES Gurwinder Ayala MD [address] [place] [address] [facility] [address] [place] [address] Referral ID Status Reason Start Date Expiration Date V isits Requested Visits Authorized [id number] Closed Auto-Generate d Referral 05/18/2022 06/17/2023 1 1 [facility] Reason for Referral Specialty Diagnoses / Procedures Referred By Contac t Referred To Contact Cardiology Diagnoses VT (ventricular tachycardia) (HCC) Paroxysmal SVT (supraventricular tachycardia) (HCC) Procedures CONSULT TO [facility] 60-74 [facility]ES Dimitri Marie MD [address] [place] [address] Referral ID Status Reason Start Date Expiration Date Visits Requested Visits Authorized [id number] Authorized PCP Requested Referral 12/12/2021 12/12/2022 1 1 Specialty Diagnoses / Procedures Referred By Contac t Referred To Contact Dermatology Diagnoses Skin lesion of chest wall Procedures CONSULT TO DERMATOLOGY Isela Patel, CREELER.SYSTEMS PROGRAM MANAGER [address] [place] [address] Referral ID Status Reason Start Date Expiration Date Visits Requested Visits Authorized [id number] Ref Not Required PCP Requested Referral 10/06/2023 10/05/2024 1 1 Chief Complaint and Reason for Visit Chief Complaint Admit Date LEFT RETINAL A. 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 OCCLUSION W/ SEVERE December 06, 2024 3:31pm LEFT RETINAL A. OCCLUSION W/ SEVERE December 07, 2024 11:12am Chief Complaint Admit Date LEFT RETINAL A. OCCLUSION W/ SEVERE December 06, 2024 3:31pm LEFT RETINAL A. 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 OCCLUSION W/ SEVERE December 06, 2024 3:31pm LEFT RETINAL A. OCCLUSION W/ SEVERE December 07, 2024 11:12am INT LABS December 15, 2024 9:58 am CRAO W/ SUBCLAVIAN THROMBOSIS December 16, 2024 2:18pm Post holspitalization January 05, 2025 1: 06pm Chief Complaint Admit Date LEFT RETINAL A. OCCLUSION W/ SEVERE December 06, 2024 3:31pm LEFT RETINAL A. 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 No December 06, 2024 12:19pm Advance Directives No April 1:10pm Advance Directive Response Recorded Date/ Time Do you have a Healthcare Power of Cash Applications Representative? No December 06, 2024 9:27pm Advance Directives No April 1:10pm Summary Purpose Family History No Family History Records FoundNo Family History Records Found Additional Source Comments Source Comments (unrecognize d section and content) In the event this informatio n is protected by the Federal Confidentiality of Alcohol and Drug Abuse Patient Records regulations: The Federal rules restrict any use of the information to criminally investigate or prosecute any alcohol or drug abuse patient.[facility] the event this information is protected by the Federal Confidentiality of Alcohol and Drug Abuse Patient Records regulations: The Federal rules restrict any use of the information to criminally investigate or prosecute any alcohol or drug abuse patient.[facility] Hospital[facility] the event this information is protected by the Federal Confidentiality of Alcohol and Drug Abuse Patient Records regulations: The Federal rules restrict any use of the information to criminally investigate or prosecute any alcohol or drug abuse patient.[facility] Hospital[facility] the event this information is protected by the Federal Confidentiality of Alcohol and Drug Abuse Patient Records regulations: The Federal rules restrict any use of the information to criminally investigate or prosecute any alcohol or drug abuse patient.[facility] HospitalIn the event this information is protected by the Federal Confidentiality of Alcohol and Drug Abuse Patient Records regulations: The Federal rules restrict any use of the information to criminally investigate or prosecute any alcohol or drug abuse patient.[facility] HospitalIn the event this information is protected by the Federal Confidentiality of Alcohol and Drug Abuse Patient Records regulations: The Federal rules restrict any use of the information to criminally investigate or prosecute any alcohol or drug abuse patient.[facility] HospitalIn the event this information is protected by the Federal Confidentiality of Alcohol and Drug Abuse Patient Records regulations: The Federal rules restrict any use of the information to criminally investigate or prosecute any alcohol or drug abuse patient.[facility] HospitalIn the event this information is protected by the Federal Confidentiality of Alcohol and Drug Abuse Patient Records regulations: The Federal rules restrict any use of the information to criminally investigate or prosecute any alcohol or drug abuse patient.[facility] HospitalIn the event this information is protected by the Federal Confidentiality of Alcohol and Drug Abuse Patient Records regulations: The Federal rules restrict any use of the information to criminally investigate or prosecute any alcohol or drug abuse patient.[facility] HospitalIn the event this information is protected by the Federal Confidentiality of Alcohol and Drug Abuse Patient Records regulations: The Federal rules restrict any use of the information to criminally investigate or prosecute any alcohol or drug abuse patient.[facility] HospitalIn the event this information is protected by the Federal Confidentiality of Alcohol and Drug Abuse Patient Records regulations: The Federal rules restrict any use of the information to criminally investigate or prosecute any alcohol or drug abuse patient.[facility] HospitalIn the event this information is protected by the Federal Confidentiality of Alcohol and Drug Abuse Patient Records regulations: The Federal rules restrict any use of the information to criminally investigate or prosecute any alcohol or drug abuse patient.[facility] HospitalIn the event this information is protected by the Federal Confidentiality of Alcohol and Drug Abuse Patient Records regulations: The Federal rules restrict any use of the information to criminally investigate or prosecute any alcohol or drug abuse patient.[facility] HospitalIn the event this information is protected by the Federal Confidentiality of Alcohol and Drug Abuse Patient Records regulations: The Federal rules restrict any use of the information to criminally investigate or prosecute any alcohol or drug abuse patient.[facility] HospitalIn the event this information is protected by the Federal Confidentiality of Alcohol and Drug Abuse Patient Records regulations: The Federal rules restrict any use of the information to criminally investigate or prosecute any alcohol or drug abuse patient.[facility] HospitalIn the event this information is protected by the Federal Confidentiality of Alcohol and Drug Abuse Patient Records regulations: The Federal rules restrict any use of the information to criminally investigate or prosecute any alcohol or drug abuse patient.[facility] HospitalIn the event this information is protected by the Federal Confidentiality of Alcohol and Drug Abuse Patient Records regulations: The Federal rules restrict any use of the information to criminally investigate or prosecute any alcohol or drug abuse patient.[facility] HospitalIn the event this information is protected by the Federal Confidentiality of Alcohol and Drug Abuse Patient Records regulations: The Federal rules restrict any use of the information to criminally investigate or prosecute any alcohol or drug abuse patient.[facility] HospitalIn the event this information is protected by the Federal Confidentiality of Alcohol and Drug Abuse Patient Records regulations: The Federal rules restrict any use of the information to criminally investigate or prosecute any alcohol or drug abuse patient.[facility] HospitalIn the event this information is protected by the Federal Confidentiality of Alcohol and Drug Abuse Patient Records regulations: The Federal rules restrict any use of the information to criminally investigate or prosecute any alcohol or drug abuse patient.[facility] HospitalIn the event this information is protected by the Federal Confidentiality of Alcohol and Drug Abuse Patient Records regulations: The Federal rules restrict any use of the information to criminally investigate or prosecute any alcohol or drug abuse patient.[facility] HospitalIn the event this information is protected by the Federal Confidentiality of Alcohol and Drug Abuse Patient Records regulations: The Federal rules restrict any use of the information to criminally investigate or prosecute any alcohol or drug abuse patient.[facility] HospitalIn the event this information is protected by the Federal Confidentiality of Alcohol and Drug Abuse Patient Records regulations: The Federal rules restrict any use of the information to criminally investigate or prosecute any alcohol or drug abuse patient.[facility] HospitalIn the event this information is protected by the Federal Confidentiality of Alcohol and Drug Abuse Patient Records regulations: The Federal rules restrict any use of the information to criminally investigate or prosecute any alcohol or drug abuse patient.[facility] HospitalIn the event this information is protected by the Federal Confidentiality of Alcohol and Drug Abuse Patient Records regulations: The Federal rules restrict any use of the information to criminally investigate or prosecute any alcohol or drug abuse patient.[facility] HospitalIn the event this information is protected by the Federal Confidentiality of Alcohol and Drug Abuse Patient Records regulations: The Federal rules restrict any use of the information to criminally investigate or prosecute any alcohol or drug abuse patient.[facility] HospitalIn the event this information is protected by the Federal Confidentiality of Alcohol and Drug Abuse Patient Records regulations: The Federal rules restrict any use of the information to criminally investigate or prosecute any alcohol or drug abuse patient.[facility] HospitalIn the event this information is protected by the Federal Confidentiality of Alcohol and Drug Abuse Patient Records regulations: The Federal rules restrict any use of the information to criminally investigate or prosecute any alcohol or drug abuse patient.[facility] HospitalIn the event this information is protected by the Federal Confidentiality of Alcohol and Drug Abuse Patient Records regulations: The Federal rules restrict any use of the information to criminally investigate or prosecute any alcohol or drug abuse patient.[facility] HospitalIn the event this information is protected by the Federal Confidentiality of Alcohol and Drug Abuse Patient Records regulations: The Federal rules restrict any use of the information to criminally investigate or prosecute any alcohol or drug abuse patient.[facility] Reason for Visit (unrecogniz ed section and content) Reason Onset Date Comments Refill Request 09/01/2021 Reason Comments Medication Follow-up Reason Comments Results Reason Comments Established Patient review zio and echo Reason Onset Date Comments Refill Request 02/03/2022 Reason Onset Date Comments Refill Request 03/20/2022 Reason Comments New Patient Specialty Diagnoses / Procedures Referred By Contac t Referred To Contact Cardiology Diagnoses VT (ventricular tachycardia) Paroxysmal SVT (supraventricular tachycardia) (HCC) Procedures CONSULT TO CARDIOLOGY OFFICE/OUTPATIENT NEW HIGH MDM 60-74 MINUTES Dimitri Marie MD [address] [place] [address] Referral ID Status Reason Start Date Expiration Date V isits Requested Visits Authorized [id number] Closed PCP Requested Referral 12/12/2021 12/12/2022 1 1 Reason Comments Appointment Stress test instruct ions Reason Comments Recheck 9 month follow up Reason Comments Established Patient Reason Comments 6 week follow-up Reason Comments 2 month follow-up Reason Comments Radiology US Specialty Diagnoses / Procedures Referred By Contac t Referred To Contact US IMAGING Diagnoses Stage 3b chronic kidney disease (HCC) Procedures US KIDNEY/BLADDER US RETROPERITONEAL REAL TIME W/IMAGE COMPLETE Dimitri Marie MD [address] [place] [address] [place] [address] Referral ID Status Reason Start Date Expiration Date V isits Requested Visits Authorized [id number] Closed Auto-Generate d Referral 09/11/2022 10/11/2023 1 1 Reason Comments 6 Month Exam Follow Up Reason Onset Date Comments Refill Request 09/29/2023 Reason Comments Medicare Wellness Exam 6 week follow up Reason Onset Date Comments Refill Request 01/13/2024 Reason Onset Date Comments Refill Request 03/16/2024 Reason Comments Follow Up Reason Onset Date Comments F/U 6 months Immunizations 04/06/2024 Flu vaccination Reason Onset Date Comments Refill Request 05/01/2024 Reason Onset Date Comments Refill Request 09/11/2024 Reason Onset Date Comments Refill Request 10/11/2024 Reason Onset Date Comments Refill Request 10/30/2024 Reason Comments Vision changes Care Teams (unrecognized sec tion and content) Team Status: Active Member Role Status Dates Dr. Dimitri Marie MD Primary Care Provider Active Team Status: Inactive Member Role Status Dates Dr. Ricardo Sinha MD Emergency Provider Active S tart: December 06, 2024 End: December 07, 2024 Dr. Dimitri Marie MD Primary Care Provider Active Start: December 06, 2024 End: December 07, 2024 Dr. Lyndon Dinh DO Admit Provider Active Start: December 06, 2024 End: December 07, 2024 Dr. Lyndon Dinh DO Attending Provider Active Start: December 06, 2024 End: December 07, 2024 Jerome Don MD Other Provider Active Start: Sindy 2024 End: December 07, 2024 Dr. Lary Muniz MD Other Provider Active Start: December 06, 2024 End: December 07, 2024 Constance Schmid MD Other Provider Active Start : December 06, 2024 End: December 07, 2024 Dr. Mari Hernández DO Other Provider Active St art: December 06, 2024 End: December 07, 2024 Dr. Tiffany Ma MD Other Provider Active Start: December 06, 2024 End: December 07, 2024 Dr. Kota Hussein MD Other Provider Active Sta rt: December 06, 2024 End: December 07, 2024 Dr. Crystal Farah MD Other Provider Active Start : December 06, 2024 End: December 07, 2024 Dr. Bryn Zambrano MD Other Provider Active Start: December 06, 2024 End: December 07, 2024 Dr. Yash Gerardo MD Other Provider Active Start : December 06, 2024 End: December 07, 2024 Dr. George Perla MD Other Provider Active Sta rt: December 06, 2024 End: December 07, 2024 Tere Barrientos MD Other Provider Active Start : December 06, 2024 End: December 07, 2024 Dr. Berny Pittman MD Other Provider Active St art: December 06, 2024 End: December 07, 2024 Dr. Cristine Solo MD Other Provider Active Start : December 06, 2024 End: December 07, 2024 Dr. Jeff Dougherty MD Other Provider Active Sta rt: December 06, 2024 End: December 07, 2024 Dr. Sloan Pastrana MD Other Provider Active Start: December 06, 2024 End: December 07, 2024 Dr. Ronn Mcclellan MD Other Provider Active St art: December 06, 2024 End: December 07, 2024 Dr. Donald Hunter MD Other Provider Active Star t: December 06, 2024 End: December 07, 2024 Dr. Guevara Mahoney MD Other Provider Active St art: December 06, 2024 End: December 07, 2024 Dr. Kitty Patel MD Other Provider Active Start: December 06, 2024 End: December 07, 2024 Julia Rahman MD Other Provider Active Start: December 06, 2024 End: December 07, 2024 Julia Rahman MD Other Provider Active Start: December 06, 2024 Team Status: Active Member Role Status Dates Dr. Ricardo Sinha MD Emergency Provider Active S tart: December 07, 2024 Dr. Dimitri Marie MD Primary Care Provider Active Start: December 07, 2024 Dr. Lyndon Dinh DO Admit Provider Active Start: December 07, 2024 Dr. Lyndon Dinh DO Attending Provider Active Start: December 07, 2024 Dr. Lyndon Dinh DO Other Provider Active Start: December 07, 2024 Jerome Don MD Other Provider Active Start: 2024 Dr. Lary Muniz MD Other Provider Active Start: December 07, 2024 Constance Schmid MD Other Provider Active Start : December 07, 2024 Dr. Mari Hernández DO Other Provider Active St art: December 07, 2024 Dr. Tiffany Ma MD Other Provider Active Start: December 07, 2024 Dr. Kota Hussein MD Other Provider Active Sta rt: December 07, 2024 Dr. Crystal Farah MD Other Provider Active Start : December 07, 2024 Dr. Bryn Zambrano MD Other Provider Active Start: December 07, 2024 Dr. Yash Gerardo MD Other Provider Active Start : December 07, 2024 Dr. George Perla MD Other Provider Active Sta rt: December 07, 2024 Tere Barrientos MD Other Provider Active Start : December 07, 2024 Dr. Berny Pittman MD Other Provider Active St art: December 07, 2024 Dr. Cristine Solo MD Other Provider Active Start : December 07, 2024 Dr. Jeff Dougherty MD Other Provider Active Sta rt: December 07, 2024 Dr. Sloan Pastrana MD Other Provider Active Start: December 07, 2024 Dr. Ronn Mcclellan MD Other Provider Active St art: December 07, 2024 Dr. Donald Hunter MD Other Provider Active Star t: December 07, 2024 Dr. Guevara Mahoney MD Other Provider Active St art: December 07, 2024 Dr. Kitty Patel MD Other Provider Active Start: December 07, 2024 Julia Rahman MD Other Provider Active Start: December 07, 2024 Team Status: Active Member Role Status Dates Dr. Dimitri Marie MD Primary Care Provider Active Start: December 07, 2024 Dr. Cally Mahoney MD Attending Provider Active Start: December 07, 2024 Online Marketing Analyst Relationship Specialty Start Date End Date Dimitri Marie MD [address] [place] [address] PCP - General Internal Medicine 04/28/16 Online Marketing Analyst Relationship Specialty Start Date End Date Dimitri Marie MD [address] [place] [address] PCP - General Internal Medicine 04/28/16 Online Marketing Analyst Relationship Specialty Start Date End Date Dimitri Marie MD [address] [place] [address] PCP - General Internal Medicine 04/28/16 Online Marketing Analyst Relationship Specialty Start Date End Date Dimitri Marie MD [address] [place] [address] PCP - General Internal Medicine 04/28/16 Online Marketing Analyst Relationship Specialty Start Date End Date Dimitri Marie MD [address] [place] [address] PCP - General Internal Medicine 04/28/16 Online Marketing Analyst Relationship Specialty Start Date End Date Dimitri Marie MD [address] [place] [address] PCP - General Internal Medicine 04/28/16 Online Marketing Analyst Relationship Specialty Start Date End Date Dimitri Marie MD [address] [place] [address] PCP - General Internal Medicine 04/28/16 Online Marketing Analyst Relationship Specialty Start Date End Date Dimitri Marie MD [address] [place] [address] PCP - General Internal Medicine 04/28/16 Online Marketing Analyst Relationship Specialty Start Date End Date Dimitri Marie MD [address] [place] [address] PCP - General Internal Medicine 04/28/16 Online Marketing Analyst Relationship Specialty Start Date End Date Dimitri Marie MD [address] [place] [address] PCP - General Internal Medicine 04/28/16 Online Marketing Analyst Relationship Specialty Start Date End Date Dimitri Marie MD [address] [place] [address] PCP - General Internal Medicine 04/28/16 Online Marketing Analyst Relationship Specialty Start Date End Date Dimitri Marie MD [address] [place] [address] PCP - General Internal Medicine 04/28/16 Online Marketing Analyst Relationship Specialty Start Date End Date Dimitri Marie MD [address] [place] [address] PCP - General Internal Medicine 04/28/16 Online Marketing Analyst Relationship Specialty Start Date End Date Dimitri Marie MD [address] [place] [address] PCP - General Internal Medicine 04/28/16 Online Marketing Analyst Relationship Specialty Start Date End Date Dimitri Marie MD [address] [place] [address] PCP - General Internal Medicine 04/28/16 Online Marketing Analyst Relationship Specialty Start Date End Date Dimitri Marie MD [address] [place] [address] PCP - General Internal Medicine 04/28/16 Online Marketing Analyst Relationship Specialty Start Date End Date Dimitri Marie MD [address] [place] [address] PCP - General Internal Medicine 04/28/16 Online Marketing Analyst Relationship Specialty Start Date End Date Dimitri Marie MD [address] [place] [address] PCP - General Internal Medicine 04/28/16 Online Marketing Analyst Relationship Specialty Start Date End Date Dimitri Marie MD [address] [place] [address] PCP - General Internal Medicine 04/28/16 Online Marketing Analyst Relationship Specialty Start Date End Date Dimitri Marie MD [address] [place] [address] PCP - General Internal Medicine 04/28/16 Online Marketing Analyst Relationship Specialty Start Date End Date Dimitri Marie MD [address] [place] [address] PCP - General Internal Medicine 04/28/16 Online Marketing Analyst Relationship Specialty Start Date End Date Dimitri Marie MD [address] [place] [address] PCP - General Internal Medicine 04/28/16 Online Marketing Analyst Relationship Specialty Start Date End Date Dimitri Marie MD [address] [place] [address] PCP - General Internal Medicine 04/28/16 Online Marketing Analyst Relationship Specialty Start Date End Date Dimitri Marie MD [address] [place] [address] PCP - General Internal Medicine 04/28/16 Isela Patel, [email or web address] [email or web address] MANAGER [address] [place] [address] Manager Gyn Internal Medicine 06/05/24 Online Marketing Analyst Relationship Specialty Start Date End Date Dimitri Marie MD [address] [place] [address] PCP - General Internal Medicine 04/28/16 Isela Patel, [email or web address] [email or web address] MANAGER [address] [place] [address] Manager Gyn Internal Medicine 06/05/24 Online Marketing Analyst Relationship Specialty Start Date End Date Dimitri Marie MD [address] [place] [address] PCP - General Internal Medicine 04/28/16 Isela Patel, [email or web address] PROGRAM MANAGER [address] [place] [address] [facility] Internal Medicine 06/05/24 Online Marketing Analyst Relationship Specialty Start Date End Date Dimitri Marie MD [address] [place] [address] PCP - General Internal Medicine 04/28/16 Isela Patel, [email or web address] PROGRAM MANAGER [address] [place] [address] [facility] Internal Medicine 06/05/24 Team Status: Active Member Role Status Dates Dr. Ricardo Sinha MD Emergency Provider Active S tart: December 06, 2024 Dr. Dimitri Marie MD Primary Care Provider Active Start: December 06, 2024 Dr. Lyndon Dinh DO Admit Provider Active Start: December 06, 2024 Dr. Lyndon Dinh DO Attending Provider Active Start: December 06, 2024 Team Status: Inactive Member Role Status Dates Dr. Dimitri Marie MD Primary Care Provider Active Start: December 15, 2024 End: December 15, 2024 Dr. Lyndon Dinh DO Attending Provider Active Start: December 15, 2024 End: December 15, 2024 Dr. Lyndon Dinh DO Referring Provider Active Start: December 15, 2024 End: December 15, 2024 Team Status: Active Member Role/Relationship Status Dates Dr. Dimitri Marie MD Primary Care Provider Active Team Status: Inactive Member Role/Relationship Status Dates Dr. Ricardo Sinha MD Emergency Provider Active S tart: December 06, 2024 End: December 07, 2024 Dr. Dimitri Marie MD Primary Care Provider Active Start: December 06, 2024 End: December 07, 2024 Dr. Lyndon Dinh DO Admit Provider Active Start: December 06, 2024 End: December 07, 2024 Dr. Lyndon Dinh DO Attending Provider Active Start: December 06, 2024 End: December 07, 2024 Jerome Don MD Other Provider Active Start: 2024 End: December 07, 2024 Dr. Lary Muniz MD Other Provider Active Start: December 06, 2024 End: December 07, 2024 Constance Schmid MD Other Provider Active Start : December 06, 2024 End: December 07, 2024 Dr. Mari Hernández DO Other Provider Active St art: December 06, 2024 End: December 07, 2024 Dr. Tiffany Ma MD Other Provider Active Start: December 06, 2024 End: December 07, 2024 Dr. Kota Hussein MD Other Provider Active Sta rt: December 06, 2024 End: December 07, 2024 Dr. Crystal Farah MD Other Provider Active Start : December 06, 2024 End: December 07, 2024 Dr. Bryn Zambrano MD Other Provider Active Start: December 06, 2024 End: December 07, 2024 Dr. Yash Gerardo MD Other Provider Active Start : December 06, 2024 End: December 07, 2024 Dr. George Perla MD Other Provider Active Sta rt: December 06, 2024 End: December 07, 2024 Tere Barrientos MD Other Provider Active Start : December 06, 2024 End: December 07, 2024 Dr. Berny Pittman MD Other Provider Active St art: December 06, 2024 End: December 07, 2024 Dr. Cristine Solo MD Other Provider Active Start : December 06, 2024 End: December 07, 2024 Dr. Jeff Dougherty MD Other Provider Active Sta rt: December 06, 2024 End: December 07, 2024 Dr. Sloan Pastrana MD Other Provider Active Start: December 06, 2024 End: December 07, 2024 Dr. Ronn Mcclellan MD Other Provider Active St art: December 06, 2024 End: December 07, 2024 Dr. Donald Hunter MD Other Provider Active Star t: December 06, 2024 End: December 07, 2024 Dr. Guevara Mahoney MD Other Provider Active St art: December 06, 2024 End: December 07, 2024 Dr. Kitty Patel MD Other Provider Active Start: December 06, 2024 End: December 07, 2024 Julia Rahman MD Other Provider Active Start: December 06, 2024 End: December 07, 2024 Julia Rahman MD Other Provider Active Start: December 06, 2024 Team Status: Active Member Role/Relationship Status Dates Dr. Ricardo Sinha MD Emergency Provider Active S tart: December 07, 2024 Dr. Dimitri Marie MD Primary Care Provider Active Start: December 07, 2024 Dr. Lyndon Dinh DO Admit Provider Active Start: December 07, 2024 Dr. Lyndon Dinh DO Attending Provider Active Start: December 07, 2024 Dr. Lyndon Dinh DO Other Provider Active Start: December 07, 2024 Jerome Don MD Other Provider Active Start: 2024 Dr. Lary Muniz MD Other Provider Active Start: December 07, 2024 Constance Schmid MD Other Provider Active Start : December 07, 2024 Dr. Mari Hernández DO Other Provider Active St art: December 07, 2024 Dr. Tiffany Ma MD Other Provider Active Start: December 07, 2024 Dr. Kota Hussein MD Other Provider Active Sta rt: December 07, 2024 Dr. Crystal Farah MD Other Provider Active Start : December 07, 2024 Dr. Bryn Zambrano MD Other Provider Active Start: December 07, 2024 Dr. Yash Gerardo MD Other Provider Active Start : December 07, 2024 Dr. George Perla MD Other Provider Active Sta rt: December 07, 2024 Tere Barrientos MD Other Provider Active Start : December 07, 2024 Dr. Berny Pittman MD Other Provider Active St art: December 07, 2024 Dr. Cristine Solo MD Other Provider Active Start : December 07, 2024 Dr. Jeff Dougherty MD Other Provider Active Sta rt: December 07, 2024 Dr. Sloan Pastrana MD Other Provider Active Start: December 07, 2024 Dr. Ronn Mcclellan MD Other Provider Active St art: December 07, 2024 Dr. Donald Hunter MD Other Provider Active Star t: December 07, 2024 Dr. Guevara Mahoney MD Other Provider Active St art: December 07, 2024 Dr. Kitty Patel MD Other Provider Active Start: December 07, 2024 Julia Rahman MD Other Provider Active Start: December 07, 2024 Team Status: Active Member Role/Relationship Status Dates Dr. Dimitri Marie MD Primary Care Provider Active Start: December 07, 2024 Dr. Cally Mahoney MD Attending Provider Active Start: December 07, 2024 Team Status: Inactive Member Role/Relationship Status Dates Dr. Dimitri Marie MD Primary Care Provider Active Start: December 15, 2024 End: December 15, 2024 Dr. Lyndon Dinh DO Attending Provider Active Start: December 15, 2024 End: December 15, 2024 Dr. Lyndon Dinh DO Referring Provider Active Start: December 15, 2024 End: December 15, 2024 Team Status: Active Member Role/Relationship Status Dates Dr. Lyndon Dinh DO Attending Provider Active Start: December 16, 2024 Dr. Lyndon Dinh DO Referring Provider Active Start: December 16, 2024 Dr. Dimitri Marie MD Primary Care Provider Active Start: December 16, 2024 Team Status: Inactive Member Role/Relationship Status Dates Dr. Dimitri Marie MD Primary Care Provider Active Start: January 05, 2025 End: January 05, 2025 Dr. Dimitri Marie MD Referring Provider Active Start: January 05, 2025 End: January 05, 2025 PORSCHE Womack Attending Provider Active Star t: January 05, 2025 End: January 05, 2025 Team Status: Inactive Member Role/Relationship Status Dates Dr. Dimitri Marie MD Primary Care Provider Active Start: January 11, 2025 End: January 11, 2025 Dr. Dimitri Marie MD Referring Provider Active Start: January 11, 2025 End: January 11, 2025 Dr. Eric Clark MD Attending Provider Active Start: January 11, 2025 End: January 11, 2025 Goals (unrecognized section and content) Goals may be documented in a n alternate section (unrecognized sect ion and content) No Status Records FoundNo Status Records Found INFORMATION SOURCE (unrecogn ized section and content) DATE CREATED AUTHOR 12/08/2024 [facility] DATE CREATED AUTHOR 'S ORGANIZ ATION 01/10/2025 [facility] FOR RECORDS PERTAINING TO PATIENTS WHO ARE OR HAVE BEEN ENROLLED IN A CHEMICAL DEPENDENCY/SUBSTANCEABUSE PROGRAM, SOME INFORMATION MAY BE OMITTED. This clinical summary was aggregated from multiple sources. Caution should be exercised in using it in the provision of clinical care. This summary normalizes information from multiple sources, and as a consequence, information in this document may materially change the coding, format and clinical context of patient data. In addition, data may be omitted in some cases. CLINICAL DECISIONS SHOULD BE BASED ON THE PRIMARY CLINICAL RECORDS. [employer] provides no warranty or guarantee of the accuracy or completeness of information in this document.
[2025-01-12] MEDS: Lactated Ringers 1,000 ML 15 ML IV (06:29)
--- NOTE | 2025-01-12 06:42 | PCM.PRE.AN2 ---
ASA Classification* ASA Classification ASA Classification: 3 Assessment & Plan Anesthesia* Anesthesia Assessment Anesthesia Assessment: Discussed sedation and/or anesthesia options, risks, benefits, and alternatives with patient/parents/legal guardian/POA. Questions invited. The patient/parents/legal guardian/POA seems to understand and agrees to proceed with anesthesia plan. Reviewed the physical assessment, medical history, allergy history and patient home medications list prior to surgery/procedure/anesthetic and documented any changes. Performed airway and anesthesia risk assessments. Anesthesia Type Anesthesia Type: MAC History Source History Obtained from:: Patient and Chart Anesthesia Focused Assessment* Temperature: 98.5 F Pulse Rate: 60 Blood Pressure: 142/61 Respiratory Rate: 18 Pulse Ox: 99 Oxygen Delivery Method: Room Air Airway Assessment Mouth opens: 2 cm Mallampati Score: IV Teeth Condition: Partial (Patient had upper and lower partials. They are out. Rest are tight.) Neck Range of motion (ROM): Limited ROM (Severe Restriction) Labs Anesthesia Preop lab: CBC WBC 7.2 K/mm3 (4.4-11.0) 12/07/24 06:59 12/07/24 RBC 3.69 M/mm3 (4.6-6.2) L 12/07/24 06:59 12/07/24 Hgb 10.5 g/dL (13.0-16.5) L 12/07/24 06:59 12/07/24 Hct 32.4 % (40-54) L 12/07/24 06:59 12/07/24 Plt Count 226 K/mm3 (150-450) 12/07/24 06:59 12/07/24 CHEMISTRY Potassium 4.3 mmol/L (3.3-5.1) 12/15/24 10:13 12/15/24 Sodium 138 mmol/L (133-145) 12/15/24 10:13 12/15/24 BUN 27 mg/dL (4-19) H 12/15/24 10:13 12/15/24 Creatinine 1.62 mg/dL (0.70-1.20) H 12/15/24 10:13 12/15/24 Glucose 96 mg/dL (70-99) 12/15/24 10:13 12/15/24 POC Glucose 83 mg/dL (70-110) 05/04/13 12:43 05/04/13 TSH 5.080 uIU/mL (0.300-4.200) H 12/06/24 12:15 12/06/24 COAG PT 14.2 SECONDS (11.7-14.9) 12/06/24 12:50 12/06/24 Pre-Assessment Diagnosis/Proposed Procedure Planned Operative Procedure(s): Excision chest lesion Anesthesia History Anesthesia History - special officer automat: Anesthesia History - special officer automat Hx Hospitalization Yes: 12/06/2024 LEFT EYE 01/11/25 10:33 RETINAL ARTERY OCCU. Any Problems With Anesthesia Yes: SLOW TO AWAKEN 01/11/25 10:33 Cholinesterase deficiency No 01/11/25 10:33 You/Your Family Experience No 01/11/25 10:33 fever (hyperthermia) with Relationship Recent Exposure to Contagious No 01/12/25 06:22 Disease Does patient have nerve No 01/11/25 10:33 stimulator Patient instructed to have device shut off --Does patient have Pacemaker No 01/12/25 06:22 or ICD? When Was Last Pacemaker Check No 05/06/13 20:40 QUESTION #4 FULL TEXT: You/Your Family Experience fever (hyperthermia) with Anesthesia Last Oral Intake Last Oral intake: Last Oral Intake NPO since 04:00 01/12/25 06:22 Meds taken in AM with sips of Yes 01/12/25 06:22 water? Meds patient instructed to ThYROID 01/12/25 06:22 take am of surgery Any additional information?: Yes NPO since: 04:00 (Patient had an ounce of cranberry juice at 4 AM.) Meds taken in AM with sips of water?: Yes PONV PONV - special officer automat: PONV - special officer automat Female No 01/11/25 10:33 HX of Motion Sickness No 01/11/25 10:33 HX of N/V After Surgery No 01/11/25 10:33 Non-Smoker Yes 01/11/25 10:33 Duration of Surgery greater Yes 01/11/25 10:33 than 60 minutes Number of Risk Factors 2 01/11/25 10:33 PONV Score Moderate Risk 01/11/25 10:33 Height & Weight Height & Weight: Anesthesia: Height & Weight Height 5 ft 10 in 01/12/25 06:22 Weight: 104.5 kg 01/12/25 06:22 Body Mass Index (BMI) 33.0 01/12/25 06:22 Respiratory Assessment Respiratory Assessment - special officer automat: Respiratory Tract Infection Hx - special officer automat Hx Respiratory Tract Infection No 01/11/25 10:33 STOP Sleep Apnea STOP Sleep Apnea - special officer automat: STOP Sleep Apnea - special officer automat Hx Hypertension Yes: FAIRLY CONTROLLED WITH 01/11/25 10:33 MED Hx Sleep Apnea No 01/11/25 10:33 CPAP BIPAP Do you snore loudly (louder No 01/11/25 10:33 than talking or can be heard Do you often feel tired/ No 01/11/25 10:33 fatigued/ sleepy during daytime? Has anyone observed you stop No 01/11/25 10:33 breathing during sleep? STOP Results Negative 01/11/25 10:33 QUESTION #5 FULL TEXT : Do you snore loudly (louder than talking or can be heard through closed doors)? Tobacco Use History Tobacco Use History - special officer automat: Tobacco Use History - special officer automat Tobacco Use Non-smoker 12/07/24 02:28 Smoking Status Former smoker 01/11/25 10:33 Hx Tobacco Use No 01/11/25 10:33 Years Smoking Packs Smoked per Day Smoking Cessation Date was No - quit smoking greater 01/11/25 10:33 within the last 15 years than 15 years ago Hx Smoking Cessation Date Hx Smoking Cessation No 01/11/25 10:33 Counseling Hematologic Medial History Hematologic Hx - special officer automat: Hematologic Medical Hx - clinical documentation nurse Hx of Blood Transfusion No 01/11/25 10:33 Hx of Transfusion in last 3 No 01/11/25 10:33 Months Date of Last Transfusion (if within last 3 months) Ever experience any problems No 01/11/25 10:33 with transfusion(s)? Specify any problems Hx of Preganancy in last 3 N/A 01/11/25 10:33 Months Nurse Filling Out Transfusion DSCHRIBER 01/11/25 10:33 & Questions: Date: 01/11/25 01/11/25 10:33 Time: 10:37 01/11/25 10:33 Patient unable to answer at this time (ie. confused, unrespo /Reproduction History /Reproductive History - special officer automat: /Reproductive Hx- special officer automat Hx Now No 01/11/25 10:33 Gestational Age (in weeks): EDC: Hx Hx Para Hx Section SAB No 01/11/25 10:33 Active Medications Active Medications: Current Medications Generic Name Dose Route Start Last Admin Trade Name Freq PRN Reason Stop Dose Admin Lactated Ringer's 1,000 mls @ 15 mls/hr 01/12/25 06:00 01/12/25 06:29 IV 15 mls/hr .Q48H CIHNO Administration PFSH Medical History History of stress test Wears partial dentures Cancer Alcohol use Wears hearing aid Wears glasses Open wound Thyroid disease Arthritis High cholesterol TIA (transient ischemic attack) Former smoker Ambulates with cane History of edema Cardiology follow-up encounter Hypertension History of Holter monitoring History of echocardiogram History of stroke Home Medications ?Medication ?Instructions ?Recorded ?Last Taken ?Type levothyroxine 150 mcg tablet 150 mcg PO DAILY disorder of 12/06/24 01/12/25 04:00 History thyroid gland losartan 50 mg tablet 50 mg PO BID Blood pressure 12/06/24 01/11/25 20:00 History metoprolol succinate 25 mg 25 mg PO DAILY Hear rate/Blood 12/06/24 01/11/25 08:00 History tablet,extended release 24 hr pressure amlodipine 5 mg tablet 5 mg PO QHS 01/11/25 01/11/25 20:00 History apixaban 5 mg tablet (Eliquis) 5 mg PO BID 01/11/25 01/11/25 08:00 History atorvastatin 40 mg tablet 40 mg PO QHS 01/11/25 01/11/25 20:00 History Allergy/AdvReac Type Severity Reaction Status Date / Time Sulfa (Sulfonamide Allergy Rash Verified 01/12/25 06:18 Antibiotics) Surgical History Hx of colonoscopy Hx of thyroidectomy Hx of right cataract extraction Hx of left cataract extraction Social History Smoking Status: Former smoker alcohol intake: never substance use type: does not use Review of Systems (Anesthesia) ROS Narrative System reviewed and no additional complaints, except as documented.
--- NOTE | 2025-01-12 07:18 | PCM.HP.STD ---
HPI - General HPI Narrative CARISSA GRUBRE, is a 84 M who presents with an actively bleeding chest skin cancer. Presents today for excision. Unable to obtain dermatology biopsy report yet, but since bleeding actively, discussed excision with 6 mm margins with the patient today to control the bleeding and likely excise completely. He was in agreement. Current Encounter (DATE OF SURGERY H&P UPDATE): I saw and examined the patient this morning in pre-operative holding. We discussed risks and benefits of today's surgery and they would like to proceed. NO CHANGE in health history since last seen and evaluated. Ready to proceed with surgery. [facility] Medical History History of stress test Wears partial dentures Cancer Alcohol use Wears hearing aid Wears glasses Open wound Thyroid disease Arthritis High cholesterol TIA (transient ischemic attack) Former smoker Ambulates with cane History of edema Cardiology follow-up encounter Hypertension History of Holter monitoring History of echocardiogram History of stroke Home Medications ?Medication ?Instructions ?Recorded ?Last Taken ?Type levothyroxine 150 mcg tablet 150 mcg PO DAILY disorder of 12/06/24 01/12/25 04:00 History thyroid gland losartan 50 mg tablet 50 mg PO BID Blood pressure 12/06/24 01/11/25 20:00 History metoprolol succinate 25 mg 25 mg PO DAILY Hear rate/Blood 12/06/24 01/11/25 08:00 History tablet,extended release 24 hr pressure amlodipine 5 mg tablet 5 mg PO QHS 01/11/25 01/11/25 20:00 History apixaban 5 mg tablet (Eliquis) 5 mg PO BID 01/11/25 01/11/25 08:00 History atorvastatin 40 mg tablet 40 mg PO QHS 01/11/25 01/11/25 20:00 History Allergy/AdvReac Type Severity Reaction Status Date / Time Sulfa (Sulfonamide Allergy Rash Verified 01/12/25 06:18 Antibiotics) Surgical History Hx of colonoscopy Hx of thyroidectomy Hx of right cataract extraction Hx of left cataract extraction Social History Smoking Status: Former smoker alcohol intake: never substance use type: does not use Vital Signs Vital Signs Vital Signs: 01/12/25 06:22 07/18/25 06:22 01/12/25 06:50 Temperature 98.5 F 98.5 F Temperature Source Temporal Pulse Rate 60 60 Respiratory Rate 18 18 Respiratory Pattern Normal Blood Pressure 142/61 H 142/61 H Blood Pressure Mean 88 Blood Pressure Source Monitor Blood Pressure Position Sitting Blood Pressure Location Left Arm Pulse Ox 99 99 Oxygen Delivery Method Room Air Room Air Weight Weight: 230 lb 6.129 oz Body Mass Index (BMI) 33.0 Physical Exam Narrative Strike through bleeding on the chest dressing over the cancer Assessment & Plan Assessment/Plan (1) Skin cancer: PLAN: I talked to the patient extensively about the risks of surgery, including bleeding, infection, damage to surrounding structures, poor scaring, surgical site dehiscence and wound formation, need for wound care, need for repeat operations, failure to obtain the desired result, DVT/PE, and the risks of anesthesia including , including stroke (from low blood pressure/ischemia or clot). The benefits and alternatives of this surgery were also discussed. All of their questions were answered, and they agreed to proceed with surgery. INTERVAL H&P PLAN, DATE OF SURGERY: We will proceed with surgery today.
--- NOTE | 2025-01-12 07:30 | LES_PTH ---
PATIENT: CARISSA GRUBER LOC: [facility] [place] U#:[id number] AGE/SX: 84/M ROOM: RE01/12/[address]: Dr. Eric Clark MD : 1940 BED: DIS: 01/12/2025 SPEC #: [id number] RECD: 01/12/25 10:09 STATUS: CAT REJean-Claude #: [id number] WILBERT: 01/12/25 07:[address]: Eric Clark DEPT: SURGICAL PATHOLOGY RECD BY: Prashanth Sosa ENTERED: 01/15/25 11:08 SP TYPE: Lesion OTHR DR: Dr. Dimitri Marie MD Tissues: A - Skin of chest Procedures: Surgery Specimen Level IV HEADER OPERATION: Excision chest skin cancer with temporary dressing placement PRE-OP DIAGNOSIS: Skin cancer TISSUE SUBMITTED: A- Skin cancer chest - 1 at 12o'clock, 2 at 3o'clock, 3 at 6o'clock, 5x6 MICROSCOPIC DIAGNOSIS A. Skin, chest, skin cancer, excision: - Nodular basal cell carcinoma, surgical margins free - see note. - Seborrheic keratosis, incidental. Note: There is no lymphovascular or perineural invasion identified. Tumor involves the superficial to mid reticular dermis. MICROSCOPIC DESCRIPTION Slides are reviewed. GROSS DESCRIPTION A. Received in formalin labeled with the patient's name and date of . Designated as skin cancer chest is a 6.3 x 2.9 cm brooke skin ellipse excised to a depth of 0.5-1.3 cm and with orientation as follows:Single suture: designated as 12:00.Double suture: designated as 3:00.Triple suture: designated as 6:00. There is a 5.5 x 5.0 x 1.9 cm brooke-white to red, firm to friable, fungating and somewhat pedunculated lesion, located the following distances from the margins:12:00: 2.1 cm 3:00: 0.6 cm 6:00: 1.1 cm9:00: 0.9 cmDeep: 0.5 cm Ink eldridge: 12:00 half (deep): Black3:00 (periphery): Green9:00 (periphery): Blue6:00 half (deep): Brandt The specimen is serially sectioned from 12:00 to 6:00 revealing firm to friable lesional cut surfaces; grossly, the mass does not extend into or involve the underlying soft tissue. The remainder of the cut surfaces are brooke-yellow and fatty with focal areas of apparent hemorrhage. Pick Up And Delivery Driver sections are submitted, sequentially (with the exception of A6) submitted as follows: A1: 12:00 tip and adjacent cross-sectionsA2: Lesion to 3:00A3: Lesion to 9:82C0-G4: Lesion to deepA6: Lesion, no margins (12;00 half)A7: 6:00 tip and cross-section *Note: Biopsy proven malignancy per OP note - still pending prior biopsy report (SC). SC 01/15/2025 CPT:66307
[2025-01-12] MEDS: Bupiv/Epi 0.25% 30 ML Vial (07:55)
[2025-01-12] MEDS: Lidocaine 1% /Epi 1:100 (20ml) 20 ML Vial (07:55)
--- NOTE | 2025-01-12 08:22 | PCM.POST.ANE ---
Anesthesia: Postop Eval I Current Vital Signs Temperature: 36 F Pulse Rate: 77 Blood Pressure: 133/58 Respiratory Rate: 14 Pulse Ox: 97 Assessment Airway patent: Yes Spontaneous unlabored respirations: Yes nausea: No Vomiting: No Anesthesia Complication: No Fluid Hydration Crystalloid volume administer (ml): 900 Total IV fluid infused: 900 Progress Note Anesthesia document: Postop Eval 1 completed: Yes
--- NOTE | 2025-01-12 09:59 | PCM.OPRPT ---
Operative Report (Standard) Operative Information Date of Procedure: 01/12/25 Pre-Operative Diagnosis: Anterior chest skin cancer, with active bleeding Post-Operative Diagnosis: Same Surgery/Procedure Performed: 1) Excision anterior chest skin cancer, 0.6 mm margins, 5 x 6 cm, to the level of the underlying Melisa's fascia (CPT: 78092) 2) Dermal substitute placement, Allograft, 5 x 6 cm (CPT: 83752, 56369) sales and service advisor: No Type of Anesthesia: Local MAC (30 cc of 50-50 mixture of 1% lidocaine with 1-200,000 epinephrine and quarter percent Marcaine with 1-200,000 epinephrine) RN Documented Start/Stop Times: Operation Date: 01/12/25 07:30 Case Time Into Pre-Op 01/12/25 05:47 Anesthesia Start 01/12/25 07:25 Into Room 01/12/25 07:25 Procedure Start 01/12/25 07:42 Procedure End 01/12/25 08:05 Anesthesia End 01/12/25 08:12 Out of Room 01/12/25 08:12 Into Recovery 01/12/25 08:15 Into Phase II Recovery 01/12/25 08:34 Out of Recovery 01/12/25 08:34 Out of Phase II 01/12/25 09:38 Out of Pre-Op Procedure Start Time: 07:42 Procedure Stop Time: 08:05 Select all DRAINS/GRAFTS/IMPLANTS that apply: Tissue (Allograft) Tissue details: TheraSkin 2 x 3 inch for temporary dressing Estimated Blood Loss: 20 cc Specimen collected: Yes Description of specimen(s) removed: Anterior chest skin cancer 1 stitch at 12:00, 2 stitches at 3:00, 3 stitches at 6:00 Description of surgery: Indications: Patient has been actively bleeding chest skin cancer. Presents today for excision for bleeding control (patient is on blood thinner for history of stroke recently). Patient understands the risks, benefits, and alternatives to procedure. Procedure details: Patient was correct identified in preoperative holding. He was taken back to the operating room where he was administered sedation and the above-noted local anesthesia. He was prepped and draped in sterile fashion and all proper timeouts were performed. The mass was removed on the chest for a total excision of 6 x 5 cm (excising ellipse vertically with at least 6 mm margins circumferentially). Hemostasis was obtained with Bovie electrocautery. The wound was irrigated with copious amounts normal saline. The wound was too tight for primary closure. A temporary dressing was applied in case further margins were required. The temporary dressing was TheraSkin which was placed by suturing this cadaver allograft into place using 3-0 Vicryl sutures with a tie-over bolster. The total application of dermal substitute was 6 x 5 cm. Patient tolerated the procedure well. He was awakened and taken the PACU in stable condition. Postoperative plan: Follow-up for definitive reconstruction with either skin graft or delayed primary closure versus reexcision for margins if positive. Surgical Findings: Lesion appear to be confined to the dermis and was not spreading down to the underlying subcutaneous tissue Complications Complications: No Admit VTE Documentation VTE Mechan Device Prophylaxis: SCD's
--- NOTE | 2025-01-12 14:23 | POSTOPAN2_ITS ---
Anesthesia Postop Eval I Sum Postop Eval Completion status Anesthesia document: Postop Eval 1 completed: Yes Anesthesia Postop Eval I Summary Anesthesia Postop Eval I Summary: Anesthesia Postop Eval I: Assessment Summary Airway patent Yes 01/12/25 08:22 FORMING MACHINE UPKEEP MECHANIC.[email or web address] Spontaneous unlabored Yes 01/12/25 08:22 FORMING MACHINE UPKEEP MECHANIC.[email or web address] respirations Mental status nausea No 01/12/25 08:22 FORMING MACHINE UPKEEP MECHANIC.[email or web address] Vomiting No 01/12/25 08:22 FORMING MACHINE UPKEEP MECHANIC.JYUN Anesthesia Postop Eval I: Fluid Summary Crystalloid volume administer 900 01/12/25 08:22 FORMING MACHINE UPKEEP MECHANIC.JYUN (ml) Colloids volume administered ( ml) Blood Product volume administered (ml) Total IV fluid infused 900 01/12/25 08:22 FORMING MACHINE UPKEEP MECHANIC.JYUN Anesthesia Postop Eval I: Summary Notes Anesthesia Complication No 01/12/25 08:22 FORMING MACHINE UPKEEP MECHANIC.JYUN Anesthesia Complication Comment: Post-operative progress note Anesthesia: Postop Eval II Evaluation Mental status: Awake and Calm Pain Level: 1 nausea: No Vomiting: No Complications Anesthesia Complication: No
--- NOTE | 2025-01-12 14:23 | PCM.POSTANE2 ---
Anesthesia Postop Eval I Sum Postop Eval Completion status Anesthesia document: Postop Eval 1 completed: Yes Anesthesia Postop Eval I Summary Anesthesia Postop Eval I Summary: Anesthesia Postop Eval I: Assessment Summary Airway patent Yes 01/12/25 08:22 EXERCISE EQUIPMENT SPECIALIST.[email or web address] Spontaneous unlabored Yes 01/12/25 08:22 EXERCISE EQUIPMENT SPECIALIST.JYUN respirations Mental status nausea No 01/12/25 08:22 EXERCISE EQUIPMENT SPECIALIST.[email or web address] Vomiting No 01/12/25 08:22 EXERCISE EQUIPMENT SPECIALIST.JYUN Anesthesia Postop Eval I: Fluid Summary Crystalloid volume administer 900 01/12/25 08:22 EXERCISE EQUIPMENT SPECIALIST.JYUN (ml) Colloids volume administered ( ml) Blood Product volume administered (ml) Total IV fluid infused 900 01/12/25 08:22 EXERCISE EQUIPMENT SPECIALIST.JYUN Anesthesia Postop Eval I: Summary Notes Anesthesia Complication No 01/12/25 08:22 EXERCISE EQUIPMENT SPECIALIST.JYUN Anesthesia Complication Comment: Post-operative progress note Anesthesia: Postop Eval II Evaluation Mental status: Awake and Calm Pain Level: 1 nausea: No Vomiting: No Complications Anesthesia Complication: No
== END 2025-01-12 09:41 | disposition home or self-care (01) ==
LOC: SDC 05:39 → AC 05:40
PROVIDERS: PCP Internal Medicine; Referring Provider Surgery Plastic and Reconstructive Surgery; Visit Provider Surgery Plastic and Reconstructive Surgery
PROC: (CPT 11606; principal; 2025-01-12 07:15)
DX: C44.519 Basal cell carcinoma of skin of other part of trunk (principal); L82.1 Other seborrheic keratosis; I10 Essential (primary) hypertension; E78.00 Pure hypercholesterolemia, unspecified; Z79.899 Other long term (current) drug therapy; Z87.891 Personal history of nicotine dependence
CPT/HCPCS: 11606; 15271; 15272; 00400; 88305; J2405

== ENCOUNTER 2025-01-23 09:40 | Day surgery (SDC) | payer MEDICARE, SELFPAY ==
--- NOTE | 2025-01-18 13:36 | PAT.ANESEVAL ---
Pre-Assessment Diagnosis/Proposed Procedure Planned Operative Procedure(s): SKIN GRAFT TO ANTERIOR CHEST Anesthesia History Anesthesia History - senior sas developer: Anesthesia History - senior sas developer Hx Hospitalization Yes: 12/06/2024 LEFT EYE 01/18/25 10:25 RETINAL ARTERY OCCU. Any Problems With Anesthesia Yes: SLOW TO AWAKEN 01/18/25 10:25 Cholinesterase deficiency No 01/18/25 10:25 You/Your Family Experience No 01/18/25 10:25 fever (hyperthermia) with Relationship Recent Exposure to Contagious No 01/12/25 06:22 Disease Does patient have nerve No 01/18/25 10:25 stimulator Patient instructed to have device shut off --Does patient have Pacemaker or ICD? When Was Last Pacemaker Check No 05/06/13 20:40 QUESTION #4 FULL TEXT: You/Your Family Experience fever (hyperthermia) with Anesthesia Last Oral Intake Last Oral intake: Last Oral Intake NPO since Meds taken in AM with sips of water? Meds patient instructed to take am of surgery PONV PONV - senior sas developer: PONV - senior sas developer Female No 01/18/25 10:25 HX of Motion Sickness No 01/18/25 10:25 HX of N/V After Surgery No 01/18/25 10:25 Non-Smoker Yes 01/18/25 10:25 Duration of Surgery greater Yes 01/18/25 10:25 than 60 minutes Number of Risk Factors 2 01/18/25 10:25 PONV Score Moderate Risk 01/18/25 10:25 Height & Weight Height & Weight: Anesthesia: Height & Weight Height 5 ft 10 in 01/12/25 06:22 Respiratory Assessment Respiratory Assessment - senior sas developer: Respiratory Tract Infection Hx - senior sas developer Hx Respiratory Tract Infection No 01/18/25 10:25 STOP Sleep Apnea STOP Sleep Apnea - senior sas developer: STOP Sleep Apnea - senior sas developer Hx Hypertension Yes: FAIRLY CONTROLLED WITH 01/18/25 10:25 MED Hx Sleep Apnea No 01/18/25 10:25 CPAP BIPAP Do you snore loudly (louder No 01/18/25 10:25 than talking or can be heard Do you often feel tired/ No 01/18/25 10:25 fatigued/ sleepy during daytime? Has anyone observed you stop No 01/18/25 10:25 breathing during sleep? STOP Results Negative 01/18/25 10:25 QUESTION #5 FULL TEXT : Do you snore loudly (louder than talking or can be heard through closed doors)? 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 confused, unrespo /Reproduction History /Reproductive History - senior sas developer: /Reproductive Hx- senior sas developer Hx Now No 01/18/25 10:25 Gestational Age (in weeks): EDC: Hx Hx Para Hx Section SAB No 01/18/25 10:25 PFSH Medical History History of stress test Wears partial dentures Cancer Alcohol use Wears hearing aid Wears glasses Open wound Thyroid disease Arthritis High cholesterol TIA (transient ischemic attack) Former smoker Ambulates with cane History of edema Cardiology follow-up encounter Hypertension History of Holter monitoring History of echocardiogram History of stroke Home Medications ?Medication ?Instructions ?Recorded ?Last Taken ?Type levothyroxine 150 mcg tablet 150 mcg PO DAILY disorder of 12/06/24 01/12/25 04:00 History thyroid gland losartan 50 mg tablet 50 mg PO BID Blood pressure 12/06/24 01/11/25 20:00 History metoprolol succinate 25 mg 25 mg PO DAILY Hear rate/Blood 12/06/24 01/11/25 08:00 History tablet,extended release 24 hr pressure amlodipine 5 mg tablet 5 mg PO QHS 01/11/25 01/11/25 20:00 History apixaban 5 mg tablet (Eliquis) 5 mg PO BID 01/11/25 01/11/25 08:00 History atorvastatin 40 mg tablet 40 mg PO QHS 01/11/25 01/11/25 20:00 History oxycodone 5 mg tablet 5 mg PO Q12H PRN pain 5 days #10 01/12/25 Unknown Rx tabs Allergy/AdvReac Type Severity Reaction Status Date / Time Sulfa (Sulfonamide Allergy Rash Verified 01/18/25 10:17 Antibiotics) Surgical History (Updated 01/18/25 @ 10:28 by Nikky Mcdonald) Hx of excision of mass Hx of colonoscopy Hx of thyroidectomy Hx of right cataract extraction Hx of left cataract extraction Social History Smoking Status: Former smoker alcohol intake: never substance use type: does not use Audit: Pertinent Findings Pertinent Findings EKG Perinent findings: EKG 12/06/2024. Normal sinus rhythm Stress test pertinent findings: 05/25/2022. SPECT perfusion study normal no scintigraph evidence of inducible ischemia. No evidence of scarred myocardium. Echo (EF%) pertinent findings: Echo 11/03/2021. EF 67%. Intermediate left ventricular diastolic dysfunction. Echo 12/07/2024. EF 65%. Stage I diastolic dysfunction Additional pertinent findings: Holter monitor 12/16/2024. The predominant rhythm was sinus Recommendation Anesthesia Recommendation Anesthesia recommendation: OPTIMIZED for anesthesia
[2025-01-23] VITALS (11 sets, daily range): BP systolic 134–161; BP diastolic 43–69; PULSE 51–64; RESP 16–18; TEMP 36.9–37.1; O2SAT 97–99; BMI 33.2
--- NOTE | 2025-01-23 08:02 | PCM.HP.STD ---
HPI - General HPI Narrative CARISSA GRUBER, is a 84 M who presents with wound from upper chest basal cell carcinoma excision. Margins are clear. Presents today for skin grafting. Current Encounter (DATE OF SURGERY H&P UPDATE): I saw and examined the patient this morning in pre-operative holding. We discussed risks and benefits of today's surgery and they would like to proceed. NO CHANGE in health history since last seen and evaluated. Ready to proceed with surgery. [facility] Medical History History of stress test Wears partial dentures Cancer Alcohol use Wears hearing aid Wears glasses Open wound Thyroid disease Arthritis High cholesterol TIA (transient ischemic attack) Former smoker Ambulates with cane History of edema Cardiology follow-up encounter Hypertension History of Holter monitoring History of echocardiogram History of stroke Home Medications ?Medication ?Instructions ?Recorded ?Last Taken ?Type levothyroxine 150 mcg tablet 150 mcg PO DAILY disorder of 12/06/24 01/23/25 History thyroid gland losartan 50 mg tablet 50 mg PO BID Blood pressure 12/06/24 01/23/25 History metoprolol succinate 25 mg 25 mg PO DAILY Hear rate/Blood 12/06/24 01/23/25 History tablet,extended release 24 hr pressure amlodipine 5 mg tablet 5 mg PO QHS 01/11/25 01/22/25 History apixaban 5 mg tablet (Eliquis) 5 mg PO BID 01/11/25 01/23/25 History atorvastatin 40 mg tablet 40 mg PO QHS 01/11/25 01/22/25 History oxycodone 5 mg tablet 5 mg PO Q12H PRN pain 5 days #10 01/12/25 Unknown Rx tabs Allergy/AdvReac Type Severity Reaction Status Date / Time Sulfa (Sulfonamide Allergy Rash Verified 01/23/25 10:33 Antibiotics) Surgical History Hx of excision of mass Hx of colonoscopy Hx of thyroidectomy Hx of right cataract extraction Hx of left cataract extraction Social History Smoking Status: Former smoker alcohol intake: never substance use type: does not use Physical Exam Narrative Bolster in place. No signs of infection Assessment & Plan Assessment/Plan (1) Skin cancer: (2) Basal cell carcinoma: PLAN: Plan INTERVAL H&P PLAN, DATE OF SURGERY: We will proceed with surgery today. Presents today for skin grafting. I talked to the patient extensively about the risks of surgery, including bleeding, infection, damage to surrounding structures, poor scaring, surgical site dehiscence and wound formation, need for wound care, need for repeat operations, skin graft failure, failure to obtain the desired result, DVT/PE, and the risks of anesthesia including , including stroke (from low blood pressure/ischemia or clot). He would like to do the procedure with local. The benefits and alternatives of this surgery were also discussed. All of their questions were answered, and they agreed to proceed with surgery.
--- NOTE | 2025-01-23 11:40 | OP.PCM_ITS ---
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 Type of Anesthesia: Local (80 cc of a mixture of 30 cc of 1% lidocaine with 1- 200,000 epinephrine, 30 cc of quarter percent Marcaine with 1 and 200,000 epinephrine, and 60 cc of injectable saline) RN Documented Start/Stop Times: Operation Date: 01/23/25 11:30 Case Time Into Pre-Op 01/23/25 09:53 Out of Pre-Op 01/23/25 11:43 Anesthesia Start 01/23/25 11:47 Into Room 01/23/25 11:47 Procedure Start 01/23/25 12:14 Procedure End 01/23/25 12:34 Anesthesia End 01/23/25 12:39 Out of Room 01/23/25 12:39 Into Phase II Recovery 01/23/25 12:43 Procedure Start Time: 12:14 Procedure Stop Time: 12:34 Select all DRAINS/GRAFTS/IMPLANTS that apply: None (Just a bolster dressing) Estimated Blood Loss: 20 cc Specimen collected: No Description of surgery: Indications: Patient is a delightful 84-year-old male in whom I removed a nodular basal cell carcinoma last week. Surgical margins were determined to be clear. He presents today for definitive treatment with skin grafting to the wound. He understands the risks, benefits, and alternatives to the procedure. He elected to proceed. Procedure details: Patient was correct identified in preoperative holding and taken back to the operating room he was administered local anesthesia as noted above. He was prepped and draped in sterile fashion. Proper timeout was performed. The cadaver allograft was removed. The wound bed was then prepared with a curette to remove all biofilm and fibrinous exudate from the base of the wound. The wound was irrigated with copious amounts normal saline and Irrisept. The wound measured 5 x 6 cm (surgical preparation with curette for sharp excision). Hemostasis was then obtained with epinephrine soaked Telfa. A 5 x 6 cm split- thickness skin graft was then harvested from the right thigh with a Tae dermatome at 12/1000th inch and meshed with a 1-1.5 mesher on the back table. It was sutured into place over the wound bed with a 3-0 Vicryl in a tie-over Xeroform/gauze bolster. Hemostasis at the donor site was obtained with an epinephrine soaked Telfa. The donor site was then dressed with Mepilex Ag, ABD, and Ioban. Patient tolerated the procedure well. Postoperative plan: Follow-up in 1 week to remove the bolster. Surgical Findings: Healthy wound bed ready for grafting with clear surgical margins Complications Complications: No Admit VTE Documentation VTE Mechan Device Prophylaxis: SCD's
[2025-01-23] MEDS: Lidocaine 1% /Epi 1:100 (50ml) 50 ML VIAL (12:00)
[2025-01-23] MEDS: 0.9% Normal Saline (Pres. free 10 ML Vial (12:00)
[2025-01-23] MEDS: Mineral Oil, Light Sterile 10 ML Vial MC (12:00)
[2025-01-23] MEDS: Bupiv/Epi 0.25% 30 ML Vial (12:00)
[2025-01-23] MEDS: Epinephrine (1 mg/ml) 1 MG/ML VIAL (12:00)
--- OUTSIDE RECORDS SUMMARY | 2025-01-23 20:57 | XMS RPT_ITS | CCD ---
Author Organization [facility] Care Team Providers Care Incendiary Powder Mixer Name Role Phone Frank ANGLIN, Dimitri Young Primary Care Provider Frank ANGLIN, Dimitri Young Primary Care Provider Marcos DURON.HAZARDOUS SUBSTANCES SCIENTIST, Isela M Unavailable Bharath ANGLIN, Dr. Silva Emergency Provider [phone] Frank ANGLIN, Dr. Mosley Primary Care Provider Dr. Lyndon Dinh DO Admit Provider Dr. Lyndon Dinh DO Attending Provider Jerome Don MD Other Provider Unavailable Flavio ANGLIN, Dr. Barth Other Provider Constance Schmid MD Other Provider Unavailable Dr. Mari Hernández DO Other Provider Francesca ANGLIN, Dr. Allen Other Provider Dr. Kota Hussein MD Other Provider Dr. Crystal Farah MD Other Provider Dr. Bryn Zambrano MD Other Provider [phone] Dr. Yash Gerardo MD Other Provider Pan AGNLIN, Dr. Vazquez Other Provider Tere Barrientos MD Other Provider Zain ANGLIN, Dr. Arrieta Other Provider Edil ANGLIN, Dr. Colunga Other Provider Ladonna ANGLIN, Dr. Aguilar Other Provider Zeina ANGLIN, Dr. Sloan Norton Other Provider Eleuterio ANGLIN, Dr. Brody Other Provider Dale ANGLIN, Dr. Bennett Other Provider Denzel ANGLIN, Dr. Waterman Other Provider Jorge ANGLIN, Dr. Tang Other Provider Unavailable Josiah ANGLIN, Julia Other Provider Unavailable Dr. Lyndon Dinh DO Other Provider Denzel ANGLIN, Dr. Alamo Attending Provider [phone] MARIE, SOLANGE Primary Care Unavailable SELF Referring Unavailable MARIE, SOLANGE Attending Unavailable MARIE, SOLANGE Primary Care Unavailable GURWINDER AYALA Referring Unavailable GURWINDER AYALA Attending Unavailable MARIE, SOLANGE Primary Care Unavailable ISELA PATEL Referring Unavailable MARIE, SOLANGE Primary Care Unavailable MARIE, SOLANGE Referring Unavailable Dr. Lyndon Dinh DO Referring Provider Frank ANGLIN, Dr. Mosley Referring Provider Mari Moeller Attending Provider Dr. Eric Clark MD Attending Provider Dr. Eric Clark MD Referring Provider Dr. Eric Clark MD Other Provider Marie, Dimitri Primary Care Unavailable Marie, Dimitri Referring Unavailable Mari Hui Attending Unavailable Marie, Dimitri Primary Care Unavailable Lyndon Dinh Referring Unavailable Julio Palma Attending Unavailable Marie, Dimitri Primary Care Unavailable Cally Mahoney Attending Unavailable Eric Clark Referring Unavailable Marie, Dimitri Primary Care Unavailable Eric Clark Attending Unavailable Marie, Dimitri Primary Care Unavailable Eric Clark Attending Unavailable Marie, Dimitri Primary Care Unavailable Lyndon Dinh Referring Unavailable Lyndon Dinh Attending Unavailable Marie, Dimitri Primary Care Unavailable Lyndon Dinh Referring Unavailable Lyndon Dinh Attending Unavailable Marie, Dimitri Primary Care Unavailable Lyndon Dinh Admitting Unavailable Lyndon Dihn Attending Unavailable Jerome Don Consulting Unavailable Adeli, Amir Consulting Unavailable Hinduja, Constance Consulting Unavailable Edgar, Mari Consulting Unavailable Zha, Tiffany Consulting Unavailable Keenan, Kota Consulting Unavailable Sofi, Crystal Consulting Unavailable Bittar, Bryn Consulting Unavailable Gerardo, Yash Consulting Unavailable Perla, George Consulting Unavailable Beigel, Tere Consulting Unavailable Gusler, Berny Consulting Unavailable Edil, Cristine Consulting Unavailable Ridha, Mohamed Consulting Unavailable Zaghlouleh, Mhd Errol Consulting UnavailRonn Velez Consulting Unavailable Hunter, Rami Consulting Unavailable Denzel, Guevara Consulting Unavailable Jorge, Kitty Consulting Unavailable Hannasalvador, Yousef Consulting Unavailable Eric Clark Consulting Unavailable Dimitri Marie Primary Care Unavailable Eric Clark Referring Unavailable Eric Clark Attending Unavailable Jerome Don Consulting Unavailable Dimitri Marie Primary Care Unavailable Lyndon Dinh Attending Unavailable Lyndon Dinh Admitting Unavailable Adeli, Amir Consulting Unavailable Hinduja, Constance Consulting Unavailable Edgar, Mari Consulting Unavailable Zha, Tiffany Consulting Unavailable Keenan, Kota Consulting Unavailable Sofi, Crystal Consulting Unavailable Bittar, Bryn Consulting Unavailable Gerardo, Yash Consulting Unavailable Perla, George Consulting Unavailable Beigel, Tere Consulting Unavailable Gusler, Berny Consulting Unavailable Edil, Cristine Consulting Unavailable Ridha, Mohamed Consulting Unavailable Zaghlouleh, Mhd Errol Consulting UnavailRonn Velez Consulting Unavailable Hunter, Rami Consulting Unavailable Denzel, Guevara Consulting Unavailable Jorge, Kitty Consulting Unavailable Hannasalvador, Yousef Consulting Unavailable Lyndon Dinh Consulting Unavailable Dimitri Marie Primary Care Unavailable Dimitri Marie Referring Unavailable Eric Clark Attending Unavailable Dr. Julio Palma MD Attending Provider Allergies Allergy Classification Reported Allergen(s) Allergy Type Date of Onset Reaction(s) Facility (20 sources) Creatine; Translations: [CREATINE] Drug Allergy 7 [facility] Work Phone: (20 sources) Sulfonamides (Antibiotic); Translations: [SULFA (SULFONAMIDE ANTIBIOTICS)] Propensity to adverse reactions 5 [facility] Work Phone: (7 sources) Sulfonamides (Antibiotic) Allergy to substance 5 Rash [facility] (1 source) Sulfonamides (Antibiotic) Drug allergy (disorder) 5 [facility] Repository Medications Current Medications Medication Drug Class(es) Dates Sig (Normalized) Sig (Original) amLODIPine 5 mg oral tablet (18 sources) Dihydropyridine Calcium Channel Loni Start: 01-11-2025 take 1 tablet by mouth at bedtime Amlodipine 5 mg tablet Active 5 mg PO AT BEDTIME January 11, 2025 12:00am Start: 08-20-2023 End: 09-11-2024 take 1 tablet by mouth once daily amLODIPine (NORVASC) 5 mg tablet Indications: Essential hypertension, benign Take 1 tablet by mouth once daily. 90 tablet 1 09/11/2024 Active Comment on above: Take 1 tablet by froylan th once daily. apixaban 5 mg oral tablet (8 sources) Factor Xa Inhibitor Start: 01-11-2025 take 1 tablet by mouth twice daily Apixaban (Eliquis) 5 mg tablet Active 5 mg PO TWICE A DAY January 11, 2025 12:00am Start: 12-07-2024 End: 01-05-2025 take 1 tablet by mouth twice daily Apixaban (Eliquis) 5 mg Tablet Discontinued 5 mg PO TWICE A DAY 60 30 2 December 07, 2024 12:00am January 05, 2025 4:08pm ascorbic acid 500 mg oral tablet (20 sources) Vitamin C Start: 03-06-2008 ascorbic acid(VITAMIN C 500 MG TAB) Take one(1) tablet daily. 0 03/06/2008 Active Comment on above: Take one(1) tablet d aily. atorvastatin 40 mg oral tablet (18 sources) HMG-CoA Reductase Inhibitor Start: 01-11-2025 take 1 tablet by mouth at bedtime Atorvastatin 40 mg tablet Active 40 mg PO AT BEDTIME January 11, 2025 12:00am Start: 01-05-2025 End: 01-11-2025 take 1 tablet by mouth once daily Atorvastatin (Lipitor) 80 mg tablet Discontinued 80 mg PO daily 30 2 January 05, 2025 12:00am January 11, 2025 10:20am Start: 05-06-2013 End: 01-05-2025 take 1 tablet [...] above: Take by mouth once d aily. COMPOUNDED PRESCRIPTION (20 sources) Start: 04-02-2005 COMPOUNDED PRESCRIPTION Vit E 400IU daily 0 04/02/2005 Active Comment on above: Vit E 400IU daily doxycycline hyclate 100 mg oral capsule (1 source) Tetracycline-class Drug Start: 01-23-2025 take 1 capsule by mouth twice daily Doxycycline Hyclate 100 mg capsule Active 100 mg PO TWICE A DAY 10 5 0 January 23, 2025 12:15pm levothyroxine sodium 0.15 mg oral tablet (20 sources) l-Thyroxine Start: 12-06-2024 take 1 tablet by mouth [...] tablet by froylan th once daily. Take on empty stomach. For [...] 1 tablet by froylan th once daily. oxyCODONE hydrochloride 5 mg oral tablet (2 sources) Opioid Agonist Start: 01-12-2025 take 1 tablet by mouth every twelve hours as needed for pain Oxycodone 5 mg tablet Active 5 mg PO Q12H as needed for pain 10 5 0 January 12, 2025 Malignant neoplasm of skin Unspecified malignant neoplasm of skin, unspecified Completed/Discontinued Medications Medication Drug Class(es) Dates Sig (Normalized) Sig (Original) aspirin 81 mg delayed release oral tablet (20 sources) Platelet Aggregation Inhibitor, Nonsteroidal Anti-inflammatory Drug Start: 01-05-2025 End: 01-11-2025 take 1 tablet by mouth once daily Aspirin (Adult Aspirin Regimen) 81 mg tablet,delayed release (DR/EC) Discontinued 81 mg PO DAILY 360 0 January 05, 2025 12:00am January 11, 2025 10:17am Start: 12-06-2024 End: 12-07-2024 Aspirin 81 mg [...] by froylan th once daily. with food. atenolol 25 mg oral tablet (7 sources) beta-Adrenergic Loni Start: 3 End: 3 take 1 tablet by mouth once daily Atenolol 25 MG tablet Discontinued 25 mg PO DAILY May 04, 2013 1:00am May 06, 2013 2:07pm clopidogrel 75 mg oral tablet (10 sources) P2Y12 Platelet Inhibitor Start: 5 End: 5 take 1 tablet by mouth once daily Clopidogrel (Plavix) 75 mg tablet Discontinued 75 mg PO DAILY 30 2 January 05, 2025 12:00am January 11, 2025 10:17am Start: 05-06-2013 End: 12-06-2024 take 1 tablet by mouth once daily Clopidogrel 75 MG tablet Discontinued 75 mg PO DAILY 30 0 May 06, 2013 1:00am December 06, 2024 3:38pm doxazosin 4 mg oral tablet (20 sources) alpha-Adrenergic Loni Start: 12-06-2024 End: 01-11-2025 take 1 tablet by mouth twice daily Doxazosin 4 mg tablet Discontinued 4 mg PO TWICE A DAY December 06, 2024 12:00am January 11, 2025 10:20am Blood pressure Start: 04-05-2023 End: 05-01-2024 take [...] by froylan th two times a day. fluticasone propionate 0.05 mg/actuat metered dose nasal spray (19 sources) Corticosteroid Start: 10-11-19 End: 10-06-19 take 2 spray(s) nasal route once daily fluticasone (FLONASE) 50 mcg/actuation nasal spray Indications: Chronic rhinitis , Chronic cough Use 2 Sprays in each nostril once daily. 1 Bottle 11 10/11/2015 10/06/2023 Discontinued (Discontinued by Patient) Comment on above: Use 2 Sprays in each nostril once daily. furosemide 20 mg oral tablet (7 sources) Loop Diuretic Start: 05-04-20 End: 12-07-19 take 1 tablet by mouth once daily Furosemide 20 MG tablet Discontinued 20 mg PO DAILY May 04, 2013 1:00am December 06, 2024 3:38pm lisinopril 5 mg oral tablet (14 sources) Angiotensin Converting Enzyme Inhibitor Start: 05-17-20 End: 12-07-19 take 3 tablets by mouth once daily [...] in NaCl (PF) 0.9% 10 mL injection ([employer]) pravastatin sodium 40 mg oral tablet (20 [...] Aortic and peripheral arterial embolism or thrombosis (12 sources) Subclavian artery thrombosis; Translations: [Embolism and [...] Chronic Occlusion or stenosis of precerebral arteries (12 sources) Vertebral artery stenosis; Translations: [Occlusion and stenosis of unspecified vertebral artery] 01-05-2025 Chronic Other circulatory disease (14 sources) History of cerebrovascular accident; Translations: [Personal history of transient ischemic attack (TIA), and cerebral infarction without residual deficits] 12-06-2024 Episodic Comment on above: 12/06/24 LEFT EYE RET INAL ARTERY OCC Other non-epithelial cancer of skin (13 sources) History of malignant neoplasm of skin; Translations: [Personal history of other malignant neoplasm of skin] Onset: 01-12-2025 04-06-2024 Episodic Comment on above: Anterior chest Chest Completely exc ised December 2024 Anterior chest Nodul ar basal cell carcinoma, completely excised December 2024 Other nutritional; endocrine; and metabolic disorders (15 sources) Obese class II; Translations: [Obesity, unspecified] Onset: 04-05-2023 08-20-2023 Chronic Other screening for suspected conditions (not mental disorders or infectious disease) (8 sources) Serum creatinine raised; Translations: [Other specified abnormal findings of blood chemistry] Onset: 12-07-2024 12-07-2024 Episodic Other skin disorders (2 sources) Skin lesion; Translations: [Disorder of the skin and subcutaneous tissue, unspecified] Episodic Retinal detachments; defects; vascular occlusion; and retinopathy (15 sources) Occlusion of left branch retinal artery; 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, left eye] Onset: 12-07-2024 12-06-2024 Chronic Screening and history of mental health and substance abuse codes (2 sources) Patient encounter status; Translations: [Encounter for screening for depression] 04-06-2024 Episodic Thyroid disorders (20 sources) Acquired hypothyroidism; Translations: [Hypothyroidism, unspecified] Onset: 04-28-2016 Chronic Comment on above: THYROIDECTOMY FOR CA Unclassified (6 sources) For growth on chest Unclassified (1 [...] Test Name Value Interpretation Reference Range Facility MR/PATJennifer 01-18-2025 MR/PAT.MARIN [facility] Medical Records Department [address] [place] [address] PAT - Anesthesia 01/18/25 1336 MR#: [id number] Acct: [id number] Name: CARISSA GRUBER Rep #: [id number] : 1940 84 From: Deb Blue MD PCP: Dr. 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 Any Problems With Anesthesia Yes: SLOW TO AWAKEN 01/18/25 10:25 Cholinesterase deficiency No 01/18/25 10:25 You/Your Family Experience No 01/18/25 10:25 fever (hyperthermia) with Relationship Recent Exposure to Contagious No 01/12/25 06:22 Disease Does patient have nerve No 01/18/25 10:25 stimulator Patient instructed to have device shut off --Does patient have Pacemaker or ICD? When Was Last Pacemaker Check No 05/06/13 20:40 QUESTION #4 FULL TEXT: You/Your Family Experience fever (hyperthermia) with Anesthesia Last Oral Intake Last Oral intake: Last Oral Intake NPO since Meds taken in AM with sips of water? Meds patient instructed to take am of surgery PONV PONV - store management trainee: PONV - store management trainee Female No 01/18/25 10:25 HX of Motion Sickness No 01/18/25 10:25 HX of N/V After Surgery No 01/18/25 10:25 Non-Smoker Yes 01/18/25 10:25 Duration of Surgery greater Yes 01/18/25 10:25 than 60 minutes Number of Risk Factors 2 01/18/25 10:25 PONV Score Moderate Risk 01/18/25 10:25 Height Weight Height Weight: Anesthesia: Height Weight Height 5 ft 10 in 01/12/25 06:22 Respiratory Assessment Respiratory Assessment - store management trainee: Respiratory Tract Infection Hx - store management trainee Hx Respiratory Tract Infection No 01/18/25 10:25 STOP Sleep Apnea STOP Sleep Apnea - store management trainee: STOP Sleep Apnea - store management trainee Hx Hypertension Yes: FAIRLY CONTROLLED WITH 01/18/25 10:25 MED Hx Sleep Apnea No 01/18/25 10:25 CPAP BIPAP Do you snore loudly (louder No 01/18/25 10:25 than talking or can be heard Do you often feel tired/ No 01/18/25 10:25 fatigued/ sleepy during daytime? Has anyone observed you stop No 01/18/25 10:25 breathing during sleep? STOP Results Negative 01/18/25 10:25 QUESTION #5 FULL TEXT : Do you snore loudly (louder than talking or can be heard through closed doors)? Tobacco Use History Tobacco Use History - store management trainee: Tobacco Use History - store management trainee Tobacco Use Non-smoker 12/07/24 02:28 Smoking Status Former smoker 01/18/25 10:25 Hx Tobacco Use No 01/18/25 10:25 Years Smoking Packs Smoked per Day Smoking Cessation Date was No - quit smoking greater 01/18/25 10:25 within the last 15 years than 15 years ago Hx Smoking Cessation Date Hx Smoking Cessation No 01/18/25 10:25 Counseling Hematologic Medial History Hematologic Hx - store management trainee: Hematologic Medical Hx - vegetable canner Hx of Blood Transfusion No 01/18/25 10:25 Hx of Transfusion in last 3 No 01/18/25 10:25 Months Date of Last Transfusion (if within last 3 months) Ever experience any problems No 01/18/25 10:25 with transfusion(s)? Specify any problems Hx of Preganancy in last 3 N/A 01/18/25 10:25 Months Nurse Filling Out Transfusion DSCHRIBER 01/18/25 10:25 Questions: Date: 01/18/25 01/18/25 10:25 Time: 10:26 01/18/25 10:25 Patient unable to answer at this time (ie. confused, unrespo /Reproducti on History /Reproducti ve History - store management trainee: /Reproducti ve Hx- store management trainee Hx Now No 01/18/25 10:25 Gestational Age (in weeks): EDC: Hx Hx Para Hx Section SAB No 01/18/25 10:25 PFSH Medical History History of stress test Wears partial dentures Cancer Alcohol use Wears hearing aid Wears glasses Open wound Thyroid disease Arthritis High cholesterol TIA (transient ischemic attack) Former smoker Ambulates with cane History of edema Cardiology follow-up encounter Hypertension History of Holter monitoring History of echocardiogram History of stroke Home Medications ???Medication ???Instructions ???Recorded ???Last Taken ???Type levothyroxine 150 mcg tablet 150 mcg PO DAILY disorder of 12/0601/12/25 04:00 History thyroid gland losartan 50 mg tablet 50 mg PO BID Blood pressure 01/11/25 20:00 History metop (more content not included)... Normal [facility] H AND P Exam - Surgicalon H&P Exam - Surgical [facility] Medical Records Department [address] [place] [address] H P Exam - Surgical 01/12/25717 MR#: [id number] Acct: [id number] Name: CARISSA GRUBER Rep #: [id number] : 1940 84 From: Eric Clark MD PCP: Dr. Dimitri Marie MD Status:REG [facility] Location: [place] [address] HPI - General HPI Narrative CARISSA GRUBER, is a 84 M who presents with an actively bleeding chest skin cancer. Presents today for excision. Unable to obtain dermatology biopsy report yet, but since bleeding actively, discussed excision with 6 mm margins with the patient today to control the bleeding and likely excise completely. He was in agreement. Current Encounter (DATE OF SURGERY H P UPDATE): I saw and examined the patient this morning in pre- operative holding. We discussed risks and benefits of today's surgery and they would like to proceed. NO CHANGE in health history since last seen and evaluated. Ready to proceed with surgery. [facility] Medical History History of stress test Wears partial dentures Cancer Alcohol use Wears hearing aid Wears glasses Open wound Thyroid disease Arthritis High cholesterol TIA (transient ischemic attack) Former smoker Ambulates with cane History of edema Cardiology follow-up encounter Hypertension History of Holter monitoring History of echocardiogram History of stroke Home Medications ???Medication ???Instructions ???Recorded ???Last Taken ???Type levothyroxine 150 mcg tablet 150 mcg PO DAILY disorder of 12/0601/12/25 04:00 History thyroid gland losartan 50 mg tablet 50 mg PO BID Blood pressure 01/11/25 20:00 History metoprolol succinate 25 mg 25 mg PO DAILY Hear rate/Blood 05/2201/11/25 08:00 History tablet,extended release 24 hr pressure amlodipine 5 mg tablet 5 mg PO QHS 01/11/25 01/11/25 20:0 0 History apixaban 5 mg tablet (Eliquis) 5 mg PO BID 01/11/25 01/11/25 08:0 0 History atorvastatin 40 mg tablet 40 mg PO QHS 01/11/25 01/11/25 20: 00 History Allergy/AdvReac Type Severity Reaction Status Date / Time Sulfa (Sulfonamide Allergy Rash Verified 01/12/25 06:18 Antibiotics) Surgical History Hx of colonoscopy Hx of thyroidectomy Hx of right cataract extraction Hx of left cataract extraction Social History Smoking Status: Former smoker alcohol intake: never substance use type: does not use Vital Signs Vital Signs Vital Signs: 01/12/25 06:22 01/12/25 06:22 01/12/25 06:50 Temperature 98.5 F 98.5 F Temperature Source Temporal Pulse Rate 60 60 Respiratory Rate 18 18 Respiratory Pattern Normal Blood Pressure 142/61 H 142/61 H Blood Pressure Mean 88 Blood Pressure Source Monitor Blood Pressure Position Sitting Blood Pressure Location Left Arm Pulse Ox 99 99 Oxygen Delivery Method Room Air Room Air Weight Weight: 230 lb 6.129 oz Body Mass Index (BMI) 33.0 Physical Exam Narrative Strike through bleeding on the chest dressing over the cancer Assessment Plan Assessment/Plan (1) Skin cancer: PLAN: I talked to the patient extensively about the risks of surgery, including bleeding, infection, damage to surrounding structures, poor scaring, surgical site dehiscence and wound formation, need for wound care, need for repeat operations, failure to obtain the desired result, DVT/PE, and the risks of anesthesia including , including stroke (from low blood pressure/ischemia or clot). The benefits and alternatives of this surgery were also discussed. All of their questions were answered, and they agreed to proceed with surgery. INTERVAL H P PLAN, DATE OF SURGERY: We will proceed with surgery today. 01/12/25720 Cosigner Signature (if applicable): CC: Dr. Eric Clark MD; Dr. Dimitri Marie MD Signed [facility] MR/POSTOP.[place] 01-12-2025 MR/POSTOP.[facility] Medical Records Department [address] [place] [address] Anesthesia Postop Eval I 01/12/25821 MR#: [id number] Acct: [id number] Name: CARISSA GRUBER Rep #: [id number] : 1940 84 From: Shayna Michael CRNA PCP: Dr. Dimitri Marie MD Status:[facility] Y Race: C Location: [place] [address] Anesthesia: Postop Eval I Current Vital Signs Temperature: 36 F Pulse Rate: 77 Blood Pressure: 133/58 Respiratory Rate: 14 Pulse Ox: 97 Assessment Airway patent: Yes Spontaneous unlabored respirations: Yes nausea: No Vomiting: No Anesthesia Complication: No Fluid Hydration Crystalloid volume administer (ml): 900 Total IV fluid infused: 900 Progress Note Anesthesia document: Postop Eval 1 completed: Yes 01/12/25822 Shayna Michael PIZZA BAKER Cosigner Signature: Date CC: Signed Normal [facility] MR/[id number] 01-12-2025 [facility] Medical Records Department [address] [place] [address] Anesthesia Postop Eval II 01/12/25 1423 MR#: [id number] Acct: [id number] Name: CARISSA GRUBER Rep #: [id number] : 1940 84 From: Randolph Beard PIZZA BAKER PCP: Dr. Dimitri Marie MD Status:[facility] Y Race: C Location: [facility] Anesthesia Postop Eval I Sum Postop Eval Completion status Anesthesia document: Postop Eval 1 completed: Yes Anesthesia Postop Eval I Summary Anesthesia Postop Eval I Summary: Anesthesia Postop Eval I: Assessment Summary Airway patent Yes 01/12/25 08:22 [email or web address] [email or web address] Spontaneous unlabored Yes 01/12/25 08:22 PIZZA [email or web address] respirations Mental status nausea No 01/12/25 08:22 PIZZA [email or web address] Vomiting No 01/12/25 08:22 PIZZA [email or web address] Anesthesia Postop Eval I: Fluid Summary Crystalloid volume administer 900 01/12/25 08:22 PIZZA [email or web address].JYUN (ml) Colloids volume administered ( ml) Blood Product volume administered (ml) Total IV fluid infused 900 01/12/25 08:22 PIZZA [email or web address] Anesthesia Postop Eval I: Summary Notes Anesthesia Complication No 01/12/25 08:22 [email or web address] Anesthesia Complication Comment: Post-operative progress note Anesthesia: Postop Eval II Evaluation Mental status: Awake and Calm Pain Level: 1 nausea: No Vomiting: No Complications Anesthesia Complication: No 01/12/25 1423 Date Randolph Beard PIZZA BAKER Cosigner Signature: Date CC: Signed Normal [facility] Operative Reporton Operative Report [facility] Medical Records Department [address] [place] [id number] Operative Report 01/12/25 0959 MR#: [id number] Acct: [id number] Name: CARISSA GRUBER Rep #: [id number] : 1940 84 From: Eric Clark MD PCP: Dr. Dimitri Marie MD Status:[facility] Location: [facility] Operative Report (Standard) Operative Information Date of Procedure: 01/12/25 Pre-Operative Diagnosis: Anterior chest skin cancer, with active bleeding Post-Operative Diagnosis: Same Surgery/Procedure Performed: 1) Excision anterior chest skin cancer, 0.6 mm margins, 5 x 6 cm, to the level of the underlying Melisa's fascia (CPT: 97618) 2) Dermal substitute placement, Allograft, 5 x 6 cm (CPT: 26099, 63036) crepe sole scourer: No Type of Anesthesia: Local MAC (30 cc of 50-50 mixture of 1% lidocaine with 1-200,000 epinephrine and quarter percent Marcaine with 1-200,000 epinephrine) RN Documented Start/Stop Times: Operation Date: 01/12/25 07:30 Case Time Into Pre-Op 01/12/25 05:47 Anesthesia Start 01/12/25 07:25 Into Room 01/12/25 07:25 Procedure Start 01/12/25 07:42 Procedure End 01/12/25 08:05 Anesthesia End 01/12/25 08:12 Out of Room 01/12/25 08:12 Into Recovery 01/12/25 08:15 Into Phase II Recovery 01/12/25 08:34 Out of Recovery 01/12/25 08:34 Out of Phase II 01/12/25 09:38 Out of Pre-Op Procedure Start Time: 07:42 Procedure Stop Time: 08:05 Select all DRAINS/GRAFTS/IMPLAN TS that apply: Tissue (Allograft) Tissue details: TheraSkin 2 x 3 inch for temporary dressing Estimated Blood Loss: 20 cc Specimen collected: Yes Description of specimen(s) removed: Anterior chest skin cancer 1 stitch at 12:00, 2 stitches at 3:00, 3 stitches at 6:00 Description of surgery: Indications: Patient has been actively bleeding chest skin cancer. Presents today for excision for bleeding control (patient is on blood thinner for history of stroke recently). Patient understands the risks, benefits, and alternatives to procedure. Procedure details: Patient was correct identified in preoperative holding. He was taken back to the operating room where he was administered sedation and the above-noted local anesthesia. He was prepped and draped in sterile fashion and all proper timeouts were performed. The mass was removed on the chest for a total excision of 6 x 5 cm (excising ellipse vertically with at least 6 mm margins circumferentially). Hemostasis was obtained with Bovie electrocautery. The wound was irrigated with copious amounts normal saline. The wound was too tight for primary closure. A temporary dressing was applied in case further margins were required. The temporary dressing was TheraSkin which was placed by suturing this cadaver allograft into place using 3-0 Vicryl sutures with a tie- over bolster. The total application of dermal substitute was 6 x 5 cm. Patient tolerated the procedure well. He was awakened and taken the PACU in stable condition. Postoperative plan: Follow-up for definitive reconstruction with either skin graft or delayed primary closure versus reexcision for margins if positive. Surgical Findings: Lesion appear to be confined to the dermis and was not spreading down to the underlying subcutaneous tissue Complications Complications: No Admit VTE Documentation VTE Mechan Device Prophylaxis: SCD's 01/12/25 100 Cosigner Signature (if applicable): CC: Dr. Eric Clark MD; Dr. Dimitri Marie MD Signed Normal [facility] Surgery Specimen Level Jason 01-12-2025 Surgery Specimen Level IV Patient Age/Sex Location Account Attending Physician CARISSA GRUBER 84/M [facility] [id number] Dr. Eric Clark MD Specimen: [id number] Received: 01/12/25 Status: CAT Stephens Num: [id number] Spec Type: Lesion Subm Dr: Dr. Eric Clark MD HEADER OPERATION: Excision chest skin cancer with temporary dressing placement PRE-OP DIAGNOSIS: Skin cancer TISSUE SUBMITTED: A- Skin cancer chest - 1 at 12o'clock, 2 at 3o'clock, 3 at 6o'clock, 5x6 MICROSCOPIC DIAGNOSIS A. Skin, chest, skin cancer, excision: - Nodular basal cell carcinoma, surgical margins free - see note. - Seborrheic keratosis, incidental. Note: There is no lymphovascular or perineural invasion identified. Tumor involves the superficial to mid reticular dermis. MICROSCOPIC DESCRIPTION Slides are reviewed. GROSS DESCRIPTION A. Received in formalin labeled with the patient's name and date of . Designated as skin cancer chest is a 6.3 x 2.9 cm brooke skin ellipse excised to a depth of 0.5-1.3 cm and with orientation as follows:Single suture: designated as 12:00.Double suture: designated as 3:00.Triple suture: designated as 6:00. There is a 5.5 x 5.0 x 1.9 cm brooke-white to red, firm to friable, fungating and somewhat pedunculated lesion, located the following distances from the margins:12:00: 2.1 cm 3:00: 0.6 cm 6:00: 1.1 cm9:00: 0.9 cmDeep: 0.5 cm Ink eldridge: 12:00 half (deep): Black3:00 (periphery): Green9:00 (periphery): Blue6:00 half (deep): Beresford The specimen is serially sectioned from 12:00 to 6:00 revealing firm to friable lesional cut surfaces; grossly, the mass does not extend into or involve the underlying soft tissue. The remainder of the cut surfaces are brooke-yellow and fatty with focal areas of apparent hemorrhage. Diplomatic Interpreter/Translator sections are submitted, sequentially (with the exception of A6) submitted as follows: A1: 12:00 tip and adjacent cross-sectionsA2: Lesion to 3:00A3: Lesion to 9:56G4-H0: Lesion to deepA6: Lesion, no margins (12;00 half)A7: 6:00 tip and cross-section *Note: Biopsy proven malignancy per OP note - still pending prior biopsy report (SC). OK 01/15/2025 CPT:84256 Patient Age/Sex Location Account Attending Physician CARISSA GRUBER 84/M [facility] [id number] Dr. Eric Clark MD Signed (signature on file) Dr. Evy Emmanuel MD 01/17/25 1618 Normal [facility] Comment on above: Performed By: #### P ANNY ####[facility] [address] [place], [address] MR/PATJennifer 01-11-2025 MR/PAT.[facility] Medical Records Department [address] [place] [address] PAT - Anesthesia 01/11/25 1323 MR#: [id number] Acct: [id number] Name: CARISSA GRUBER Rep #: [id number] : 1940 84 From: Hugo Bro MD PCP: Dr. 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 Any Problems With Anesthesia Yes: SLOW TO AWAKEN 01/11/25 10:33 Cholinesterase deficiency No 01/11/25 10:33 You/Your Family Experience No 01/11/25 10:33 fever (hyperthermia) with Relationship Recent Exposure to Contagious No 05/06/13 20:40 Disease Does patient have nerve No 01/11/25 10:33 stimulator Patient instructed to have device shut off --Does patient have Pacemaker or ICD? When Was Last Pacemaker Check No 05/06/13 20:40 QUESTION #4 FULL TEXT: You/Your Family Experience fever (hyperthermia) with Anesthesia Last Oral Intake Last Oral intake: Last Oral Intake NPO since Meds taken in AM with sips of water? Meds patient instructed to take am of surgery PONV PONV - store management trainee: PONV - store management trainee Female No 01/11/25 10:33 HX of Motion Sickness No 01/11/25 10:33 HX of N/V After Surgery No 01/11/25 10:33 Non-Smoker Yes 01/11/25 10:33 Duration of Surgery greater Yes 01/11/25 10:33 than 60 minutes Number of Risk Factors 2 01/11/25 10:33 PONV Score Moderate Risk 01/11/25 10:33 Height Weight Height Weight: Anesthesia: Height Weight Height 5 ft 10 in 12/07/24 10:03 Respiratory Assessment Respiratory Assessment - store management trainee: Respiratory Tract Infection Hx - store management trainee Hx Respiratory Tract Infection No 01/11/25 10:33 STOP Sleep Apnea STOP Sleep Apnea - store management trainee: STOP Sleep Apnea - store management trainee Hx Hypertension Yes: FAIRLY CONTROLLED WITH 01/11/25 10:33 MED Hx Sleep Apnea No 01/11/25 10:33 CPAP BIPAP Do you snore loudly (louder No 01/11/25 10:33 than talking or can be heard Do you often feel tired/ No 01/11/25 10:33 fatigued/ sleepy during daytime? Has anyone observed you stop No 01/11/25 10:33 breathing during sleep? STOP Results Negative 01/11/25 10:33 QUESTION #5 FULL TEXT : Do you snore loudly (louder than talking or can be heard through closed doors)? 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 Specify any problems Hx of Preganancy in last 3 N/A 01/11/25 10:33 Months Nurse Filling Out Transfusion DSCHRIBER 01/11/25 10:33 Questions: Date: 01/11/25 01/11/25 10:33 Time: 10:37 01/11/25 10:33 Patient unable to answer at this time (ie. confused, unrespo /Reproducti on History /Reproducti ve History - store management trainee: /Reproducti ve Hx- store management trainee Hx Now No 01/11/25 10:33 Gestational Age (in weeks): EDC: Hx Hx Para Hx Section SAB No 01/11/25 10:33 PFSH Medical History (Updated 01/11/25 @ 11:06 by Nikky Mcdonald) History of stress test Wears partial dentures Cancer Alcohol use Wears hearing aid Wears glasses Open wound Thyroid disease Arthritis High cholesterol TIA (transient ischemic attack) Former smoker Ambulates with cane History of edema Cardiology follow-up encounter Hypertension History of Holter monitoring History of echocardiogram History of stroke Home Medications ???Medication ???Instructions ???Recorded ???Last Taken ???Type levothyroxine 150 mcg tablet 150 mcg PO DAILY disorder of 12/0612/06/24 History thyroid gland losartan 50 mg tablet 50 mg PO BID Blood pressure 12/06/24 History metoprolol succinate 25 mg 25 mg PO DAILY (more content not included)... Normal [facility] Plastic Surgery Visit Report on 01-11-2025 Plastic Surgery Visit Report [facility] Plastic Reconstructive Surgery [address], [address] [place] [address] OFFICE VISIT Date of Service: 01/11/25 MR#: [id number] Acct: [id number] Name: CARISSA GRUBER Rep #: [id number] : 1940 Provider: Dr. Eric Clark MD Age/Sex: 84/M Location: [facility] Status: Signed Intake Vital Signs 3 12/07/24 10:03 01/11/25 09:51 Height 5 ft 10 in Weight: 230 lb BP 136/64 H Blood Pressure Location Rt brachial Position Sitting Respiration 18 Pulse 68 Pulse Source Monitor Pulse Oximetry (%) 92 Oxygen Delivery Method room air Intake Visit Reasons: GROWTH ON CHEST Chief Complaint: lesion on chest Is patient in pain?: No Allergies Sulfa (Sulfonamide Antibiotics) Allergy (Verified 01/11/25 09:50) Rash Medications 3 ???Medication ???Instructions ???Recorded ???Confirmed ???Type doxazosin 4 mg tablet 4 mg PO BID Blood pressure 5 01/11/25 History levothyroxine 150 mcg tablet 150 mcg PO DAILY disorder of 12/0601/11/25 History thyroid gland losartan 50 mg tablet 50 mg PO BID Blood pressure 01/11/25 History metoprolol succinate 25 mg 25 mg PO DAILY Hear rate/Blood 05/2201/11/25 History tablet,extended release 24 hr pressure aspirin 81 mg tablet,delayed 81 mg PO DAILY #360 tabs 01/05/25 01/11/25 Rx release (Adult Aspirin Regimen) atorvastatin 80 mg tablet (Lipitor) 80 mg PO QDAY #30 tabs 01/05/25 01/11/25 Rx clopidogrel 75 mg tablet (Plavix) 75 mg PO DAILY #30 tabs 01/05/25 01/11/25 Rx apixaban 5 mg tablet (Eliquis) 5 mg PO BID 01/11/25 01/11/25 Hist ory Have you fallen in the past year?: No [facility] History History of stroke Social History Smoking Status: Former smoker alcohol intake: never substance use type: does not use HPI GROWTH ON CHEST Details: The patient is an 84-year-old male presenting with a malignant chest lesion. The lesion was first noticed about a year ago and was biopsied approximately six to eight months ago, revealing malignancy. The lesion stopped growing about six months ago, which the patient attributed to his natural immunity. The lesion is described as exophytic, measuring approximately 5 x 4 cm, with a pedunculated base of 1.5 x 2 cm. It is mobile and does not appear to extend into deeper tissues. The lesion has been bleeding intermittently, especially if not handled carefully, but the patient reports being a quick clotter despite being on Eliquis. The patient has a history of stroke for which he was prescribed Eliquis, an anticoagulant. He denies any lumps or bumps in the armpits and has no history of chest surgery. ros - Hematologic: Reports bleeding from chest lesion, denies prolonged bleeding despite anticoagulant use - Lymphatic: Denies lumps or bumps in armpits Attestation: Documentation on this patient encounter was supported using ambient scribe technology/ voice AI technology. The patient consented to recording for the purpose of documenting the encounter. Provider reviewed content of the generated note prior to signature. ROS General General: Yes good health; No fatigue, fever(s) or weight loss HENMT HENMT: No rhinitis, sore throat/mouth sore, nasal congestion, contacts or glaucoma Endo Endocrine: No thyroid disease, polydipsia, heat intolerance, cold intolerance, hepatitis or excessive urine Skin Skin: No Bleeding, bruising, changing moles or suspicious lesion Musc Musculoskeletal: No joint pain, joint stiffness, muscle weakness, back pain, osteoarthritis or Muscle aches/ myalgia Neuro Neurological: No headache(s), No lightheadedness and No numbness Cardio Cardiovascular: No chest pain, pacemaker, fatigue or shortness of breat with exertion Psych Psychiatric: No depression, claustrophobia or anxiety Resp Respiratory: No spitting up, shortness of breath, sleep apnea, asthma, emphysema, TB, Cough or Smoker Gastro Gastrointestinal: No diarrhea, constipation, blood in stool, nausea, vomiting or abdominal bloating Arndy Hematologic: No anemia, No bleeding and No abnormal bleeding Genitourinary: No urinary frequency, blood in urine or incontinence Exam Details - Integumentary: Central chest mass, exophytic, approximately 5 x 4 cm, pedunculated base 1.5 x 2 cm, mobile, not extending into deeper tissues. The mass is bleeding. There is no axillary or cervical lymphadenopathy on my exam Coding Level of Care Code Off vis,new,level 3 Diagnoses Skin cancer C44.90 Assessment and Plan (No Qualifiers) Assessment and Plan (1) Skin cancer: Status: Acute Comment: Anterior chest Plan: Assessment and Plan The 84-year-old (more content not included)... Normal [facility] MR/BMSSherita 01-05-2025 MR/BMS.ACE [facility] Vascular Surgery [address] [place] [address] [address] [place] [address] OFFICE VISIT Date of Service: 01/05/25 MR#: [id number] Acct: [id number] Name: RICKYJOHNAYANCARISSA Christine Rep #: [id number] : 1940 Provider: PORSCHE Womack Age/Sex: 84/M Location: [facility] Status: Signed Intake Vital Signs [...] CRAO vs CRVO was identified by outpatient user experience analyst. 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 He was initiated on Eliquis due to the reported subclavian artery thrombus. Neurology bridal sales consultant reviewed CTA images and felt there was [...] behavioral change (more content not included)... Normal [facility] Anion gap in Serum or Plasma Ordered By: Lyndon Dinh on 12-15-2024 Anion gap [Moles/Vol] 11 mmol/L - [facility] BUN/creatinine ratioOrdered By: Lyndon Dinh on 12-15-2024 Urea nitrogen/Creatinine [Mass ratio] 16.7 mg/mg - [facility] Basic Metabolic Profile (BMP )on 12-15-2024 BUN/CRE 16.7 RATIO Normal - [facility] Comment on above: Performed By: #### L 500.2500 #### [facility] Laboratory [address] [place], [address] Calcium [Mass/Vol] 9.0 mg/dL Normal 7.6-11.0 [facility] Comment on above: Performed By: #### L 500.2500 #### [facility] Laboratory [address] [place], [address] Chloride [Moles/Vol] 105 mmol/L Normal 98-108 [facility] Comment on above: Performed By: #### L 500.2500 #### [facility] Laboratory [address] [place], [address] CO2 [Moles/Vol] 23.0 mmol/L Normal 21.0-32.0 [facility] Comment on above: Performed By: #### L 500.2500 #### [facility] Laboratory [address] [place], [address] Creatinine [Mass/Vol] 1.62 mg/dL High 0.70-1.20 [place] [facility] Comment on above: Performed By: #### L 500.2500 #### [facility] Laboratory [address] [place], [address] GAP 11 Normal 5-15 [facility] Comment on above: Performed By: #### L 500.2500 #### [facility] Laboratory [address] [place], [address] GFR/1.73 sq M.predicted among non-blacks MDRD (S/P/Bld) [Vol rate/Area] 41 mL/min/{1.73_m2} Low >60 [facility] Comment on above: Result Comment: mL/m in/1.73m2 CKD-EPI Creatinine Equation (2020) Performed By: #### L 500.2500 #### [facility] Laboratory [address] [place], [address] Glucose [Mass/Vol] 96 mg/dL Normal 70-99 [facility] Comment on above: Performed By: #### L 500.2500 #### [facility] Laboratory [address] [place], [address] Potassium [Moles/Vol] 4.3 mmol/L Normal 3.3-5.1 [place] [facility] Comment on above: Performed By: #### L 500.2500 #### [facility] Laboratory [address] [place], [address] Sodium [Moles/Vol] 138 mmol/L Normal 133-145 [facility] Comment on above: Performed By: #### L 500.2500 #### [facility] Laboratory [address] [place], [address] Urea nitrogen [Mass/Vol] 27 mg/dL High 4-19 [facility] Comment on above: Performed By: #### L 500.2500 #### [facility] Laboratory [address] [place], [address] Carbon dioxide, total [Moles /volume] in Central venous bloodOrdered By: Lyndon Dinh on 12-15-2024 CO2 [Moles/Vol] 23.0 mmol/L 21.0-32.0 [facility] Chloride assayOrdered By: Ham Dinh on 12-15-2024 Chloride [Moles/Vol] 105 mmol/L 98-108 [facility] Glomerular filtration rate ( GFR) estimation/1.73 sq m using serum, plasma, or whole bOrdered By: Lyndon Dinh on 12-15-2024 GFR/1.73 sq M.predicted among non-blacks MDRD (S/P/Bld) [Vol rate/Area] 41 mL/min/{1.73_m2} Low >60 [facility] Comment on above: mL/min/1.73m2 CKD-EP I Creatinine Equation (2020) Potassium measurement (mass/ volume)Ordered By: Lyndon Dinh on 12-15-2024 Potassium (Unsp spec) [Mass/Vol] 4.3 mmol/L 3.3-5.1 [facility] Serum creatinine measurement (mass/volume)Ordered By: Lyndon Dinh on 12-15-2024 Creatinine [Mass/Vol] 1.62 mg/dL High 0.70-1.20 [place] [facility] Serum glucose measurement (m ass/volume)Ordered By: Lyndon Dinh on 12-15-2024 Glucose [Mass/Vol] 96 mg/dL 70-99 [facility] Serum or plasma calcium tesfaye urement (mass/volume)Ordered By: Lyndon Dinh on 12-15-2024 Calcium [Mass/Vol] 9.0 mg/dL 7.6-11.0 [facility] Serum or plasma urea nitroge n measurement (mass/volume)Ordered By: Lyndon Dinh on 12-15-2024 Urea nitrogen [Mass/Vol] 27 mg/dL High 4- [facility] Sodium levelOrdered By: Jose Dinh on 12-15-2024 Sodium [Moles/Vol] 138 mmol/L 133-145 [facility] Anion gap in Serum or Plasma Ordered By: Lyndon Dinh on 12-07-2024 Anion gap [Moles/Vol] 11 mmol/L 11-09 [place] [facility] BUN/creatinine ratioOrdered By: Lyndon Dinh on 12-07-2024 Urea nitrogen/Creatinine [Mass ratio] 14.3 mg/mg 04-16 [facility] Basic Metabolic Profile (BMP )on 12-07-2024 BUN/CRE 14.3 RATIO Normal 04-16 [facility] Comment on above: Order Comment: Comme nts: NPO at [place] prior to lipid panel Performed By: #### L 100.0500, L500.4100, L500.2500 ####[facility] [address] [place], [place], [id number] Calcium [Mass/Vol] 8.7 mg/dL Normal 7.6-11.0 [facility] Comment on above: Order Comment: Comme nts: NPO at [place] prior to lipid panel Performed By: #### L 100.0500, L500.4100, L500.2500 ####[facility] [address] [place], [address] Chloride [Moles/Vol] 106 mmol/L Normal 98-108 [facility] Comment on above: Order Comment: Comme nts: NPO at [place] prior to lipid panel Performed By: #### L 100.0500, L500.4100, L500.2500 ####[facility] [address] [place], [address] CO2 [Moles/Vol] 22.4 mmol/L Normal 21.0-32.0 [facility] Comment on above: Order Comment: Comme nts: NPO at [place] prior to lipid panel Performed By: #### L 100.0500, L500.4100, L500.2500 ####[facility] [address] [place], [address] Creatinine [Mass/Vol] 1.47 mg/dL High 0.70-1.20 [place] [facility] Comment on above: Order Comment: Comme nts: NPO at [place] prior to lipid panel Performed By: #### L 100.0500, L500.4100, L500.2500 ####[facility] [address] [place], [address] ECRCL 44.41 ml/min Low 50-250 [facility] Comment on above: Order Comment: Comme nts: NPO at [place] prior to lipid panel Performed By: #### L 100.0500, L500.4100, L500.2500 ####[facility] [address] [place], [address] GAP 11 Normal 5-15 [facility] Comment on above: Order Comment: Comme nts: NPO at [place] prior to lipid panel Performed By: #### L 100.0500, L500.4100, L500.2500 ####[facility] [address] [place], [address] GFR/1.73 sq M.predicted among non-blacks MDRD (S/P/Bld) [Vol rate/Area] 46 mL/min/{1.73_m2} Low >60 [facility] Comment on above: Order Comment: Comme nts: NPO at [place] prior to lipid panel Result Comment: mL/m in/1.73m2 CKD-EPI Creatinine Equation (2020) Performed By: #### L 100.0500, L500.4100, L500.2500 ####[facility] [address] [place], [address] Glucose [Mass/Vol] 94 mg/dL Normal 70-99 [facility] Comment on above: Order Comment: Comme nts: NPO at [place] prior to lipid panel Performed By: #### L 100.0500, L500.4100, L500.2500 ####[facility] [address] [place], [address] Potassium [Moles/Vol] 4.1 mmol/L Normal 3.3-5.1 [place] [facility] Comment on above: Order Comment: Comme nts: NPO at [place] prior to lipid panel Performed By: #### L 100.0500, L500.4100, L500.2500 ####[facility] [address] [place], [address] Sodium [Moles/Vol] 139 mmol/L Normal 133-145 [facility] Comment on above: Order Comment: Comme nts: NPO at [place] prior to lipid panel Performed By: #### L 100.0500, L500.4100, L500.2500 ####[facility] [address] [place], [address] Urea nitrogen [Mass/Vol] 21 mg/dL High 4-19 [facility] Comment on above: Order Comment: Comme nts: NPO at [place] prior to lipid panel Performed By: #### L 100.0500, L500.4100, L500.2500 ####[facility] [id number] [place], [address] CBC-Complete Blood Cnt No Di ffon 12-07-2024 Erythrocyte distribution width (RBC) [Ratio] 14.2 % Normal 11.6-14.6 [facility] Comment on above: Performed By: #### L 100.0500, L500.4100, L500.2500 #### [facility] Laboratory [address] [place], [address] Hematocrit (Bld) [Volume fraction] 32.4 % Low 40-54 [facility] Comment on above: Performed By: #### L 100.0500, L500.4100, L500.2500 #### [facility] Laboratory [address] [place], [address] Hemoglobin (Bld) [Mass/Vol] 10.5 g/dL Low 13.0-16.5 [facility] Comment on above: Performed By: #### L 100.0500, L500.4100, L500.2500 #### [facility] Laboratory [address] [place], [address] MCH (RBC) [Entitic mass] 28.5 pg Normal 27.0-32.0 [facility] Comment on above: Performed By: #### L 100.0500, L500.4100, L500.2500 #### [facility] Laboratory [address] [place], [address] MCHC (RBC) [Mass/Vol] 32.4 g/dL Normal 32-36 [facility] Comment on above: Performed By: #### L 100.0500, L500.4100, L500.2500 #### [facility] Laboratory [address] [place], [address] MCV (RBC) [Entitic vol] 87.8 fL Normal 80-94 [facility] Comment on above: Performed By: #### L 100.0500, L500.4100, L500.2500 #### [facility] Laboratory [address] [place], [address] Platelet mean volume (Bld) [Entitic vol] 10.3 fL Normal 6.2-12.0 [facility] Comment on above: Performed By: #### L 100.0500, L500.4100, L500.2500 #### [facility] Laboratory [address] [place], [address] Platelets (Bld) [#/Vol] 226 10*3/uL Normal 150-450 [facility] Comment on above: Performed By: #### L 100.0500, L500.4100, L500.2500 #### [facility] Laboratory [address] [place], [address] RBC (Bld) [#/Vol] 3.69 10*6/uL Low 4.6-6.2 [facility] Comment on above: Performed By: #### L 100.0500, L500.4100, L500.2500 #### [facility] Laboratory [address] [place], [address] RDW SD 45.5 fl High 35.1-43.9 [facility] Comment on above: Performed By: #### L 100.0500, L500.4100, L500.2500 #### [facility] Laboratory [address] [place], [address] WBC (Bld) [#/Vol] 7.2 10*3/uL Normal 4.4-11.0 [facility] Comment on above: Performed By: #### L 100.0500, L500.4100, L500.2500 #### [facility] Laboratory [address] [place], [address] Calculated very low density lipoprotein (VLDL) cholesterol measurementOrdered By: Lyndon Dinh on 12-07-2024 Calculated very low density lipoprotein (VLDL) cholesterol measurement 12 mg/dL 5-40 [facility] Carbon dioxide, total [Moles /volume] in Central venous bloodOrdered By: Lyndon Dinh on 12-07-2024 CO2 [Moles/Vol] 22.4 mmol/L 21.0-32.0 [facility] Chloride assayOrdered By: Ham Dinh on 12-07-2024 Chloride [Moles/Vol] 106 mmol/L 98-108 [facility] Discharge Instructionon 11-26 Discharge Instruction [facility] Medical Records Department [address] [place] [address] Instructions for Home/Discharge Instructions 12/07/24 1112 MR#: [id number] Acct: [id number] Name: CARISSA GRUBER Rep #: [id number] : 1940 84 From: Lyndon Dinh DO [...] Recorder Preventi (Urgent) Timeframe: 1 Month Facility: [facility] - Location: Cardiovascular Services Ordered By: Dr. [...] Barrientos DO; Julia Rahman MD Signed Normal [facility] Echocardiogram study reportO rdered By: Cally Mahoney on 12-07-2024 Study report [facility] Cardiovascular Services [address] [place] [address] Echo Complete 12/07/24 1120 MR#: [id number] Acct: [id number] Name: CARISSA GRUBER Rep #:[id number] : 1940 84 From: Cally Mahoney MD Attending Dr: Dr. Lyndon Dinh DO Status: ADM IN Ordering Dr: Lyndon Dinh DO Da te: 12/06/24 Location: [facility] Sex: M C Admitted: 12/06/24 Reason For [...] 1.8 cm2 DONNIE(V,D): 1.7 cm2 AI max yt: 444.0 cm/sec LV V1 max: 123.0 cm/sec [...] Dictated: 12/07/24 1120 Date Transcribed: 12/07/24 1505 Regulatory Leader: Signed [facility] Work Phone: Electrocardiogram reportOrde red By: Julio Palma on 12-07-2024 EKG study [facility] Cardiovascular Services [address] [place] [address] 12 Lead EKG 12/06/24 1211 MR#: [id number] Acct: [id number] Name: CARISSA GRUBER Rep #:[id number] : 1940 84 From: Julio ellsworth MD Attending Dr: Dr. Lyndon Dinh DO Status: ADM IN Ordering Dr: Ricardo Sinha MD Date: 05/22 Location: [facility] Sex: M C Admitted: 12/06/24 Test Reason : Blood Pressure : */* mmHG Vent. Rate : 60 BPM Atrial Rate : 60 BPM P-R Int : 184 ms QRS Dur : 100 ms QT Int : 426 ms P-R-T Axes : 45 0 14 degrees QTcB Int : 426 ms Normal sinus rhythm Baseline artifact Probably normal Confirmed by Julio Palma ([id number]), newspaper photo editor MARGARET NAIR ([id number]) on 56:48:18 AM Referred By: Confirmed By: Julio Palma 12/07/24 0648 Date _ Julio Palma MD CC: Dr. Lyndon Dinh DO; Dr. Ricardo Sinha MD; Dr. Dimitri Marie MD ~ Signed [facility] Other Erythrocyte distribution wid th ratioOrdered By: Lyndon Dinh on 12-07-2024 Erythrocyte distribution width (RBC) [Ratio] 14.2 % 11.6-14.6 [facility] Erythrocyte distribution wid th standard deviationOrdered By: Lyndon Dinh on 12-07-2024 Erythrocyte distribution width (RBC) [Ratio] 45.5 fl High 35.1-43.9 [facility] Glomerular filtration rate ( GFR) estimation/1.73 sq m using serum, plasma, or whole bOrdered By: Lyndon Dinh on 12-07-2024 GFR/1.73 sq M.predicted among non-blacks MDRD (S/P/Bld) [Vol rate/Area] 46 mL/min/{1.73_m2} Low >60 [facility] Comment on above: mL/min/1.73m2 CKD-EP I Creatinine Equation (2020) Hematocrit Auto (Bld) [Volum e fraction]Ordered By: Lyndon Dinh on 12-07-2024 Hematocrit (Bld) [Volume fraction] 32.4 % Low 40-54 [facility] Hemoglobin measurementOrdere d By: Lyndon Fabrizio on 12-07-2024 Hemoglobin (Bld) [Mass/Vol] 10.5 g/dL Low 13.0-16.5 [facility] LDL calc ser/plasOrdered By: Lyndon Dinh on 12-07-2024 Cholesterol in LDL [Mass/Vol] 54 mg/dL [facility] Comment on above: Hrgntgazer=030-033 m g/dL & Higher Pbfn=243 mg/dL or greater Lipid Profileon 12-07-2024 CHOL:HDL 2.74 Normal [facility] Comment on above: Order Comment: Comme nts: NPO at [place] prior to lipid panel Performed By: #### L 100.0500, L500.4100, L500.2500 ####[facility] [id number] [place], [place], [address] Cholesterol [Mass/Vol] 104 mg/dL Normal <=200 [facility] Comment on above: Order Comment: Comme nts: NPO at [place] prior to lipid panel Result Comment: Chol esterol level, Desirable <200 mg/dL Borderline high cholesterol 200-239 mg/dL High cholesterol >=240 mg/dL Recommendations of the NCEP Adult Treatment Panel for the following risk-cutoff thresholds for the [place] population. Performed By: #### L 100.0500, L500.4100, L500.2500 ####[facility] [id number] [place], [place], [address] Cholesterol in HDL [Mass/Vol] 38 mg/dL Low [facility] Comment on above: Order Comment: Comme nts: NPO at [place] prior to lipid panel Result Comment: Jackelyn onal Cholesterol Education Program (NCEP) guidelines: <40 mg/dL: Low HDL-cholesterol (major risk factor for CHD) >= 60 mg/dL: High HDL-cholesterol (negative risk factor for CHD) HDL-cholesterol is affected by a number of factors, e.g. smoking, exercise, hormones, sex and age. Performed By: #### L 100.0500, L500.4100, L500.2500 ####[facility] [id number] [place], [address] Cholesterol in LDL [Mass/Vol] 54 mg/dL Normal [facility] Comment on above: Order Comment: Comme nts: NPO at [place] prior to lipid panel Result Comment: Bord zijhcn=789-730 mg/dL Higher Tooh=086 mg/dL or greater Performed By: #### L 100.0500, L500.4100, L500.2500 ####[facility] [address] [place], [address] Cholesterol in VLDL [Mass/Vol] 12 mg/dL Normal 5-40 [facility] Comment on above: Order Comment: Comme nts: NPO at [place] prior to lipid panel Performed By: #### L 100.0500, L500.4100, L500.2500 ####[facility] [id number] [place], [address] Triglyceride [Mass/Vol] 58 mg/dL Normal [facility] Comment on above: Order Comment: Comme nts: NPO at [place] prior to lipid panel Result Comment: The drugs N-Acetylcysteine and Metamizole may falsely depress this assay. Normal range: <150 mg/dL Borderline High: 150-199 mg/dL High: 200-499 mg/dL Very High: >500 mg/dL Performed By: #### L 100.0500, L500.4100, L500.2500 ####[facility] [address] [place], [address] MCV (mean corpuscular volume ) determinationOrdered By: Lyndon Dinh on 12-07-2024 MCV (RBC) [Entitic vol] 87.8 fL 80-94 [facility] MR/CON.PCM.NEon 12-07-2024 MR/CON.PCM.NE [facility] Medical Records Department [address] [place] [address] Consultation - Neurology 12/07/24 1855 MR#: [id number] Acct: [id number] Name: CARISSA GRUBER Rep #: [id number] : 1940 84 From: Jeff Dougherty MD PCP: Dr. Dimitri Marie MD Status:DIS IN [facility] Assessment and Plan: Stroke Assessment/Plan #L CRAO/BRAO [...] at 8 AM this morning. He saw user experience analyst Dr. Guerrero and was diagnosed with a [...] tablet 4 mg PO BID Blood pressure 2 5 12/06/24 History levothyroxine 150 mcg tablet [...] Mean 86 (more content not included)... Normal [facility] Mean corpuscular hemoglobin (MCH) determinationOrdered By: Lyndon Dinh on 12-07-2024 MCH (RBC) [Entitic mass] 28.5 pg 27.0-32.0 [facility] Mean corpuscular hemoglobin concentration (MCHC) determinationOrdered By: Lyndon Dinh on 12-07-2024 MCHC (RBC) [Mass/Vol] 32.4 g/dL 32-36 [facility] Mean platelet volume determi nationOrdered By: Lyndon Dinh on 12-07-2024 Platelet mean volume (Bld) [Entitic vol] 10.3 fL 6.2-12.0 [facility] Platelet countOrdered By: Ham Dinh on 12-07-2024 Platelets (Bld) [#/Vol] 226 10*3/uL 150-450 [facility] Potassium measurement (mass/ volume)Ordered By: Lyndon Dinh on 12-07-2024 Potassium (Unsp spec) [Mass/Vol] 4.1 mmol/L 3.3-5.1 [facility] RBC Auto (Bld) [#/Vol]Ordere d By: Lyndon iDnh on 12-07-2024 RBC (Bld) [#/Vol] 3.69 10*6/uL Low 4.6-6.2 [facility] Screening total cholesterol/ high density lipoprotein (HDL) cholesterol ratioOrdered By: Lyndon Dinh on 12-07-2024 Cholesterol.total/Choles terol in HDL [Mass ratio] 2.74 {ratio} [facility] Serum creatinine measurement (mass/volume)Ordered By: Lyndon Dinh on 12-07-2024 Creatinine [Mass/Vol] 1.47 mg/dL High 0.70-1.20 [facility] Serum glucose measurement (m ass/volume)Ordered By: Lyndon Dinh on 12-07-2024 Glucose [Mass/Vol] 94 mg/dL 70-99 [facility] Serum or plasma calcium tesfaye urement (mass/volume)Ordered By: Lyndon Dinh on 12-07-2024 Calcium [Mass/Vol] 8.7 mg/dL 7.6-11.0 [facility] Serum or plasma cholesterol in HDL measurement (mass/volume)Ordered By: Lyndon Dinh on 12-07-2024 Cholesterol in HDL [Mass/Vol] 38 mg/dL Low >40 [facility] Comment on above: National Cholesterol Education Program (NCEP) guidelines:<40 mg/dL: Low HDL-cholesterol (major risk factor for CHD)>= 60 mg/dL: High HDL-cholesterol (negative risk factor for CHD)HDL-cholesterol is affected by a number of factors, e.g. smoking, exercise, hormones, sex and age. Serum or plasma cholesterol measurement (mass/volume)Ordered By: Lyndon Dinh on 12-07-2024 Cholesterol [Mass/Vol] 104 mg/dL <201 [facility] Comment on above: Cholesterol level, D esirable <200 mg/dLBorderline high cholesterol 200-239 mg/dLHigh cholesterol >=240 mg/dLRecommendations of the NCEP Adult Treatment Panel for the following risk-cutoff thresholds for the [place] population. Serum or plasma urea nitroge n measurement (mass/volume)Ordered By: Lyndon Dinh on 12-07-2024 Urea nitrogen [Mass/Vol] 21 mg/dL High 4-19 [facility] Sodium levelOrdered By: Jose Dinh on 12-07-2024 Sodium [Moles/Vol] 139 mmol/L 133-145 [facility] T4 Free Directon 12-07-2024 T4 FREE DIRECT 1.60 ng/dL High 0.76-1.46 [facility] Comment on above: Performed By: #### L 506.0400 #### [facility] Laboratory [facility] [place], [address] T4 freeOrdered By: Lyndon Dinh on 12-07-2024 Free T4 [Mass/Vol] 1.60 ng/dL High 0.76-1.46 [facility] Triglycerides measurementOrd ered By: Lyndon Dinh on 12-07-2024 Triglyceride [Mass/Vol] 58 mg/dL <199 [facility] Comment on above: The drugs N-Acetylcy steine and Metamizole may falsely depress this assay. Normal range: <150 mg/dLBorderline High: 150-199 mg/dLHigh: 200-499 mg/dLVery High: >500 mg/dL White blood cell (WBC) count Ordered By: Lyndon Dinh on 12-07-2024 WBC (Bld) [#/Vol] 7.2 10*3/uL 4.4-11.0 [facility] 12 Lead EKGon 12-06-2024 12 Lead EKG [facility] Cardiovascular Services [address] [place] [address] 12 Lead EKG 12/06/24 1211 MR#: [id number] Acct: [id number] Name: CARISSA GRUBER Rep #: [id number] : 1940 84 From: Julio Palma MD Attending Dr: Dr. Lyndon Dinh DO Status : ADM IN Ordering Dr: Ricardo Sinha MD Date: 12/06/24 Location: [facility] Sex: M C Admitted: 12/06/24 Test Reason : Blood Pressure : */* mmHG Vent. Rate : 60 BPM Atrial Rate : 60 BPM P-R Int : 184 ms QRS Dur : 100 ms QT Int : 426 ms P-R-T Axes : 45 0 14 degrees QTcB Int : 426 ms Normal sinus rhythm Baseline artifact Probably normal Confirmed by Julio Palma ([id number]), newspaper photo editor MARGARET NAIR ([id number]) on 12/07/2024 6:48:18 AM Referred By: Confirmed By: Julio Palma 12/07/24 0648 Date Julio Palma MD CC: Dr. Lyndon Dinh DO; Dr. Ricardo Sinha MD; Dr. Dimitri Marie MD Signed Normal [facility] Absolute lymphocyte countOrd ered By: Ricardo Sinha on 12-06-2024 Lymphocytes Auto (Unsp spec) [#/Vol] 1.14 10*3/uL 0.83-4.51 [facility] Absolute neutrophil countOrd ered By: Ricardo Sinha on 12-06-2024 Neutrophils (Bld) [#/Vol] 7.9 10*3/uL High 2.0-7.7 [facility] Activated partial thrombopla stin time (aPTT) in platelet poor plasma by coagulation aOrdered By: Ricardo Sinha on 12-06-2024 aPTT Coag (PPP) [Time] 30.4 s 24.1-36.2 [facility] Anion gap in Serum or Plasma Ordered By: Ricardo Sinha on 12-06-2024 Anion gap [Moles/Vol] 11 mmol/L 5-15 [facility] Automated lymphocyte count a s percentage of total leukocytesOrdered By: iRcardo Sinha on 12-06-2024 Lymphocytes/100 WBC Auto (Unsp spec) 11.5 % Low - [facility] BUN/creatinine ratioOrdered By: Ricardo Sinha on 12-06-2024 Urea nitrogen/Creatinine [Mass ratio] 14.9 mg/mg - [facility] Basic Metabolic Profile (BMP )on 12-06-2024 BUN/CRE 14.9 RATIO Normal 04-16 [facility] Comment on above: Performed By: #### L 100.0100, L500.2500 #### [facility] Laboratory [address] [place], [address] Calcium [Mass/Vol] 8.7 mg/dL Normal 7.6-11.0 [facility] Comment on above: Performed By: #### L 100.0100, L500.2500 #### [facility] Laboratory [address] [place], [address] Chloride [Moles/Vol] 104 mmol/L Normal 98-108 [facility] Comment on above: Performed By: #### L 100.0100, L500.2500 #### [facility] Laboratory [address] [place], [address] CO2 [Moles/Vol] 21.2 mmol/L Normal 21.0-32.0 [facility] Comment on above: Performed By: #### L 100.0100, L500.2500 #### [facility] Laboratory [address] [place], [address] Creatinine [Mass/Vol] 1.77 mg/dL High 0.70-1.20 [facility] Comment on above: Performed By: #### L 100.0100, L500.2500 #### [facility] Laboratory [address] [place], [address] ECRCL 36.88 ml/min Low 50-250 [facility] Comment on above: Performed By: #### L 100.0100, L500.2500 #### [facility] Laboratory [address] [place], [address] GAP 11 Normal 5-15 [facility] Comment on above: Performed By: #### L 100.0100, L500.2500 #### [facility] Laboratory [address] [place], [address] GFR/1.73 sq M.predicted among non-blacks MDRD (S/P/Bld) [Vol rate/Area] 37 mL/min/{1.73_m2} Low >60 [facility] Comment on above: Result Comment: mL/m in/1.73m2 CKD-EPI Creatinine Equation (2020) Performed By: #### L 100.0100, L500.2500 #### [facility] Laboratory [address] [place], [address] Glucose [Mass/Vol] 93 mg/dL Normal 70-99 [facility] Comment on above: Performed By: #### L 100.0100, L500.2500 #### [facility] Laboratory [address] [place], [address] Potassium [Moles/Vol] 4.2 mmol/L Normal 3.3-5.1 [facility] Comment on above: Performed By: #### L 100.0100, L500.2500 #### [facility] Laboratory [address] [place], [address] Sodium [Moles/Vol] 136 mmol/L Normal 133-145 [facility] Comment on above: Performed By: #### L 100.0100, L500.2500 #### [facility] Laboratory [address] [place], [address] Urea nitrogen [Mass/Vol] 26 mg/dL High 4-19 [facility] Comment on above: Performed By: #### L 100.0100, L500.2500 #### [facility] Laboratory [address] [place], [address] Basophil percentageOrdered B y: Ricardo Sinha on 12-06-2024 Basophils/100 WBC (Bld) 0.5 % 0-1 [facility] Brain without Contraston Brain without Contrast [facility] Imaging Services [address] [place] [address] Brain without Contrast MR#: [id number] Acct: [id number] Name: CARISSA GRUBER Rep #: [id number] : 1940 M 84 From: Elvis Person MD PCP: Dr. Dimitri Marie MD Status: ADM IN Study: Brain without Contrast Date of Exam: 12/06/24 Exam# [id number] Ordering Dr: Lyndon Dinh DO PROCEDURE: BRAIN [...] Contrast IMPRESSION: No acute abnormality Reading Location: [employer] [facility] THE [facility] CC: Dr. Lyndon Dinh DO; Dr. Dimitri Marie MD Regulatory Leader: Signed Normal [facility] CBC W/Diff, Automatedon 11-26 Absolute Lymph 1.14 X10 3/uL Normal 0.83-4.51 [facility] Comment on above: Performed By: #### L 100.0100, L500.2500 #### [facility] Laboratory [address] [place], [address] Absolute Neut 7.9 X10 3/uL High 2.0-7.7 [facility] Comment on above: Performed By: #### L 100.0100, L500.2500 #### [facility] Laboratory [address] [place], [address] Basophils/100 WBC (Bld) 0.5 % Normal 0-1 [facility] Comment on above: Performed By: #### L 100.0100, L500.2500 #### [facility] Laboratory [address] [place], [address] Eosinophils/100 WBC (Bld) 1.4 % Normal 0-5 [facility] Comment on above: Performed By: #### L 100.0100, L500.2500 #### [facility] Laboratory [address] [place], [address] Erythrocyte distribution width (RBC) [Ratio] 14.1 % Normal 11.6-14.6 [facility] Comment on above: Performed By: #### L 100.0100, L500.2500 #### [facility] Laboratory [address] [place], [address] Hematocrit (Bld) [Volume fraction] 32.4 % Low 40-54 [facility] Comment on above: Performed By: #### L 100.0100, L500.2500 #### [facility] Laboratory [address] [place], [address] Hemoglobin (Bld) [Mass/Vol] 10.7 g/dL Low 13.0-16.5 [facility] Comment on above: Performed By: #### L 100.0100, L500.2500 #### [facility] Laboratory [address] [place], [address] IG% 0.300 Normal 0.0-0.9 [facility] Comment on above: Result Comment: IG% - Immature Granulocytes (promyelocytes, myelocytes and metamyelocytes) > 1% indicates that a LEFT SHIFT is Present. Performed By: #### L 100.0100, L500.2500 #### [facility] Laboratory [address] [place], [address] Lymphocytes/100 WBC (Bld) 11.5 % Low 19-41 [facility] Comment on above: Performed By: #### L 100.0100, L500.2500 #### [facility] Laboratory [address] [place], [address] MCH (RBC) [Entitic mass] 29.2 pg Normal 27.0-32.0 [facility] Comment on above: Performed By: #### L 100.0100, L500.2500 #### [facility] Laboratory [address] [place], [address] MCHC (RBC) [Mass/Vol] 33.0 g/dL Normal 32-36 [place] [facility] Comment on above: Performed By: #### L 100.0100, L500.2500 #### [facility] Laboratory [address] [place], [address] MCV (RBC) [Entitic vol] 88.5 fL Normal 80-94 [facility] Comment on above: Performed By: #### L 100.0100, L500.2500 #### [facility] Laboratory [address] [place], [address] Monocytes/100 WBC (Bld) 7.0 % Normal 0-10 [facility] Comment on above: Performed By: #### L 100.0100, L500.2500 #### [facility] Laboratory [address] [place], [address] Neutrophils/100 WBC (Bld) 79.3 % High 47-70 [facility] Comment on above: Performed By: #### L 100.0100, L500.2500 #### [facility] Laboratory [address] [place], [address] Nucleated RBC (Bld) [#/Vol] 0 10*3/uL Normal 0-5 [facility] Comment on above: Performed By: #### L 100.0100, L500.2500 #### [facility] Laboratory [address] [place], [address] Platelet mean volume (Bld) [Entitic vol] 10.3 fL Normal 6.2-12.0 [facility] Comment on above: Performed By: #### L 100.0100, L500.2500 #### [facility] Laboratory [address] [place], [address] Platelets (Bld) [#/Vol] 224 10*3/uL Normal 150-450 [facility] Comment on above: Performed By: #### L 100.0100, L500.2500 #### [facility] Laboratory [address] [place], [address] RBC (Bld) [#/Vol] 3.66 10*6/uL Low 4.6-6.2 [facility] Comment on above: Performed By: #### L 100.0100, L500.2500 #### [facility] Laboratory [address] [place], [address] RDW SD 45.6 fl High 35.1-43.9 [facility] Comment on above: Performed By: #### L 100.0100, L500.2500 #### [facility] Laboratory [address] [place], [address] WBC (Bld) [#/Vol] 9.9 10*3/uL Normal 4.4-11.0 [facility] Comment on above: Performed By: #### L 100.0100, L500.2500 #### [facility] Laboratory [address] [place], [address] Absolute Neut Normal 2.0-7.7 [facility] Comment on above: Result Comment: DUPL ICATE CANCEL PER GEORGETTE. Performed By: #### L 501.4021, L300.3900, L300.4310, L100.0100 ####[facility] [address] [place], [address] HCT Normal 40-54 [facility] Comment on above: Result Comment: DUPL ICATE CANCEL PER GEORGETTE. Performed By: #### L 501.4021, L300.3900, L300.4310, L100.0100 ####[facility] [address] [place], [address] HGB Normal 13.0-16.5 [facility] Comment on above: Result Comment: DUPL ICATE CANCEL PER GEORGETTE. Performed By: #### L 501.4021, L300.3900, L300.4310, L100.0100 ####[facility] [address] [place], [address] MCH Normal 27.0-32.0 [facility] Comment on above: Result Comment: DUPL ICATE CANCEL PER GEORGETTE. Performed By: #### L 501.4021, L300.3900, L300.4310, L100.0100 ####[facility] [address] [place], [address] MCHC Normal 32-36 [facility] Comment on above: Result Comment: DUPL ICATE CANCEL PER GEORGETTE. Performed By: #### L 501.4021, L300.3900, L300.4310, L100.0100 ####[facility] [address] [place], [address] MCV Normal 80-94 [facility] Comment on above: Result Comment: DUPL ICATE CANCEL PER GEORGETTE. Performed By: #### L 501.4021, L300.3900, L300.4310, L100.0100 ####[facility] [address] [place], [address] NEUT% Normal 47-70 [facility] Comment on above: Result Comment: DUPL ICATE CANCEL PER GEORGETTE. Performed By: #### L 501.4021, L300.3900, L300.4310, L100.0100 ####[facility] [address] [place], [address] PLT Normal 150-450 [facility] Comment on above: Result Comment: DUPL ICATE CANCEL PER GEORGETTE. Performed By: #### L 501.4021, L300.3900, L300.4310, L100.0100 ####[facility] [address] [place], [address] RBC Normal 4.6-6.2 [facility] Comment on above: Result Comment: DUPL ICATE CANCEL PER GEORGETTE. Performed By: #### L 501.4021, L300.3900, L300.4310, L100.0100 ####[facility] [address] [place], [address] RDW CV Normal 11.6-14.6 [facility] Comment on above: Result Comment: DUPL ICATE CANCEL PER GEORGETTE. Performed By: #### L 501.4021, L300.3900, L300.4310, L100.0100 ####[facility] [address] [place], [address] RDW SD Normal 35.1-43.9 [facility] Comment on above: Result Comment: DUPL ICATE CANCEL PER GEORGETTE. Performed By: #### L 501.4021, L300.3900, L300.4310, L100.0100 ####[facility] [address] [place], [address] WBC Normal 4.4-11.0 [facility] Comment on above: Result Comment: DUPL ICATE CANCEL PER GEORGETTE. Performed By: #### L 501.5291, L300.3900, L300.4310, L100.0100 ####[facility] [address] [place], [address] CNCOon 12-06-2024 CNCO Letter Text Normal [facility] CNPNon 12-06-2024 CNPN Telephone (INTMWS) CARISSA GRUBER ([id number]) 1940 M Date Time Provider Department 12/06/24 DIMITRI MARIE INTLoireWS During your visit today, we recorded the [...] eye doctor stat. He will go to [facility]. Allergies As of Date: 12/06/2024 [...] Status:Closed by DIMITRI MARIE on 12/06/24 Normal [facility] Carbon dioxide, total [Moles /volume] in Central venous bloodOrdered By: Ricardo Sinha on 12-06-2024 CO2 [Moles/Vol] 21.2 mmol/L 21.0-32.0 [facility] Chloride assayOrdered By: Deepak Sinha on 12-06-2024 Chloride [Moles/Vol] 104 mmol/L 98-108 [facility] Echo Completeon 12-06-2024 Echo Complete [facility] [address] [place] [address] Echo Complete 12/07/24 1120 MR#: [id number] Acct: [id number] Name: CARISSA GRUBER Rep #: [id number] : 1940 84 From: Cally Mahoney MD Attending Dr: Dr. Lyndon Dinh, Status : ADM IN Ordering Dr: Lyndon Dinh DO Date: 12/06/24 Location: U Sex: M C Admitted: 12/06/24 Reason For [...] Date Cally Mahoney MD CC: Dr. Lyndon Dinh DO; Dr. Dimitri Marie MD Date Dictated: 12/07/24 1120 Date Transcribed: 12/07/24 1505 Regulatory Leader: Signed Normal [facility] Emergency Department Summary on 12-06-2024 Emergency Department Summary [facility] Medical Records Department [address] [place] [address] Emergency Department Summary 12/06/24 MR#: [id number] Acct: [id number] Name: CARISSA GRUBER Rep #: [id number] : 1940 84 From: Ricardo Sinha MD [...] 8 AM this morning. He saw an user experience analyst Dr. Christie and was diagnosed with left retinal artery occlusion. Sent to ER for further evaluation. He denies any other complaints. He denies headache. He denies weakness in his arms or legs. He denies any ataxia. He has had a prior stroke 6 years ago Prior similar symptoms: No Recent Illness/Hospitalizat ion: No PFSH PFSH Home Medications ???Medication ???Instructions ???Recorded ???Last [...] all 4 extremities. 5 out of 5 urban planner strength. Dorsi plantarflexion intact. No drift. Neurologically [...] EOMs intact (more content not included)... Normal [facility] Eosinophil percentageOrdered By: Ricardo Sinha on 12-06-2024 Eosinophils/100 WBC (Bld) 1.4 % 0-5 [facility] Erythrocyte distribution wid th ratioOrdered By: Ricardo Sinha on 12-06-2024 Erythrocyte distribution width (RBC) [Ratio] 14.1 % 11.6-14.6 [facility] Erythrocyte distribution wid th standard deviationOrdered By: Ricardo Sinha on 12-06-2024 Erythrocyte distribution width (RBC) [Ratio] 45.6 fl High 35.1-43.9 [facility] Glomerular filtration rate ( GFR) estimation/1.73 sq m using serum, plasma, or whole bOrdered By: Ricardo Sinha on 12-06-2024 GFR/1.73 sq M.predicted among non-blacks MDRD (S/P/Bld) [Vol rate/Area] 37 mL/min/{1.73_m2} Low >60 [facility] Comment on above: mL/min/1.73m2 CKD-EP I Creatinine Equation (2020) H AND P Exam - Hospitaliston 12-06-2024 H&P Exam - Hospitalist [facility] Medical Records Department [address] [place] [address] H P Exam - Hospitalist 12/06/24 1502 MR#: [id number] Acct: [id number] Name: CARISSA GRUBER Rep #: [id number] : 1940 84 From: Lyndon Dinh DO PCP: Dr. Dimitri Marie MD Status:ADM IN Location: [place] [address] HPI - General General Date of Admission: 12/06/24 Date of Service: 12/06/24 Chief Complaint: Vision loss HPI Narrative CARISSA GRUBER, is a 84 M who presented to [facility] ED on 12/06/24 with vision loss. Patient noticed decreased vision in his left upper eye field around 8 AM this morning. He saw user experience analyst Dr. Guerrero and was diagnosed with a [...] very active at baseline, goes to the [facility] on a regular basis. He denies any other acute concerns this morning. PFSH Home Medications ???Medication ???Instructions ???Recorded ???Last [...] ROM Extre (more content not included)... Normal [facility] Hematocrit Auto (Bld) [Volum e fraction]Ordered By: Ricardo Sinha on 12-06-2024 Hematocrit (Bld) [Volume fraction] 32.4 % Low 40-54 [facility] Hemoglobin A1con 12-06-2024 HbA1c (Bld) [Mass fraction] 5.7 % Normal <=5.6 [facility] Comment on above: Result Comment: Norm al < 5.7 % Prediabetic 5.7 - 6.4 % Diabetic >or= 6.5 % Please note range changes. Performed By: #### L 501.9520, L501.9985 ####[facility] [address] [place], [place], [id number] Hemoglobin A1c percentageOrd ered By: Lyndon Dinh on 12-06-2024 HbA1c (Bld) [Mass fraction] 5.7 % <5.7 [facility] Comment on above: Normal < 5.7 % Predi abetic 5.7 - 6.4 % Diabetic >or= 6.5 % Please note range changes. Hemoglobin measurementOrdere d By: Ricardo Sinha on 12-06-2024 Hemoglobin (Bld) [Mass/Vol] 10.7 g/dL Low 13.0-16.5 [facility] Immature granulocytes/100 WB C Auto (Bld)Ordered By: Ricardo Sinha on 12-06-2024 Immature granulocytes/100 WBC (Bld) 0.300 % 0.0-0.9 [facility] Comment on above: IG% - Immature Granu locytes (promyelocytes, myelocytes and metamyelocytes) > 1% indicates that a LEFT SHIFT is Present. International normalized rat io (INR) calculationOrdered By: Ricardo Sinha on 12-06-2024 INR Coag (Bld) [Relative time] 1.1 {INR} [facility] L501.4021on 12-06-2024 Trop T High Sen 12 ng/L Normal <=22 [facility] Comment on above: Performed By: #### L 501.4021, L300.3900, L300.4310, L100.0100 ####[facility] [address] [place], [address] MCV (mean corpuscular volume ) determinationOrdered By: Ricardo Sinha on 12-06-2024 MCV (RBC) [Entitic vol] 88.5 fL 80-94 [facility] Magnetic resonance imaging r eportOrdered By: Elvis Person on 12-06-2024 Study report [facility] Imaging Services [address] [place], [place] [address] Brain without Contrast MR#: [id number] Acct: [id number] Name: CARISSA GRUBER Rep #: [id number] : 1940 M 84 From: Ines Person MD PCP: Dr. Dimitri Marie MD Status: A DM IN Study:Brain without Contrast Date of Exam: 12/06/24 Exam# [id number] Ordering Dr: Lyndon Mcnulty DO PROCEDURE: BRAIN [...] Contrast IMPRESSION: No acute abnormality Reading Location: [employer] [facility] THE [facility] CC: Dr. Lyndon Dinh DO; Dr. Dimitri Marie MD ~ Regulatory Leader: Signed [facility] Mean corpuscular hemoglobin (MCH) determinationOrdered By: Ricardo Sinha on 12-06-2024 MCH (RBC) [Entitic mass] 29.2 pg 27.0-32.0 [facility] Mean corpuscular hemoglobin concentration (MCHC) determinationOrdered By: Ricardo Sinha on 12-06-2024 MCHC (RBC) [Mass/Vol] 33.0 g/dL 32-36 [facility] Mean platelet volume determi nationOrdered By: Ricardo Sinha on 12-06-2024 Platelet mean volume (Bld) [Entitic vol] 10.3 fL 6.2-12.0 [facility] Monocyte percentageOrdered B y: Ricardo Sinha on 12-06-2024 Monocytes/100 WBC (Bld) 7.0 % 0-10 [facility] Neutrophil percentageOrdered By: Ricardo Sinha on 12-06-2024 Neutrophils/100 WBC (Bld) 79.3 % High 47-70 [facility] Nucleated red blood cell per centageOrdered By: Ricardo Sinha on 12-06-2024 Nucleated RBC/100 WBC (Bld) [Ratio] 0 % 0-5 [facility] Partial Thromboplast Timeon 12-06-2024 aPTT Coag (Bld) [Time] 30.4 s Normal 24.1-36.2 [facility] Comment on above: Performed By: #### L 501.4021, L300.3900, L300.4310, L100.0100 ####[facility] [address] [place], [place], [id number] Platelet countOrdered By: Deepak Sinha on 12-06-2024 Platelets (Bld) [#/Vol] 224 10*3/uL 150-450 [facility] Potassium measurement (mass/ volume)Ordered By: Ricardo Sinha on 12-06-2024 Potassium (Unsp spec) [Mass/Vol] 4.2 mmol/L 3.3-5.1 [facility] Prothrombin Time w/INRon INR Coag (PPP) [Relative time] 1.1 {INR} Normal [facility] Comment on above: Performed By: #### L 501.4021, L300.3900, L300.4310, L100.0100 ####[facility] [address] [place], [address] PT Coag (PPP) [Time] 14.2 s Normal 11.7-14.9 [facility] Comment on above: Performed By: #### L 501.4021, L300.3900, L300.4310, L100.0100 ####[facility] [address] [place], [address] Prothrombin timeOrdered By: Ricardo Sinha on 12-06-2024 PT Coag (PPP) [Time] 14.2 s 11.7-14.9 [facility] RBC Auto (Bld) [#/Vol]Ordere d By: Ricardo Sinha on 12-06-2024 RBC (Bld) [#/Vol] 3.66 10*6/uL Low 4.6-6.2 [facility] STROKE Brain/Head without Co nton 12-06-2024 STROKE Brain/Head without Cont [facility] Imaging Services [address] [place], [place] [address] STROKE Brain/Head without Cont MR#: [id number] Acct: [id number] Name: CARISSA GRUBER Rep #: [id number] : 1940 M 84 From: Carl mistry MD PCP: Dr. Dimitri Marie MD Status: [facility] ER Study: STROKE Brain/Head without Cont Date of Exam: 0 12/06/24 Exam# [id number] Ordering Dr: Ricardo Sinha MD PROCEDURE: STROKE [...] 1:11 pm with readback verification. Reading Location: [place] [address] CC: Dr. Ricardo Sinha MD; Dr. Dimitri Marie MD Regulatory Leader: Signed Normal [facility] STROKE CTA Head AND Neck W/C onon 12-06-2024 STROKE CTA Head AND Neck W/Con [facility] Imaging Services [address] [place] [id number] STROKE CTA Head AND Neck W/Con MR#: [id number] Acct: [id number] Name: CARISSA GRUBER Rep #: [id number] : 1940 M 84 From: Carl mistry MD PCP: Dr. Dimitri Marie MD Status: REG ER Study: STROKE CTA Head AND Neck W/Con Date of Exam: 0 12/06/24 Exam# [id number] Ordering Dr: Ricardo Sinha MD PROCEDURE: STROKE [...] Vertebral: Unremarkable. LEFT Vertebral: Calcific plaques. Anatomy: Kashia of Marie anatomy is normal. Aneurysm or [...] 1:22 pm with readback verification. Reading Location: [facility] CC: Dr. Ricardo Sinha MD; Dr. Dimitri Marie MD Regulatory Leader: Signed Normal [facility] Serum creatinine measurement (mass/volume)Ordered By: Ricardo Sinha on 12-06-2024 Creatinine [Mass/Vol] 1.77 mg/dL High 0.70-1.20 [facility] Serum glucose measurement (m ass/volume)Ordered By: Ricardo Sinha on 12-06-2024 Glucose [Mass/Vol] 93 mg/dL 70-99 [facility] Serum or plasma calcium tesfaye urement (mass/volume)Ordered By: Ricardo Sinha on 12-06-2024 Calcium [Mass/Vol] 8.7 mg/dL 7.6-11.0 [facility] Serum or plasma urea nitroge n measurement (mass/volume)Ordered By: Ricardo Sinha on 12-06-2024 Urea nitrogen [Mass/Vol] 26 mg/dL High 4-19 [facility] Sodium levelOrdered By: Ricardo Sinha on 12-06-2024 Sodium [Moles/Vol] 136 mmol/L 133-145 [facility] TSH DL <= 0.005 mIU/L QnOrde red By: Lyndon Dinh on 12-06-2024 TSH Qn 5.080 uIU/mL High 0.300-4.200 [facility] Thyroid Stim Hormone (TSH)on 12-06-2024 TSH 5.080 uIU/mL High 0.300-4.200 [facility] Comment on above: Performed By: #### L 501.9520, L501.9985 ####[facility] [address] [place], [place], [id number] Troponin T.cardiac [Mass/vol ume] in Serum or Plasma by High sensitivity methodOrdered By: Ricardo Sinha on 12-06-2024 Troponin T.cardiac High sensitivity method [Mass/Vol] 12 ng/L <22 [facility] White blood cell (WBC) count Ordered By: Ricardo Sinha on 12-06-2024 WBC (Bld) [#/Vol] 9.9 10*3/uL 4.4-11.0 [facility] CBC panel Auto (Bld)on 10-02 Erythrocyte distribution width (RBC) [Ratio] 14.2 % Normal 11.5-15.0 [facility] Comment on above: Order Comment: Speci men Type: BLOOD SPECIMEN Ordering Facility: [facility] Address: [address] [place] [address] [place] [address] Performed By: #### 5 8410-2 #### [facility] CLIA [id number] [address] [place] [address] [place] Hematocrit (Bld) [Volume fraction] 36.3 % Low 39.0-51.0 [facility] Comment on above: Order Comment: Speci men Type: BLOOD SPECIMEN Ordering Facility: [facility] Address: [address] [place] [address] Performed By: #### 5 8410-2 #### [facility] CLIA [id number] [address] [place] [address] [place] Hemoglobin (Bld) [Mass/Vol] 11.6 g/dL Low 13.0-17.0 [facility] Comment on above: Order Comment: Speci men Type: BLOOD SPECIMEN Ordering Facility: [facility] Address: [address] [place] [address] Performed By: #### 5 8410-2 #### [facility] CLIA [id number] [address] [place] [address] [place] MCH (RBC) [Entitic mass] 28.7 pg Normal 26.0-34.0 [facility] Comment on above: Order Comment: Speci men Type: BLOOD SPECIMEN Ordering Facility: [facility] Address: [address] [place] [address] Performed By: #### 5 8410-2 #### [facility] CLIA [id number] [address] [place] [address] [place] MCHC (RBC) [Mass/Vol] 32.0 g/dL Normal 30.5-36.0 [facility] Comment on above: Order Comment: Speci men Type: BLOOD SPECIMEN Ordering Facility: [facility] Address: [address] [place] [address] Performed By: #### 5 8410-2 #### [facility] CLIA [id number] [address] [place] [address] [place] MCV (RBC) [Entitic vol] 89.9 fL Normal 80.0-100.0 [facility] Comment on above: Order Comment: Speci men Type: BLOOD SPECIMEN Ordering Facility: [facility] Address: [address] [place] [address] Performed By: #### 5 8410-2 #### [facility] CLIA [id number] [address] [place] [address] [place] Nucleated RBC (Bld) [#/Vol] 10*3/uL Normal <0.01 [facility] Comment on above: Order Comment: Speci men Type: BLOOD SPECIMEN Ordering Facility: [facility] Address: [address] [place] [address] Performed By: #### 5 8410-2 #### [facility] CLIA [id number] [address] [place] [address] [place] Platelet mean volume (Bld) [Entitic vol] 10.9 fL Normal 9.0-12.7 [facility] Comment on above: Order Comment: Speci men Type: BLOOD SPECIMEN Ordering Facility: [facility] Address: [address] [place] [address] Performed By: #### 5 8410-2 #### [facility] CLIA [id number] [address] [place] [address] [place] Platelets (Bld) [#/Vol] 235 10*3/uL Normal 150-400 [facility] Comment on above: Order Comment: Speci men Type: BLOOD SPECIMEN Ordering Facility: [facility] Address: [address] [place] [address] Performed By: #### 5 8410-2 #### [facility] CLIA [id number] [address] [place] [address] [place] RBC (Bld) [#/Vol] 4.04 10*6/uL Low 4.20-6.00 [facility] Comment on above: Order Comment: Speci men Type: BLOOD SPECIMEN Ordering Facility: [facility] Address: [address] [place] [address] Performed By: #### 5 8410-2 #### [facility] CLIA [id number] [address] [place] [address] [place] WBC (Bld) [#/Vol] 9.46 10*3/uL Normal 3.70-11.00 [facility] Comment on above: Order Comment: Speci men Type: BLOOD SPECIMEN Ordering Facility: [facility] Address: [address] [place] [address] Performed By: #### 5 8410-2 #### [facility] CLIA [id number] [address] [place] [address] [place] Comprehensive metabolic 2000 panelon 10-02-2024 Albumin [Mass/Vol] 4.2 g/dL Normal 3.9-4.9 [facility] Comment on above: Order Comment: Speci men Type: BLOOD SPECIMEN Ordering Facility: [facility] Address: [address] [place] [address] Performed By: #### 2 4331-1, 3016-3, 54816-3 #### [facility] CLIA [id number] [address] [place] [address] [place] ALP [Catalytic activity/Vol] 85 U/L Normal 38-113 [facility] Comment on above: Order Comment: Speci men Type: BLOOD SPECIMEN Ordering Facility: [facility] Address: [address] [place] [address] Performed By: #### 2 4331-1, 3016-3, 87639-4 #### [facility] CLIA [id number] [address] [place] [address] [place] ALT [Catalytic activity/Vol] 12 U/L Normal 10-54 [facility] Comment on above: Order Comment: Speci men Type: BLOOD SPECIMEN Ordering Facility: [facility] Address: [address] [place] [address] Performed By: #### 2 4331-1, 3015-3, 03700-9 #### [facility] CLIA [id number] [address] [place] [address] [place] Anion gap [Moles/Vol] 12 mmol/L Normal 8-15 [facility] Comment on above: Order Comment: Speci men Type: BLOOD SPECIMEN Ordering Facility: [facility] Address: [address] [place] [address] Performed By: #### 2 4331-1, 3015-3, #### [facility] CLIA [id number] [address] [place] [address] [place] AST [Catalytic activity/Vol] 18 U/L Normal 14-40 [facility] Comment on above: Order Comment: Speci men Type: BLOOD SPECIMEN Ordering Facility: [facility] Address: [address] [place] [address] Performed By: #### 2 4331-1, 3015-3, 51114-0 #### [facility] CLIA [id number] [address] [place] [address] [place] Bilirubin [Mass/Vol] 0.5 mg/dL Normal 0.2-1.3 [facility] Comment on above: Order Comment: Speci men Type: BLOOD SPECIMEN Ordering Facility: [facility] Address: [address] [place], [place] [id number] Performed By: #### 2 4331-1, 3, #### [facility] CLIA [id number] [address] [place], [place] [address] [place] Calcium [Mass/Vol] 9.3 mg/dL Normal 8.5-10.2 [facility] Comment on above: Order Comment: Speci men Type: BLOOD SPECIMEN Ordering Facility: [facility] Address: [address] [place], [place] [id number] Performed By: #### 2 4331-1, 3015-3, #### [facility] CLIA [id number] [address] [place] [address] [place] Chloride [Moles/Vol] 102 mmol/L Normal 98-107 [facility] Comment on above: Order Comment: Speci men Type: BLOOD SPECIMEN Ordering Facility: [facility] Address: [address] [place] [address] Performed By: #### 2 4331-1, 3015-3, #### [facility] CLIA [id number] [address] [place], [place] [address] [place] CO2 [Moles/Vol] 24 mmol/L Normal 22-30 [facility] Comment on above: Order Comment: Speci men Type: BLOOD SPECIMEN Ordering Facility: [facility] Address: [address] [place] [address] Performed By: #### 2 4331-1, 3, #### [facility] CLIA [id number] [address] [place] [address] [place] Creatinine [Mass/Vol] 1.56 mg/dL High 0.73-1.22 [facility] Comment on above: Order Comment: Speci men Type: BLOOD SPECIMEN Ordering Facility: [facility] Address: [address] [place] [address] Performed By: #### 2 4331-1, 3, #### [facility] CLIA [id number] [address] [place], [place] [address] [place] Creatinine and Glomerular filtration rate.predicted panel (S/P/Bld) 43 mL/min/1.73m??? Low >=60 [facility] Comment on above: Order Comment: Speci men Type: BLOOD SPECIMEN Ordering Facility: [facility] Address: [address] [place] [address] Result Comment: Lorene mated Glomerular Filtration Rate [...] actual GFR. Performed By: #### 2 4331-1, 3015-3, #### [facility] CLIA [id number] [address] [place] [address] [place] Glucose [Mass/Vol] 114 mg/dL High 74-99 [facility] Comment on above: Order Comment: Sunny [place]ington Type: BLOOD SPECIMEN Ordering Facility: [facility] Address: [address] [place] [address] Result Comment: The [place] Diabetes Association (ADA) provides guidance for cutoff [...] Standards of Medical Care in Diabetes 2016, [place] Diabetes Association. Diabetes Care. 2016.39(Suppl 1). Performed By: #### 2 4331-1, 3015-08, #### [facility] CLIA [id number] [address] [place], [place] [address] [place] Potassium [Moles/Vol] 4.5 mmol/L Normal 3.7-5.1 [facility] Comment on above: Order Comment: Sunny wellington Type: BLOOD SPECIMEN Ordering Facility: [facility] Address: [address] [place] [address] Performed By: #### 2 4331-1, 3015-3, #### [facility] CLIA [id number] [address] [place] [address] [place] Protein [Mass/Vol] 7.1 g/dL Normal 6.3-8.0 [facility] Comment on above: Order Comment: Speci men Type: BLOOD SPECIMEN Ordering Facility: [facility] Address: [address] [place] [address] Performed By: #### 2 4331-1, 3016-3, 08247-4 #### [facility] CLIA [id number] [address] [place] [address] [place] Sodium [Moles/Vol] 138 mmol/L Normal 136-144 [facility] Comment on above: Order Comment: Speci men Type: BLOOD SPECIMEN Ordering Facility: [facility] Address: [address] [place] [address] Performed By: #### 2 4331-1, 3015-3, 29873-3 #### [facility] CLIA [id number] [address] [place] [address] [place] Urea nitrogen [Mass/Vol] 24 mg/dL Normal 9-24 [facility] Comment on above: Order Comment: Speci men Type: BLOOD SPECIMEN Ordering Facility: [facility] Address: [address] [place] [address] Performed By: #### 2 4331-1, 3015-3, 95775-5 #### [facility] CLIA [id number] [address] [place] [address] [place] Lipid 1996 panelon 5 Cholesterol [Mass/Vol] 113 mg/dL Normal <200 [facility] Comment on above: Order Comment: Speci men Type: BLOOD SPECIMEN Ordering Facility: [facility] Address: [address] [place] [address] Result Comment: <200 mg/dL, Desirable 200-239 mg/dL, Borderline high >239 mg/dL, High Performed By: #### 2 4331-1, 3016-3, 95532-4 #### [facility] CLIA [id number] [facility] [address] Cholesterol in HDL [Mass/Vol] 41 mg/dL Normal >39 [facility] Comment on above: Order Comment: Sunny wellington Type: BLOOD SPECIMEN Ordering Facility: [facility] Address: [address] [place] [address] Result Comment: 40-5 9 mg/dL, Acceptable >59 mg/dL, High: Negative risk factor for coronary heart disease <40 mg/dL, Low: Positive risk factor for coronary heart disease Performed By: #### 2 4331-1, 6-3, 02967-1 #### [facility] CLIA [id number] [address] [place] [address] Cholesterol in LDL [Mass/Vol] 59 mg/dL Normal <100 [facility] Comment on above: Order Comment: Sunny wellington Type: BLOOD SPECIMEN Ordering Facility: [facility] Address: [address] [place] [address] Result Comment: <100 mg/dL, Optimal 100-129 mg/dL, Near optimal/above optimal 130-159 mg/dL, Borderline high 160-189 mg/dL, High >189 mg/dL, Very high Secondary prevention optimal LDL Cholesterol levels are recommended to be < 70 mg/dL Performed By: #### 2 4331-1, 6-3, 37213-2 #### [facility] CLIA [id number] [address] [place] [address] [facility] Cholesterol in LDL/Cholesterol in HDL [Mass ratio] 1.44 {ratio} Normal <2.54 [facility] Comment on above: Order Comment: Sunny eliz Type: BLOOD SPECIMEN Ordering Facility: [facility] Address: [address] [place] [address] Result Comment: Santiago bautista: 1. National Cholesterol Education Program ATP III Guideline At-A-Glance Quick Desk Reference: National Heart, Lung, and Blood Tatum. National Institutes of Health. 2001: NIH Publication No. 01-3305. 2. An International Atherosclerosis Society position paper: global recommendations for the management of dyslipidemia: executive summary, Atherosclerosis. 2014: 232(2):410-413. Performed By: #### 2 4331-1, 3015-3, 99594-0 #### [facility] CLIA [id number] [address] [place] [address] [place] Cholesterol in VLDL [Mass/Vol] 13 mg/dL Normal <30 [facility] Comment on above: Order Comment: Violeti men Type: BLOOD SPECIMEN Ordering Facility: [facility] Address: [address] [place] [address] Performed By: #### 2 4331-1, 3015-3, #### [facility] CLIA [id number] [address] [place] [address] [place] Cholesterol non HDL [Mass/Vol] 72 mg/dL Normal <130 [facility] Comment on above: Order Comment: Violeti men Type: BLOOD SPECIMEN Ordering Facility: [facility] Address: [address] [place] [address] Result Comment: <130 mg/dL, Optimal 130-159 mg/dL, Near optimal/above optimal 160-189 mg/dL, Borderline high 190-219 mg/dL, High >219 mg/dL, Very high Secondary prevention optimal non HDL Cholesterol levels are recommended to be <100 mg/dL Performed By: #### 2 4331-1, 3015-3, #### [facility] CLIA [id number] [address] [place] [address] [place] Cholesterol.total/Choles terol in HDL [Mass ratio] 2.76 {ratio} Normal <5.10 [facility] Comment on above: Order Comment: Violeti men Type: BLOOD SPECIMEN Ordering Facility: [facility] Address: [address] [place] [address] Performed By: #### 2 4331-1, 6-3, 77603-2 #### [facility] CLIA [id number] [address] [place], [place] [address] [place] FASTING TIME 13 hrs Normal [facility] Comment on above: Order Comment: Speci men Type: BLOOD SPECIMEN Ordering Facility: [facility] Address: [address] [place] [address] Performed By: #### 2 4331-1, 3015-3, #### [facility] CLIA [id number] [address] [place] [address] [place] Triglyceride [Mass/Vol] 64 mg/dL Normal <150 [facility] Comment on above: Order Comment: Speci men Type: BLOOD SPECIMEN Ordering Facility: [facility] Address: [address] [place] [address] Result Comment: <150 mg/dL, Normal 150-199 mg/dL, Borderline high 200-499 mg/dL, High >499 mg/dL, Very high Performed By: #### 2 4331-1, 3, #### [facility] CLIA [id number] [address] [place] [address] [place] TSH SerPl-aCncon 10-02-2024 TSH Qn 8.010 m[IU]/L High 0.270-4.200 [facility] Comment on above: Order Comment: Speci men Type: BLOOD SPECIMEN Ordering Facility: [facility] Address: [address] [place] [address] Performed By: #### 2 4331-1, 3015-3, #### [facility] CLIA [id number] [address] [place] [address] [place] CNCOon 08-01-2024 CNCO Letter Text Normal [facility] CNOVon 04-06-2024 CNOV Office Visit (INTMWS) CARISSA GRUBER ([id number]) 1940 M Date Time Provider Department 04/06/24 11:20 AM DIMITRI MARIE INTMWS During your visit today, we recorded the following information about you: Temperature Pulse Respiration Blood pressure 97.6 degrees 48/minute 18/minute 122/50 Weight 107.5 kg Dimitri Marie MD 04/06/2024 12:18 PM Signed This note was created using [employer]mconnect[employer]. Subjective Carissa Gruber is a 83 year old male. He felt well. He just saw cardiology and no changes were made. He had a bandage on his chest. Sara Nair biopsied skin cancer and recommended more surgery in [place], but he was planning call a local [...] records. He was encouraged to work with [facility] on referrals. If he sees a local [...] V79.8, ICD (more content not included)... Normal [facility] CNOVon 04-03-2024 CNOV Office Visit (CAWSTR) CARISSA GRUBER ([id number]) 1940 M Date Time Provider Department 04/03/24 9:40 AM GURWINDER AYALAGONZALES During your visit today, we recorded the following information about you: Pulse Blood pressure Weight 57/minute 115/56 108 kg Gurwinder Ayala MD 04/03/2024 9:19 AM [facility] SECTION OF [facility]IOLOGY Cardiology ([facility]) [address] [facility] [id number] OUTPATIENT VISIT DATE 04/03/2024 PRIMARY CARE PHYSICIAN: Dimitri Marie [address] [place] [address] REFERRING PHYSICIAN: Dimitri Marie [address] [facility] [address] HISTORY OF PRESENT ILLNESS: Mr. Gruber is a 83 year old gentleman with a history of hypertension, dyslipidemia, chronic kidney disease, prior smoker who presents for follow-up. Patient is complaining of dizziness that seems to only occur when he is lying in bed and turns from [id number]. He denies a feeling of room spinning. [...] Extremities: War (more content not included)... Normal [facility] TSH SerPl-aCncon 03-30-2024 TSH Qn 1.760 m[IU]/L Normal 0.270-4.200 [facility] Comment on above: Order Comment: Speci men Type: BLOOD SPECIMEN Ordering Facility: [facility] Address: [address] [place] [address] Performed By: #### 3 016-3 #### [facility] CLIA [id number] [address] [place], [place] [address] [place] [address] [place] US KIDNEY/BLADDERon 09-23-19 23 Radiology Result ACTIONABLE Abnormal Justine saleh [facility] CARDIAC PERF STRESS/EXERC ISEon 05-25-2022 [facility] Vital Signs Date Time Vital Sign Value Performing Clinician Blessing cooper 01-23-2025 12:55-0400 Body temperature 98.5 [degF] Dr. Ricardo Sinha MD Work Phone: 4(418)394-341832 [place] [address] 01-23-2025 12:55-0400 Diastolic blood pressure 47 mm[Hg] Dr. Ricardo Sinha MD Work Phone: 4(182)746-464128 [place] [address] 01-23-2025 12:55-0400 Heart rate 64 /min Dr. Ricardo Sinha MD Work Phone: 6(755)784-870028 [place] [address] 01-23-2025 12:55-0400 Respiratory rate 16 /min Dr. Ricardo Sinha MD Work Phone: 6(890)627-403128 [place] [address] 01-23-2025 12:55-0400 SaO2% (BldA) [Mass fraction] 99 % Dr. Ricardo Sinha MD Work Phone: 4(711)188-417328 [place] [address] 01-23-2025 12:55-0400 Systolic blood pressure 140 mm[Hg] Dr. Ricardo Sinha MD Work Phone: 4(994)393-427728 [place] [address] 01-23-2025 10:38-0400 Body height 177.[address] Ricardo Sinha MD Work Phone: 0(692)347-106328 [place] [address] 01-23-2025 10:38-0400 Body mass index (BMI) [Ratio] 33.2 kg/m2 Dr. Ricardo Sinha MD Work Phone: 7(563)829-174044 [address] 01-23-2025 10:38-0400 Body weight [address] Ricardo Sinha MD Work Phone: 3(000)694-818132 [place] [address] 01-12-2025 08:45-0400 Body temperature 98.8 [degF] Dr. Ricardo Sinha MD Work Phone: 7(425)893-418832 [place] [address] 01-12-2025 08:45-0400 Diastolic blood pressure 65 mm[Hg] Dr. Ricardo Sinha MD Work Phone: 5(645)314-872332 [place] [address] 01-12-2025 08:45-0400 Heart rate 60 /min Dr. Ricardo Sinha MD Work Phone: 4(087)481-748632 [place] [address] 01-12-2025 08:45-0400 Respiratory rate 16 /min Dr. Ricardo Sinha MD Work Phone: 2(506)311-340432 [place] [address] 01-12-2025 08:45-0400 SaO2% (BldA) [Mass fraction] 94 % Dr. Ricardo Sinha MD Work Phone: 0(732)971-984532 [place] [address] 01-12-2025 08:45-0400 Systolic blood pressure 144 mm[Hg] Dr. Ricardo Sinha MD Work Phone: 7(817)308-900528 [place] [address] 01-12-2025 06:22-0400 Body height 177.[address] Ricardo Sinha MD Work Phone: 3(267)883-488328 [place] [address] 01-12-2025 06:22-0400 Body mass index (BMI) [Ratio] 33 kg/m2 Dr. Ricardo Sinha MD Work Phone: 2(504)959-883932 [place] [address] 01-12-2025 06:22-0400 Body weight 104.[address] Ricardo Sinha MD Work Phone: 8(453)664-490128 [place] [address] 01-11-2025 09:51-0400 Body weight 104.[address] Ricardo Sinha MD Work Phone: 9(032)764-619728 [place] [address] 01-11-2025 09:51-0400 Diastolic blood pressure 64 mm[Hg] Dr. Ricardo Sinha MD Work Phone: 4(425)833-381932 [place] [address] 01-11-2025 09:51-0400 Heart rate 68 /min Dr. Ricardo Sinha MD Work Phone: 1(569)575-656732 [place] [address] 01-11-2025 09:51-0400 Respiratory rate 18 /min Dr. Ricardo Sinha MD Work Phone: 9(780)434-266632 [place] [address] 01-11-2025 09:51-0400 SaO2% (BldA) [Mass fraction] 92 % Dr. Ricardo Sinha MD Work Phone: 2(780)951-683232 [place] [address] 01-11-2025 09:51-0400 Systolic blood pressure 136 mm[Hg] Dr. Ricardo Sinha MD Work Phone: 8(732)937-560032 [place] [address] 01-05-2025 13:39-0400 Body temperature 98.2 [degF] Dr. Ricardo Sinha MD Work Phone: 9(696)288-000632 [place] [address] 01-05-2025 13:39-0400 Body weight 104.[address] Ricardo Sinha MD Work Phone: 1(988)093-909328 [place] [address] 01-05-2025 13:39-0400 Diastolic blood pressure 54 mm[Hg] Dr. Ricardo Sinha MD Work Phone: 5(307)766-518928 [place] [address] 01-05-2025 13:39-0400 Heart rate 54 /min Dr. Ricardo Sinha MD Work Phone: 4(302)803-487328 [place] [address] 01-05-2025 13:39-0400 Respiratory rate 18 /min Dr. Ricardo Sinha MD Work Phone: 6(002)497-769728 [place] [address] 01-05-2025 13:39-0400 SaO2% (BldA) [Mass fraction] 98 % Dr. Ricardo Sinha MD Work Phone: 3(399)711-679028 [place] [address] 01-05-2025 13:39-0400 Systolic blood pressure 129 mm[Hg] Dr. Ricardo Sinha MD Work Phone: 8(154)004-883728 [place] [address] 12-07-2024 16:12-0400 SaO2% (BldA) [Mass fraction] 99 % Dr. Ricardo Sinha MD Work Phone: 5(934)038-608028 [place] [address] 12-07-2024 15:52-0400 Body mass index (BMI) [Ratio] 34.2 kg/m2 Dr. Ricardo Sinha MD Work Phone: 0(516)133-275028 [place] [address] 12-07-2024 15:51-0400 Body temperature 98 [degF] Dr. Ricardo Sinha MD Work Phone: 6(693)797-959328 [place] [address] 12-07-2024 15:51-0400 Diastolic blood pressure 52 mm[Hg] Dr. Ricardo Sinha MD Work Phone: 0(493)437-071728 [place] [address] 12-07-2024 15:51-0400 Heart rate 55 /min Dr. Ricardo Sinha MD Work Phone: 4(683)852-798128 [place] [address] 12-07-2024 15:51-0400 Respiratory rate 18 /min Dr. Ricardo Sinha MD Work Phone: 0(363)160-943828 [place] [address] 12-07-2024 15:51-0400 Systolic blood pressure 132 mm[Hg] Dr. Ricardo Sinha MD Work Phone: 4(665)584-484328 [place] [address] 12-07-2024 10:03-0400 Body height 177.[address] Ricardo Sinha MD Work Phone: 8(995)951-270528 [place] [address] 12-07-2024 10:03-0400 Body weight 108.[address] Ricardo Sinha MD Work Phone: 9(355)373-692528 [place] [address] 12-06-2024 18:30-0400 Diastolic blood pressure 65 mm[Hg] Dr. Ricardo Sinha MD Work Phone: 3(097)580-825628 [place] [address] 12-06-2024 18:30-0400 Heart rate 58 /min Dr. Ricardo Sinha MD Work Phone: 1(311)100-605828 [place] [address] 12-06-2024 18:30-0400 Respiratory rate 21 /min Dr. Ricardo Sniha MD Work Phone: 7(672)902-051828 [place] [address] 12-06-2024 18:30-0400 SaO2% (BldA) [Mass fraction] 99 % Dr. Ricardo Sinha MD Work Phone: 1(246)965-898028 [place] [address] 12-06-2024 18:30-0400 Systolic blood pressure 158 mm[Hg] Dr. Ricardo Sinha MD Work Phone: 7(495)332-008128 [place] [address] 12-06-2024 12:23-0400 Body height 177.[address] Ricardo Sinha MD Work Phone: 3(811)656-181028 [place] [address] 12-06-2024 12:23-0400 Body mass index (BMI) [Ratio] 34.2 kg/m2 Dr. Ricardo Sinha MD Work Phone: 0(681)728-006932 [place] [address] 12-06-2024 12:23-0400 Body weight 108.[address] Ricardo Sinha MD Work Phone: 9(103)448-605328 [place] [address] 12-06-2024 11:40-0400 Body temperature 97.9 [degF] Dr. Ricardo Sinha MD Work Phone: 5(750)597-563628 [place] [address] 04-06-2024 11:18-0400 Body mass index (BMI) [Ratio] 34.01 kg/m2 Dimitri Marie MD Work Phone: [facility] 04-06-2024 11:18-0400 Body temperature 97.59 [degF] Dimitri Marie MD Work Phone: [facility] 04-06-2024 11:18-0400 Body weight 107.5 kg Dimitri Marie MD Work Phone: [facility] 04-06-2024 11:18-0400 Diastolic blood pressure 50 mm[Hg] Dimitri Marie MD Work Phone: [facility] 04-06-2024 11:18-0400 Heart rate 48 /min Dimitri Marie MD Work Phone: [facility] 04-06-2024 11:18-0400 Respiratory rate 18 /min Dimitri Marie MD Work Phone: [facility] 04-06-2024 11:18-0400 Systolic blood pressure 122 mm[Hg] Dimitri Marie MD Work Phone: [facility] 04-03-2024 09:05-0400 Body mass index (BMI) [Ratio] 34.15 kg/m2 Gurwinder Ayala MD Work Phone: [facility] 04-03-2024 09:05-0400 Body weight 107.96 kg Gurwinder Ayala MD Work Phone: [facility] 04-03-2024 09:05-0400 Diastolic blood pressure 56 mm[Hg] Gurwinder Ayala MD Work Phone: [facility] 04-03-2024 09:05-0400 Heart rate 57 /min Gurwinder Ayala MD Work Phone: [facility] 04-03-2024 09:05-0400 SaO2% (BldA) [Mass fraction] 95 % Gurwinder Ayala MD Work Phone: [facility] 04-03-2024 09:05-0400 Systolic blood pressure 115 mm[Hg] Gurwinder Ayala MD Work Phone: [facility] 10-06-2023 09:24-0400 Body height 177.8 cm Isela Patel APRN.CNP Work Phone: [facility] 10-06-2023 09:24-0400 Body weight 112.49 kg Isela Patel OCCUPATIONAL THER.HAZARDOUS SUBSTANCES SCIENTIST Work Phone: [facility] 10-06-2023 09:24-0400 Diastolic blood pressure 76 mm[Hg] Isela Patel OCCUPATIONAL THER.HAZARDOUS SUBSTANCES SCIENTIST Work Phone: [facility] 10-06-2023 09:24-0400 Heart rate 46 /min Isela Patel OCCUPATIONAL THER.HAZARDOUS SUBSTANCES SCIENTIST Work Phone: [facility] 10-06-2023 09:24-0400 Respiratory rate 18 /min Isela Patel OCCUPATIONAL THER.HAZARDOUS SUBSTANCES SCIENTIST Work Phone: [facility] 10-06-2023 09:24-0400 SaO2% (BldA) [Mass fraction] 98 % Isela Patel OCCUPATIONAL THER.HAZARDOUS SUBSTANCES SCIENTIST Work Phone: [facility] 10-06-2023 09:24-0400 Systolic blood pressure 124 mm[Hg] Isela Patel OCCUPATIONAL THER.HAZARDOUS SUBSTANCES SCIENTIST Work Phone: [facility] 08-20-2023 08:57-0500 Diastolic blood pressure 71 mm[Hg] Dimitri Marie MD Work Phone: [facility] 08-20-2023 08:57-0500 Systolic blood pressure 156 mm[Hg] Dimitri Marie MD Work Phone: [facility] 08-20-2023 08:46-0500 Body temperature 97.59 [degF] Dimitri Marie MD Work Phone: [facility] 08-20-2023 08:46-0500 Body weight 116.12 kg Dimitri Marie MD Work Phone: [facility] 08-20-2023 08:46-0500 Heart rate 56 /min Dimitri Marie MD Work Phone: [facility] 08-20-2023 08:46-0500 Respiratory rate 18 /min Dimitri Marie MD Work Phone: [facility] 08-20-2023 08:46-0500 SaO2% (BldA) [Mass fraction] 96 % Dimitri Marie MD Work Phone: [facility] 02-17-2023 08:12-0400 Diastolic blood pressure 71 mm[Hg] Dimitri Marie MD Work Phone: [facility] 02-17-2023 08:12-0400 Heart rate 51 /min Dimitri Marie MD Work Phone: [facility] 02-17-2023 08:12-0400 Systolic blood pressure 151 mm[Hg] Dimitri Marie MD Work Phone: [facility] 02-17-2023 08:02-0400 Body weight 112.49 kg Dimitri Marie MD Work Phone: [facility] 02-17-2023 08:02-0400 Respiratory rate 18 /min Dimitri Marie MD Work Phone: [facility] 12-16-2022 08:18-0400 Diastolic blood pressure 68 mm[Hg] Dimitri Marie MD Work Phone: [facility] 12-16-2022 08:18-0400 Heart rate 48 /min Dimitri Marie MD Work Phone: [facility] 12-16-2022 08:18-0400 Systolic blood pressure 152 mm[Hg] Dimitri Marie MD Work Phone: [facility] 12-16-2022 08:10-0400 Body weight 110.68 kg Dimitri Marie MD Work Phone: [facility] 12-16-2022 08:10-0400 Respiratory rate 20 /min Dimitri Marie MD Work Phone: [facility] 11-02-2022 14:22-0400 Diastolic blood pressure 70 mm[Hg] Dimitri Marie MD Work Phone: [facility] 11-02-2022 14:22-0400 Heart rate 51 /min Dimitri Marie MD Work Phone: [facility] 11-02-2022 14:22-0400 Systolic blood pressure 179 mm[Hg] Dimitri Marie MD Work Phone: [facility] 11-02-2022 14:14-0400 Body weight 108.86 kg Dimitri Marie MD Work Phone: [facility] 11-02-2022 14:14-0400 Respiratory rate 20 /min Dimitri Marie MD Work Phone: [facility] 09-21-2022 08:16-0400 Body weight 105.23 kg Gurwinder Ayala MD Work Phone: [facility] 09-21-2022 08:16-0400 Diastolic blood pressure 60 mm[Hg] Gurwinder Ayala MD Work Phone: [facility] 09-21-2022 08:16-0400 Heart rate 44 /min Gurwinder Ayala MD Work Phone: [facility] 09-21-2022 08:16-0400 SaO2% (BldA) [Mass fraction] 99 % Gurwinder Ayala MD Work Phone: [facility] 09-21-2022 08:16-0400 Systolic blood pressure 110 mm[Hg] Gurwinder Ayala MD Work Phone: [facility] 05-18-2022 08:18-0500 Body height 177.8 cm Gurwinder Ayala MD Work Phone: [facility] 05-18-2022 08:18-0500 Body weight 106.59 kg Gurwinder Ayala MD Work Phone: [facility] 05-18-2022 08:18-0500 Diastolic blood pressure 58 mm[Hg] Gurwinder Ayala MD Work Phone: [facility] 05-18-2022 08:18-0500 Heart rate 64 /min Gurwinder Ayala MD Work Phone: [facility] 05-18-2022 08:18-0500 SaO2% (BldA) [Mass fraction] 98 % Gurwinder Ayala MD Work Phone: [facility] 05-18-2022 08:18-0500 Systolic blood pressure 128 mm[Hg] Gurwinder Ayala MD Work Phone: [facility] 04-21-2022 08:21-0400 Body height 175.3 cm Isela Older OCCUPATIONAL THER.HAZARDOUS SUBSTANCES SCIENTIST Work Phone: [facility] 04-21-2022 08:21-0400 Body weight 107.05 kg Isela Older OCCUPATIONAL THER.HAZARDOUS SUBSTANCES SCIENTIST Work Phone: [facility] 04-21-2022 08:21-0400 Diastolic blood pressure 67 mm[Hg] Isela Older OCCUPATIONAL THER.HAZARDOUS SUBSTANCES SCIENTIST Work Phone: [facility] 04-21-2022 08:21-0400 Heart rate 60 /min Isela Older OCCUPATIONAL THER.HAZARDOUS SUBSTANCES SCIENTIST Work Phone: [facility] 04-21-2022 08:21-0400 Respiratory rate 18 /min Isela Older OCCUPATIONAL THER.HAZARDOUS SUBSTANCES SCIENTIST Work Phone: [facility] 04-21-2022 08:21-0400 Systolic blood pressure 118 mm[Hg] Isela Older OCCUPATIONAL THER.HAZARDOUS SUBSTANCES SCIENTIST Work Phone: [facility] 12-12-2021 10:20-0400 Diastolic blood pressure 54 mm[Hg] Dimitri Marie MD Work Phone: [facility] 12-12-2021 10:20-0400 Systolic blood pressure 128 mm[Hg] Dimitri Marie MD Work Phone: [facility] 12-12-2021 10:15-0400 Body height 175.3 cm Dimitri Marie MD Work Phone: [facility] 12-12-2021 10:15-0400 Body temperature 97.9 [degF] Dimitri Marie MD Work Phone: [facility] 12-12-2021 10:15-0400 Body weight 106.59 kg Dimitri Marie MD Work Phone: [facility] 12-12-2021 10:15-0400 Heart rate 57 /min Dimitri Marie MD Work Phone: [facility] 12-12-2021 10:15-0400 Respiratory rate 14 /min Dimitri Marie MD Work Phone: [facility] 12-12-2021 10:15-0400 SaO2% (BldA) [Mass fraction] 99 % Dimitri Marie MD Work Phone: [facility] 10-20-2021 08:50-0400 Diastolic blood pressure 64 mm[Hg] Isela Older OCCUPATIONAL THER.HAZARDOUS SUBSTANCES SCIENTIST Work Phone: [facility] 10-20-2021 08:50-0400 Systolic blood pressure 132 mm[Hg] Isela Older OCCUPATIONAL THER.HAZARDOUS SUBSTANCES SCIENTIST Work Phone: [facility] 10-20-2021 08:16-0400 Body weight 106.59 kg Isela Older OCCUPATIONAL THER.HAZARDOUS SUBSTANCES SCIENTIST Work Phone: [facility] 10-20-2021 08:16-0400 Heart rate 51 /min Isela Older OCCUPATIONAL THER.HAZARDOUS SUBSTANCES SCIENTIST Work Phone: [facility] 10-20-2021 08:16-0400 Respiratory rate 18 /min Isela Older OCCUPATIONAL THER.HAZARDOUS SUBSTANCES SCIENTIST Work Phone: [facility] 10-20-2021 08:16-0400 SaO2% (BldA) [Mass fraction] 96 % Isela Older OCCUPATIONAL THER.HAZARDOUS SUBSTANCES SCIENTIST Work Phone: [facility] Encounters Encounter Date Encounter Type Care Provider Facility Start: 01-23-2025 ambulatory Dimitri Cunningham ty:[facility] Start: 01-23-2025 End: 01-23-2025 Admission to same day surgery center Dr. Eric Clark MD -[facility] Start: 01-23-2025 End: 01-23-[address] Ricardo Sinha MD Work Phone: -[facility] Start: 01-23-2025 Non-patient / Non-visit Dr. Eric crabtree MD -[facility] Start: 01-12-2025 ambulatory Eric Clark Facility:[facility] Start: 01-12-2025 Non-patient / Non-visit Dr. Eric crabtree MD -[facility] Start: 01-12-2025 End: 01-12-2025 Admission to same day surgery center Dr. Eric Clark MD -[facility] Start: 01-12-2025 End: 01-12-[address] Ricardo Sinha MD Work Phone: -[facility] Start: 01-11-2025 End: 01-11-[address] Eric Clark MD -[facility] Work Phone: Start: 01-11-2025 End: 01-11-[address] Ricardo Sinha MD Work Phone: -[facility] Start: 01-05-2025 End: 01-05-2025 Patient encounter procedure Mari MORRELL -[facility] Work Phone: Start: 01-05-2025 End: 01-05-[address] Ricardo Sinha MD Work Phone: -[facility] Start: 12-16-[address] Handy Reid DO -Cardiovascular Services Work Phone: Start: 12-16-2024 ambulatory Dimitri Knoxi ty:[facility] Start: 12-16-2024 Non-patient / Non-visit Dr. Julio Palma MD -[place] [facility] Work Phone: Start: 12-15-2024 End: 12-15-[address] Ricardo Sinha MD Work Phone: [facility] Work Phone: Start: 12-15-2024 End: 12-15-[address] Lyndon Dinh DO -Laboratory Work Phone: Start: 12-15-2024 End: 12-15-2024 ambulatory Dimitri Marie Facility:[facility] Start: 12-07-2024 ambulatory Dimitri Frank Facili ty:[facility] Start: 12-07-2024 Non-patient / Non-visit Dr. Cally alarcon MD -[facility] Start: 12-06-2024 ambulatory Jerome Don Facility:[facility] Start: 12-06-2024 End: 12-07-2024 Evaluation and management of inpatient Dr. Lyndon Dinh DO -Progressive Care Unit Work Phone: Start: 12-06-2024 End: 12-06-2024 Telephone encounter Dimitri Marie MD Work Phone: [facility] [place] Comment on above: Vision changes Start: 10-30-2024 End: 10-30-2024 Refill Deepali [address] [place] Comment on above: Refill Request Start: 10-11-2024 End: 10-11-2024 Refill Gurwinder Ayala MD Work Phone: Cardiology Comment on above: Refill Request Start: 10-03-2024 End: 10-03-2024 Follow-up encounter Dimitri Marie MD Work Phone: [facility] [place] Start: 10-02-2024 End: 10-02-2024 ambulatory DIMITRI MARIE Facility:[facility] Start: 09-11-2024 End: 09-11-2024 Refill Deepali [address] Comment on above: Refill Request Start: 05-01-2024 End: 05-01-2024 Refill Gurwinder Ayala MD Work Phone: [facility] [place] Comment on above: Refill Request Start: 04-06-2024 End: 04-06-2024 ambulatory DIMITRI MARIE Facility:[facility] Start: 04-06-2024 End: 04-06-2024 Office outpatient visit 25 minutes Dimitri Marie MD Work Phone: [facility] [place] Comment on above: Personal history of skin [...] Start: 04-03-2024 End: 04-03-2024 ambulatory DIMITRI MARIE Facility:[facility] Start: 03-30-2024 End: 03-30-2024 ambulatory DIMITRI MARIE Facility:[facility] Start: 03-16-2024 End: 03-16-2024 Refill Dimitri Marie MD Work Phone: [address] [place] [address] Comment on above: Refill Request Start: 01-13-2024 Refill Dimitri andino MD Work Phone: [facility] [place] Comment on above: Refill Request Start: 11-30-2023 Telephone encounter Isela montalvo APRN.HAZARDOUS SUBSTANCES SCIENTIST Work Phone: [facility] [place] Comment on above: Results Start: 10-06-2023 End: 10-06-2023 Patient encounter procedure Isela Patel APRN.HAZARDOUS SUBSTANCES SCIENTIST Work Phone: [facility] [place] Comment on above: Medicare annual well ness visit, subsequent (Primary Dx); Acquired hypothyroidism; Skin lesion of chest wall; Essential hypertension, benign; Mixed hyperlipidemia Start: 09-29-2023 Refill Gurwinder roberts MD Work Phone: Cardiology Comment on above: Refill Request Start: 08-20-2023 End: 08-20-2023 Patient encounter procedure Dimitri Marie MD Work Phone: [facility] [place] Comment on above: Obesity, Class II, 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 (Primary Dx); Acquired hypothyroidism; Venous insufficiency; Essential hypertension, benign; Vitamin D deficiency; Mixed hyperlipidemia Start: 02-17-2023 End: 02-17-2023 Patient encounter procedure Dimitri Marie MD Work Phone: [facility] [place] Comment on above: Essential hypertensi on, benign (Primary Dx); Bladder retention of urine; Stage 3b chronic kidney disease (HCC) Start: 12-16-2022 End: 12-16-2022 Patient encounter procedure Dimitri Marie MD Work Phone: [facility] [place] Comment on above: Essential hypertensi on, benign (Primary Dx); Venous insufficiency; Hypertensive kidney disease with stage 3b chronic kidney disease (HCC) Start: 11-02-2022 End: 11-02-2022 Patient encounter procedure Dimitri Marie MD Work Phone: [facility] [place] Comment on above: Stage 3b chronic kid [...] End: 09-17-2022 Subsequent hospital visit by physician [facility] Work Phone: Radiology Comment on above: Stage 3b chronic kid bradley disease (HCC) [N18.32] Start: 09-11-2022 End: 09-11-2022 Patient encounter procedure Dimitri Marie MD Work Phone: [facility] [place] Comment on above: Stage 3b chronic kid bradley disease (HCC) (Primary Dx); Acquired hypothyroidism; Essential hypertension, benign; Venous insufficiency; Paroxysmal SVT (supraventricular tachycardia) (HCC) Start: 05-25-2022 End: 05-25-2022 [facility] Work Phone: Nuclear Medicine Comment on above: VT (ventricular tach ycardia) (HCC) [I47.20] Start: 05-22-2022 Telephone encounter Nurse Card Admin [facility] Work Phone: Cardiology Comment on above: Appointment (Stress test instructions) Start: 05-18-2022 End: 05-18-2022 Patient encounter procedure Gurwinder Ayala MD Work Phone: Cardiology Comment on above: VT (ventricular tach ycardia) (Primary Dx); Paroxysmal SVT (supraventricular tachycardia) (HCC); Essential hypertension, benign; Mixed hyperlipidemia; PAREDES (dyspnea on exertion) Start: 04-21-2022 End: 04-21-2022 Patient encounter procedure Isela Older OCCUPATIONAL THER.HAZARDOUS SUBSTANCES SCIENTIST Work Phone: [facility] [place] Comment on above: Medicare annual well ness visit, subsequent (Primary Dx); Mixed hyperlipidemia; Essential hypertension, benign; Acquired hypothyroidism Start: 03-20-2022 Refill Dimitri andino MD Work Phone: [facility] [place] Comment on above: Refill Request Start: 02-03-2022 Refill Dimitri andino MD Work Phone: [facility] [place] Comment on above: Refill Request Start: 12-12-2021 End: 12-12-2021 Office outpatient visit 25 minutes Dimitri Marie MD Work Phone: [facility] [place] Comment on above: VT (ventricular tach ycardia) (HCC) (Primary Dx); Paroxysmal SVT (supraventricular tachycardia) (HCC); Stage 3b chronic kidney disease (HCC); Essential hypertension, benign; Mixed hyperlipidemia; Acquired hypothyroidism Start: 12-08-2021 Telephone encounter Dimitri marte MD Work Phone: [facility] [place] Comment on above: Results Start: 10-20-2021 End: 10-20-2021 Patient encounter procedure Isela Older OCCUPATIONAL THER.HAZARDOUS SUBSTANCES SCIENTIST Work Phone: [facility] [place] Comment on above: Palpitations (Primar y Dx); Skin lesion of chest wall; Stage 3b chronic kidney disease (HCC); Acquired hypothyroidism; Essential hypertension, benign; Mixed hyperlipidemia; Chronic cough; Venous insufficiency Start: 09-01-2021 Refill Dimitri andino MD Work Phone: [facility] [place] Comment on above: Refill Request Procedures Date Procedure Procedure Detail Performing Clinician Start: 01-23-2025 Split thickness akin t of skin to skin Dr. Ricardo Sinha MD Work Phone: Start: 01-12-[address] Deepak Sinha MD Work Phone: Start: 12-07-[address] Ricardo [...] Author Start: 10-03-2027 Diabetes Screening Diabetes Screenin [facility] Start: 09-29-2026 Diabetes Screening Diabetes Screenin [facility] Start: 12-10-2025 DIABETES SCREEN DIABETES SCREEN [facility] Start: 12-10-2025 Diabetes Screening Diabetes Screenin [facility] Start: 10-27-2025 DIABETES SCREEN DIABETES SCREEN [facility] Start: 09-07-2025 DIABETES SCREEN DIABETES SCREEN [facility] Start: 04-06-2025 Anxiety Screening Anxiety Screening [facility] Start: 04-06-2025 Covid-19 Vaccine ( season) Covid-19 Vaccine ( season) [facility] Comment on above: Postponed from 02/26 (Declined at this time) Start: 04-06-2025 Depression Screening Depression Scre ening [facility] Start: 04-06-2025 End: 04-06-2025 Patient encounter procedure [facility] [place] Comment on above: 6 month follow-up *1st attempt to resc hed - phone disconnected, letter mailed - 12/06 Start: 01-23-2025 Patient discharge [facility] Start: 01-12-2025 Anes integ extremiti es ant trunk & perineum nos ANESTH SKIN EXT/PER/ATRUNK [facility] Start: 01-12-2025 Can skn sub grft t/a /l area/100sq cm /<1st 25 SKIN SUB GRAFT TRNK/ARM/LEG [facility] Start: 01-12-2025 Can skn sub grft t/a /l area/100sq cm ea adl 25sc SKIN SUB GRAFT T/A/L ADD-ON 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 Start: 01-12-2025 Patient discharge [facility] Start: 01-08-2025 End: 01-08-2025 Patient encounter procedure 01/08/2025 9:00 AM EDT Office Visit Cardiology [address] [place] [id number] Gurwinder Ayala MD [address] [place], [place] [id number] 9 month check Cardiology Comment on above: 9 month check Start: 12-07-2024 Patient discharge [facility] Start: 12-07-2024 Wound care [facility] Start: 12-07-2024 Consultation for treatment [facility] Start: 12-06-2024 Following clinical pathway protocol [facility] Start: 12-06-2024 Aspiration precautions [facility] Start: 12-06-2024 Assessment of risk o f venous thromboembolism [facility] Start: 12-06-2024 Cardiac monitoring [facility] Start: 12-06-2024 Catheterization of vein [facility] Start: 12-06-2024 Consultation [facility] Start: 12-06-2024 Continuous pulse oximetry [facility] Start: 12-06-2024 Elevation of head of bed [facility] Start: 12-06-2024 Exercises [facility] Start: 12-06-2024 Insertion of cathete r into peripheral vein [facility] Start: 12-06-2024 Notification of physician [facility] Start: 12-06-2024 Oxygen therapy [facility] Start: 12-06-2024 Patient referral to dietitian [facility] Start: 12-06-2024 Providing care accor ding to standard [facility] Start: 12-06-2024 Referral to occupati onal therapist [facility] Start: 12-06-2024 Referral to service [facility] Start: 12-06-2024 Speech therapy assessment [facility] Start: 12-06-2024 Telemedicine consult ation with patient [facility] Start: 12-06-2024 Tobacco use cessatio n education [facility] Start: 12-06-2024 End: 12-06-2024 [facility] Start: 12-06-2024 Vital signs measurements [facility] Start: 12-06-2024 Verification routine [facility] Start: 12-06-2024 Admission procedure [facility] Start: 12-06-2024 Hospital admission, emergency, from emergency room, medical nature [facility] Start: 12-06-2024 Oxygen therapy [facility] Start: 12-06-2024 [facility] Start: 12-06-2024 Patient referral to dietitian [facility] Start: 10-13-2024 DIABETES SCREEN DIABETES SCREEN [facility] Start: 10-06-2024 End: 10-06-2024 Patient encounter procedure 10/06/2024 1:00 PM EDT Office Visit [facility] [place] [address] [place] [address] Isela Patel, OCCUPATIONAL THER.HAZARDOUS SUBSTANCES SCIENTIST [address] [place] [address] Annual Wellness w/6 month follow-up [facility] [place] Comment on above: Annual Wellness w/6 month follow-up Start: 10-05-2024 End: 01-04-2025 CBC panel - Blood by Automated count COMPLETE BLOOD COUNT Lab Routine Essential hypertension, benign Expected: 10/05/2024, Expires: 01/04/2025 [facility] Work Phone: Comment on above: Expected: 10/05/2024 , Expires: 01/04/2025 Start: 10-05-2024 End: 01-04-2025 Comprehensive metabolic 2000 panel - Serum or Plasma COMPREHENSIVE METABOLIC PANEL Lab Routine Mixed hyperlipidemia Expected: 10/05/2024, Expires: 01/04/2025 [facility] Comment on above: Expected: 10/05/2024 , Expires: 01/04/2025 Start: 10-05-2024 Covid-19 Vaccine () Covid-19 Vaccine () [facility] Comment on above: Postponed from 02/26 (Declined at this time) Start: 10-05-2024 End: 01-04-2025 Lipid 1996 panel - Serum or Plasma LIPID PANEL BASIC Lab Routine Mixed hyperlipidemia Expected: 10/05/2024, Expires: 01/04/2025 [facility] Comment on above: Expected: 10/05/2024 , Expires: 01/04/2025 Start: 10-05-2024 Medicare Annual Well ness Visit Medicare Annual Wellness Visit [facility] Start: 10-05-2024 Pneumococcal Vaccine : 50+ (2 of 2 - PCV) Pneumococcal Vaccine: 50+ (2 of 2 - PCV) [facility] Comment on above: Postponed from 06/28 (Declined at this time) Start: 10-05-2024 Pneumococcal Vaccine : 65+ (2 of 2 - PCV) Pneumococcal Vaccine: 65+ (2 of 2 - PCV) [facility] Comment on above: Postponed from 06/28 (Declined at this time) Start: 10-05-2024 RSV Vaccine (1 - 1-d ose 60+ series) RSV Vaccine (1 - 1-dose 60+ series) [facility] Comment on above: Postponed from 09/06 (Declined at this time) Start: 10-05-2024 RSV Vaccine (1 - 1-d ose 75+ series) RSV Vaccine (1 - 1-dose 75+ series) [facility] Comment on above: Postponed from 09/06 (Declined at this time) Start: 10-05-2024 Shingrix Vaccine (1 of 2) Tanner grix Vaccine (1 of 2) [facility] Comment on above: Postponed from 09/06 (Declined at this time) Start: 10-05-2024 End: 01-04-2025 Thyrotropin [Units/volume] in Serum or Plasma THYROID STIMULATING HORMONE Lab Routine Acquired hypothyroidism Expected: 10/05/2024, Expires: 01/04/2025 [facility] Comment on above: Expected: 10/05/2024 , Expires: 01/04/2025 Start: 10-05-2024 Urine microalbumin profile DTaP,Tdap,Td Vaccine (1 - Tdap) [facility] Comment on above: Postponed from 09/06 (Declined at this time) Start: 06-28-2024 Advance Directive Discussion Advance Directive Discussion [facility] Start: 04-06-2024 End: 04-06-2024 Patient encounter procedure 04/06/2024 11:20 AM EDT Office Visit [facility] [place] [address] [place], [place] [id number] Dimitri Marie MD [address] [place] [address] 6 Month follow up [facility] [place] Comment on above: 6 Month follow up Start: 04-03-2024 End: 04-03-2024 Patient encounter procedure 04/03/2024 9:40 AM EDT Office Visit Cardiology [address] [id number] Gurwinder Ayala MD [address] [facility] [address] [place] [address] 6 month follow up R\S from cancelled appt (doctor) in November Cardiology Comment on above: 6 month follow up R\ S from cancelled appt (doctor) in November Start: 02-27-2024 Covid-19 Vaccine ( season) Covid-19 Vaccine ( season) [facility] Start: 02-27-2024 Covid-19 Vaccine ( season) Covid-19 Vaccine ( season) [facility] Start: 02-27-2024 Influenza vaccination [facility] Start: 11-17-2023 End: 02-16-2024 Thyrotropin [Units/volume] in Serum or Plasma THYROID STIMULATING HORMONE Lab Routine Acquired hypothyroidism Expected: 11/17/2023 (Approximate), Expires: 02/16/2024 [facility] Work Phone: Comment on above: Expected: 11/17/2023 (Approximate), Expires: 02/16/2024 Start: 11-17-2023 End: 02-16-2024 Thyroxine (T4) free [Mass/volume] in Serum or Plasma T4 FREE/FREE THYROXINE Lab Routine Acquired hypothyroidism Expected: 11/17/2023 (Approximate), Expires: 02/16/2024 [facility] Work Phone: Comment on above: Expected: 11/17/2023 (Approximate), Expires: 02/16/2024 Start: 11-03-2023 COVID-19 VACCINE (#1) COVID-19 VACCI NE (#1) [facility] Comment on above: Postponed from 03/09 (Declined at this time) Start: 10-01-2023 End: 12-31-2023 25-hydroxyvitamin D3 [Mass/volume] in Serum or Plasma VITAMIN D 25 HYDROXY Lab Routine Vitamin D deficiency Expected: 10/01/2023, Expires: 12/31/2023 [facility] Work Phone: Comment on above: Expected: 10/01/2023 , Expires: 12/31/2023 Start: 10-01-2023 End: 12-31-2023 CBC panel - Blood by Automated count CBC Lab Routine Essential hypertension, benign Expected: 10/01/2023, Expires: 12/31/2023 [facility] Work Phone: Comment on above: Expected: 10/01/2023 , Expires: 12/31/2023 Start: 10-01-2023 End: 12-31-2023 Comprehensive metabolic 2000 panel - Serum or Plasma COMP METABOLIC PANEL Lab Routine Mixed hyperlipidemia Expected: 10/01/2023, Expires: 12/31/2023 [facility] Work Phone: Comment on above: Expected: 10/01/2023 , Expires: 12/31/2023 Start: 10-01-2023 End: 12-31-2023 Lipid 1996 panel - Serum or Plasma LIPID PANEL BASIC Lab Routine Mixed hyperlipidemia Expected: 10/01/2023, Expires: 12/31/2023 [facility] Work Phone: Comment on above: Expected: 10/01/2023 , Expires: 12/31/2023 Start: 10-01-2023 End: 12-31-2023 Thyrotropin [Units/volume] in Serum or Plasma TSH BLD Lab Routine Acquired hypothyroidism Expected: 10/01/2023, Expires: 12/31/2023 [facility] Work Phone: Comment on above: Expected: 10/01/2023 , Expires: 12/31/2023 Start: 09-04-2023 DIABETES SCREEN DIABETES SCREEN [facility] Start: 06-28-2023 Advance Directive Discussion Advance Directive Discussion [facility] Start: 06-28-2023 Behavioral Health Screening Behavioral Health Screening [facility] Start: 06-28-2023 Depression Assessment Depression Ass essment [facility] Start: 05-20-2023 End: 07-20-2023 Basic metabolic 2000 panel - Serum or Plasma BASIC METABOLIC PNL Lab Routine Stage 3b chronic kidney disease (HCC) Expected: 05/20/2023, Expires: 07/20/2023 [facility] Work Phone: Comment on above: Expected: 05/20/2023 , Expires: 07/20/2023 Start: 05-20-2023 End: 07-20-2023 CBC panel - Blood by Automated count CBC Lab Routine Stage 3b chronic kidney disease (HCC) Expected: 05/20/2023, Expires: 07/20/2023 [facility] Work Phone: Comment on above: Expected: 05/20/2023 , Expires: 07/20/2023 Start: 04-21-2023 Pneumococcal Vaccine : 65+ (2 - PCV) Pneumococcal Vaccine: 65+ (2 - PCV) [facility] Comment on above: Postponed from 06/28 (Declined at this time) Start: 04-21-2023 PNEUMOCOCCAL: 65+ (2 - PCV) PNEUMOCOCCAL: 65+ (2 - PCV) [facility] Comment on above: Postponed from 06/28 (Declined at this time) Start: 02-26-2023 Covid-19 Vaccine ( season) Covid-19 Vaccine () [facility] Start: 02-26-2023 Influenza vaccination [facility] Start: 12-25-2022 Influenza vaccination INFLUENZA (#1) [facility] Comment on above: Postponed from 02/26 (Declined at this time) Start: 12-14-2022 End: 02-13-2023 Basic metabolic 2000 panel - Serum or Plasma BASIC METABOLIC PNL Lab Routine Stage 3b chronic kidney disease (HCC) Expected: 12/14/2022, Expires: 02/13/2023 [facility] Work Phone: Comment on above: Expected: 12/14/2022 , Expires: 02/13/2023 Start: 10-23-2022 End: 12-23-2022 Basic metabolic 2000 panel - Serum or Plasma BASIC METABOLIC PNL Lab Routine Stage 3b chronic kidney disease (HCC) Expected: 10/23/2022, Expires: 12/23/2022 [facility] Work Phone: Comment on above: Expected: 10/23/2022 , Expires: 12/23/2022 Start: 10-23-2022 End: 12-23-2022 CBC panel - Blood by Automated count CBC Lab Routine Stage 3b chronic kidney disease (HCC) Expected: 10/23/2022, Expires: 12/23/2022 [facility] Work Phone: Comment on above: Expected: 10/23/2022 , Expires: 12/23/2022 Start: 10-23-2022 End: 12-23-2022 PROTEIN ELECTROPHORESIS SERUM W/INTERP PROTEIN ELECTROPHORESIS SERUM W/INTERP Lab Routine Stage 3b chronic kidney disease (HCC) Expected: 10/23/2022, Expires: 12/23/2022 [facility] Work Phone: Comment on above: Expected: 10/23/2022 , Expires: 12/23/2022 Start: 10-23-2022 End: 12-23-2022 Thyrotropin [Units/volume] in Serum or Plasma TSH BLD Lab Routine Acquired hypothyroidism Expected: 10/23/2022, Expires: 12/23/2022 [facility] Work Phone: Comment on above: Expected: 10/23/2022 , Expires: 12/23/2022 Start: 10-20-2022 COVID-19 VACCINE (#1) COVID-19 VACCI NE (#1) [facility] Comment on above: Postponed from 09/06 (Declined at this time) Postponed from 03/09 (Declined at this time) Start: 10-20-2022 COVID-19 VACCINE (1) COVID-19 VACCIN E (1) [facility] Comment on above: Postponed from 09/06 (Declined at this time) Start: 10-20-2022 SHINGRIX VACCINE (1 of 2) TANNER GRIX VACCINE (1 of 2) [facility] Comment on above: Postponed from 09/06 (Declined at this time) Start: 10-20-2022 Urine microalbumin profile DTAP,TDAP,TD (1 - Tdap) [facility] Comment on above: Postponed from 09/06 (Declined at this time) Start: 09-11-2022 End: 11-11-2022 Urinalysis complete panel - Urine [facility] Work Phone: Comment on above: Expected: 09/11/2022 , Expires: 11/11/2022 Start: 08-26-2022 End: 10-26-2022 CBC panel - Blood by Automated count CBC Lab Routine Essential hypertension, benign Expected: 08/26/2022 (Approximate), Expires: 10/26/2022 [facility] Work Phone: Comment on above: Expected: 08/26/2022 (Approximate), Expires: 10/26/2022 Start: 08-26-2022 End: 10-26-2022 Comprehensive metabolic 2000 panel - Serum or Plasma COMP METABOLIC PANEL Lab Routine Mixed hyperlipidemia Essential hypertension, benign Expected: 08/26/2022 (Approximate), Expires: 10/26/2022 [facility] Work Phone: Comment on above: Expected: 08/26/2022 (Approximate), Expires: 10/26/2022 Start: 08-26-2022 End: 10-26-2022 Lipid 1996 panel - Serum or Plasma LIPID PANEL BASIC Lab Routine Mixed hyperlipidemia Expected: 08/26/2022 (Approximate), Expires: 10/26/2022 [facility] Work Phone: Comment on above: Expected: 08/26/2022 (Approximate), Expires: 10/26/2022 Start: 08-26-2022 End: 10-26-2022 Thyrotropin [Units/volume] in Serum or Plasma TSH BLD Lab Routine Acquired hypothyroidism Expected: 08/26/2022 (Approximate), Expires: 10/26/2022 [facility] Work Phone: Comment on above: Expected: 08/26/2022 (Approximate), Expires: 10/26/2022 Start: 06-28-2022 ADVANCE DIRECTIVE DISCUSSION ADVANCE DIRECTIVE DISCUSSION [facility] Start: 06-28-2022 DEPRESSION ASSESSMENT DEPRESSION ASS ESSMENT [facility] Start: 02-26-2022 Influenza vaccination [facility] Start: 11-03-2021 End: 01-03-2022 Basic metabolic 2000 panel - Serum or Plasma BASIC METABOLIC PNL Lab Routine Stage 3b chronic kidney disease (HCC) Expected: 11/03/2021 (Approximate), Expires: 01/03/2022 [facility] Work Phone: Comment on above: Expected: 11/03/2021 (Approximate), Expires: 01/03/2022 Start: 09-02-2021 SHINGRIX VACCINE (1 of 2) TANNER GRIX VACCINE (1 of 2) [facility] Comment on above: Postponed from 09/06 (Declined at this time) Start: 09-02-2021 Urine microalbumin profile DTAP,TDAP,TD (1 - Tdap) [facility] Comment on above: Postponed from 09/06 (Declined at this time) Start: 09-01-2021 End: 11-01-2021 CBC panel - Blood by Automated count CBC Lab Routine Essential hypertension, benign Expected: 09/01/2021, Expires: 11/01/2021 [facility] Work Phone: Comment on above: Expected: 09/01/2021 , Expires: 11/01/2021 Start: 09-01-2021 End: 11-01-2021 Comprehensive metabolic 2000 panel - Serum or Plasma COMP METABOLIC PANEL Lab Routine Mixed hyperlipidemia Expected: 09/01/2021, Expires: 11/01/2021 [facility] Work Phone: Comment on above: Expected: 09/01/2021 , Expires: 11/01/2021 Start: 09-01-2021 End: 11-01-2021 LIPID PANEL BASIC LIPID PANEL BASIC Lab Routine Mixed hyperlipidemia Expected: 09/01/2021, Expires: 11/01/2021 [facility] Work Phone: Comment on above: Expected: 09/01/2021 , Expires: 11/01/2021 Start: 09-01-2021 End: 11-01-2021 Thyrotropin [Units/volume] in Serum or Plasma TSH BLD Lab Routine Acquired hypothyroidism Expected: 09/01/2021, Expires: 11/01/2021 [facility] Work Phone: Comment on above: Expected: 09/01/2021 , Expires: 11/01/2021 Start: 06-28-2021 ADVANCE DIRECTIVE DISCUSSION ADVANCE DIRECTIVE DISCUSSION [facility] Start: 02-26-2021 Influenza vaccination INFLUENZA (#1) [facility] Start: 2013 RSV Vaccine (1 - 1-d ose 75+ series) RSV Vaccine (1 - 1-dose 75+ series) [facility] Start: 06-28-2005 Pneumococcal Vaccine : 50+ (2 of 2 - PCV) Pneumococcal Vaccine: 50+ (2 of 2 - PCV) [facility] Start: 06-28-2005 Pneumococcal Vaccine : 65+ (2 of 2 - PCV) Pneumococcal Vaccine: 65+ (2 of 2 - PCV) [facility] Start: 06-28-2005 PNEUMOCOCCAL: 65+ (2 - PCV) PNEUMOCOCCAL: 65+ (2 - PCV) [facility] Start: 1998 RSV Vaccine (1 - 1-d ose 60+ series) RSV Vaccine (1 - 1-dose 60+ series) [facility] Start: 1988 SHINGRIX VACCINE (1 of 2) TANNER GRIX VACCINE (1 of 2) [facility] Start: [address] [facility] Start: 1956 Anxiety Screening Anxiety Screening [facility] Start: 1956 Depression Screening Depression Scre ening [facility] Start: 09-07-1943 COVID-19 VACCINE (1) COVID-19 VACCIN E (1) [facility] Basic metabolic 2008 panel with ionized calcium - Serum or Plasma [facility] Cardiac event recording [facility] End: 10-20-2022 ECG COMPLETE ECG COMPLETE ECG Routine Palpitations 1 Occurrences starting 10/20/2021 until 10/20/2022 [facility] Work Phone: Comment on above: 1 Occurrences starti ng 10/20/2021 until 10/20/2022 End: 10-20-2022 Echocardiography ECHO Cardiology Routine Palpitations 1 Occurrences starting 10/20/2021 until 10/20/2022 [facility] Work Phone: Comment on above: 1 Occurrences starti ng 10/20/2021 until 10/20/2022 End: 06-17-2023 NM CARDIAC PERF STRESS/EXERCISE NM CARDIAC PERF STRESS/EXERCISE Radiology Routine VT (ventricular tachycardia) Essential hypertension, benign Mixed hyperlipidemia PAREDES (dyspnea on exertion) 1 Occurrences starting 05/18/2022 until 06/17/2023 [facility] Work Phone: Comment on above: 1 Occurrences starti ng 05/18/2022 until 06/17/2023 OUTSIDE VENDOR CARDI AC OUTPATIENT EXTENDED RHYTHM RECORDING (WITHOUT TELEMETRY) OUTSIDE VENDOR CARDIAC OUTPATIENT EXTENDED RHYTHM RECORDING (WITHOUT TELEMETRY) Holter Routine Palpitations Ordered: 10/20/2021 [facility] Work Phone: Comment on above: Ordered: 10/20/2021 Patient referral [facility] Work Phone: US Carotid arteries [facility] End: 10-11-2023 US KIDNEY/BLADDER US KIDNEY/BLADDER Radiology Routine Stage 3b chronic kidney disease (HCC) 1 Occurrences starting 09/11/2022 until 10/11/2023 [facility] Work Phone: Comment on above: 1 Occurrences starti ng 09/11/2022 until 10/11/2023 [facility] Immunizations Immunization Date Immunization Notes Care Provider [place] 04-06-2024 influenza, high dose seasonal, preservative-free Dimitri Marie MD Work Phone: [facility] 06-03-2018 influenza virus vacc ine, unspecified formulation Us 2 Work Phone: [facility] 04-27-2008 influenza virus vacc ine, whole virus Dimitri Marie MD Work Phone: [facility] Work Phone: 04-27-2008 influenza, injectabl e, quadrivalent, preservative free Dr. Ricardo Sinha MD Work Phone: [facility] 04-26-2007 influenza virus vacc ine, whole virus Dimitri Marie MD Work Phone: [facility] Work Phone: 04-26-2007 influenza, injectabl e, quadrivalent, preservative free Dr. Ricardo Sinha MD Work Phone: [facility] 06-28-2004 pneumococcal polysaccharide vaccine, 23 valent Dimitri Marie MD Work Phone: [facility] Payers Date Payer Category Payer Self-pay 2003 Medicare MEDICARE MEDICAR E A AND B [id number] 2003-Present [phone] [address] [address] [place] [address] Medicare [id number] 2003 Medicare [id number] 2003 Medicare [id number] Unknown [id number] Unknown [id number] Unknown [id number] Unknown [id number] Unknown [id number] Unknown [id number] Unknown [id number] Unknown [id number] Unknown [id number] Unknown [id number] Unknown [id number] Unknown [id number] Social History Date Type Detail Facility Start: 04-28-2016 End: 01-18-2025 Tobacco smoking status OHIS Ex-smoker [facility] End: 06-28-2010 History of tobacco use Current smoker [facility] End: 06-28-2010 History of tobacco use Pipe Smoker [facility] Start: 09-02-2020 End: 04-06-2024 Alcohol intake Current drinker of alcohol (finding) [facility] Start: 04-28-2016 History SDOH Alcohol Comment rare beer [facility] Start: 1940 Sex Assigned At Not on file C [facility] Start: 10-10-2021 End: 05-18-2022 Exposure to SARS-CoV-2 (event) Not sure [facility] Work Phone: Start: 04-28-2016 End: 02-17-2023 Tobacco use and exposure Smokeless tobacco non-user [facility] Work Phone: Start: 11-02-2022 End: 02-17-2023 History of [address] function [facility] Work Phone: Start: 11-02-2022 End: 02-17-[address] [facility] Work Phone: Adult Depression Screening Assessment 0 [facility] Work Phone: How often to you hav e a drink containing alcohol? Never [facility] Start: 12-06-2024 End: 12-07-2024 Tobacco smoking status NHIS Never smoked tobacco (finding) [facility] Start: 08-07-2013 Alcohol Alcohol [facility] Start: 08-07-2013 Lives Lives [facility] Start: 08-07-2013 Tobacco Use Tobacco Use [facility] Start: 1940 Sex Assigned At Male W [facility] Medical Equipment Procedure Code Equipment Code Equipment Origin al Text Equipment Identifier Dates Excision, mass THERASKIN, 2x3 FDA Start: 01-12-2025 Goals Date Patient Goal Desired Activity /State Functional Status Date Assessment Result Facility 12-07-2024 Functional status Ambulates [facility] Work Phone: 02-01-2015 Are you deaf, or do you have serious difficulty hearing Yes 02/01/2015 2:40 PM EDT Iqra Tabares LPN Yes [facility] 02-01-2015 Are you blind, or do you have serious difficulty seeing, even when wearing glasses No 02/01/2015 2:40 PM MARIAHT Iqra Tabares LPN No [facility] 02-01-2015 Do you have serious difficulty walking or climbing stairs No 02/01/2015 2:40 PM EDT Iqra Tabares LPN No [facility] 02-01-2015 Do you have difficul ty dressing or bathing No 02/01/2015 2:40 PM EDT Iqra Tabares LPN No [facility] 02-01-2015 Because of a physica l, mental, or emotional condition, do you have difficulty doing errands alone such as visiting a physician's office or shopping No 02/01/2015 2:40 PM EDT Iqra Tabares LPN No [facility] Mental Status Date Assessment Result Facility 01-23-2025 Cognitive function Voice/Name [facility] Work Phone: 01-12-2025 Cognitive function Level Of Cons ciousness Awake;Alert;Appropriate [facility] Work Phone: 01-12-2025 Cognitive function Voice/Name [facility] Work Phone: 12-07-2024 Cognitive function Voice/Name [facility] Work Phone: 12-06-2024 Cognitive function Voice/Name [facility] Work Phone: 02-01-2015 Because of a physica l, mental, or emotional condition, do you have serious difficulty concentrating, remembering, or making decisions No 02/01/2015 2:40 PM EDT Iqra Tabares LPN No [facility] Clinical Notes 02-13-2010 to 01-23-2025 Note Date & Type Note Facility 01-23-2025 Procedure note [facility] 01-23-2025 History and physical note Note Date/Time January 23, 2025 11:07am [facility] Medical Records Department [address] [place] [address] H&P Exam - Surgical 01/23/25 0802 MR#: [id number] Acct: [id number] Name: CARISSA GRUBER Rep #:[id number] : 1940 84 From: Eric Clark MD PCP: Dr. Dimitri Marie MD Status:R [facility] Location: [place] [address] HPI - General HPI Narrative CARISSA GRUBER, is a 84 M who presents with wound from upper chest basal cell carcinoma excision. Margins are clear. Presents today for skin grafting. Current Encounter (DATE OF SURGERY H&P UPDATE): I saw and examined the patient this morning in pre-operative holding. We discussed risks and benefits of today's surgery and they would like to proceed. NO CHANGE in health history since last seen and evaluated. Ready to proceed with surgery. [facility] Medical History History of stress test Wears partial dentures Cancer Alcohol use Wears hearing aid Wears glasses Open wound Thyroid disease Arthritis High cholesterol TIA (transient ischemic attack) Former smoker Ambulates with cane History of edema Cardiology follow-up encounter Hypertension History of Holter monitoring History of echocardiogram History of stroke Home Medications ?Medication ?Instructions ?Recorded ?Last Taken ?Type levothyroxine 150 mcg tablet 150 mcg PO DAILY disorder of 12/06/24 01/23/25 History thyroid gland losartan 50 mg tablet 50 mg PO BID Blood pressure 12/06/24 01/23/25 History metoprolol succinate 25 mg 25 mg PO DAILY Hear rate/Bl ood 12/06/24 01/23/25 History tablet,extended release 24 hr pressure amlodipine 5 mg tablet 5 mg PO QHS 01/11/25 5 History apixaban 5 mg tablet (Eliquis) 5 mg PO BID 01/11/25 History atorvastatin 40 mg tablet 40 mg PO QHS 01/11/25 History oxycodone 5 mg tablet 5 mg PO Q12H PRN pain 5 days #10 01/12/25 Unknown Rx tabs Allergy/AdvReac Type Severity Reaction Status Date / Time Sulfa (Sulfonamide Allergy Rash Verified 01/23/25 10:33 Antibiotics) Surgical History Hx of excision of mass Hx of colonoscopy Hx of thyroidectomy Hx of right cataract extraction Hx of left cataract extraction Social History Smoking Status: Former smoker alcohol intake: never substance use type: does not use Physical Exam Narrative Bolster in place. No signs of infection Assessment & Plan Assessment/Plan (1) Skin cancer: (2) Basal cell carcinoma: PLAN: Plan INTERVAL H&P PLAN, DATE OF SURGERY: We will proceed with surgery today. Presents today for skin grafting. I talked to the patient extensively about the risks of surgery, including bleeding, infection, damage to surrounding structures, poor scaring, surgical site dehiscence and wound formation, need for wound care, need for repeat operations, skin graft failure, failure to obtain the desired result, DVT/PE, and the risks of anesthesia including , including stroke (from low blood pressure/ischemia or clot). He would like to do the procedure with local. The benefits and alternatives of this surgery were also discussed. All of their questions were answered, and they agreed to proceed with surgery. 01/23/25 1107 <Electronically signed by Eric Clark MD> Cosigner Signature (if applicable): CC: Dr. Eric Clark MD; Dr. Dimitri Marie MD~ Signed [facility] Work Phone: 1(753) 217-392807-29-2025 History and physical note [facility] Medical Records Department [address] [place] [address] H&P Exam - Surgical 01/23/25 0802 MR#: [id number] Acct: [id number] Name: CARISSA GRUBER Rep #:[id number] : 1940 84 From: Eric Clark MD PCP: Dr. Dimitri Marie MD Status:R [facility] Location: [place] [address] HPI - General HPI Narrative CARISSA GRUBER, is a 84 M who presents with wound from upper chest basal cell carcinoma excision. Margins are clear. Presents today for skin grafting. Current Encounter (DATE OF SURGERY H&P UPDATE): I saw and examined the patient this morning in pre-operative holding. We discussed risks and benefits of today's surgery and they would like to proceed. NO CHANGE in health history since last seen and evaluated. Ready to proceed with surgery. [facility] Medical History History of stress test Wears partial dentures Cancer Alcohol use Wears hearing aid Wears glasses Open wound Thyroid disease Arthritis High cholesterol TIA (transient ischemic attack) Former smoker Ambulates with cane History of edema Cardiology follow-up encounter Hypertension History of Holter monitoring History of echocardiogram History of stroke Home Medications ?Medication ?Instructions ?Recorded ?Last Taken ?Type levothyroxine 150 mcg tablet 150 mcg PO DAILY disorder of 12/06/24 01/23/25 History thyroid gland losartan 50 mg tablet 50 mg PO BID Blood pressure 12/06/24 01/23/25 History metoprolol succinate 25 mg 25 mg PO DAILY Hear rate/Bl ood 12/06/24 01/23/25 History tablet,extended release 24 hr pressure amlodipine 5 mg tablet 5 mg PO QHS 01/11/25 5 History apixaban 5 mg tablet (Eliquis) 5 mg PO BID 01/11/25 History atorvastatin 40 mg tablet 40 mg PO QHS 01/11/25 History oxycodone 5 mg tablet 5 mg PO Q12H PRN pain 5 days #10 01/12/25 Unknown Rx tabs Allergy/AdvReac Type Severity Reaction Status Date / Time Sulfa (Sulfonamide Allergy Rash Verified 01/23/25 10:33 Antibiotics) Surgical History Hx of excision of mass Hx of colonoscopy Hx of thyroidectomy Hx of right cataract extraction Hx of left cataract extraction Social History Smoking Status: Former smoker alcohol intake: never substance use type: does not use Physical Exam Narrative Bolster in place. No signs of infection Assessment & Plan Assessment/Plan (1) Skin cancer: (2) Basal cell carcinoma: PLAN: Plan INTERVAL H&P PLAN, DATE OF SURGERY: We will proceed with surgery today. Presents today for skin grafting. I talked to the patient extensively about the risks of surgery, including bleeding, infection, damage to surrounding structures, poor scaring, surgical site dehiscence and wound formation, need for wound care, need for repeat operations, skin graft failure, failure to obtain the desired result, DVT/PE, and the risks of anesthesia including , including stroke (from low blood pressure/ischemiaor clot). He would like to do the procedure with local. The benefits and alternatives of this surgery were also discussed. All of their questions were answered, and they agreed to proceed with surgery. 01/23/25 1107 Cosigner Signature (if applicable): CC: Dr. Eric Clark MD; Dr. Dimitri Marie MD~ Signed [facility]07-18-2025 History and physical note Author Eric Clark [facility] Note Date/Time January 12, 2025 7:21 am [facility] Medical Records Department [address] [place] [address] H&P Exam - Surgical 01/12/25717 MR#: [id number] Acct: [id number] Name: CARISSA GRUBER Rep #:[id number] : 1940 84 From: Eric Clark MD PCP: Dr. Dimitri Marie MD Status:R [facility] Location: [place] [address] HPI - General HPI Narrative CARISSA GRUBER, is a 84 M who presents with an actively bleeding chest skin cancer. Presents today for excision. Unable to obtain dermatology biopsy reportyet, but since bleeding actively, discussed excision with 6 mm margins with the patient today to control the bleeding and likely excise completely. He was in agreement. Current Encounter (DATE OF SURGERY H&P UPDATE): I saw and examined the patient this morning in pre-operative holding. We discussed risks and benefits of today's surgery and they would like to proceed. NO CHANGE in health history since last seen and evaluated. Ready to proceed with surgery. [facility] Medical History History of stress test Wears partial dentures Cancer Alcohol use Wears hearing aid Wears glasses Open wound Thyroid disease Arthritis High cholesterol TIA (transient ischemic attack) Former smoker Ambulates with cane History of edema Cardiology follow-up encounter Hypertension History of Holter monitoring History of echocardiogram History of stroke Home Medications ?Medication ?Instructions ?Recorded ?Last Taken ?Type levothyroxine 150 mcg tablet 150 mcg PO DAILY disorder of 12/06/24 01/12/25 04:00 History thyroid gland losartan 50 mg tablet 50 mg PO BID Blood pressure 12/06/24 01/11/25 20:00 History metoprolol succinate 25 mg 25 mg PO DAILY Hear rate/Bl ood 12/06/24 01/11/25 08:00 History tablet,extended release 24 hr pressure amlodipine 5 mg tablet 5 mg PO QHS 01/11/25 5 20:00 History apixaban 5 mg tablet (Eliquis) 5 mg PO BID 01/11/25 08:00 History atorvastatin 40 mg tablet 40 mg PO QHS 01/11/25 20:00 History Allergy/AdvReac Type Severity Reaction Status Date / Time Sulfa (Sulfonamide Allergy Rash Verified 01/12/25 06:18 Antibiotics) Surgical History Hx of colonoscopy Hx of thyroidectomy Hx of right cataract extraction Hx of left cataract extraction Social History Smoking Status: Former smoker alcohol intake: never substance use type: does not use Vital Signs Vital Signs Vital Signs: 01/12/25 06:22 01/12/25 06:22 01/12/25 06:50 Temperature 98.5 F 98.5 F Temperature Source Temporal Pulse Rate 60 60 Respiratory Rate 18 18 Respiratory Pattern Normal Blood Pressure 142/61 H 142/61 H Blood Pressure Mean 88 Blood Pressure Source Monitor Blood Pressure Position Sitting Blood Pressure Location Left Arm Pulse Ox 99 99 Oxygen Delivery Method Room Air Room Air Weight Weight: 230 lb 6.129 oz Body Mass Index (BMI) 33.0 Physical Exam Narrative Strike through bleeding on the chest dressing over the cancer Assessment & Plan Assessment/Plan (1) Skin cancer: PLAN: I talked to the patient extensively about the risks of surgery, including bleeding, infection, damage to surrounding structures, poor scaring, surgical site dehiscence and wound formation, need for wound care, need for repeat operations, failure to obtain the desired result, DVT/PE, and the risks of anesthesia including , including stroke (from low blood pressure/ischemia or clot). The benefits and alternatives of this surgery were also discussed. All of their questions were answered, and they agreed to proceed with surgery. INTERVAL H&P PLAN, DATE OF SURGERY: We will proceed with surgery today. 01/12/25720 <Electronically signed by Eric Clark MD> Cosigner Signature (if applicable): CC: Dr. Eric Clark MD; Dr. Dimitri Marie MD~ Signed [facility] Work Phone: 1(109) 654-679207-18-2025 Consult note Author Todd Lozada [facility] Note Date/Time January 12, 2025 6:50 am [facility] Medical Records Department [address] [place] [address] Pre-Anesthesia Evaluation 01/12/2542 MR#: [id number] Acct: [id number] Name: CARISSA GRUBER Rep #:[id number] : 1940 84 From: Todd Lozada MD PCP: Dr. Dimitri Marie MD Status:R EG SDC Y Race: C Location: [place] [address] ASA Classification* ASA Classification ASA Classification: 3 Assessment & Plan Anesthesia* Anesthesia Assessment Anesthesia Assessment: Discussed sedation and/or anesthesia options, risks, benefits, and alternatives with patient/parents/legal guardian/POA. Questions invited. The patient/parents/legal guardian/POA seems to understand and agrees to proceedwith anesthesia plan. Reviewed the physical assessment, medical history, allergy history and patient home medications list prior to surgery/procedure/anesthetic and documented any changes. Performed airway and anesthesia risk assessments. Anesthesia Type Anesthesia Type: MAC History Source History Obtained from:: Patient and Chart Anesthesia Focused Assessment* Temperature: 98.5 F Pulse Rate: 60 Blood Pressure: 142/61 Respiratory Rate: 18 Pulse Ox: 99 Oxygen Delivery Method: Room Air Airway Assessment Mouth opens: 2 cm Mallampati Score: IV Teeth Condition: Partial (Patient had upper and lower partials. They are out. Rest are tight.) Neck Range of motion (ROM): Limited ROM (Severe Restriction) Labs Anesthesia Preop lab: CBC WBC 7.2 K/mm3 (4.4-11.0) 12/07/24 06:59 12/07/24 RBC 3.69 M/mm3 (4.6-6.2) L 12/07/24 06:59 12/07/24 Hgb 10.5 g/dL (13.0-16.5) L 12/07/24 06:59 5 Hct 32.4 % (40-54) L 12/07/24 06:59 12/07/24 Plt Count 226 K/mm3 (150-450) 12/07/24 06:59 12/07/24 CHEMISTRY Potassium 4.3 mmol/L (3.3-5.1) 12/15/24 10:13 12/15/24 Sodium 138 mmol/L (133-145) 12/15/24 10:13 12/15/24 BUN 27 mg/dL (4-19) H 12/15/24 10:13 12/15/24 Creatinine 1.62 mg/dL (0.70-1.20) H 12/15/24 10:13 Glucose 96 mg/dL (70-99) 12/15/24 10:13 12/15/24 POC Glucose 83 mg/dL (70-110) 05/04/13 12:43 05/04/13 TSH 5.080 uIU/mL (0.300-4.200) H 12/06/24 12:15 COAG PT 14.2 SECONDS (11.7-14.9) 12/06/24 12:50 Pre-Assessment Diagnosis/Proposed Procedure Planned Operative Procedure(s): Excision chest lesion Anesthesia History Anesthesia History - store management 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 Any Problems With Anesthesia Yes: SLOW TO AWAKEN 01/11/25 10:33 Cholinesterase deficiency No 01/11/25 10:33 You/Your Family Experience No 01/11/25 10:33 fever (hyperthermia) with Relationship Recent Exposure to Contagious No 01/12/25 06:22 Disease Does patient have nerve No 01/11/25 10:33 stimulator Patient instructed to have device shut off --Does patient have Pacemaker No 01/12/25 06:22 or ICD? When Was Last Pacemaker Check No 05/06/13 20:40 QUESTION #4 FULL TEXT: You/Your Family Experience fever (hyperthermia) with Anesthesia Last Oral Intake Last Oral intake: Last Oral Intake NPO since 04:00 01/12/25 06:22 Meds taken in AM with sips of Yes 01/12/25 06:22 water? Meds patient instructed to ThYROID 01/12/25 06:22 take am of surgery Any additional information?: Yes NPO since: 04:00 (Patient had an ounce of cranberry juice at 4 AM.) Meds taken in AM with sips of water?: Yes PONV PONV - store management trainee: PONV - store management trainee Female No 01/11/25 10:33 HX of Motion Sickness No 01/11/25 10:33 HX of N/V After Surgery No 01/11/25 10:33 Non-Smoker Yes 01/11/25 10:33 Duration of Surgery greater Yes 01/11/25 10:33 than 60 minutes Number of Risk Factors 2 01/11/25 10:33 PONV Score Moderate Risk 01/11/25 10:33 Height & Weight Height & Weight: Anesthesia: Height & Weight Height 5 ft 10 in 01/12/25 06:22 Weight: 104.5 kg 01/12/25 06:22 Body Mass Index (BMI) 33.0 01/12/25 06:22 Respiratory Assessment Respiratory Assessment - store management trainee: Respiratory Tract Infection Hx - store management trainee Hx Respiratory Tract Infection No 01/11/25 10:33 STOP Sleep Apnea STOP Sleep Apnea - store management trainee: STOP Sleep Apnea - store management trainee Hx Hypertension Yes: FAIRLY CONTROLLED WITH 01/11/25 10:33 MED Hx Sleep Apnea No 01/11/25 10:33 CPAP BIPAP Do you snore loudly (louder No 01/11/25 10:33 than talking or can be heard Do you often feel tired/ No 01/11/25 10:33 fatigued/ sleepy during daytime? Has anyone observed you stop No 01/11/25 10:33 breathing during sleep? STOP Results Negative 01/11/25 10:33 QUESTION #5 FULL TEXT : Do you snore loudly (louder than talking or can be heard through closed doors)? 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 Specify any problems Hx of Preganancy in last 3 N/A 01/11/25 10:33 Months Nurse Filling Out Transfusion DSCHRIBER 01/11/25 10:33 & Questions: Date: 01/11/25 01/11/25 10:33 Time: 10:37 01/11/25 10:33 Patient unable to answer at this time (ie. confused, unrespo /Reproduction History /Reproductive History - store management trainee: /Reproductive Hx- store management trainee Hx Now No 01/11/25 10:33 Gestational Age (in weeks): EDC: Hx Hx Para Hx Section SAB No 01/11/25 10:33 Active Medications Active Medications: Current Medications Generic Name Dose Route Start Last Admin Trade Name Freq PRN Reason Stop Dose Admin Lactated Ringer's 1,000 mls @ 15 mls/hr 01/12/25 06:00 01/12/25 06:29 IV 15 mls/hr .Q48H CHINO Administration PFSH Medical History History of stress test Wears partial dentures Cancer Alcohol use Wears hearing aid Wears glasses Open wound Thyroid disease Arthritis High cholesterol TIA (transient ischemic attack) Former smoker Ambulates with cane History of edema Cardiology follow-up encounter Hypertension History of Holter monitoring History of echocardiogram History of stroke Home Medications ?Medication ?Instructions ?Recorded ?Last Taken ?Type levothyroxine 150 mcg tablet 150 mcg PO DAILY disorder of 12/06/24 01/12/25 04:00 History thyroid gland losartan 50 mg tablet 50 mg PO BID Blood pressure 12/06/24 01/11/25 20:00 History metoprolol succinate 25 mg 25 mg PO DAILY Hear rate/Bl ood 12/06/24 01/11/25 08:00 History tablet,extended release 24 hr pressure amlodipine 5 mg tablet 5 mg PO QHS 01/11/25 5 20:00 History apixaban 5 mg tablet (Eliquis) 5 mg PO BID 01/11/25 08:00 History atorvastatin 40 mg tablet 40 mg PO QHS 01/11/25 20:00 History Allergy/AdvReac Type Severity Reaction Status Date / Time Sulfa (Sulfonamide Allergy Rash Verified 01/12/25 06:18 Antibiotics) Surgical History Hx of colonoscopy Hx of thyroidectomy Hx of right cataract extraction Hx of left cataract extraction Social History Smoking Status: Former smoker alcohol intake: never substance use type: does not use Review of Systems (Anesthesia) ROS Narrative System reviewed and no additional complaints, except as documented. 01/12/25 0650 <Electronically signed by Todd byrne MD> Date _ Todd Lozada MD Cosigner Signature: Date CC: ~ Signed [facility] Work Phone: [phone] 266-896807-18-2025 Consult note [facility] Medical Records Department [address] [place] [id number] Anesthesia Postop Eval I 01/12/25 08 MR#: [id number] Acct: [id number] Name: CARISSA GRUBER Rep #:[id number] : 1940 84 From: Shayna MERINO PCP: Dr. Dimitri Marie MD Status:R EG [facility] Y Race: C Location: [place] [address] Anesthesia: Postop Eval I Current Vital Signs Temperature: 36 F Pulse Rate: 77 Blood Pressure: 133/58 Respiratory Rate: 14 Pulse Ox: 97 Assessment Airway patent: Yes Spontaneous unlabored respirations: Yes nausea: No Vomiting: No Anesthesia Complication: No Fluid Hydration Crystalloid volume administer (ml): 900 Total IV fluid infused: 900 Progress Note Anesthesia document: Postop Eval 1 completed: Yes 01/12/25 08 PIZZA BAKER> Date _ Shayna Michael PIZZA BAKER Cosigner Signature: Date CC: ~ Signed [facility]07-18-2025 History and physical note [facility] Medical Records Department [address] [place] [address] H&P Exam - Surgical 01/12/25717 MR#: [id number] Acct: [id number] Name: CARISSA GRUBER Rep #:[id number] : 1940 84 From: Eric Clark MD PCP: Dr. Dimitri Marie MD Status:R [facility] Location: [place] [address] HPI - General HPI Narrative CARISSA GRUBER, is a 84 M who presents with an actively bleeding chest skin cancer. Presents today for excision. Unable to obtain dermatology biopsy reportyet, but since bleeding actively, discussed excision with 6 mm margins with the patient today to control the bleeding and likely excise completely. He was in agreement. Current Encounter (DATE OF SURGERY H&P UPDATE): I saw and examined the patient this morning in pre-operative holding. We discussed risks and benefits of today's surgery and they would like to proceed. NO CHANGE in health history since last seen and evaluated. Ready to proceed with surgery. [facility] Medical History History of stress test Wears partial dentures Cancer Alcohol use Wears hearing aid Wears glasses Open wound Thyroid disease Arthritis High cholesterol TIA (transient ischemic attack) Former smoker Ambulates with cane History of edema Cardiology follow-up encounter Hypertension History of Holter monitoring History of echocardiogram History of stroke Home Medications ?Medication ?Instructions ?Recorded ?Last Taken ?Type levothyroxine 150 mcg tablet 150 mcg PO DAILY disorder of 12/06/24 01/12/25 04:00 History thyroid gland losartan 50 mg tablet 50 mg PO BID Blood pressure 12/06/24 01/11/25 20:00 History metoprolol succinate 25 mg 25 mg PO DAILY Hear rate/Bl ood 12/06/24 01/11/25 08:00 History tablet,extended release 24 hr pressure amlodipine 5 mg tablet 5 mg PO QHS 01/11/25 5 20:00 History apixaban 5 mg tablet (Eliquis) 5 mg PO BID 01/11/25 08:00 History atorvastatin 40 mg tablet 40 mg PO QHS 01/11/25 20:00 History Allergy/AdvReac Type Severity Reaction Status Date / Time Sulfa (Sulfonamide Allergy Rash Verified 01/12/25 06:18 Antibiotics) Surgical History Hx of colonoscopy Hx of thyroidectomy Hx of right cataract extraction Hx of left cataract extraction Social History Smoking Status: Former smoker alcohol intake: never substance use type: does not use Vital Signs Vital Signs Vital Signs: 01/12/25 06:22 01/12/25 06:22 01/12/25 06:50 Temperature 98.5 F 98.5 F Temperature Source Temporal Pulse Rate 60 60 Respiratory Rate 18 18 Respiratory Pattern Normal Blood Pressure 142/61 H 142/61 H Blood Pressure Mean 88 Blood Pressure Source Monitor Blood Pressure Position Sitting Blood Pressure Location Left Arm Pulse Ox 99 99 Oxygen Delivery Method Room Air Room Air Weight Weight: 230 lb 6.129 oz Body Mass Index (BMI) 33.0 Physical Exam Narrative Strike through bleeding on the chest dressing over the cancer Assessment & Plan Assessment/Plan (1) Skin cancer: PLAN: I talked to the patient extensively about the risks of surgery, including bleeding, infection, damage to surrounding structures, poor scaring, surgical site dehiscence and wound formation, needfor wound care, need for repeat operations, failure to obtain the desired result, DVT/PE, and the risks of anesthesia including , including stroke (from low blood pressure/ischemia or clot). Thebenefits and alternatives of this surgery were also discussed. All of their questions were answered, and they agreed to proceed with surgery. INTERVAL H&P PLAN, DATE OF SURGERY: We will proceed with surgery today. 01/12/25 0721 Cosigner Signature (if applicable): CC: Dr. Eric Clark MD; Dr. Dimitri Marie MD~ Signed [facility]07-18-2025 Consult note [facility] Medical Records Department [address] [place] [address] Pre-Anesthesia Evaluation 01/12/25 0642 MR#: [id number] Acct: [id number] Name: CARISSA GRUBER Rep #:[id number] : 1940 84 From: Todd Lozada MD PCP: Dr. Dimitri Marie MD Status:R EG [facility] Y Race: C Location: [place] [address] ASA Classification* ASA Classification ASA Classification: 3 Assessment & Plan Anesthesia* Anesthesia Assessment Anesthesia Assessment: Discussed sedation and/or anesthesia options, risks, benefits, and alternatives with patient/parents/legal guardian/POA. Questions invited. The patient/parents/legal guardian/POA seems to understand and agrees to proceedwith anesthesia plan. Reviewed the physical assessment, medical history, allergy history and patient home medications list prior to surgery/procedure/anesthetic and documented any changes. Performed airway and anesthesia risk assessments. Anesthesia Type Anesthesia Type: MAC History Source History Obtained from:: Patient and Chart Anesthesia Focused Assessment* Temperature: 98.5 F Pulse Rate: 60 Blood Pressure: 142/61 Respiratory Rate: 18 Pulse Ox: 99 Oxygen Delivery Method: Room Air Airway Assessment Mouth opens: 2 cm Mallampati Score: IV Teeth Condition: Partial (Patient had upper and lower partials. They are out. Rest are tight.) Neck Range of motion (ROM): Limited ROM (Severe Restriction) Labs Anesthesia Preop lab: CBC WBC 7.2 K/mm3 (4.4-11.0) 12/07/24 06:59 12/07/24 RBC 3.69 M/mm3 (4.6-6.2) L 12/07/24 06:59 12/07/24 Hgb 10.5 g/dL (13.0-16.5) L 12/07/24 06:59 5 Hct 32.4 % (40-54) L 12/07/24 06:59 12/07/24 Plt Count 226 K/mm3 (150-450) 12/07/24 06:59 12/07/24 CHEMISTRY Potassium 4.3 mmol/L (3.3-5.1) 12/15/24 10:13 12/15/24 Sodium 138 mmol/L (133-145) 12/15/24 10:13 12/15/24 BUN 27 mg/dL (4-19) H 12/15/24 10:13 12/15/24 Creatinine 1.62 mg/dL (0.70-1.20) H 12/15/24 10:13 Glucose 96 mg/dL (70-99) 12/15/24 10:13 12/15/24 POC Glucose 83 mg/dL (70-110) 05/04/13 12:43 05/04/13 TSH 5.080 uIU/mL (0.300-4.200) H 12/06/24 12:15 COAG PT 14.2 SECONDS (11.7-14.9) 12/06/24 12:50 Pre-Assessment Diagnosis/Proposed Procedure Planned Operative Procedure(s): Excision chest lesion Anesthesia History Anesthesia History - store management 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 Any Problems With Anesthesia Yes: SLOW TO AWAKEN 01/11/25 10:33 Cholinesterase deficiency No 01/11/25 10:33 You/Your Family Experience No 01/11/25 10:33 fever (hyperthermia) with Relationship Recent Exposure to Contagious No 01/12/25 06:22 Disease Does patient have nerve No 01/11/25 10:33 stimulator Patient instructed to have device shut off --Does patient have Pacemaker No 01/12/25 06:22 or ICD? When Was Last Pacemaker Check No 05/06/13 20:40 QUESTION #4 FULL TEXT: You/Your Family Experience fever (hyperthermia) with Anesthesia Last Oral Intake Last Oral intake: Last Oral Intake NPO since 04:00 01/12/25 06:22 Meds taken in AM with sips of Yes 01/12/25 06:22 water? Meds patient instructed to ThYROID 01/12/25 06:22 take am of surgery Any additional information?: Yes NPO since: 04:00 (Patient had an ounce of cranberry juice at 4 AM.) Meds taken in AM with sips of water?: Yes PONV PONV - store management trainee: PONV - store management trainee Female No 01/11/25 10:33 HX of Motion Sickness No 01/11/25 10:33 HX of N/V After Surgery No 01/11/25 10:33 Non-Smoker Yes 01/11/25 10:33 Duration of Surgery greater Yes 01/11/25 10:33 than 60 minutes Number of Risk Factors 2 01/11/25 10:33 PONV Score Moderate Risk 01/11/25 10:33 Height & Weight Height & Weight: Anesthesia: Height & Weight Height 5 ft 10 in 01/12/25 06:22 Weight: 104.5 kg 01/12/25 06:22 Body Mass Index (BMI) 33.0 01/12/25 06:22 Respiratory Assessment Respiratory Assessment - store management trainee: Respiratory Tract Infection Hx - store management trainee Hx Respiratory Tract Infection No 01/11/25 10:33 STOP Sleep Apnea STOP Sleep Apnea - store management trainee: STOP Sleep Apnea - store management trainee Hx Hypertension Yes: FAIRLY CONTROLLED WITH 01/11/25 10:33 MED Hx Sleep Apnea No 01/11/25 10:33 CPAP BIPAP Do you snore loudly (louder No 01/11/25 10:33 than talking or can be heard Do you often feel tired/ No 01/11/25 10:33 fatigued/ sleepy during daytime? Has anyone observed you stop No 01/11/25 10:33 breathing during sleep? STOP Results Negative 01/11/25 10:33 QUESTION #5 FULL TEXT : Do you snore loudly (louder than talking or can be heard through closeddoors)? 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 Specify any problems Hx of Preganancy in last 3 N/A 01/11/25 10:33 Months Nurse Filling Out Transfusion DSCHRIBER 01/11/25 10:33 & Questions: Date: 01/11/25 01/11/25 10:33 Time: 10:37 01/11/25 10:33 Patient unable to answer at this time (ie. confused, unrespo /Reproduction History /Reproductive History - store management trainee: /Reproductive Hx- store management trainee Hx Now No 01/11/25 10:33 Gestational Age (in weeks): EDC: Hx Hx Para Hx Section SAB No 01/11/25 10:33 Active Medications Active Medications: Current Medications Generic Name Dose Route Start Last Admin Trade Name Freq PRN Reason Stop Dose Admin Lactated Ringer's 1,000 mls @ 15 mls/hr 01/12/25 06:00 01/12/25 06:29 IV 15 mls/hr .Q48H CHINO Administration PFSH Medical History History of stress test Wears partial dentures Cancer Alcohol use Wears hearing aid Wears glasses Open wound Thyroid disease Arthritis High cholesterol TIA (transient ischemic attack) Former smoker Ambulates with cane History of edema Cardiology follow-up encounter Hypertension History of Holter monitoring History of echocardiogram History of stroke Home Medications ?Medication ?Instructions ?Recorded ?Last Taken ?Type levothyroxine 150 mcg tablet 150 mcg PO DAILY disorder of 12/06/24 01/12/25 04:00 History thyroid gland losartan 50 mg tablet 50 mg PO BID Blood pressure 12/06/24 01/11/25 20:00 History metoprolol succinate 25 mg 25 mg PO DAILY Hear rate/Bl ood 12/06/24 01/11/25 08:00 History tablet,extended release 24 hr pressure amlodipine 5 mg tablet 5 mg PO QHS 01/11/25 5 20:00 History apixaban 5 mg tablet (Eliquis) 5 mg PO BID 01/11/25 08:00 History atorvastatin 40 mg tablet 40 mg PO QHS 01/11/25 20:00 History Allergy/AdvReac Type Severity Reaction Status Date / Time Sulfa (Sulfonamide Allergy Rash Verified 01/12/25 06:18 Antibiotics) Surgical History Hx of colonoscopy Hx of thyroidectomy Hx of right cataract extraction Hx of left cataract extraction Social History Smoking Status: Former smoker alcohol intake: never substance use type: does not use Review of Systems (Anesthesia) ROS Narrative System reviewed and no additional complaints, except as documented. 01/12/25 0650 chavez ANGLIN> Date _ Todd Lozada MD Cosigner Signature: Date CC: ~ Signed [facility]06-12-2025 Discharge summary [facility] Medical Records Department [address] [place] [address] Discharge Summary 12/07/24 1112 MR#: [id number] Acct: [id number] Name: CARISSA GRUBER Rep #:[id number] : 1940 84 From: Lyndon green DO PCP: Dr. Dimitri Marie MD Status:A DM IN Location: [place] [address] Providers Date of Admission: 12/06/24 Date of [...] of Tele-Neurology Consult: Yes 12/07/24 01:01 Consult: Onc/Wound/store clerk Routine Comment: Reason for Consult:: Abnormal Growth [...] is an 84-year-old male who presented to [facility] ED on12/06/2024 with vision loss. Short hospital [...] at the origin of the left subclavian arterywith an intraluminal filling defect concerning for thrombosis. MRI brain showed no acute stroke. 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 On neurology's read, unclear if there is truly thrombosis in the subclavian artery versus the subclavian artery being tortuous in nature. Echo withnormal EF, stage I diastolic dysfunction, no other [...] we would expect with an elevated TSH, thefree T4 would be low and Synthroid dosing [...] Ratio 14.3, Glucose 94, Calcium 8.7, Triglycerides 58,Cholesterol 104, LDL Cholesterol, Calc 54, VLDL Cholesterol 12, HDL Cholesterol 38 L, Cholesterol/HDL Ratio 2.74, Free T4 1.60 H Radiography Diagnostic Testing: Radiology Impression Brain MRI 12/06/24 15:37 IMPRESSION: No acute abnormality Reading Location: [facility] Echocardiogram 12/06/24 15:37 Interpretation Summary Mild concentric [...] Recorder Preventi (Urgent) Timeframe: 1 Month Facility: [facility] - Location: Cardiovascular Services Ordered By: Dr. Lyndon Dinh Referrals / Follow Up: Justin La MD [Med Staff - Active Staff] - Eric Clark MD [Med Staff - Active Staff] - (For growth on chest) Dimitri Marie MD [Primary Care Provider] - Disposition Disposition (needs filled in before D/C Order can be placed): Home, Self Care Charges/Coding Visit Charges Inpatient E&M: 35935 Disch Hosp >30min 12/07/24 1532 Cosigner Signature (if applicable): CC: Dr. Lyndon Dinh DO; Dr. Dimitri Marie MD~ Signed [facility]06-12-2025 Discharge summary [facility] Medical Records Department [address] [place] [address] Instructions for Home/Discharge Instructions 12/07/24 1112 MR#: [id number] Acct: [id number] Name: CARISSA GRUBER Rep #:[id number] : 1940 84 From: Lyndon green DO PCP: Dr. Dimitri Marie MD Status:A DM IN Discharge Instructions Diet Discharge Diet: No restrictions DC O2, CPAP, BIPAP needs Home O2 Discharge instructions: No Dressing / Incision Discharge Activity: No Restrictions Follow Up Care Test Results: Test results from this visit will be discussed in further detail at your follow- up appointment, if applicable. Discharge Plan Admission Admit Date/Time: 12/06/24 15:31 Primary Reason for Your Visit: vision issue Attending Provider: Lyndon Dinh Primary Care Provider: Dimitri Marie Consulting Providers: Jerome Don; Lary Muniz; Constance Schmid; Mari Hernández; Tiffany Ma; Kota Hussein; Crystal Farah; Bryn Zmabrano; Yash Gerardo; George Perla; Tere Barrientos; Berny [...] Recorder Preventi (Urgent) Timeframe: 1 Month Facility: [facility] - Location: Cardiovascular Services Ordered By: Dr. Lyndon Dinh Referrals / Follow Up: Justin La MD [Med Staff - Active Staff] - Eric Clark MD [Med Staff - Active Staff] - (For growth on chest) Dimitri Marie MD [Primary Care Provider] - Disposition Disposition (needs filled in before D/C Order can be placed): Home, Self Care 12/07/24 1525Alexshay Dinh DO CC: Mari Hernández; Cristine Solo; [...] Barrientos DO; Julia Rahman MD ~ Signed [facility]06-12-2025 Discharge summary Author Lyndon Dinh [facility] Note Date/Time December 07, 2024 3:25 pm [facility] Medical Records Department [address] [place] [id number] Instructions for Home/Discharge Instructions 12/07/24 1112 MR#: [id number] Acct: [id number] Name: CARISSA GRUBER Rep #:[id number] : 1940 84 From: Lyndon green DO PCP: Dr. Dimitri Marie MD Status:A DM IN Discharge Instructions Diet Discharge Diet: No restrictions DC O2, CPAP, BIPAP needs Home O2 Discharge instructions: No Dressing / Incision Discharge Activity: No Restrictions Follow Up Care Test Results: Test results from this visit will be discussed in further detail at your follow- up appointment, if applicable. Discharge Plan Admission Admit Date/Time: 12/06/24 15:31 Primary Reason for Your Visit: vision issue Attending Provider: Lyndon Dinh Primary Care Provider: iDmitri Marie Consulting Providers: Jerome Don; Lary Muniz; [...] Recorder Preventi (Urgent) Timeframe: 1 Month Facility: [facility] - Location: Cardiovascular Services Ordered By: Dr. [...] Barrientos DO; Julia Rahman MD ~ Signed [facility] Work Phone: [phone]) 801-591206-12-2025 Discharge summary Author Lyndon [facility] Note Date/Time December 07, 2024 3:32 pm [facility] Medical Records Department [address] [place] [address] Discharge Summary 12/07/24 1112 MR#: [id number] Acct: [id number] Name: CARISSA GRUBER Rep #:[id number] : 1940 84 From: Lyndon green DO PCP: Dr. Dimitri Marie MD Status:A DM IN Location: [place] [id number] Providers Date of Admission: 12/06/24 Date of [...] of Tele-Neurology Consult: Yes 12/07/24 01:01 Consult: Onc/Wound/store clerk Routine Comment: Reason for Consult:: Abnormal Growth [...] is an 84-year-old male who presented to [facility] ED on12/06/2024 with vision loss. Short hospital [...] retinal artery occlusion, though this will not private branch exchange service adviser. On neurology's read, unclear if there is truly thrombosis in the subclavian artery versus the subclavian artery being tortuous in nature. Echo with normal EF, stage I diastolic dysfunction, no other concerning findings. Lipid panel showed total cholesterol 104, LDL 54, HDL 38. A1c 5.7%. Okay for Aleshiaquis for anticoagulation for 3 months and high [...] 15:37 IMPRESSION: No acute abnormality Reading Location: [facility] Echocardiogram 12/06/24 15:37 Interpretation Summary Mild concentric [...] Recorder Preventi (Urgent) Timeframe: 1 Month Facility: [facility] - Location: Cardiovascular Services Ordered By: Dr. Lyndon Dinh Referrals / Follow Up: Justin La MD [Med Staff - Active Staff] - Eric Clark MD [Med Staff - Active Staff] - (For growth on chest) Dimitri Marie MD [Primary Care Provider] - Disposition Disposition (needs filled in before D/C Order can be placed): Home, Self Care Charges/Coding Visit Charges Inpatient E&M: 71598 Disch Hosp >30min 12/07/24 1532 <Electronically signed by Lyndon Dinh DO> Cosigner Signature (if applicable): CC: Dr. Lyndon Dinh DO; Dr. Dimitri Marie MD~ Signed [facility] Work Phone: 1(995) 494-792306-12-2025 [facility] Medical Records Department [address] [place] [address] Discharge Summary 12/07/24 1112 MR#: [id number] Acct: [id number] Name: CARISSA GRUBER Rep #: [id number] : 1940 84 From: Lyndon Dinh DO PCP: Dr. Dimitri Marie MD Status:ADM IN [id number] Prov[facility] Date of Admission: 12/06/24 Date of [...] of Tele-Neurology Consult: Yes 12/07/24 01:01 Consult: Onc/Wound/store clerk Routine Comment: Reason for Consult:: Abnormal Growth [...] is an 84-year-old male who presented to [facility] ED on 12/06/2024 with vision loss. Short [...] retinal artery occlusion, though this will not private branch exchange service adviser. On neurology's read, unclear if there is [...] day of discharge. No prior labs since 2013 so baseline is unclear. Patient with good [...] normal Neck full ROM (more content not included)...[facility] History and physical note Author Lyndon Dinh [facility] Note Date/Time December 07, 2024 7:29 am [facility] Medical Records Department [address] [place] [address] H&P Exam - Hospitalist 12/06/24 1502 MR#: [id number] Acct: [id number] Name: CARISSA GRUBER Rep #:[id number] : 1940 84 From: Lyndon green DO PCP: Dr. Dimitri Marie MD Status:A DM IN Location: [facility] [id number]- [id number] HPI - General General Date of Admission: 12/06/24 Date of Service: 12/06/24 Chief Complaint: Vision loss HPI Narrative CARISSA GRUBER, is a 84 M who presented to [facility] ED on 12/06/24 with vision loss. Patient noticed decreased vision in his left upper eye field around 8 AM this morning. He saw user experience analyst Dr. Guerrero and was diagnosed with a [...] typically very activeat baseline, goes to the [facility] on a regular basis. He denies any other acute concerns this morning. PFSH Home Medications ?Medication ?Instructions ?Recorded ?Last [...] (Auto) 79.3 H, Lymph % (Auto) 11.5 L,Mayes % (Auto) 7.0, Eos % (Auto) 1.4, [...] 1:11 pm with readback verification. Reading Location: [facility] Head/Neck CTA 12/06/24 12:23 IMPRESSION: Calcific [...] 1:22 pm with readback verification. 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 ED on12/06/2024 with vision loss. 1. Left [...] 55 minutes. Charges/Coding Visit Charges Inpatient E&M: 95067 Init Hosp L2 12/07/24 0729 <Electronically signed by Lyndon Dinh DO> Cosigner Signature (if applicable): CC: Dr. Lyndon Dinh DO; Dr. Dimitri Marie MD~ Signed [facility] Work Phone: 1(509) 602-403506-12-2025 History and physical note [facility] Medical Records Department [address] [place] [address] H&P Exam - Hospitalist 12/06/24 1502 MR#: [id number] Acct: [id number] Name: CARISSA GRUBER Rep #:[id number] : 1940 84 From: Lyndon green DO PCP: Dr. Dimitri Marie MD Status:A DM IN Location: [place] [address] HPI - General General Date of Admission: 12/06/24 Date of Service: 12/06/24 Chief Complaint: Vision loss HPI Narrative CARISSA GRUBER, is a 84 M who presented to [facility] ED on 12/06/24 with vision loss. Patient noticed decreased vision in his left upper eye field around 8 AM this morning. He saw user experience analyst Dr. Guerrero and was diagnosed with a [...] intervention and recommended initiating anticoagulation. Hospitalist bart morejon then contacted for admission. I saw the patient at bedside in the ED. Patient was sitting back comfortably in bed, conversing normally, in no acute distress. He continues to report the same visionissues this morning but deniedany other strokelike symptoms. Lives at home alone and is typically very activeat baseline, goes to the [facility] on a regular basis. He denies any other acute concerns thismorning. [facility] Home Medications ?Medication ?Instructions ?Recorded ?Last Taken [...] (Auto) 79.3 H, Lymph % (Auto) 11.5 L,Mayes % (Auto) 7.0, Eos % (Auto) 1.4, [...] 1:11 pm with readback verification. Reading Location: [facility] Head/Neck CTA 12/06/24 12:23 IMPRESSION: Calcific plaques at the origin of both right and left internal carotid artery causing vpotnnuishikp04% stenosis. Calcific plaque at the origin of [...] 1:22 pm with readback verification. 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 ED on12/06/2024 with vision loss. 1. Left [...] 55 minutes. Charges/Coding Visit Charges Inpatient E&M: 66940 Init Hosp L2 12/07/24 0729 Cosigner Signature (if applicable): CC: Dr. Lyndon Dinh DO; Dr. Dimitri Marie MD~ Signed [facility]06-11-2025 Discharge summary Author Ricardo Sinha [facility] Note Date/Time December 06, 2024 4:21 pm [facility] Medical Records Department [address] [place] [address] Emergency Department Summary 12/06/24 MR#: [id number] Acct: [id number] Name: CARISSA GRUBER Rep #:[id number] : 1940 84 From: Ricardo Sinha MD [...] 8 AM this morning. He saw an user experience analyst Dr. Christie and was diagnosed with left [...] all 4 extremities. 5 out of 5 urban planner strength. Dorsi plantarflexion intact. No drift. Neurologically [...] 79.3 H Lymph % (Auto) 11.5 L Mayes % (Auto) 7.0 Eos % (Auto) 1.4 [...] 1:11 pm with readback verification. Reading Location: [facility] Head/Neck CTA 12/06/24 12:23 IMPRESSION: Calcific [...] 1:22 pm with readback verification. Reading Location: [facility] Rhythm Strip Rhythm Strip: Sinus Rhythm Rate: 60 Ectopy: None EKG Initial EKG: Attestation: I personally reviewed and interpreted this EKG as follows: Interpretation: Sinus Rhythm and No Acute Injury Pattern Comments: Normal sinus rhythm rate of 60 no acute signs of CA or ischemia. Discharge Plan Triage Chief Complaint: [...] MD [Primary Care Provider] - Print Language: Venezuelan What to do if you have Problems For any increased pain, shortness of breath, bleeding, nausea or vomiting, chestpain, or any unexpected problems, contact your Primary Care Provider. Call [facility] ([phone]) or report to the closest Emergency Room. Call 911 if necessary. 12/06/24 1621 <Electronically signed by Ricardo Sinha MD> Cosigner Signature (if applicable): CC: Dr. Dimitri Marie MD ~ Signed [facility] Work Phone: 1(161) 112-367106-11-2025 Evaluation note* Diagnosis Onset Date Resolution Status Admit Date History of stroke acute December 062024 3:31pm Retinal artery branch occlus ion of left eye acute December 06, 2024 3:31pm Thrombosis of subclavian artery acut e December 06, 2024 3:31pm [facility] Work Phone: 1(363) 980-577506-11-2025 Evaluation note* Diagnosis Onset Date Resolution Status Admit Date Retinal artery branch occlus ion of left eye acute December 06, 2024 3:31pm Thrombosis of subclavian artery acut e December 06, 2024 3:31pm History of stroke inactive December 062024 3:31pm 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 Work Phone: [phone] 341-109906-11-2025 Discharge summary [facility] Medical Records Department [address] [place] [address] Emergency Department Summary 12/06/24 MR#: [id number] Acct: [id number] Name: CARISSA GRUBER Rep #:[id number] : 1940 84 From: Ricardo Sinha MD [...] 8 AM this morning. He saw an user experience analyst Dr. Christie and was diagnosed with left [...] all 4 extremities. 5 out of 5 urban planner strength. Dorsi plantarflexion intact. No drift. Neurologically [...] 79.3 H Lymph % (Auto) 11.5 L Mayes % (Auto) 7.0 Eos % (Auto) 1.4 [...] 1:11 pm with readback verification. Reading Location: [facility] Head/Neck CTA 12/06/24 12:23 IMPRESSION: Calcific plaques at the origin of both right and left internal carotid artery causing gzqkwqbfahueg74% stenosis. Calcific plaque at the origin of [...] 1:22 pm with readback verification. Reading Location: [facility] Rhythm Strip Rhythm Strip: Sinus Rhythm Rate: 60 Ectopy: None EKG Initial EKG: Attestation: I personally reviewed and interpreted this EKG as follows: Interpretation: Sinus Rhythm and No Acute Injury Pattern Comments: Normal sinus rhythm rate of 60 no acute signs of CA or ischemia. Discharge Plan Triage Chief Complaint: [...] MD [Primary Care Provider] - Print Language: Venezuelan What to do if you have Problems For any increased pain, shortness of breath, bleeding, nausea or vomiting, chestpain, or any unexpected problems, contact your Primary Care Provider. Call [facility] ([phone]) or report tothe closest Emergency Room. Call 911 if necessary. 12/06/24 1621 Cosigner Signature (if applicable): CC: Dr. Dimitri Marie MD ~ Signed [facility]06-11-2025 Radiology Diagnostic study note [facility] Imaging Services [address] [place] [address] STROKE CTA Head AND Neck W/Con MR#: [id number] Acct: [id number] Name: CAIRSSA GRUBER Rep #: [id number] : 1940 M 84 From: Shalmo Fung MD PCP: Dr. Dimitri Marie MD Status: R ER Study:STROKE CTA Head AND Neck W/Con Date of Exam: 12/06/24 Exam# [id number] Ordering Dr: Yolanda Sinha MD PROCEDURE: STROKE [...] Vertebral: Unremarkable. LEFT Vertebral: Calcific plaques. Anatomy: Kashia of Marie anatomy is normal. Aneurysm or [...] right and left internal carotid artery causing jjuokusvrsygk09% stenosis. Calcific plaque at the origin of [...] 1:22 pm with readback verification. Reading Location: [facility] CC: Dr. Ricardo Sinha MD; Dr. Dimitri Marie MD ~ Regulatory Leader: Signed [facility]06-11-2025 Radiology Diagnostic study note [facility] Imaging Services [address] [place], [place] [id number] STROKE Brain/Head without Cont MR#: [id number] Acct: [id number] Name: CARISSA GRUBER Rep #: [id number] : 1940 M 84 From: Shalom Fung MD PCP: Dr. Dimitri Marie MD Status: R EG ER Study:STROKE Brain/Head without Cont Date of Exam: 12/06/24 Exam# [id number] Ordering Dr: Yolanda Sinha MD PROCEDURE: STROKE [...] 1:11 pm with readback verification. Reading Location: [place] [address] CC: Dr. Ricardo Sinha MD; Dr. Dimitri Marie MD ~ Regulatory Leader: Signed [facility]06-11-2025 Telephone encounter Note* Telephone Encounter - Dimitri Marie MD - 12/06/2024 10:04 AM EDT Patient walked in with acute vision change this morning, asking about a CT scan to check his optic nerve. I recommended he go to the ER or see his eye doctor stat. He will go to [facility]. [facility]06-11-2025 Miscellaneous Notes* Telephone Encounter - Dimitri Marie MD - 12/06/2024 10:04 AM EDT Patient walked in with acute vision change this morning, asking about a CT scan to check his optic nerve. I recommended he go to the ER or see his eye doctor stat. He will go to [facility]. * Telephone Encounter - Sherri Myers LPN - 12/06/2024 8:59 AM EDT Patient came into the office, losing vision in left eye. Sherri Myers LPN documented in [facility]St[facility] Telephone encounter Note * Telephone Encounter - Sherri Myers LPN - 12/06/2024 8:59 AM EDT Patient came into the office, losing vision in left eye. Sherri Myers LPN [facility]05-05-2025 Telephone encounter Note* Telephone Encounter - [...] SUKUMAR Martinez October 30, 2024 8:[address] [facility]05-05-2025 Miscellaneous Notes* Telephone Encounter - Deepali [...] 30, 2024 8:20 AM documented in this encounterSt. [facility]04-[facility]-2025 Telephone encounter Note * Telephone Encounter - Berenice Muller RN - 10/11/2024 9:22 AM EDT Patient requesting refills as follows: Requested Prescriptions Pending Prescriptions Disp Refills metoprolol succinate ER (TOPROL XL) 25 mg 24 hr tablet 90 tablet 3 Sig: Take 1 tablet by mouth once daily. Please review and advise. Berenice Muller RN [facility]04-16-2025 Miscellaneous Notes* Telephone Encounter - Berenice Muller RN - 10/11/2024 9:22 AM EDT Patient requesting refills as follows: Requested Prescriptions Pending Prescriptions Disp Refills metoprolol succinate ER (TOPROL XL) 25 mg 24 hr tablet 90 tablet 3 Sig: Take 1 tablet by mouth once daily. Please review and advise. Berenice Muller RN documented in this encounterSt. [facility]03-17-2025 Telephone encounter Note * Telephone Encounter [...] SUKUMAR Martinez September 11, 2024 9:[address] [facility]03-17-2025 Miscellaneous Notes* Telephone Encounter - Deepali [...] 11, 2024 9:51 AM documented in this encounterSt. [facility]03-12-2025 Consult note Author Shayna Michael [facility] Note Date/Time January 12, 2025 8:23 am [facility] Medical Records Department [address] [place] [address] Anesthesia Postop Eval I 01/12/25 0822 MR#: [id number] Acct: [id number] Name: CARISSA GRUBER Rep #:[id number] : 1940 84 From: Shayna MERINO PCP: Dr. Dimitri Marie MD Status:R EG SDC Y Race: C Location: [place] [address] Anesthesia: Postop Eval I Current Vital Signs Temperature: 36 F Pulse Rate: 77 Blood Pressure: 133/58 Respiratory Rate: 14 Pulse Ox: 97 Assessment Airway patent: Yes Spontaneous unlabored respirations: Yes nausea: No Vomiting: No Anesthesia Complication: No Fluid Hydration Crystalloid volume administer (ml): 900 Total IV fluid infused: 900 Progress Note Anesthesia document: Postop Eval 1 completed: Yes 01/12/25822 <Electronically signed by Shayna Michael CRNA> Date _ Shayna Michael CRNA Cosigner Signature: Date CC: ~ Signed [facility] Work Phone: 1(921) 988-965211-04-2024 Telephone encounter Note* Telephone Encounter - Evita Aldridge - 05/01/2024 [...] Evita Aldridge May 01, 2024 9:[address] [facility]11-04-2024 Miscellaneous Notes* Telephone Encounter - Evita [...] 01, 2024 9:03 AM documented in this encounterSt. [facility]10-10-2024 NoteHNO ID: [id number] Author: DIMITRI MARIE MD Service: ? Author Type: Physician Type: Progress Notes Filed: 04/06/2024 12:18 Note Text: This note was created using [employer]. Subjective Carissa Gruber is a 83 year old male. He felt well. He just saw cardiology and no changes were made. He had a bandage on his chest. Sara Nair biopsied skin cancer and recommended more surgery in [place], but he was planning call a local [...] V79.8, ICD10: Z13.39 - ANXIETY SCREENING Dimitri Marie, [facility]10-10-2024 History of Present illness Narrative* Dimitri Marie MD - 04/06/2024 11:42 AM EDT This note was created using [employer]. Subjective Carissa Gruber is a 83 year old male. He felt well. He just saw cardiology and no changes were made. He had a bandage on his chest. Sara Nair biopsied skin cancer and recommended more surgery in [place], but he was planning call a local [...] records. He was encouraged to work with [employer] on referrals. If he sees a local [...] SCREENING Dimitri Marie MD documented in this encounterSt. [facility]10-07-2024 History of Present illness Narrative* Gurwinder Ayala MD - 04/03/2024 9:40 AM EDT Images from the original note were not included. [facility] SE[facility] REGIONAL CARDIOLOGY Cardiology ([facility]) [address] [facility] [id number] OUTPATIENT VISIT DATE 04/03/2024 PRIMARY CARE PHYSICIAN: Dimitri Marie [address] [place] [address] REFERRING PHYSICIAN: Dimitri Marie [address] [facility] [address] HISTORY OF PRESENT ILLNESS: Mr. Gruber is a 83 year old gentleman with a history of hypertension, dyslipidemia, chronic kidneydisease, prior smoker who presents for follow-up. Patient is complaining of dizziness that seems toonly occur when he is lying in bed and turns from dlhc-kv-ueym. He denies a feeling of room spinning. [...] kidney disease) stage 3, GFR 30-59 ml/min ([facility]) 12/03/2017 Complication of anesthesia Diverticulosis of colon [...] TABLET Gurwinder Ayala MD documented in this encounterSt. [facility]10-07-2024 NoteHNO ID: [id number] Author: GURWINDER AYALA MD Service: ? Author Type: Physician Type: Progress Notes Filed: 04/03/2024 09:19 Note Text: [facility]AL CARDIOLOGY Cardiology ([facility]) [address] [facility] [id number] OUTPATIENT VISIT DATE 04/03/2024 PRIMARY CARE PHYSICIAN: Dimitri Marie [address] [place] [address] REFERRING PHYSICIAN: Dimitri Marie [address] [place] [address] HISTORY OF PRESENT ILLNESS: Mr. Gruber is a 83 year old gentleman with a history of hypertension, dyslipidemia, chronic kidney disease, prior smoker who presents for follow-up. Patient is complaining of dizziness that seems to only occur when he is lying in bed and turns from cjxp-vc-zdae. He denies a feeling of room spinning. [...] kidney disease) stage 3, GFR 30-59 ml/min ([facility]) 12/03/2017 Complication of anesthesia Diverticulosis of colon [...] and symmetric bilaterally. CARDIOVAS (more content not included)...[facility]07-18-2024 Telephone encounter Note* Telephone Encounter - [...] The last office visit in the department: [id number] Does the patient have a future office visit with this provider/department: Yes Requested Prescriptions Pending Prescriptions Disp Refills pravastatin (PRAVACHOL) 40 mg tablet 90 tablet 3 Sig: Take 1 tablet by mouth daily at bedtime. For cholesterol. Evita Aldridge January 13, 2024 10:[address] [facility]07-18-2024 Miscellaneous Notes* Telephone Encounter - Evita [...] The last office visit in the department: [id number] Does the patient have a future office visit with this provider/department: Yes Requested Prescriptions Pending Prescriptions Disp Refills pravastatin (PRAVACHOL) 40 mg tablet 90 tablet 3 Sig: Take 1 tablet by mouth daily at bedtime. For cholesterol. Evita Aldridge January 13, 2024 10:28 AM documented in this encounterSt. [facility]06-04-2024 Telephone encounter Note * Telephone Encounter - Frank Holley MA - 11/30/2023 1:12 PM EDT Only contact number listed is no longer in service. Unable to reach letter mailed to pt. Please update contact information if pt returns call. [facility]06-04-2024 Miscellaneous Notes* Telephone Encounter - Frank Holley MA - 11/30/2023 1:12 PM EDT Only contact number listed is no longer in service. Unable to reach letter mailed to pt. Please update contact information if pt returns call. * Telephone Encounter - Frank Holley MA - 11/30/2023 12:26 PM EDT ----- Message from Isela Patel APRN.HAZARDOUS SUBSTANCES SCIENTIST sent at 11/29/2023 3:15 PM EDT ----- Please let the patient know TSH is closer to normal however still indicating he is not getting enough thyroid medication, recommend increasing the dose. He should take an extra 1/2 tablet one day a week. Repeat thyroid labs in 3 months Isela Patel APRN.HAZARDOUS SUBSTANCES SCIENTIST documented in this encounterSt. Rita'[facility]06-04-[facility]24 Telephone encounter Note * Telephone Encounter - Frank Holley MA - 11/30/2023 12:26 PM EDT ----- Message from Isela Patel APRN.HAZARDOUS SUBSTANCES SCIENTIST sent at 11/29/2023 3:15 PM EDT ----- Please let the patient know TSH is closer to normal however still indicating he is not getting enough thyroid medication, recommend increasing the dose. He should take an extra 1/2 tablet one day a week. Repeat thyroid labs in 3 months Isela Patel APRN.HAZARDOUS SUBSTANCES SCIENTIST [facility]04-10-[facility] Instructions* Patient Instructions* Isela Patel APRN.HAZARDOUS SUBSTANCES SCIENTIST - 10/06/2023 10:12 AM EDT Formerly [facility] dermatology [phone] Screening schedule The following prevention plan is [...] review all the medicines you take, even [id number] medicines. As you get older, the way [...] have certain medical conditions. documented in this encounterSt. Rita'S Hospital04-10-2024 History of Present illness Narrative* Isela Patel APRN.CNP - 10/06/2023 10:10 AM EDT Images from [...] - General (Internal Medicine) Outside specialists seen: Window Caser- [facility] review Reviewed and updated problem [...] is down 10lbs. - Patient was counseled [id number] by myself (the billing provider) for immunizations [...] - PRAVASTATIN 40 MG TABLET Isela Patel APRN.HAZARDOUS SUBSTANCES SCIENTIST documented in this encounterSt. Rita'S Hospital04-03-2024 Miscellaneous Notes* Telephone Encounter - Radha [...] No need to notify patient. Confirmed Drug [facility] in [place]. Radha Dillon MA documented in this encounterSt. Rita'S Hospital02-23-2024 Instructions* Patient Instructions* Dimitri Marie MD - 08/20/2023 9:32 AM EST FASTING BLOOD WORK IN 6 WEEKS BEFORE APPOINTMENT. documented in this encounterSt. Rita'S Hospital02-23-2024 History of Present illness Narrative* Dimitri Marie MD - 08/20/2023 9:15 AM EST This note was created using [employer]. Subjective Carissa Gruber is a 82 year old male. He was doing reasonably well. His hypertension was not controlled. Dr. Ayala increased doxazosin to 4 mg BID and he was taking all his medications as listed.He felt his legs were getting weaker, so 6 weeks ago, he rejoined the [employer] and started with treadmill and cycling [...] BASIC Dimitri Marie MD documented in this encounterSt. Rita'S Hospital08-23-2023 History of Present illness Narrative* Dimitri Marie MD - 02/17/2023 8:17 AM EDT This note was created using [employer]. Subjective Carissa Gruber is a 82 year [...] PNL Dimitri Marie MD documented in this encounterSt. Rita'S Hospital06-21-2023 History of Present illness Narrative* Dimitri Marie MD - 12/16/2022 8:25 AM EDT This note was created using [employer]. Subjective Carissa Gruber is a 82 year [...] hydration Dimitri Marie MD documented in this encounterSt. Rita'S Hospital05-08-2023 History of Present illness Narrative* Dimitri Marie MD - 11/02/2022 2:28 PM EDT This note was created using [employer]. Subjective Carissa Gruber is a 82 year [...] months. Dimitri Marie MD documented in this encounterSt. Rita'S Hospital03-27-2023 Instructions* Patient Instructions* Gurwinder Ayala MD - 09/21/2022 8:27 AM EDT We are changing your Metoprolol Tartrate to a long acting Metoprolol Succinate 25 mg once per day documented in this encounterSt. Rita'S Hospital03-27-2023 History of Present illness Narrative* Gurwinder Ayala MD - 09/21/2022 8:20 AM EDT Images from the original note were not included. [facility] SE[facility]IONAL CARDIOLOGY Cardiology ([facility]) [address] [phone] OUTPATIENT VISIT DATE 09/21/2022 PRIMARY CARE PHYSICIAN: Dimitri Marie [address] [place] [address] REFERRING PHYSICIAN: Dimitri Marie [address] [facility] [address] HISTORY OF PRESENT ILLNESS: Mr. Gruber is [...] kidney disease) stage 3, GFR 30-59 ml/min ([facility]) 12/03/2017 Complication of anesthesia Diverticulosis of colon [...] exam performed on 09/03/2009, no significant change. [employer] Monitor 10/20/2021: Patient had a min HR [...] R00.1 Gurwinder Ayala MD documented in this encounterSt. Rita'S Hospital03-23-2023 History of Present illness Narrative* Linda [...] 17, 2022 8:18 AM documented in this [facility]03-23-2023 Miscellaneous Notes* Result Encounter Note - Dimitri Marie MD - 09/17/2022 7:45 AM EDT Review abnormal findings and need for follow up at 11/02/2022 appointment. documented in this [facility]03-17-2023 Instructions* Patient Instructions* Dimitri Marie MD - 09/11/2022 9:05 AM EDT STOP CHLORTHALIDONE. SEE CARDIOLOGY SEPTEMBER 21. REPEAT NON FASTING LABS IN 6 WEEKS. documented in this encounterSt. Rita'S Hospital03-17-2023 History of Present illness Narrative* Dimitri Marie MD - 09/11/2022 8:50 AM EDT This note was created using [employer]. Subjective Carissa Gruber is a 82 year [...] in NaCl (PF) 0.9% 10 mL injection (DEFINStormMQ) INTRAVENOUS DIRECTED PRN sodium chloride 0.9 % [...] Stable. Dimitri Marie MD documented in this encounterSt. Rita'S Hospital11-25-2022 Miscellaneous Notes* Telephone Encounter - Jennifer Hanson RN - 05/22/2022 10:09 AM EST Call to pt and reviewed stress test instructions. Pt verbalized understanding. documented in this encounterSt. Rita'S Hospital11-21-2022 Instructions* Patient Instructions* Gurwinder Ayala MD - 05/18/2022 8:35 AM EST We are scheduling you for a stress test Do Not take the metoprolol tartrate the day before or the morning of the procedure No caffeine the day before or the morning of the stress test documented in this encounterSt. Rita'S Hospital11-21-2022 History of Present illness Narrative* Gurwinder Ayala MD - 05/18/2022 8:20 AM EST Images from the original note were not included. [facility]AL CARDIOLOGY Cardiology ([facility]) [address] [facility] [id number] OUTPATIENT VISIT DATE 05/18/2022 PRIMARY CARE PHYSICIAN: Dimitri Marie [address] [place] [address] REFERRING PHYSICIAN: Dimitri Marie [address] [facility] [address] CHIEF COMPLAINT: Palpitations, dyspnea on exertion HISTORY [...] months ago. 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 He will notice his heart racing and skipped heartbeats. He does not report similar symptoms throughout the day. 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 [...] - Exam was compared with the prior echocardiographic exam performed on 09/03/2009, no significant change. [employer] Monitor 10/20/2021: Patient had a min HR [...] STRESS/EXERCISE Gurwinder Ayala MD documented in this encounterSt. Rita'S Hospital10-25-2022 History of Present illness Narrative* Isela Older, OCCUPATIONAL THER.HAZARDOUS SUBSTANCES SCIENTIST - 04/21/2022 8:51 AM EDT Medicare Yearly [...] the time. List of current specialists seen: Window Caser- Dr. Ayala End of Live Planning discussed [...] at this time. - Patient was counseled [id number] by myself (the billing provider) for the [...] BLD Isela West APRN.CNP documented in this encounterSt. Rita'S Hospital09-23-2022 Miscellaneous Notes* Telephone Encounter - Lorie [...] you. Lorie Helms RN documented in this encounterSt. Rita'S Hospital08-09-2022 Miscellaneous Notes* Telephone Encounter - Frank Holley Ma - 02/03/2022 9:18 AM EDT RUSTY: 12/12/2021 Last refill: 01/26/2021 QTY: 180 Refills: 3 * Telephone Encounter - Teresita Glover - 02/03/2022 8:56 AM EDT Patient has been identified by name and date of : Yes Pending Prescriptions Disp Refills LOSARTAN 50 MG TABLET 180 tablet 3 Sig: Take 1 tablet by mouth twice daily. MACRE: No RX INSTRUCTIONS: Patient aware RX will be sent to pharmacy. No need to notify patient. Teresita Glover documented in this encounterSt. Rita'S Hospital06-17-2022 Instructions* Patient Instructions* Dimitri Marie MD - 12/12/2021 10:46 AM EDT Non fasting blood chemistry today. documented in this encounterSt. Rita'S Hospital06-17-2022 History of Present illness Narrative* Dimitri Marie MD - 12/12/2021 10:35 AM EDT This note was created using [employer]. Subjective Patient presents with: Established Patient: review [...] [facility] essentially [facility], [facility] Preliminary Zio showed runs of VT and [...] Kidney Disease) Stage 3, Gfr 30-59 Ml/Min ([facility]) Current Outpatient Medications Medication Sig levothyroxine [...] Synthroid Dimitri Marie MD documented in this encounterSt. Rita'S Hospital06-13-2022 Miscellaneous Notes* Telephone Encounter - Corrie Ortega LPN - 12/08/2021 2:06 PM EDT Called pt and appt arranged. * Telephone Encounter - Corrie Ortega LPN - 12/08/2021 1:56 PM EDT ----- Message from Isela West APRN.CNP sent at 12/08/2021 12:09 PM EDT ----- Please call patient to schedule appointment to review ZIO and echocardiogram results documented in this encounterSt. Rita'S Hospital04-25-2022 Nurse Note* Frank Holley Ma - 10/20/2021 9:42 AM EDT EVENT MONITOR DISPOSABLE PATCH INSTRUCTIONS Patient Name: Carissa Gruber [facility] Number: [id number] Skin prepped and cleansed with alcohol Patch secured to prepped area Monitor Activated Serial #: [id number] Patient Instructed: 1.) Prescribed order timeframe 2.) Bathing guidelines 3.) Usage of event button and diary documentation 4.) Return of monitor at the end of prescribed order 5.) Call with problems [phone] or [phone] ext. [phone] Patient expresses a good understanding of instructions Frank Holley Ma documented in this [facility]04-25-2022 Instructions* Patient Instructions* Isela West APRN.CNP - [...] schedule this for you. documented in this encounterSt. Rita'S Hospital04-25-2022 History of Present illness Narrative* Isela [...] kidney disease) stage 3, GFR 30-59 ml/min ([facility]) Worsening on recent labs. Patient reports adequate [...] plan. Isela West APRN.CNP documented in this encounterSt. Rita'S Hospital03-07-2022 Miscellaneous Notes* Telephone Encounter - Frank [...] and advise. Jennifer Rodriguez documented in this encounterSt. Rita'S Hospital08-19-2010 History of Past illness Narrative* Problem Noted Date Resolved Date Unspecified constipation 02/13/2010 016 Osteolytic lesion 09/13/2009 04/28/2016 Dysmetabolic syndrome X 04/02/2005 04/28/20 16 Malignant neoplasm of thyroid gland 07/18/2019 Overview: Suppressed TSH goal 0.1-0.3. documented as of this encounter (statuses as of 09/01/2021) [facility] of Past illness Narrative* Problem Noted Date Resolved Date Unspecified constipation 02/13/2010 016 Osteolytic lesion 09/13/2009 04/28/2016 Dysmetabolic syndrome X 04/02/2005 04/28/20 16 Malignant neoplasm of thyroid gland 07/18/2019 Overview: Suppressed TSH goal 0.1-0.3. documented as of this encounter (statuses as of 10/20/2021) [facility] of Past illness Narrative* Problem Noted Date Resolved Date Unspecified constipation 02/13/2010 016 Osteolytic lesion 09/13/2009 04/28/2016 Dysmetabolic syndrome X 04/02/2005 04/28/20 16 Malignant neoplasm of thyroid gland 07/18/2019 Overview: Suppressed TSH goal 0.1-0.3. documented as of this encounter (statuses as of 12/08/2021) [place] [address]-19-2010 History of Past illness Narrative* Problem Noted Date Resolved Date Unspecified constipation 02/13/2010 016 Osteolytic lesion 09/13/2009 04/28/2016 Dysmetabolic syndrome X 04/02/2005 04/28/20 16 Malignant neoplasm of thyroid gland 07/18/2019 Overview: Suppressed TSH goal 0.1-0.3. documented as of this encounter (statuses as of 12/12/2021) [facility] of [facility] illness Narrative* Problem Noted Date Resolved Date Unspecified constipation 02/13/2010 016 Osteolytic lesion 09/13/2009 04/28/2016 Dysmetabolic syndrome X 04/02/2005 04/28/20 16 Malignant neoplasm of thyroid gland 07/18/2019 Overview: Suppressed TSH goal 0.1-0.3. documented as of this encounter (statuses as of 02/03/2022) [address]19-2010 History of Past illness Narrative* Problem Noted Date Resolved Date Unspecified constipation 02/13/2010 016 Osteolytic lesion 09/13/2009 04/28/2016 Dysmetabolic syndrome X 04/02/2005 04/28/20 16 Malignant neoplasm of thyroid gland 07/18/2019 Overview: Suppressed TSH goal 0.1-0.3. documented as of this encounter (statuses as of 03/20/2022) [facility] of [facility] illness Narrative* Problem Noted Date Resolved Date Unspecified constipation 02/13/2010 016 Osteolytic lesion 09/13/2009 04/28/2016 Dysmetabolic syndrome X 04/02/2005 04/28/20 16 Malignant neoplasm of thyroid gland 07/18/2019 Overview: Suppressed TSH goal 0.1-0.3. documented as of this encounter (statuses as of 04/21/2022) [place] [address]19[address]2010 History of Past illness Narrative* Problem Noted Date Resolved Date Unspecified constipation 02/13/2010 016 Osteolytic lesion 09/13/2009 04/28/2016 Dysmetabolic syndrome X 04/02/2005 04/28/20 16 Malignant neoplasm of thyroid gland 07/18/2019 Overview: Suppressed TSH goal 0.1-0.3. documented as of this encounter (statuses as of 05/18/2022) [place] [address]19[address]2010 History of Past illness Narrative* Problem Noted Date Resolved Date Unspecified constipation 02/13/2010 016 Osteolytic lesion 09/13/2009 04/28/2016 Dysmetabolic syndrome X 04/02/2005 04/28/20 16 Malignant neoplasm of thyroid gland 07/18/2019 Overview: Suppressed TSH goal 0.1-0.3. documented as of this encounter (statuses as of 05/22/2022) [facility] illness Narrative* Problem Noted Date Resolved Date Unspecified constipation 02/13/2010 016 Osteolytic lesion 09/13/2009 04/28/2016 Dysmetabolic syndrome X 04/02/2005 04/28/20 16 Malignant neoplasm of thyroid gland 07/18/2019 Overview: Suppressed TSH goal 0.1-0.3. documented as of this encounter (statuses as of 09/11/2022) [facility] illness Narrative* Problem Noted Date Resolved Date Unspecified constipation 02/13/2010 016 Osteolytic lesion 09/13/2009 04/28/2016 Dysmetabolic syndrome X 04/02/2005 04/28/20 16 Malignant neoplasm of thyroid gland 07/18/2019 Overview: Suppressed TSH goal 0.1-0.3. documented as of this encounter (statuses as of 09/21/2022) [facility] Narrative* Problem Noted Date Resolved Date Unspecified constipation 02/13/2010 016 Osteolytic lesion 09/13/2009 04/28/2016 Dysmetabolic syndrome X 04/02/2005 04/28/20 16 Malignant neoplasm of thyroid gland 07/18/2019 Overview: Suppressed TSH goal 0.1-0.3. documented as of this encounter (statuses as of 11/03/2022) [facility] illness Narrative* Problem Noted Date Resolved Date Unspecified constipation 02/13/2010 016 Osteolytic lesion 09/13/2009 04/28/2016 Dysmetabolic syndrome X 04/02/2005 04/28/20 16 Malignant neoplasm of thyroid gland 07/18/2019 Overview: Suppressed TSH goal 0.1-0.3. documented as of this encounter (statuses as of 12/16/2022) [facility] Narrative* Problem Noted Date Diagnosed Date Resolved Date Unspecified constipation 02/13/201006/2015 Osteolytic lesion 09/13/2009 04/28/2016 Dysmetabolic syndrome X 04/02/200506/2015 Malignant neoplasm of thyroid gland 07/18/2019 Overview: Suppressed TSH goal 0.1-0.3. documented as of this encounter (statuses as of 02/17/2023) [place] [address]19[address]2010 History of Past illness Narrative* Problem Noted Date Diagnosed Date Resolved Date Unspecified constipation 02/13/201006/2015 Osteolytic lesion 09/13/2009 04/28/2016 Dysmetabolic syndrome X 04/02/200506/2015 Malignant neoplasm of thyroid gland 07/18/2019 Overview: Suppressed TSH goal 0.1-0.3. documented as of this encounter (statuses as of 05/02/2023) [place] [address]19[address]2010 History of Past illness Narrative* Problem Noted Date Diagnosed Date Resolved Date Unspecified constipation 02/13/201006/2015 Osteolytic lesion 09/13/2009 04/28/2016 Dysmetabolic syndrome X 04/02/200506/2015 Malignant neoplasm of thyroid gland 07/18/2019 Overview: Suppressed TSH goal 0.1-0.3. documented as of this encounter (statuses as of 05/02/2023) [place] [address]19-2010 History of Past illness Narrative* Problem Noted Date Diagnosed Date Resolved Date Unspecified constipation 02/13/201006/2015 Osteolytic lesion 09/13/2009 04/28/2016 Dysmetabolic syndrome X 04/02/200506/2015 Malignant neoplasm of thyroid gland 07/18/2019 Overview: Suppressed TSH goal 0.1-0.3. documented as of this encounter (statuses as of 08/20/2023) [facility] illness Narrative* Problem Noted Date Diagnosed Date Resolved Date Unspecified constipation 02/13/201006/2015 Osteolytic lesion 09/13/2009 04/28/2016 Dysmetabolic syndrome X 04/02/200506/2015 Malignant neoplasm of thyroid gland 07/18/2019 Overview: Suppressed TSH goal 0.1-0.3. documented as of this encounter (statuses as of 09/30/2023) [facility] of [facility] illness Narrative* Problem Noted Date Diagnosed Date Resolved Date Unspecified constipation 02/13/201006/2015 Osteolytic lesion 09/13/2009 04/28/2016 Dysmetabolic syndrome X 04/02/200506/2015 Malignant neoplasm of thyroid gland 07/18/2019 Overview: Suppressed TSH goal 0.1-0.3. documented as of this encounter (statuses as of 10/07/2023) [facility] Diagnosis Mixed hyperlipidemia- Primary Essential hypertension, benign Acquired hypothyroidism Unspecified hypothyroidism [facility] this [facility]* Diagnosis Palpitations- Primary Skin lesion of chest wall Unspecified disorder of skin and subcutaneous tissue Stage 3b chronic kidney disease (HCC) Acquired hypothyroidism Unspecified hypothyroidism Essential hypertension, benign Mixed hyperlipidemia Chronic cough Cough Venous insufficiency Unspecified venous (peripheral) insufficiency [facility] this [facility]* Diagnosis VT (ventricular tachycardia) (HCC)- Primary Paroxysmal ventricular tachycardia Paroxysmal SVT (supraventricular tachycardia) (HCC) Paroxysmal supraventricular tachycardia Stage 3b chronic kidney disease (HCC) Essential hypertension, benign Mixed hyperlipidemia Acquired hypothyroidism Unspecified hypothyroidism [facility]* Diagnosis Essential hypertension, benign [facility]* Diagnosis Mixed hyperlipidemia [facility] Diagnosis Medicare annual wellness visit, subsequent- Primary Routine general medical examination at a health care facility Mixed hyperlipidemia Essential hypertension, benign Acquired hypothyroidism Unspecified hypothyroidism [facility]* Diagnosis VT (ventricular tachycardia)- Primary Paroxysmal ventricular tachycardia Paroxysmal SVT (supraventricular tachycardia) (HCC) Paroxysmal supraventricular tachycardia Essential hypertension, benign Mixed hyperlipidemia PAREDES (dyspnea on exertion) Other dyspnea and respiratory abnormality [facility] in this [facility]* Diagnosis Stage 3b chronic kidney disease (HCC)- Primary Acquired hypothyroidism Unspecified hypothyroidism Essential hypertension, benign Venous insufficiency Unspecified venous (peripheral) insufficiency Paroxysmal SVT (supraventricular tachycardia) (HCC) Paroxysmal supraventricular tachycardia [facility] this [facility]* Diagnosis VT (ventricular tachycardia) (HCC)- Primary Paroxysmal ventricular tachycardia Paroxysmal SVT (supraventricular tachycardia) (HCC) Paroxysmal supraventricular tachycardia Essential hypertension, benign Mixed hyperlipidemia Sinus bradycardia Other specified cardiac dysrhythmias [facility] this [facility]* Diagnosis Stage 3b chronic kidney disease (HCC)- Primary Mixed hyperlipidemia Essential hypertension, benign Bladder retention of urine Retention of urine, unspecified Acquired complex cyst of kidney, left [facility]* Diagnosis Essential hypertension, benign- Primary Venous insufficiency Unspecified venous (peripheral) insufficiency Hypertensive kidney disease with stage 3b chronic kidney disease (HCC) [facility]* Diagnosis Essential hypertension, benign- Primary Bladder retention of urine Retention of urine, unspecified Stage 3b chronic kidney disease (HCC) [facility] Diagnosis VT (ventricular tachycardia) (HCC) Paroxysmal ventricular tachycardia Essential hypertension, benign Mixed hyperlipidemia PAREDES (dyspnea on exertion) Other dyspnea and respiratory abnormality [facility]* Diagnosis Stage 3b chronic kidney disease (HCC) [facility]* Diagnosis Obesity, Class II, BMI 35-39.9- Primary Obesity, unspecified Acquired hypothyroidism Unspecified hypothyroidism Venous insufficiency Unspecified venous (peripheral) insufficiency Essential hypertension, benign Vitamin D deficiency Unspecified vitamin D deficiency Mixed hyperlipidemia [facility] Diagnosis VT (ventricular tachycardia) (HCC) Paroxysmal ventricular tachycardia Paroxysmal SVT (supraventricular tachycardia) (HCC) Paroxysmal supraventricular tachycardia Essential hypertension, benign [facility]* Diagnosis Medicare annual wellness visit, subsequent- Primary Routine general medical examination at a health care facility Acquired hypothyroidism Unspecified hypothyroidism Skin lesion of chest wall Unspecified disorder of skin and subcutaneous tissue Essential hypertension, benign Mixed hyperlipidemia [facility] Diagnosis Mixed hyperlipidemia [facility] Diagnosis Palpitations- Primary Skin lesion of chest wall Unspecified disorder of skin and subcutaneous tissue Stage 3b chronic kidney disease (HCC) Acquired hypothyroidism Unspecified hypothyroidism Essential hypertension, benign Mixed hyperlipidemia Chronic cough Cough Venous insufficiency Unspecified venous (peripheral) insufficiency Essential hypertension, benign [facility] Diagnosis Palpitations- Primary Skin lesion [...] of urine, unspecified [facility] Diagnosis Palpitations- Primary Skin lesion [...] and behavioral disorders [facility] Diagnosis Palpitations- Primary Skin lesion of chest wall Unspecified disorder of skin and subcutaneous tissue Stage 3b chronic kidney disease (HCC) Acquired hypothyroidism Unspecified hypothyroidism Essential hypertension, benign Mixed hyperlipidemia Chronic cough Cough Venous insufficiency Unspecified venous (peripheral) insufficiency Essential hypertension, benign Bladder retention of urine Retention of urine, unspecified [facility] Diagnosis Palpitations- Primary Skin lesion of chest wall Unspecified disorder of skin and subcutaneous tissue Stage 3b chronic kidney disease (HCC) Acquired hypothyroidism Unspecified hypothyroidism Essential hypertension, benign Mixed hyperlipidemia Chronic cough Cough Venous insufficiency Unspecified venous (peripheral) insufficiency Acquired hypothyroidism Unspecified hypothyroidism Essential hypertension, benign documented in this encounter [facility] Diagnosis Palpitations- Primary Skin lesion of chest wall Unspecified disorder of skin and subcutaneous tissue Stage 3b chronic kidney disease (HCC) Acquired hypothyroidism Unspecified hypothyroidism Essential hypertension, benign Mixed hyperlipidemia Chronic cough Cough Venous insufficiency Unspecified venous (peripheral) insufficiency VT (ventricular tachycardia) (HCC) Paroxysmal ventricular tachycardia Paroxysmal SVT (supraventricular tachycardia) (HCC) Paroxysmal supraventricular tachycardia Essential hypertension, benign documented in this encounter [facility] Diagnosis Palpitations- Primary Skin lesion of chest wall Unspecified disorder of skin and subcutaneous tissue Stage 3b chronic kidney disease (HCC) Acquired hypothyroidism Unspecified hypothyroidism Essential hypertension, benign Mixed hyperlipidemia Chronic cough Cough Venous insufficiency Unspecified venous (peripheral) insufficiency Essential hypertension, benign documented in this encounter [facility] Discharge instructionsAdditional Instructions Operations Performed:Chest skin cancer excision Instructions for My Care at Home or Healthcare Facility The following instructions will help you know what to expect in the days following surgery. These are general instructions. Your surgeon and therapist may give you special instructions, which vary to some degree based on your specific procedure -- follow those as directed. Do not, however, hesitate to call if you have any questions or concerns. Splint Care/Dressing Care/Wound Care Dressings - You may have a dressing over the operative site. Keep the dressing dry and clean Avoid smoking or other tobacco products. Smoking tobacco impairs wound healing and increases the risks of post-operative complications. Tape over your incisions (if present) will fall off on its own Activities For the first 4 weeks after surgery, try to balance your activity, allowing time for rest. Avoid lifting, pushing, or pulling anything over [address] or operate heavy machinery within 24 hrs of surgery or while taking narcotic pain medication. Pain Control/Medications Resume your blood thinner immediately If you received an anesthetic block, your hand or arm may be numb for several hours. You will be discharged to home with medications, including an oral pain medication (analgesic). Rest and elevation are still one of the most important factors for pain control. Take your pain medication as needed, but do not wait for the pain to become out of control. For severe pain, you may take prescription pain medication as directed, but please note that this may also contain Tylenol (e.g. Percocet). Do not take more than 4000mg of Tylenol (acetaminophen) from all sources daily. Pain medication may cause some lethargy, nausea, and or constipation. You should not drive/operate dangerous machinery while taking these medications. If these or other symptoms become significantly problematic, please your surgeon's office. If prescribed oral antibiotics (Keflex, Clindamycin, or others), please take prescription for full duration as instructed. You should not have any pills remaining once completed (refills are written for your convenience should the course need to be extended, but generally they are not required). Diet (what I can eat): Resume normal diet Follow up You will be seen (most likely) 1 to 2 weeks after surgery depending on the procedure. Follow-up appointment reminders: (A list of any scheduled appointments is at the end of this document) At your earliest convenience, please call [phone] to confirm/schedule a follow-up appointment with me] in clinic. When to call your surgeon: If any signs of surgical site infection develop: redness, pus, pain, increased swelling or foul odor at the incision site, fever, cold and clammy skin, or confusion. Consistent temperature above 101 F (38.3 C). The affected area gets swollen or much more painful. You have excessive bleeding from surgical site (soaking through). If you experience difficulty breathing and/or shortness of breath, seek immediate medical attention. If experiencing any of the above complications or if you have any questions, call [phone] Work Phone: Hospital Discharge instructionsAdditional Instructions Operations Performed: skin graft Instructions for My Care at Home or Healthcare Facility The following instructions will help you know what to expect in the days following surgery. These are general instructions. Your surgeon and therapist may give you special instructions, which vary to some degree based on your specific procedure -- follow those as directed. Do not, however, hesitate to call if you have any questions or concerns. Splint Care/Dressing Care/Wound Care Dressings - You may have a dressing over the operative site Keep the bolster dressing (yellow gauze on chest) and the thigh dressing in place until clinic. Keep it dry. If the dressing feels too tight after you get home, it is ok to gently pull on the dressing to stretch it out/loosen it. Avoid smoking or other tobacco products. Smoking tobacco impairs wound healing and increases the risks of post-operative complications. Activities Continue all medications as normal including the blood thinner For the first 4 weeks after surgery, try to balance your activity, allowing time for rest. Avoid lifting, pushing, or pulling anything over [address] or operate heavy machinery within 24 hrs of surgery or while taking narcotic pain medication. Pain Control/Medications If you received an anesthetic block, your hand or arm may be numb for several hours. You will be discharged to home with medications, including an oral pain medication (analgesic). Rest and elevation are still one of the most important factors for pain control. Take your pain medication as needed, but do not wait for the pain to become out of control. For severe pain, you may take prescription pain medication as directed, but please note that this may also contain Tylenol (e.g. Percocet). Do not take more than 4000mg of Tylenol (acetaminophen) from all sources daily. Pain medication may cause some lethargy, nausea, and or constipation. You should not drive/operate dangerous machinery while taking these medications. If these or other symptoms become significantly problematic, please your surgeon's office. If prescribed oral antibiotics (Keflex, Clindamycin, or others), please take prescription for full duration as instructed. You should not have any pills remaining once completed (refills are written for your convenience should the course need to be extended, but generally they are not required). Diet (what I can eat): Resume normal diet Follow up You will be seen (most likely) 1 to 2 weeks after surgery depending on the procedure. Follow-up appointment reminders: (A list of any scheduled appointments is at the end of this document) At your earliest convenience, please call [phone] to confirm/schedule a follow-up appointment with me in clinic. When to call your surgeon: If any signs of surgical site infection develop: redness, pus, pain, increased swelling or foul odor at the incision site, fever, cold and clammy skin, or confusion. Consistent temperature above 101 F (38.3 C). The affected area gets swollen or much more painful. You have excessive bleeding from surgical site (soaking through). If you experience difficulty breathing and/or shortness of breath, seek immediate medical attention. If experiencing any of the above complications or if you have any questions, call [phone] Work Phone: Reason for referral (narrative)* Outpatient Procedure (Routine) - Authorized Specialty Diagnoses / Procedures Referred By Contac t Referred To Contact [facility] Diagnoses Palpitations Procedures ECHO ECHO TTHRC R-T 2D W/WOM-MODE COMPL SPEC&COLR D Isela West APRN.HAZARDOUS SUBSTANCES SCIENTIST [address] [place] [address] [address] Referral ID Status Reason Start Date Expiration Date Visits Requested Visits Authorized [id number] Authorized Auto-Generat ed Referral 10/20/2021 10/20/2022 1 1 * Transition of Care (Routine) - Ref Not Required Specialty Diagnoses / Procedures Referred By Rene t Referred To Contact Dermatology Diagnoses Skin lesion of chest wall Procedures CONSULT TO DERMATOLOGY Isela West APRN.CNP [address] [place] [address] Referral ID Status Reason Start Date Expiration Date Visits Requested Visits Authorized [id number] Ref Not Required PCP Requested Referral 10/20/2021 10/20/2022 1 1 * Outpatient Procedure (Routine) - Authorized Specialty Diagnoses / Procedures Referred By Rene t Referred To Contact [facility] [place] Diagnoses Palpitations Procedures ECG COMPLETE ECG ROUTINE ECG W/LEAST 12 LDS W/I&R Isela West APRN.HAZARDOUS SUBSTANCES SCIENTIST [address] [place] [address] [facility] [address] [address] Referral ID Status Reason Start Date Expiration Date Visits Requested Visits Authorized [id number] Authorized Auto-Generat ed Referral 10/20/2021 10/20/2022 1 1 [facility] for referral (narrative)* Diagnostic Procedure Only (Routine) - Authorized Specialty Diagnoses / Procedures Referred By Contact Referred To Contact MOLECULAR & FUNCTIONAL IMAGING Diagnoses VT (ventricular tachycardia) Essential hypertension, benign Mixed hyperlipidemia PAREDES (dyspnea on exertion) Procedures NM CARDIAC PERF STRESS/EXERCISE MYOCARDIAL SPECT MULTIPLE STUDIES Gurwinder Ayala MD [address] [place] [id number] Molecular & Functional Imaging [address] [place] [address] Referral ID Status Reason Start Date Expiration Date Visits Requested Visits Authorized [id number] Authorized Auto-Generat ed Referral 06/17/2023 1 1 [facility] for referral (narrative)* Diagnostic Procedure Only (Routine) - Authorized Specialty Diagnoses / Procedures Referred By Contac t Referred To Contact US IMAGING Diagnoses Stage 3b chronic kidney disease (HCC) Procedures US KIDNEY/BLADDER US RETROPERITONEAL REAL TIME W/IMAGE COMPLETE Dimitri Marie MD [address] [place], [place] [id number] [facility] Referral ID Status Reason Start Date Expiration Date Visits Requested Visits Authorized [id number] Authorized Auto-Generat ed Referral 09/11/2022 10/11/2023 1 1 [facility] for referral (narrative)* Diagnostic Procedure Only (Routine) - Closed Specialty Diagnoses / Procedures Referred By Contact Referred To Contact MOLECULAR & FUNCTIONAL IMAGING Diagnoses VT (ventricular tachycardia) (HCC) Essential hypertension, benign Mixed hyperlipidemia PAREDES (dyspnea on exertion) Procedures NM CARDIAC PERF STRESS/EXERCISE MYOCARDIAL SPECT MULTIPLE STUDIES Gurwinder Ayala MD [address] [place] [address] Molecular & Functional Imaging [address] [place] [address] Referral ID Status Reason Start Date Expiration Date V isits Requested Visits Authorized [id number] Closed Auto-Generate d Referral 05/18/2022 06/17/2023 1 1 [facility] for referral (narrative)* Diagnostic Procedure Only (Routine) - Closed Specialty Diagnoses / Procedures Referred By Contac t Referred To Contact US IMAGING Diagnoses Stage 3b chronic kidney disease (HCC) Procedures US KIDNEY/BLADDER US RETROPERITONEAL REAL TIME W/IMAGE COMPLETE Dimitri Marie MD [address] [place] [address] [facility] [place] [address] Referral ID Status Reason Start Date Expiration Date V isits Requested Visits Authorized [id number] Closed Auto-Generate d Referral 09/11/2022 10/11/[address] [facility] ([facility]arrative)No reason for referral information availableWCleveland Clinic [facility] Work Phone: Reason for visit Narrative* Diagnostic Procedure Only (Routine) - Closed Specialty Diagnoses / Procedures Referred By Contact Referred To Contact MOLECULAR & FUNCTIONAL IMAGING Diagnoses VT (ventricular tachycardia) (HCC) Essential hypertension, benign Mixed hyperlipidemia PAREDES (dyspnea on exertion) Procedures NM CARDIAC PERF STRESS/EXERCISE MYOCARDIAL SPECT MULTIPLE STUDIES Gurwinder Ayala MD [address] [place] [id number] Molecular & Functional Imaging [address] [place] [address] Referral ID Status Reason Start Date Expiration Date V isits Requested Visits Authorized [id number] Closed Auto-Generate d Referral 05/18/2022 06/17/[address] [facility] Reason for Referral Specialty Diagnoses / Procedures Referred By Contac t Referred To Contact Cardiology Diagnoses VT (ventricular tachycardia) (HCC) Paroxysmal SVT (supraventricular tachycardia) (HCC) Procedures CONSULT TO CARDIOLOGY OFFICE/OUTPATIENT [facility] 60-74 MINUTES Dimitri Marie MD [address] [place] [address] Referral ID Status Reason Start Date Expiration Date Visits Requested Visits Authorized [id number] Authorized PCP Requested Referral 12/12/2021 12/12/2022 1 1 Specialty Diagnoses / Procedures Referred By Contac t Referred To Contact Dermatology Diagnoses Skin lesion of chest wall Procedures CONSULT TO DERMATOLOGY Isela Patel, OCCUPATIONAL THER.HAZARDOUS SUBSTANCES SCIENTIST [address] [place] [address] Referral ID Status Reason Start Date Expiration Date Visits Requested Visits Authorized [id number] Ref Not Required PCP Requested Referral 10/06/2023 [...] 1:06pm Vertebral artery stenosis January 05 1:06pm Reason for Visit Admit Date 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 OCCLUSION W/ SEVERE December 06, 2024 3:31pm LEFT RETINAL A. OCCLUSION W/ SEVERE December 07, 2024 11:12am INT LABS December 15, 2024 9:58 am 30 DAY MONITOR December 16, 2024 1:27 pm CRAO W/ SUBCLAVIAN THROMBOSIS December 16, 2024 [...] 1:06pm Vertebral artery stenosis January 05 1:06pm Skin cancer January 11, 2025 8:43 am Skin cancer January 12, 2025 5:36 am Basal cell carcinoma January 23, 2025 9:4 0am Skin cancer January 23, 2025 9:40 am Advance Directives Advance Directive Response Recorded Date/ Time Do you have a Healthcare Power of Sweatband Perforator? No December 06, 2024 12:19pm Advance Directives No April 1:10pm Advance Directive Response Recorded Date/ Time Do you have a Healthcare Power of Sweatband Perforator? No December 06, 2024 9:27pm Advance Directives No April 1:10pm Advance Directive Response Recorded Date/ Time Do you have a Healthcare Power of Sweatband Perforator? No December 06, 2024 9:27pm Do you have a Healthcare Power of Sweatband Perforator? No January 11, 2025 10:33am Advance Directives No April 1:10pm Advance Directive Response Recorded Date/ Time Do you have a Healthcare Power of Sweatband Perforator? No December 06, 2024 9:27pm Do you have a Healthcare Power of Sweatband Perforator? No January 11, 2025 10:33am Do you have a Healthcare Power of Sweatband Perforator? No January 18, 2025 10:25am Advance Directives No April 1:10pm Summary Purpose [...] or prosecute any alcohol or drug abuse patient.[facility] Hospital[facility] the event this information is protected by the Federal Confidentiality of Alcohol and Drug Abuse Patient Records regulations: The Federal rules restrict any use of the information to criminally investigate or prosecute any alcohol or drug abuse patient.[facility] Hospital[facility] the event this information is protected by the Federal Confidentiality of Alcohol and Drug Abuse Patient Records regulations: The Federal rules restrict any use of the information to criminally investigate or prosecute any alcohol or drug abuse patient.[facility] Hospital[facility] the event this information is protected by the Federal Confidentiality of Alcohol and Drug Abuse Patient Records regulations: The Federal rules restrict any use of the information to criminally investigate or prosecute any alcohol or drug abuse patient.[facility] HospitalIn the event this information is protected by the Federal Confidentiality of Alcohol and Drug Abuse Patient Records regulations: The Federal rules restrict any use of the information to criminally investigate or prosecute any alcohol or drug abuse patient.[facility] HospitalIn the event this information is protected by the Federal Confidentiality of Alcohol and Drug Abuse Patient Records regulations: The Federal rules restrict any use of the information to criminally investigate or prosecute any alcohol or drug abuse patient.[facility] HospitalIn the event this information is protected by the Federal Confidentiality of Alcohol and Drug Abuse Patient Records regulations: The Federal rules restrict any use of the information to criminally investigate or prosecute any alcohol or drug abuse patient.[facility] HospitalIn the event this information is protected by the Federal Confidentiality of Alcohol and Drug Abuse Patient Records regulations: The Federal rules restrict any use of the information to criminally investigate or prosecute any alcohol or drug abuse patient.[facility] HospitalIn the event this information is protected by the Federal Confidentiality of Alcohol and Drug Abuse Patient Records regulations: The Federal rules restrict any use of the information to criminally investigate or prosecute any alcohol or drug abuse patient.[facility] HospitalIn the event this information is protected by the Federal Confidentiality of Alcohol and Drug Abuse Patient Records regulations: The Federal rules restrict any use of the information to criminally investigate or prosecute any alcohol or drug abuse patient.[facility] HospitalIn the event this information is protected by the Federal Confidentiality of Alcohol and Drug Abuse Patient Records regulations: The Federal rules restrict any use of the information to criminally investigate or prosecute any alcohol or drug abuse patient.[facility] HospitalIn the event this information is protected by the Federal Confidentiality of Alcohol and Drug Abuse Patient Records regulations: The Federal rules restrict any use of the information to criminally investigate or prosecute any alcohol or drug abuse patient.[facility] HospitalIn the event this information is protected by the Federal Confidentiality of Alcohol and Drug Abuse Patient Records regulations: The Federal rules restrict any use of the information to criminally investigate or prosecute any alcohol or drug abuse patient.[facility] HospitalIn the event this information is protected by the Federal Confidentiality of Alcohol and Drug Abuse Patient Records regulations: The Federal rules restrict any use of the information to criminally investigate or prosecute any alcohol or drug abuse patient.[facility] HospitalIn the event this information is protected by the Federal Confidentiality of Alcohol and Drug Abuse Patient Records regulations: The Federal rules restrict any use of the information to criminally investigate or prosecute any alcohol or drug abuse patient.[facility] HospitalIn the event this information is protected by the Federal Confidentiality of Alcohol and Drug Abuse Patient Records regulations: The Federal rules restrict any use of the information to criminally investigate or prosecute any alcohol or drug abuse patient.[facility] HospitalIn the event this information is protected by the Federal Confidentiality of Alcohol and Drug Abuse Patient Records regulations: The Federal rules restrict any use of the information to criminally investigate or prosecute any alcohol or drug abuse patient.[facility] HospitalIn the event this information is protected by the Federal Confidentiality of Alcohol and Drug Abuse Patient Records regulations: The Federal rules restrict any use of the information to criminally investigate or prosecute any alcohol or drug abuse patient.[facility] HospitalIn the event this information is protected by the Federal Confidentiality of Alcohol and Drug Abuse Patient Records regulations: The Federal rules restrict any use of the information to criminally investigate or prosecute any alcohol or drug abuse patient.[facility] HospitalIn the event this information is protected by the Federal Confidentiality of Alcohol and Drug Abuse Patient Records regulations: The Federal rules restrict any use of the information to criminally investigate or prosecute any alcohol or drug abuse patient.[facility] HospitalIn the event this information is protected by the Federal Confidentiality of Alcohol and Drug Abuse Patient Records regulations: The Federal rules restrict any use of the information to criminally investigate or prosecute any alcohol or drug abuse patient.[facility] HospitalIn the event this information is protected by the Federal Confidentiality of Alcohol and Drug Abuse Patient Records regulations: The Federal rules restrict any use of the information to criminally investigate or prosecute any alcohol or drug abuse patient.[facility] HospitalIn the event this information is protected by the Federal Confidentiality of Alcohol and Drug Abuse Patient Records regulations: The Federal rules restrict any use of the information to criminally investigate or prosecute any alcohol or drug abuse patient.[facility] HospitalIn the event this information is protected by the Federal Confidentiality of Alcohol and Drug Abuse Patient Records regulations: The Federal rules restrict any use of the information to criminally investigate or prosecute any alcohol or drug abuse patient.[facility] HospitalIn the event this information is protected by the Federal Confidentiality of Alcohol and Drug Abuse Patient Records regulations: The Federal rules restrict any use of the information to criminally investigate or prosecute any alcohol or drug abuse patient.[facility] HospitalIn the event this information is protected by the Federal Confidentiality of Alcohol and Drug Abuse Patient Records regulations: The Federal rules restrict any use of the information to criminally investigate or prosecute any alcohol or drug abuse patient.[facility] HospitalIn the event this information is protected by the Federal Confidentiality of Alcohol and Drug Abuse Patient Records regulations: The Federal rules restrict any use of the information to criminally investigate or prosecute any alcohol or drug abuse patient.[facility] HospitalIn the event this information is protected by the Federal Confidentiality of Alcohol and Drug Abuse Patient Records regulations: The Federal rules restrict any use of the information to criminally investigate or prosecute any alcohol or drug abuse patient.[facility] HospitalIn the event this information is protected by the Federal Confidentiality of Alcohol and Drug Abuse Patient Records regulations: The Federal rules restrict any use of the information to criminally investigate or prosecute any alcohol or drug abuse patient.[facility] HospitalIn the event this information is protected by the Federal Confidentiality of Alcohol and Drug Abuse Patient Records regulations: The Federal rules restrict any use of the information to criminally investigate or prosecute any alcohol or drug abuse patient.[facility] Reason for Visit (unrecogniz ed section [...] HIGH MDM 60-[place] [address] [place] [id number] Referral ID Status Reason Start Date Expiration Date V isits Requested Visits Authorized [id number] Closed PCP Requested Referral 12/12/2021 12/12/2022 1 [...] TIME W/IMAGE COMPLETE Dimitri Marie MD [address] [place] [address] [id number] Referral ID Status Reason Start Date Expiration Date V isits Requested Visits Authorized [id number] Closed Auto-Generate d Referral 09/11/2022 10/11/2023 1 [...] Provider Active Start: December 07, 2024 Dr. Ysah Gerardo MD Other Provider Active Start : [...] Provider Active Start: December 07, 2024 Dr. oRnn Mcclellan MD Other Provider Active St art: [...] Attending Provider Active Start: December 07, 2024 [employer] Relationship Specialty Start Date End Date Dimitri Marie MD [address] [place] [address] PCP - General Internal Medicine 04/28/16 [employer] Relationship Specialty Start Date End Date Dimitri Marie MD [address] [place] [address] PCP - General Internal Medicine 04/28/16 [employer]er Relationship Specialty Start Date End Date Dimitri Marie MD [address] [place] [address] PCP - General Internal Medicine 04/28/16 [employer]er Relationship Specialty Start Date End Date Dimitri Marie MD [address] [place] [address] PCP - General Internal Medicine 04/28/16 [employer]er Relationship Specialty Start Date End Date Dimitri Marie MD [address] [place] [address] PCP - General Internal Medicine 04/28/16 [employer] Pow[employer] Mixer Relationship Specialty Start Date End Date Dimitri Marie MD [address] [facility] [place] [address] PCP - General Internal Medicine 04/28/16 [employer] Mixer Relationship Specialty Start Date End Date Dimitri Marie MD [address] [facility] [place] [address] PCP - General Internal Medicine 04/28/16 [employer]er Relationship Specialty Start Date End Date Dimitri Marie MD [address] [place] [address] PCP - General Internal Medicine 04/28/16 [employer]iary Pow[employer] Mixer Relationship Specialty Start Date End Date Dimitri Marie MD [address] [place] [address] PCP - General Internal Medicine 04/28/16 [employer] Pow[employer] Mixer Relationship Specialty Start Date End Date Dimitri Marie MD [address] [place] [address] PCP - General Internal Medicine 04/28/16 [employer]iary Pow[employer] Mixer Relationship Specialty Start Date End Date Dimitri Marie MD [address] [place] [address] PCP - General Internal Medicine 04/28/16 [employer]iary Pow[employer] Mixer Relationship Specialty Start Date End Date Dimitri Marie MD [address] [place] [address] PCP - General Internal Medicine 04/28/16 [employer] Pow[employer] Mixer Relationship Specialty Start Date End Date Dimitri Marie MD [address] [place] [address] PCP - General Internal Medicine 04/28/16 [employer] Mixer Relationship Specialty Start Date End Date Dimitri Marie MD [address] [facility] [place] [address] PCP - General Internal Medicine 04/28/16 [employer]er Relationship Specialty Start Date End Date Dimitri Marie MD [address] [facility] [place] [address] PCP - General Internal Medicine 04/28/16 [employer]er Relationship Specialty Start Date End Date Dimitri Marie MD [address] [place] [address] PCP - General Internal Medicine 04/28/16 [employer]iary Pow[employer] Mixer Relationship Specialty Start Date End Date Dimitri Marie MD [address] [place] [address] PCP - General Internal Medicine 04/28/16 [employer]er Relationship Specialty Start Date End Date Dimitri Marie MD [address] [place] [address] PCP - General Internal Medicine 04/28/16 [employer]er Relationship Specialty Start Date End Date Dimitri Marie MD [address] [place] [address] PCP - General Internal Medicine 04/28/16 [employer]iary Pow[employer]er Relationship Specialty Start Date End Date Dimitri Marie MD [address] [place] [address] PCP - General Internal Medicine 04/28/16 [employer]iary Pow[employer] Mixer Relationship Specialty Start Date End Date Dimitri Marie MD [address] [place] [address] PCP - General Internal Medicine 04/28/16 [employer] Pow[employer] Mixer Relationship Specialty Start Date End Date Dimitri Marie MD [address] [facility] [place] [address] PCP - General Internal Medicine 04/28/16 [employer]er Relationship Specialty Start Date End Date Dimitri Marie MD [address] [place] [address] PCP - General Internal Medicine 04/28/16 [employer] Relationship Specialty Start Date End Date Dimitri Marie MD [address] [place] [address] PCP - General Internal Medicine 04/28/16 Isela Patel, OCCUPATIONAL THER.HAZARDOUS SUBSTANCES SCIENTIST [address] [place] [address] Allergist Internal Medicine 06/05/24 [employer] Relationship Specialty Start Date End Date Dimitri Marie MD [address] [place] [address] PCP - General Internal Medicine 04/28/16 Isela Patel, OCCUPATIONAL THER.HAZARDOUS SUBSTANCES SCIENTIST [address] [place] [address] Allergist Internal Medicine 06/05/24 [employer]er Relationship Specialty Start Date End Date Dimitri Marie MD [address] [place] [address] PCP - General Internal Medicine 04/28/16 Isela Patel, OCCUPATIONAL THER.HAZARDOUS SUBSTANCES SCIENTIST [address] [place] [address] Allergist Internal Medicine 06/05/24 [employer] Relationship Specialty Start Date End Date Dimitri Marie MD [address] [place] [address] PCP - General Internal Medicine 04/28/16 Isela Patel, OLIVER[employer].HAZARDOUS SUBSTANCES SCIENTIST [address] [place] [address] Allergist Internal Medicine 06/05/24 Team Status: Active Member [...] January 11, 2025 End: January 11, 2025 Team Status: Inactive Member Role/Relationship Status Dates Dr. Dimitri Marie MD Primary Care Provider Active Start: January 12, 2025 End: January 12, 2025 Dr. Eric Clark MD Attending Provider Active Start: January 12, 2025 End: January 12, 2025 Dr. Eric Clark MD Referring Provider Active Start: January 12, 2025 End: January 12, 2025 Team Status: Active Member Role/Relationship Status Dates Dr. Dimitri Marie MD Primary Care Provider Active Start: January 12, 2025 Dr. Eric Clark MD Attending Provider Active Start: January 12, 2025 Dr. Eric Clark MD Referring Provider Active Start: January 12, 2025 Dr. Eric Clark MD Other Provider Active Star t: January 12, 2025 Team Status: Active Member Role/Relationship Status Dates Dr. Dimitri Marie MD Primary Care Provider Active Start: December 16, 2024 Dr. Julio Palma MD Attending Provider Active Start: December 16, 2024 Dr. Lyndon Dinh DO Referring Provider Active Start: December 16, 2024 Team Status: Active Member Role/Relationship Status [...] January 11, 2025 End: January 11, 2025 Team Status: Inactive Member Role/Relationship Status Dates Dr. Dimitri Marie MD Primary Care Provider Active Start: January 12, 2025 End: January 12, 2025 Dr. Eric Clark MD Attending Provider Active Start: January 12, 2025 End: January 12, 2025 Dr. Eric Clark MD Referring Provider Active Start: January 12, 2025 End: January 12, 2025 Team Status: Active Member Role/Relationship Status Dates Dr. Dimitri Marie MD Primary Care Provider Active Start: January 12, 2025 Dr. Eric Clark MD Attending Provider Active Start: January 12, 2025 Dr. Eric Clark MD Referring Provider Active Start: January 12, 2025 Dr. Eric Clark MD Other Provider Active Star t: January 12, 2025 Team Status: Active Member Role/Relationship Status Dates Dr. Dimitri Marie MD Primary Care Provider Active Start: January 23, 2025 Dr. Eric Clark MD Attending Provider Active Start: January 23, 2025 Dr. Eric Clark MD Referring Provider Active Start: January 23, 2025 Dr. Eric Clark MD Other Provider Active Star t: January 23, 2025 Team Status: Inactive Member Role/Relationship Status Dates Dr. Dimitri aMrie MD Primary Care Provider Active Start: January 23, 2025 End: January 23, 2025 Dr. Eric Clark MD Attending Provider Active Start: January 23, 2025 End: January 23, 2025 Dr. Eric Clark MD Referring Provider Active Start: January 23, 2025 End: January 23, 2025 Goals (unrecognized section and content) Goals may be documented in a n alternate section (unrecognized sect ion and content) No Status Records FoundNo Status Records Found INFORMATION SOURCE (unrecogn ized section and content) DATE CREATED AUTHOR 12/08/2024 [facility] DATE CREATED AUTHOR AUTHOR'S RIC YEPEZ 01/22/[address] [facility] FOR RECORDS PERTAINING TO PATIENTS WHO ARE [...] BE BASED ON THE PRIMARY CLINICAL RECORDS. [employer] provides no warranty or guarantee of the accuracy or completeness of information in this document.
== END 2025-01-23 13:34 | disposition home or self-care (01) ==
LOC: SDC 09:43 → AC 10:25
PROVIDERS: PCP Internal Medicine; Referring Provider Surgery Plastic and Reconstructive Surgery; Visit Provider Surgery Plastic and Reconstructive Surgery
PROC: (CPT 15100; principal; 2025-01-23 11:15)
DX: C44.519 Basal cell carcinoma of skin of other part of trunk (principal); I10 Essential (primary) hypertension; E07.9 Disorder of thyroid, unspecified; E78.00 Pure hypercholesterolemia, unspecified; Z79.01 Long term (current) use of anticoagulants; Z79.890 Hormone replacement therapy; Z79.899 Other long term (current) drug therapy; Z86.73 Personal history of transient ischemic attack (TIA), and cerebral infarction without residual deficits; Z87.891 Personal history of nicotine dependence
CPT/HCPCS: 15100; 15002